=== PATIENT | male | born 1945 | race Caucasian/White ===

== ENCOUNTER 2020-04-18 12:19 | Outpatient (REF) | payer MEDICARE, SELFPAY ==
--- NOTE | 2020-04-18 12:24 | XR_ITS ---
EXAMINATION: XR ANKLE, RIGHT CLINICAL INFORMATION: Pain COMPARISON: None TECHNIQUE: AP, lateral, and mortise views of the right ankle. FINDINGS: Bone alignment is normal. No fracture or dislocation is seen. There are small ossifications adjacent to the medial and lateral malleolar likely related to old trauma. There is a small osteophyte seen at the anterior tibiotalar joint. The ankle mortise is otherwise normal. There are calcaneal spurs. Soft tissues are otherwise normal. XR/XR ankle RT min 3V IMPRESSION: No acute fracture or dislocation. Small osteophyte at the anterior tibiotalar joint. Calcaneal spurs.
== END 2020-04-18 12:20 | disposition home or self-care (01) ==
LOC: HO.XRAY 12:19
PROVIDERS: Visit Provider Internal Medicine
DX: M25.579 Pain in unspecified ankle and joints of unspecified foot (principal)
CPT/HCPCS: 73610

== ENCOUNTER 2023-01-24 10:35 | Day surgery (SDC) | payer OTHER, SELFPAY ==
--- NOTE | 2023-01-22 14:15 | HO.ANESPROP2 ---
Documented by User: Teri Seymour NP 01/22/23 14:38 HPI - Anesthesia Eval Consult details Narrative: 77yo M for Colonoscopy Follows cardiology Dr Kwan at [place] - record request sent 01/22/[address] Rico at [facility] - called for records 01/22/23 [facility] Active Problems Active Problems: All Active Problems (Updated 09/03/21 @ 09:30 by Zacarias Reyes MD) Physical exam (Acute) Hyperlipidemia (Acute) Obesity (Acute) Osteoarthritis (Acute) Hypertension (Acute) Ankle pain (Acute) Past Medical History Medical History (Updated 01/22/23 @ 14:17 by Teri Seymour NP) AAA (abdominal aortic aneurysm) COPD (chronic obstructive pulmonary disease) Hyperlipidemia Hypertension Obesity PATRICIA (obstructive sleep apnea) Osteoarthritis Family History Family History Father Liver problem Mother Brain tumor Brother No problems noted. Brother No problems noted. Family/Other Prostate cancer Brain cancer Surgical History Surgical History (Updated 01/22/23 @ 14:17 by Teri Seymour NP) History of coronary artery stent placement History of inguinal hernia repair Status post left hip replacement Social History Social History Housing: House Alcohol intake: never Patient Tobacco Use Status: Former Tobacco user Tobacco use type: Cigarette e-Cigarette/Vaping Use: Never Used Second Hand Smoke Exposure: No Use of substances other than those prescribed or required for medical reasons: No Advance Directives: No Advance Directives Information Provided: Yes service: Yes Current occupational status: retired Cognitive needs: No Hearing needs: Yes Vision needs: Yes Meds Allergies Allergy/AdvReac Type Severity Reaction Status Date / Time amlodipine AdvReac Intermediate Swelling Verified 01/24/23 11:11 triamterene-hctz Allergy Intermediate Swelling Uncoded 01/24/23 11:14 Home Medications Medication Instructions Recorded Confirmed Last Taken Type aspirin 81 mg tablet,delayed 81 mg PO DAILY 04/18/20 01/24/23 Unknown History release lisinopril 20 mg tablet 20 mg PO DAILY 04/18/20 01/24/23 01/24/23 History metoprolol tartrate 50 mg tablet 50 mg PO DAILY 04/18/20 01/24/23 01/24/23 History pravastatin 40 mg tablet 40 mg PO DAILY 04/18/20 01/24/23 Unknown History Benadryl 01/23/23 Unknown History Exam Exam Date and Time: January 22, 2023 141 Assessment and Plan Assessment Anesthesia Assessment: Chart Reviewed Documented by User: Jon Oleary MD 01/24/23 12:06 [facility] Past Medical History Medical History (Updated 01/22/23 @ 14:17 by Teri Seymour NP) AAA (abdominal aortic aneurysm) COPD (chronic obstructive pulmonary disease) Hyperlipidemia Hypertension Obesity PATRICIA (obstructive sleep apnea) Osteoarthritis Family History Family History Father Liver problem Mother Brain tumor Brother No problems noted. Brother No problems noted. Family/Other Prostate cancer Brain cancer Family history of problems with anesthesia: No Surgical History Surgical History (Updated 01/22/23 @ 14:17 by Teri Seymour NP) History of coronary artery stent placement History of inguinal hernia repair Status post left hip replacement History of Problems with Anesthesia: No Social History Social History Housing: House Alcohol intake: never Patient Tobacco Use Status: Former Tobacco user Tobacco use type: Cigarette e-Cigarette/Vaping Use: Never Used Second Hand Smoke Exposure: No Use of substances other than those prescribed or required for medical reasons: No Advance Directives: No Advance Directives Information Provided: Yes service: Yes Current occupational status: retired Cognitive needs: No Hearing needs: Yes Vision needs: Yes Meds Allergies Allergy/AdvReac Type Severity Reaction Status Date / Time amlodipine AdvReac Intermediate Swelling Verified 01/24/23 11:11 triamterene-hctz Allergy Intermediate Swelling Uncoded 01/24/23 11:14 Home Medications Medication Instructions Recorded Confirmed Last Taken Type aspirin 81 mg tablet,delayed 81 mg PO DAILY 04/18/20 01/24/23 Unknown History release lisinopril 20 mg tablet 20 mg PO DAILY 04/18/20 01/24/23 01/24/23 History metoprolol tartrate 50 mg tablet 50 mg PO DAILY 04/18/20 01/24/23 01/24/23 History pravastatin 40 mg tablet 40 mg PO DAILY 04/18/20 01/24/23 Unknown History Benadryl 01/23/23 Unknown History Exam Airway Mallampati Class: III TM Dist: >3cm Heart: rrr Lungs: cta Assessment and Plan Assessment Anesthesia Assessment: Anesthesia Plan Discussed Final Anesthetic Review Family History of Problems with Anesthesia: No History of Problems with Anesthesia: No NPO: Yes ASA Class: III Final Preanesthetic Review: No Changes in Pt Med Stat, Meds/Allgs Chart Reviewed, Consent Obtained/Reviewed and Anes Risks/Benef Reviewed Patient Risk: Intermediate Procedure Risk: Low Anesthetic Plan Anesthetic Plan: MAC: and Agree w/ Assess. and Plan Disposition: Standard PACU
[2023-01-24 11:16] VITALS: BMI 31.0
[2023-01-24 11:25] VITALS: BP 164/80; PULSE 63; RESP 16; TEMP 36.4; O2SAT 95
--- NOTE | 2023-01-24 11:42 | ECG_ITS ---
Test Reason : hx of stents Blood Pressure : / mmHG Vent. Rate : 054 BPM Atrial Rate : 054 BPM P-R Int : 172 ms QRS Dur : 148 ms QT Int : 494 ms P-R-T Axes : 027 -68 170 degrees QTc Int : 468 ms Sinus bradycardia with Premature atrial complexes Left axis deviation Right bundle branch block Minimal voltage criteria for LVH, may be normal variant ( R in aVL ) T wave abnormality, consider lateral ischemia Abnormal ECG No previous ECGs available Referred By: Janine Ricks Electronically Signed By:CHRISTIANO LIMA
--- NOTE | 2023-01-24 12:49 | PC.NURSE ---
Dr. Oleary reviewed preop EKG that was completed. Dr. Oleary stated okay to proceed.
--- NOTE | 2023-01-24 12:51 | MHC.SHP ---
Pre-Procedural Eval Section A Date of Service: 01/24/23 Section B Chief Complaint: screening Details of Present Illness: see H&P no changes Relevant Family History (Specify if Yes): No Relevant Social History: None Present Medications: see Short Stay Collaborative assessment Medical History: No relevant PMH History of Previous Operations: No relevant previous surgery Allergies: Allergies Allergy/AdvReac Type Severity Reaction Status Date / Time amlodipine AdvReac Intermediate Swelling Verified 01/24/23 11:11 triamterene-hctz Allergy Intermediate Swelling Uncoded 01/24/23 11:14 Review of Systems Sugical H&P ROS: Negative: Constitution, Cardiovascular, Respiratory, Neurological, Psychiatric, Hem-Onc, Allergic/Immunologic, Gastrointestinal, Genitourinary, Musculoskeletal, Integumentary, Endocrine and Eyes/Ears/Nose/Throat Exam Surgical H&P Exam: Normal: HEENT, Normal: Heart, Normal: Lungs, Normal: Extremities, Normal: Abdomen, Normal: Skin and Normal: Neurological Plan Diagnosis/Plan: Unchanged I have reviewed the history and physical and performed a pertinent physical examination on my patient. No changes have occurred unless specified. Time Spent With Patient Time: Total time managing care of this patient today ____ minutes.
[2023-01-24 13:30] VITALS: BP 135/70; PULSE 58; RESP 16; TEMP 36.3; O2SAT 97
--- NOTE | 2023-01-24 13:44 | PM.OP ---
Brief Operative Note Date of Service: 01/24/23 Pre-op diagnosis: screening Post-op diagnosis: same Surgeon: Ziyad Miguel Anesthesia: MAC Was an Labor Relations Officer used for this Procedure?: No Estimated blood loss (mL): 2 Pathology: other Condition: stable Disposition: PACU
--- NOTE | 2023-01-24 22:45 | OP_ITS ---
DATE OF SERVICE: 01/24/2023 SURGEON: Ziyad Miguel MD INDICATIONS: Colon cancer screening and prior history of adenomatous colon polyps. PREOPERATIVE DIAGNOSIS: POSTOPERATIVE DIAGNOSIS: PROCEDURE PERFORMED: Colonoscopy to the terminal ileum with snare polypectomy. ESTIMATED BLOOD LOSS: COMPLICATIONS: ANESTHESIA: Monitored anesthesia care. ASSISTANTS: SPECIMENS: DESCRIPTION OF PROCEDURE: A history and physical was performed. The risks and benefits of the procedure were explained to the patient. Informed consent was obtained. The patient was placed in the left lateral decubitus position. A digital rectal exam was performed and was found to be normal. The Olympus pediatric video colonoscope was introduced into the rectum and advanced to the cecum. The cecum was identified by transillumination, palpation, and identification of the ileocecal valve. Examination was performed. The scope was removed. He tolerated the procedure well and was returned to the recovery area in stable condition. FINDINGS: The terminal ileum was examined and appeared normal. The visualized colonic mucosa was normal. 80 cm from the anal verge was a 6 mm polyp, which was removed with a cold snare and recovered via suction. No other polyps were identified. There was some liquid stool pooling in parts of the colon including the sigmoid, splenic flexure, and cecum. This was washed and suctioned as best possible. Extensive diverticulosis of the sigmoid was noted. Retroflexed examination showed moderate-sized internal hemorrhoids. IMPRESSION: Colon polyp. RECOMMENDATION: Follow up the biopsy results. MD EZRA Krishna/BRYANL / [id number]
== END 2023-01-24 14:08 | disposition home or self-care (01) ==
PROVIDERS: PCP Internal Medicine; Visit Provider Internal Medicine Gastroenterology
PROC: 0DJD8ZZ Inspection of Lower Intestinal Tract, Via Natural or Artificial Opening Endoscopic (ICD-10-PCS; CPT 45378; principal; 2023-01-24 11:50)
DX: Z12.11 Encounter for screening for malignant neoplasm of colon (principal); D12.4 Benign neoplasm of descending colon; K57.30 Diverticulosis of large intestine without perforation or abscess without bleeding; Z86.010 Personal history of colon polyps; I10 Essential (primary) hypertension; E78.5 Hyperlipidemia, unspecified; G47.33 Obstructive sleep apnea (adult) (pediatric); I71.40 Abdominal aortic aneurysm, without rupture, unspecified; J44.9 Chronic obstructive pulmonary disease, unspecified; Z79.82 Long term (current) use of aspirin; Z79.899 Other long term (current) drug therapy
CPT/HCPCS: 45385; 88305; 93005

== ENCOUNTER 2023-02-24 12:44 | Outpatient (AMB) | payer MEDICARE, SELFPAY ==
--- NOTE | 2023-02-24 12:45 | A.OFFPC_ITS ---
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: Not Required per policy Accompanied by: Self / Same As Patient Allergies amlodipine Adverse Reaction (Intermediate, Verified 02/24/23 12:47) Swelling triamterene-hctz Allergy (Intermediate, Uncoded 02/24/23 12:47) Swelling Medication List - Last Reconciled 02/24/23 by Zacarias Reyes MD aspirin 81 mg PO DAILY [Benadryl ] hydrochlorothiazide 25 mg PO DAILY lisinopril 20 mg PO DAILY metoprolol tartrate 50 mg PO DAILY pravastatin 40 mg PO DAILY Tobacco use date assessed: 02/24/23 Fall risk assessment: No Falls in past year Last assessed Fall Risk: 02/24/23 Dental Screening Dental Screen Date: 02/24/23 Did you have a dental visit in the last 12 months?: Yes Did you have a dental problem in the last 6 months where you did not have access to dental care?: No Was dental information given to patient?: Patient has dentist HPI Physical Exam HPI Details HTN and hyperlipidemia; stable on rx PFSH Medical History COPD (chronic obstructive pulmonary disease) AAA (abdominal aortic aneurysm) PATRICIA (obstructive sleep apnea) Hyperlipidemia Obesity Osteoarthritis Hypertension Surgical History Status post left hip replacement History of coronary artery stent placement History of inguinal hernia repair Family History Father Liver problem Mother Brain tumor Brother No problems noted. Brother No problems noted. Family/Other Prostate cancer Brain cancer Social History Housing: House Alcohol intake: never Patient Tobacco Use Status: Former Tobacco user Tobacco use type: Cigarette e-Cigarette/Vaping Use: Never Used Second Hand Smoke Exposure: No service: Yes Current occupational status: retired Cognitive needs: No Hearing needs: Yes Vision needs: Yes Questionnaire PHQ-9 Over the last 2 weeks, how often have you been bothered by any of the following problems? 1. Little interest or pleasure in doing things: not at all 2. Feeling down, depressed, or hopeless: not at all 3. Trouble falling or staying asleep, or sleeping too much: not at all 4. Feeling tired or having little energy: not at all 5. Poor appetite or overeating: not at all 6. Feeling bad about yourself - or that you are a failure or have let yourself or your family down: not at all 7. Trouble concentrating on things, such as reading the newspaper or watching television: not at all 8. Moving or speaking so slowly that other people could have noticed. Or the opposite - being so fidgety or restless that you have been moving around a lot more than usual: not at all 9. Thoughts that you would be better off or of hurting yourself in some way: not at all Total score: 0 Depression Screening Interpretation: Negative 45458 - PHQ-9 Billing: Yes Source: Developed by Drs. Hemant Brown, Haley Salmeron, Kenan Arshad and colleagues, with an educational eliot from [employer]. Thrive Questionnaire Date Thrive assessed: 02/24/23 I am a: Patient What is your living situation today?: I have a steady place to live Within the past 12 months, did the food you bought not last and you didn't have the money to get more?: Never true Within the past 12 months, did you worry whether your food would run out before you got money to buy more?: Never true Do you have trouble paying for medicines?: No Do you have trouble getting transportation to medical appointments?: No Do you have trouble paying your heating and electricity bill?: No Do you have trouble taking care of your child, family member or friend?: No Do you have trouble with day-to-day activities such as bathing, preparing meals, shopping, managing finances, etc.?: No Are you currently unemployed and looking for a job?: No Are you interested in more education?: No Please select the resources that you would like help with: None AUDIT C Alcohol Use Questionnaire (AUDIT-C) Score Reviewed/Action Taken: Yes PANKAJ-7 AMB Questionnaire PANKAJ-7 Date PANKAJ - 7 assessed: 02/24/23 Feeling nervous, anxious, or on edge: 0 = Not at all Not being able to stop or control worryin = Not at all Worrying too much about different things: 0 = Not at all Trouble relaxin = Not at all Being so restless that it is hard to sit still: 0 = Not at all Becoming easily annoyed or irritable: 0 = Not at all Feeling afraid as if something awful might happen: 0 = Not at all Total PANKAJ-7 score (0-4 normal; 5-9 mild; 10-14 moderate; 15-21 severe): 0 Source: Developed by Drs. Hemant Brown, Haley Salmeron, Kenan Arshad and colleagues, with an educational eliot from [employer]. PANKAJ-7 Assessment Billing PANKAJ-7 Assessment Tool: PANKAJ-7 Assessment 95013 Review of Systems Const Denies chills, Denies fatigue, Denies headache(s) and Denies weight loss Eyes Denies change in vision, Denies diplopia and Denies eye pain ENT Denies vertigo, Denies dizziness, Denies headache(s) and Denies nasal discharge Card Denies chest pain, Denies rapid heart rate and Denies dyspnea on exertion Resp Denies chest congestion, Denies cough, Denies pain with cough and Denies dyspnea on exertion GI Denies abdominal pain, Denies hematochezia and Denies change in bowel habits Musc Denies myalgias, Denies arthralgias and Denies joint swelling Skin/Breast Denies lesions and Denies unusual bruising Neuro Denies vertigo, Denies dizziness, Denies headache(s) and Denies focal weakness Endo Denies fatigue Physical exam (Primary Care) Vital Signs: Last Vital Signs Pulse 60 02/24/23 12:46 BP 132/58 L 02/24/23 12:46 Pulse Ox 94 02/24/23 12:46 Oxygen Delivery Method Room Air 02/24/23 12:46 BMI result Body Mass Index 31.7 Tobacco/Smoking Status: Tobacco use Status Tobacco use date assessed 02/24/23 02/24/23 12:52 Patient Tobacco Use Status Former Tobacco user 02/24/23 12:52 Tobacco use type Cigarette 02/24/23 12:52 e-Cigarette/Vaping Use Never Used 02/24/23 12:52 PHQ-9: PHQ-9 Score PHQ-9: Total score 0 02/24/23 12:58 Depression Screening Interpretation: Negative Thrive Assessment: Date of Thrive Assessment Date Thrive assessed 02/24/23 02/24/23 12:52 Advance Care Planning discussion: On file, no changes Forms completed: Health Care Proxy Const General: cooperative, healthy appearing and no acute distress Orientation/consciousness: oriented to person, oriented to place and oriented to time HENNH Head: Yes normal to inspection, Yes normocephalic and Yes atraumatic Mouth: Normal oral and palatal mucosa present and tongue normal Throat: Yes posterior oropharynx normal and Yes uvula midline Eyes General: appearance normal, both eyes and all related structures Neck Neck: Yes normal visual inspection, Yes full ROM and Yes no lymphadenopathy Thyroid: Thyroid normal Carotids: normal carotid upstroke Chest Chest palpation & inspection: normal inspection of the chest Resp Effort & Inspection: normal respiratory effort and able to speak in complete sentences Auscultation: clear to auscultation bilaterally Cardio Jugular venous distension: no JVD Palpation: normal PMI Rate: regular rate Rhythm: regular rhythm Heart sounds: S1 normal heart sound present and S2 normal heart sound present GI Inspection: Yes normal to inspection Palpation (GI): Soft to palpation and No hepatosplenomegaly present Auscultation: normal bowel sounds General: Yes no CVA tenderness Back/Spine/Pelvis Back: no CVA tenderness Skin General skin exam: no rashes or lesions noted Neuro General: oriented to person, oriented to place and oriented to time Extrem General: Yes normal to inspection and Yes full ROM Office Procedures Flu Questionnaire Does the patient have a severe egg allergy?: No Does the patient have severe life threatening allergies?: No Does the patient have a fever or illness today?: No Has the patient ever had Guillain-[place] Syndrome?: No Has the patient ever had any past reaction to a flu shot?: No Immunizations flu vacc [id number] 6mos up(PF) 60 mcg(15 mcgx4)/0.5 mL IM syringe Performing Provider: Zacarias Reyes MD Performing Location: [facility] Administered by: MIKE Bonner on 02/24/23 12:57 Dose Route Admin Location Dispensed Lot Number Expiration Date NDC Wrapper Hands Sprayer 0.5 mL IM Left Deltoid 0.5 mL [id number] 11/23/23 98914-669-12 [employer] VIS Given Date VIS Provided VIS Publication Date 02/24/23 Single Vaccine 20 Eligibility Eligibility Date Funding Source Not [facility] Eligible 02/24/23 Private Assessment and Plan Assessment & Plan (1) Physical exam: Code(s): Z00.00 - Encounter for general adult medical examination without abnormal findi ngs Plan: stable; do labs (2) Hyperlipidemia: Code(s): E78.5 - Hyperlipidemia, unspecified Plan: stable; same rx (3) Hypertension: Code(s): I10 - Essential (primary) hypertension Plan: stable; same rx Orders: Orders Influenza [id number] Immunization Today Z23 - Encounter for immunization Complete Blood Count Auto Diff Today D64.9 - Anemia, unspecified Lipid Panel Today E78.5 - Hyperlipidemia, unspecified Comprehensive [place]. Panel Fast Today N28.9 - Disorder of kidney and ureter, unspecified Medications: Refilled hydrochlorothiazide 25 mg PO DAILY 30 tabs 11RF Coding Level of Care Code Est Pt Prev Care >65y(69808) Diagnoses Physical exam Z00.00 Hyperlipidemia E78.5 Hypertension I10 Additional Codes PANKAJ-7 Assessment Billing - PANKAJ-7 Assessment Tool: PANKAJ-7 Assessment 80634 ([id number]) Vital Signs *Quality* - Advance Care Planning discussion: On file, no changes ([id number])
[2023-02-24 12:46] VITALS: BP 132/58; PULSE 60; O2SAT 94; BMI 31.7
== END 2023-02-24 13:09 | disposition home or self-care (01) ==
PROVIDERS: PCP Internal Medicine; Visit Provider Internal Medicine
DX: Z00.00 Encounter for general adult medical examination without abnormal findings (principal); E78.5 Hyperlipidemia, unspecified; I10 Essential (primary) hypertension; Z23 Encounter for immunization
CPT/HCPCS: 1123F; 90471; 90686; 99397

== ENCOUNTER 2023-02-25 08:10 | Outpatient (REF) | payer MEDICARE, SELFPAY ==
[2023-02-25 08:38] LABS: MANUAL DIFF FLAG NO
[2023-02-25 09:25] LABS: Basophils Absolute Auto 0.1 X10*3/uL (0.0-0.2); Basophils Percent Auto 1.4 % (0-2); Eosinophils Absolute Auto 0.2 X10*3/uL (0.0-0.4); Eosinophils Percent Auto 3.2 % (0-4); Hematocrit 43.9 % (42.0-52.0); Hemoglobin 14.4 g/dl (14.0-18.0); Imm Gran Abs Auto 0.02 X10*3/uL (0.00-0.03); Imm Gran Pct Auto 0.3 % (0.0-0.4); Lymphocytes Absolute Auto 1.3 X10*3/uL (1.2-4.9); Lymphocytes Percent Auto 19.1 % (20-40); Mean Corpuscular HGB Conc 32.8 g/dl (31.0-36.0); Mean Corpuscular Hemoglobin 30.6 pg (27.0-33.0); Mean Corpuscular Volume 93.2 fL (80.0-98.0); Monocytes Absolute Auto 0.6 X10*3/uL (0.1-1.2); Monocytes Percent Auto 8.6 % (2-11); Neutrophils Absolute Auto 4.4 x10*3/uL (2.0-8.3); Neutrophils Percent Auto 67.4 % (45-73); Platelet Count 176 X10*3/uL (160-400); Red Blood Count 4.71 X10*6/uL (4.60-5.80); Red Cell Distribution Width 14.3 % (11.0-16.0); White Blood Count 6.5 X10*3/uL (4.8-10.8)
[2023-02-25 09:46] LABS: Alanine Aminotransferase 13 U/L (0-40); Albumin Level 4.2 g/dL (3.5-5.0); Alkaline Phosphatase 45 U/L (39-117); Anion Gap 10 (12-20); Aspartate Amino Transferase 21 U/L (5-37); Bilirubin Total 0.7 mg/dL (0.0-1.0); Blood Urea Nitrogen 18 mg/dL (9-16); Calcium 9.1 mg/dL (8.4-10.2); Carbon Dioxide 24 mmol/L (22-29); Chloride 109 mmol/L (96-108); Cholesterol 153 mg/dL (<200); Estimated Glomerular Filt Rate > 60; Glucose Fasting 91 mg/dL (60-99); HDL Cholesterol 38 mg/dL (>40); LDL Cholesterol Calculated 99 mg/dL (<100); Sodium 139 mmol/L (135-145); Total Protein 7.1 g/dL (6.5-8.0); Triglycerides 83 mg/dL (<150)
== END 2023-02-25 08:11 | disposition home or self-care (01) ==
LOC: HO.LAB 08:10
PROVIDERS: PCP Internal Medicine; Visit Provider Internal Medicine
DX: D64.9 Anemia, unspecified (principal); N28.9 Disorder of kidney and ureter, unspecified; E78.5 Hyperlipidemia, unspecified
CPT/HCPCS: 36415; 80053; 80061; 85025

== ENCOUNTER 2023-06-27 08:13 | Outpatient (AMB) | payer MEDICARE, SELFPAY ==
[2023-06-27 08:35] VITALS: BP 138/70; PULSE 51; O2SAT 97; BMI 32.1
--- NOTE | 2023-06-27 08:35 | MHC.PC.OV ---
Vital Signs 06/27/23 08:35 Height 6 ft 1 in Weight 243 lb BMI 32.1 BP 138/70 Blood Pressure Location Lt brachial Position Sitting Pulse 51 Pulse Source Pulse Oximeter Pulse Oximetry (%) 97 Oxygen Delivery Method Room Air Intake Visit Reasons: 3M. F/U-BP Intake Note: Patient is here to follow up on 3months-BP Allergies amlodipine Adverse Reaction (Intermediate, Verified 06/27/23 08:36) Swelling triamterene-hctz Allergy (Intermediate, Uncoded 06/27/23 08:36) Swelling Medication List - Last Reconciled 06/27/23 by Zacarias Reyes MD aspirin 81 mg PO DAILY [Benadryl ] hydrochlorothiazide 25 mg PO DAILY lisinopril 20 mg PO DAILY metoprolol tartrate 50 mg PO DAILY pravastatin 40 mg PO DAILY Tobacco use date assessed: 06/27/23 Fall risk assessment: No Falls in past year Last assessed Fall Risk: 06/27/23 Dental Screening Dental Screen Date: 06/27/23 HPI 3M. F/U-BP HPI Details HTN on Rx; doing well and compliant [facility] Medical History COPD (chronic obstructive pulmonary disease) AAA (abdominal aortic aneurysm) PATRICIA (obstructive sleep apnea) Hyperlipidemia Obesity Osteoarthritis Hypertension Surgical History Status post left hip replacement History of coronary artery stent placement History of inguinal hernia repair Family History Father Liver problem Mother Brain tumor Brother No problems noted. Brother No problems noted. Family/Other Prostate cancer Brain cancer Social History Housing: House Alcohol intake: never Patient Tobacco Use Status: Former Tobacco user Tobacco use type: Cigarette e-Cigarette/Vaping Use: Never Used Second Hand Smoke Exposure: No service: Yes Current occupational status: retired Cognitive needs: No Hearing needs: Yes Vision needs: Yes Questionnaire Thrive Questionnaire Date Thrive assessed: 06/27/23 AUDIT C Alcohol Use Questionnaire (AUDIT-C) Score Reviewed/Action Taken: Yes PANKAJ-7 AMB Questionnaire PANKAJ-7 Date PANKAJ - 7 assessed: 06/27/23 Source: Developed by Drs. Hemant Brown, Haley Salmeron, Kenan Arshad and colleagues, with an educational eliot from [employer] (formerly [employer]). Review of Systems Const Denies chills, Denies headache(s) and Denies weight loss ENT Denies headache(s) Card Denies chest pain, Denies syncope, Denies irregular heart rhythm and Denies dyspnea Resp Denies chest congestion, Denies cough and Denies dyspnea GI Denies abdominal pain, Denies change in stool character, Denies nausea and Denies vomiting Musc Denies deformity and Denies joint swelling Neuro Denies syncope and Denies headache(s) Physical exam (Primary Care) Vital Signs: Last Vital Signs Pulse 51 06/27/23 08:35 BP 138/70 06/27/23 08:35 Pulse Ox 97 06/27/23 08:35 Oxygen Delivery Method Room Air 06/27/23 08:35 BMI result Body Mass Index 32.1 Tobacco/Smoking Status: Tobacco use Status Tobacco use date assessed 06/27/23 06/27/23 08:40 Patient Tobacco Use Status Former Tobacco user 06/27/23 08:40 Tobacco use type Cigarette 06/27/23 08:40 e-Cigarette/Vaping Use Never Used 06/27/23 08:40 Thrive Assessment: Date of Thrive Assessment Date Thrive assessed 06/27/23 06/27/23 08:40 Const General: cooperative, comfortable, no acute distress and alert Neck Neck: Yes no lymphadenopathy Thyroid: Thyroid normal Resp Effort & Inspection: normal respiratory effort Auscultation: clear to auscultation bilaterally Percussion: percussion normal Cardio Jugular venous distension: no JVD Palpation: normal PMI Rate: regular rate Rhythm: regular rhythm Heart sounds: S1 normal heart sound present and S2 normal heart sound present GI Inspection: Yes normal to inspection Palpation (GI): No hepatosplenomegaly present Skin General skin exam: no rashes or lesions noted Extrem General: Yes no clubbing, cyanosis or edema Assessment and Plan Assessment & Plan (1) Hypertension: Code(s): I10 - Essential (primary) hypertension Plan: stable; same rx; do labs Orders: Orders Lipid Panel Today E78.5 - Hyperlipidemia, unspecified Complete Blood Count Auto Diff Today D64.9 - Anemia, unspecified Comprehensive [place]. Panel Fast Today N28.9 - Disorder of kidney and ureter, unspecified Coding Level of Care Code Est Pt Level 3 (14377) Diagnoses Hypertension I10
== END 2023-06-27 08:52 | disposition home or self-care (01) ==
PROVIDERS: PCP Internal Medicine; Visit Provider Internal Medicine
DX: I10 Essential (primary) hypertension (principal)
CPT/HCPCS: 99213

== ENCOUNTER 2023-09-23 07:21 | Outpatient (REF) | payer MEDICARE, SELFPAY ==
[2023-09-23 10:24] LABS: MANUAL DIFF FLAG NO
[2023-09-23 10:37] LABS: Basophils Absolute Auto 0.1 X10*3/uL (0.0-0.2); Basophils Percent Auto 0.8 % (0-2); Eosinophils Absolute Auto 0.2 X10*3/uL (0.0-0.4); Eosinophils Percent Auto 3.2 % (0-4); Hematocrit 45.8 % (42.0-52.0); Imm Gran Abs Auto 0.02 X10*3/uL (0.00-0.03); Imm Gran Pct Auto 0.3 % (0.0-0.4); Lymphocytes Absolute Auto 1.9 X10*3/uL (1.2-4.9); Lymphocytes Percent Auto 29.2 % (20-40); Mean Corpuscular HGB Conc 32.8 g/dl (31.0-36.0); Mean Corpuscular Hemoglobin 31.1 pg (27.0-33.0); Mean Platelet Volume 10.9 fL (9.4-12.4); Monocytes Absolute Auto 0.6 X10*3/uL (0.1-1.2); Monocytes Percent Auto 9.4 % (2-11); Neutrophils Absolute Auto 3.7 x10*3/uL (2.0-8.3); Neutrophils Percent Auto 57.1 % (45-73); Platelet Count 180 X10*3/uL (160-400); Red Blood Count 4.82 X10*6/uL (4.60-5.80); Red Cell Distribution Width 14.1 % (11.0-16.0); White Blood Count 6.5 X10*3/uL (4.8-10.8)
[2023-09-23 10:51] LABS: Alanine Aminotransferase 28 U/L (0-40); Albumin Level 4.3 g/dL (3.5-5.0); Alkaline Phosphatase 46 U/L (39-117); Anion Gap 14 (12-20); Aspartate Amino Transferase 32 U/L (5-37); Bilirubin Total 0.5 mg/dL (0.0-1.0); Blood Urea Nitrogen 20 mg/dL (9-16); Calcium 9.7 mg/dL (8.4-10.2); Carbon Dioxide 24 mmol/L (22-29); Chloride 105 mmol/L (96-108); Cholesterol 145 mg/dL (<200); Estimated Glomerular Filt Rate > 60; Glucose Fasting 101 mg/dL (60-99); HDL Cholesterol 39 mg/dL (>40); LDL Cholesterol Calculated 85 mg/dL (<100); Potassium 4.3 mmol/L (3.3-5.1); Sodium 139 mmol/L (135-145); Total Protein 7.3 g/dL (6.5-8.0); Triglycerides 107 mg/dL (<150)
== END 2023-09-23 07:22 | disposition home or self-care (01) ==
LOC: HO.HMGCLDS 07:21
PROVIDERS: PCP Internal Medicine; Visit Provider Internal Medicine
DX: N28.9 Disorder of kidney and ureter, unspecified (principal); E78.5 Hyperlipidemia, unspecified; D64.9 Anemia, unspecified
CPT/HCPCS: 36415; 80053; 80061; 85025

== ENCOUNTER 2023-09-26 09:36 | Outpatient (AMB) | payer MEDICARE, SELFPAY ==
[2023-09-26 09:37] VITALS: BP 136/82; PULSE 56; O2SAT 93; BMI 32.3
--- NOTE | 2023-09-26 09:37 | MHC.PC.OV ---
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 Required: No Allergies amlodipine Adverse Reaction (Intermediate, Verified 09/26/23 09:38) Swelling triamterene-hctz Allergy (Intermediate, Uncoded 09/26/23 09:38) Swelling Medication List - Last Reconciled 09/26/23 by Zacarias Reyes MD aspirin 81 mg PO DAILY [Benadryl ] hydrochlorothiazide 25 mg PO DAILY lisinopril 20 mg PO DAILY metoprolol tartrate 50 mg PO DAILY pravastatin 40 mg PO DAILY Tobacco use date assessed: 09/26/23 Dental Screening Dental Screen Date: 06/27/23 HPI 3mth f/u HPI Details HTN on Rx; doing well and compliant [facility] Medical History COPD (chronic obstructive pulmonary disease) AAA (abdominal aortic aneurysm) PATRICIA (obstructive sleep apnea) Hyperlipidemia Obesity Osteoarthritis Hypertension Surgical History Status post left hip replacement History of coronary artery stent placement History of inguinal hernia repair Family History Father Liver problem Mother Brain tumor Brother No problems noted. Brother No problems noted. Family/Other Prostate cancer Brain cancer Social History Housing: House Alcohol intake: never Patient Tobacco Use Status: Former Tobacco user Tobacco use type: Cigarette e-Cigarette/Vaping Use: Never Used Second Hand Smoke Exposure: No service: Yes Current occupational status: retired Cognitive needs: No Hearing needs: Yes Vision needs: Yes Questionnaire Thrive Questionnaire Date Thrive assessed: 06/27/23 AUDIT C Alcohol Use Questionnaire (AUDIT-C) 1. How often do you have a drink containing alcohol?: Never 3. How often do you have six or more drinks on one occasion?: Never Total Score: 0 Score Reviewed/Action Taken: Yes PANKAJ-7 AMB Questionnaire PANKAJ-7 Date PANKAJ - 7 assessed: 06/27/23 Source: Developed by Drs. Hemant Brown, Haley Salmeron, Kenan Arshad and colleagues, with an educational eliot from [employer]. Review of Systems Const Denies chills, Denies headache(s) and Denies weight loss ENT Denies headache(s) Card Denies chest pain, Denies syncope, Denies irregular heart rhythm and Denies dyspnea Resp Denies chest congestion, Denies cough and Denies dyspnea GI Denies abdominal pain, Denies change in stool character, Denies nausea and Denies vomiting Musc Denies deformity and Denies joint swelling Neuro Denies syncope and Denies headache(s) Physical exam (Primary Care) Vital Signs: Last Vital Signs Pulse 56 09/26/23 09:37 BP 136/82 09/26/23 09:37 Pulse Ox 93 09/26/23 09:37 Oxygen Delivery Method Room Air 09/26/23 09:37 BMI result Body Mass Index 32.3 Tobacco/Smoking Status: Tobacco use Status Tobacco use date assessed 09/26/23 09/26/23 09:42 Patient Tobacco Use Status Former Tobacco user 09/26/23 09:37 Tobacco use type Cigarette 09/26/23 09:37 e-Cigarette/Vaping Use Never Used 09/26/23 09:37 Thrive Assessment: Date of Thrive Assessment Date Thrive assessed 06/27/23 09/26/23 09:37 Const General: cooperative, comfortable, no acute distress and alert Neck Neck: Yes no lymphadenopathy Thyroid: Thyroid normal Resp Effort & Inspection: normal respiratory effort Auscultation: clear to auscultation bilaterally Percussion: percussion normal Cardio Jugular venous distension: no JVD Palpation: normal PMI Rate: regular rate Rhythm: regular rhythm Heart sounds: S1 normal heart sound present and S2 normal heart sound present GI Inspection: Yes normal to inspection Palpation (GI): No hepatosplenomegaly present Skin General skin exam: no rashes or lesions noted Extrem General: Yes no clubbing, cyanosis or edema Assessment and Plan Assessment & Plan (1) Hypertension: Code(s): I10 - Essential (primary) hypertension Plan: stable; same rx Coding Level of Care Code Est Pt Level 3 (94427) Diagnoses Hypertension I10
== END 2023-09-26 09:52 | disposition home or self-care (01) ==
PROVIDERS: PCP Internal Medicine; Visit Provider Internal Medicine
DX: I10 Essential (primary) hypertension (principal)
CPT/HCPCS: 99213

== ENCOUNTER 2024-01-05 08:22 | Outpatient (AMB) | payer MEDICARE, SELFPAY ==
[2024-01-05 08:25] VITALS: BP 144/78; PULSE 75; O2SAT 97; BMI 31.7
--- NOTE | 2024-01-05 08:25 | A.OFFPC_ITS ---
Vital Signs 01/05/24 08:25 Height 6 ft 1 in Weight 240 lb BMI 31.7 BP 144/78 H Blood Pressure Location Lt brachial Position Sitting Pulse 75 Pulse Source Pulse Oximeter Pulse Oximetry (%) 97 Oxygen Delivery Method Room Air Intake Visit Reasons: 3 Month F/U Allergies amlodipine Adverse Reaction (Intermediate, Verified 01/05/24 08:26) Swelling triamterene-hctz Allergy (Intermediate, Uncoded 01/05/24 08:26) Swelling Medication List - Last Reconciled 01/05/24 by Zacarias Reyes MD aspirin 81 mg PO DAILY [Benadryl ] hydrochlorothiazide 25 mg PO DAILY lisinopril 20 mg PO DAILY metoprolol tartrate 50 mg PO DAILY pravastatin 40 mg PO DAILY Tobacco use date assessed: 09/26/23 Fall risk assessment: No Falls in past year Last assessed Fall Risk: 01/05/24 Dental Screening Dental Screen Date: 06/27/23 HPI 3 Month F/U HPI Details HTN on Rx; doing well; compliant [facility] Medical History COPD (chronic obstructive pulmonary disease) AAA (abdominal aortic aneurysm) PATRICIA (obstructive sleep apnea) Hyperlipidemia Obesity Osteoarthritis Hypertension Surgical History Status post left hip replacement History of coronary artery stent placement History of inguinal hernia repair Family History Father Liver problem Mother Brain tumor Brother No problems noted. Brother No problems noted. Family/Other Prostate cancer Brain cancer Social History Housing: House Alcohol intake: never Patient Tobacco Use Status: Former Tobacco user Tobacco use type: Cigarette e-Cigarette/Vaping Use: Never Used Second Hand Smoke Exposure: No service: Yes Current occupational status: retired Cognitive needs: No Hearing needs: Yes Vision needs: Yes Questionnaire PHQ-9 Over the last 2 weeks, how often have you been bothered by any of the following problems? 1. Little interest or pleasure in doing things: not at all 2. Feeling down, depressed, or hopeless: not at all 3. Trouble falling or staying asleep, or sleeping too much: not at all 4. Feeling tired or having little energy: not at all 5. Poor appetite or overeating: not at all 6. Feeling bad about yourself - or that you are a failure or have let yourself or your family down: not at all 7. Trouble concentrating on things, such as reading the newspaper or watching television: not at all 8. Moving or speaking so slowly that other people could have noticed. Or the opposite - being so fidgety or restless that you have been moving around a lot more than usual: not at all 9. Thoughts that you would be better off or of hurting yourself in some way: not at all Total score: 0 Depression Screening Interpretation: Negative Depression Screening Done: Yes 06814 - PHQ-9 Billing: Yes Source: Developed by Drs. Hemant Brown, Haley Salmeron, Kenan Arshad and colleagues, with an educational eliot from [employer]. Thrive Questionnaire Date Thrive assessed: 06/27/23 AUDIT C Alcohol Use Questionnaire (AUDIT-C) 1. How often do you have a drink containing alcohol?: Never 3. How often do you have six or more drinks on one occasion?: Never Total Score: 0 Score Reviewed/Action Taken: Yes PANKAJ-7 AMB Questionnaire PANKAJ-7 Date PANKAJ - 7 assessed: 06/27/23 Source: Developed by Drs. Hemant Brown, Haley Salmeron, Kenan Arshad and colleagues, with an educational eliot from [employer]. Review of Systems Const Denies chills, Denies headache(s) and Denies weight loss ENT Denies headache(s) Card Denies chest pain, Denies syncope, Denies irregular heart rhythm and Denies dyspnea Resp Denies chest congestion, Denies cough and Denies dyspnea GI Denies abdominal pain, Denies change in stool character, Denies nausea and Denies vomiting Musc Denies deformity and Denies joint swelling Neuro Denies syncope and Denies headache(s) Physical exam (Primary Care) Vital Signs: Last Vital Signs Pulse 75 01/05/24 08:25 BP 144/78 H 01/05/24 08:25 Pulse Ox 97 01/05/24 08:25 Oxygen Delivery Method Room Air 01/05/24 08:25 BMI result Body Mass Index 31.7 Tobacco/Smoking Status: Tobacco use Status Tobacco use date assessed 09/26/23 01/05/24 08:37 Patient Tobacco Use Status Former Tobacco user 01/05/24 08:37 Tobacco use type Cigarette 01/05/24 08:37 e-Cigarette/Vaping Use Never Used 01/05/24 08:37 PHQ-9: PHQ-9 Score PHQ-9: Total score 0 01/05/24 08:37 Depression Screening Interpretation: Negative Thrive Assessment: Date of Thrive Assessment Date Thrive assessed 06/27/23 01/05/24 08:37 Const General: cooperative, comfortable, no acute distress and alert Neck Neck: Yes no lymphadenopathy Thyroid: Thyroid normal Resp Effort & Inspection: normal respiratory effort Auscultation: clear to auscultation bilaterally Percussion: percussion normal Cardio Jugular venous distension: no JVD Palpation: normal PMI Rate: regular rate Rhythm: regular rhythm Heart sounds: S1 normal heart sound present and S2 normal heart sound present GI Inspection: Yes normal to inspection Palpation (GI): No hepatosplenomegaly present Skin General skin exam: no rashes or lesions noted Extrem General: Yes no clubbing, cyanosis or edema Assessment and Plan Assessment & Plan (1) Hypertension: Code(s): I10 - Essential (primary) hypertension Plan: stable; same rx Coding Level of Care Code Est Pt Level 3 (75216) Diagnoses Hypertension I10
== END 2024-01-05 08:55 | disposition home or self-care (01) ==
PROVIDERS: PCP Internal Medicine; Visit Provider Internal Medicine
DX: I10 Essential (primary) hypertension (principal)
CPT/HCPCS: 99213

== ENCOUNTER 2024-04-07 08:32 | Outpatient (AMB) | payer MEDICARE, SELFPAY ==
--- NOTE | 2024-04-07 08:40 | A.OFFPC_ITS ---
Vital Signs 04/07/24 08:41 Height 6 ft 1 in Weight 242 lb BMI 31.9 BP 146/78 H Blood Pressure Location Lt brachial Position Sitting Pulse 53 Pulse Source Pulse Oximeter Pulse Oximetry (%) 91 L Oxygen Delivery Method Room Air Intake Visit Reasons: 3mth f/u Seasoning Mixer Required: No Accompanied by: Self / Same As Patient Allergies amlodipine Adverse Reaction (Intermediate, Verified 04/07/24 08:42) Swelling triamterene-hctz Allergy (Intermediate, Uncoded 04/07/24 08:42) Swelling Medication List - Last Reconciled 04/07/24 by Zacarias Reyes MD aspirin 81 mg PO DAILY [Benadryl ] hydrochlorothiazide 25 mg PO DAILY lisinopril 20 mg PO DAILY metoprolol tartrate 50 mg PO DAILY pravastatin 40 mg PO DAILY Tobacco use date assessed: 09/26/23 Fall risk assessment: No Falls in past year Last assessed Fall Risk: 04/07/24 Dental Screening Dental Screen Date: 06/27/23 HPI 3mth f/u HPI Details HTN on Rx; doing well; compliant [facility] Medical History COPD (chronic obstructive pulmonary disease) AAA (abdominal aortic aneurysm) PATRICIA (obstructive sleep apnea) Hyperlipidemia Obesity Osteoarthritis Hypertension Surgical History Status post left hip replacement History of coronary artery stent placement History of inguinal hernia repair Family History Father Liver problem Mother Brain tumor Brother No problems noted. Brother No problems noted. Family/Other Prostate cancer Brain cancer Social History Housing: House Alcohol intake: never Patient Tobacco Use Status: Former Tobacco user Tobacco use type: Cigarette e-Cigarette/Vaping Use: Never Used Second Hand Smoke Exposure: No service: Yes Current occupational status: retired Cognitive needs: No Hearing needs: Yes Vision needs: Yes Questionnaire Thrive Questionnaire Date Thrive assessed: 06/27/23 AUDIT C Alcohol Use Questionnaire (AUDIT-C) 2. How many drinks containing alcohol do you have on a typical day when you are drinking?: 1 or 2 3. How often do you have six or more drinks on one occasion?: Never Total Score: 0 PANKAJ-7 AMB Questionnaire PANKAJ-7 Date PANKAJ - 7 assessed: 06/27/23 Source: Developed by Drs. Hemant Brown, Haley Salmeron, Kenan Arshad and colleagues, with an educational eliot from [employer]. Review of Systems Const Denies chills, Denies headache(s) and Denies weight loss ENT Denies headache(s) Card Denies chest pain, Denies syncope, Denies irregular heart rhythm and Denies dyspnea Resp Denies chest congestion, Denies cough and Denies dyspnea GI Denies abdominal pain, Denies change in stool character, Denies nausea and Denies vomiting Musc Denies deformity and Denies joint swelling Neuro Denies syncope and Denies headache(s) Physical exam (Primary Care) Vital Signs: Last Vital Signs Pulse 53 04/07/24 08:41 BP 146/78 H 04/07/24 08:41 Pulse Ox 91 L 04/07/24 08:41 Oxygen Delivery Method Room Air 04/07/24 08:41 BMI result Body Mass Index 31.9 Tobacco/Smoking Status: Tobacco use Status Tobacco use date assessed 09/26/23 04/07/24 08:45 Patient Tobacco Use Status Former Tobacco user 04/07/24 08:45 Tobacco use type Cigarette 04/07/24 08:45 e-Cigarette/Vaping Use Never Used 04/07/24 08:45 Thrive Assessment: Date of Thrive Assessment Date Thrive assessed 06/27/23 04/07/24 08:45 Const General: cooperative, comfortable, no acute distress and alert Neck Neck: Yes no lymphadenopathy Thyroid: Thyroid normal Resp Effort & Inspection: normal respiratory effort Auscultation: clear to auscultation bilaterally Percussion: percussion normal Cardio Jugular venous distension: no JVD Palpation: normal PMI Rate: regular rate Rhythm: regular rhythm Heart sounds: S1 normal heart sound present and S2 normal heart sound present GI Inspection: Yes normal to inspection Palpation (GI): No hepatosplenomegaly present Skin General skin exam: no rashes or lesions noted Extrem General: Yes no clubbing, cyanosis or edema Coding Level of Care Code Est Pt Level 3 (52941) Diagnoses Hypertension I10 Assessment & Plan Assessment & Plan (1) Hypertension: Code(s): I10 - Essential (primary) hypertension Category: Medical Plan: stable; same rx Orders: Orders Comprehensive [place]. Panel Fast Today Z13.9 - Encounter for screening, unspecified Complete Blood Count Auto Diff Today Z13.0 - Encounter for screening for diseases of the blood and blood-forming organs and certain disorders involving the immune mechanism Lipid Panel Today Z13.220 - Encounter for screening for lipoid disorders Referrals Dermatology Referral R22.9 - Localized swelling, mass and lump, unspecified
[2024-04-07 08:41] VITALS: BP 146/78; PULSE 53; O2SAT 91; BMI 31.9
== END 2024-04-07 08:56 | disposition home or self-care (01) ==
PROVIDERS: PCP Internal Medicine; Visit Provider Internal Medicine
DX: Z23 Encounter for immunization (principal); I10 Essential (primary) hypertension

== ENCOUNTER → 2024-04-07 08:32 | Outpatient (BNVA) | payer MEDICARE, SELFPAY | PROVIDERS: PCP Internal Medicine; Visit Provider Internal Medicine | DX: Z23 Encounter for immunization (principal); I10 Essential (primary) hypertension | CPT/HCPCS: 90471; 90656; 99212 ==

== ENCOUNTER 2024-07-05 11:02 | Outpatient (REF) | payer MEDICARE, SELFPAY ==
--- OUTSIDE RECORDS SUMMARY | 2024-07-05 12:10 | XMS_ITS ---
Author Organization [facility] Address [address] [place] [address] Care Team Providers Care Mud Analysis Well Logging Captain Name Role Phone Ibrahima Colon MD Primary Care Provider Unavailab Ziyad Villegas Jr Unavailable [phone] Ziyad Miguel Unavailable Unavailable REASON FOR VISIT colon report Encounters Encounter Location Date Provider Diagnosis [facility] [address] [place] [address] 01/29/2023 Ziyad Miguel Jr PLAN OF TREATMENT No Information
--- OUTSIDE RECORDS SUMMARY | 2024-07-05 12:10 | XMS_ITS | Clinical Summary ---
Author Organization [facility] Address [address] [place] [id number] Care Team Providers Care Store Planner Name Role Phone Ibrahima Colon MD Primary Care Provider [phone] Addi Rico MD Unavailable [phone] Allergies Active Allergy Reactions Criticality Noted Date Comments Amlodipine Swelling Medium 05/07/2018 Hydrochlorothiazide W-Triamterene Swelling Medium Medications Medication Sig Dispensed Refills Start Date End Date Status pravastatin (PRAVACHOL) 40 MG tablet Take 40 mg by mouth daily. Active lisinopril (PRINIVIL,ZeSTRIL) 10 MG tablet Take 20 mg by mouth daily. Active metoPROLOL TARTRATE (LOPRESSOR) 50 MG tablet Take 50 mg by mouth 2 (two) times a day. Active hydrochlorothiazide (HYDRODIURIL) 25 MG tablet Take 25 mg by mouth daily. Active naproxen sodium (ALEVE) 220 mg tablet Take 220 mg by mouth daily. Take with meals or food to reduce stomach upset. Active diphenhydrAMINE (BENADRYL) 25 mg capsule Take 25 mg by mouth daily. Active aspirin 81 MG chewable tabletIndications:Abd ominal aortic aneurysm (AAA) without rupture Chew 1 tablet (81 mg total) daily. 30 tablet 11 06/14/2019 Active clopidogrel (PLAVIX) 75 MG tabletIndications:Abd ominal aortic aneurysm (AAA) without rupture Take 1 tablet (75 mg total) by mouth daily. 90 tablet 3 06/14/2019 Active Active Problems Problem Noted Date Diagnosed Date Abdominal aortic aneurysm (A AA) greater than 5.5 cm in diameter in male 06/11/2019 Pulmonary Emphysema 05/06/2019 Para-renal abdominal aortic aneurysm 05/14/2018 Social History Tobacco Use Types Packs/Day Years Used Date Smoking Tobacco: Former Cigarettes Smokeless Tobacco: Never Comments:50 pack year histor y. Quit in 2012. Alcohol Use Standard Drinks/Week Comments No 0 (1 standard drink = 0.6 oz pur e alcohol) Quit 25 yrs ago AUDIT-C Answer Date Recorded Frequency of Alcohol Consumption Never 05/14/2018 Average Number of Drinks Not on file 018 Frequency of Binge Drinking Not on file 04/26 Sex and Gender Information Value Date Recorded Sex Assigned at Male 11/06/2022 3:25 PM EDT Gender Identity Male 11/06/2022 3:25 PM EDT Sexual Orientation Not on file Last Filed Vital Signs Vital Sign Reading Time Taken Comments Blood Pressure 140/80 02/09/2020 11:44 AM EDT Pulse 57 02/09/2020 11:44 AM EDT Temperature 37 ??C (98.6 ??F) 06/14/2019 7:00 AM EST Respiratory Rate 18 06/14/2019 7:00 AM EST Oxygen Saturation 96% 02/09/2020 11:44 AM EDT Inhaled Oxygen Concentration - - Weight 109 kg (240 lb) 12/17/2022 2:45 PM EDT Height 185.4 cm (6' 1 ) 12/17/2022 2:45 PM EDT Body Mass Index 31.66 12/17/2022 2:45 PM EDT Plan of Treatment Health Maintenance Due Date Last Done Comments Hepatitis C Virus Screening 1945 DTaP/Tdap/Td Vaccines (1 - Tdap) 1964 Pneumococcal Vaccines 50+ (1 of 2 - PCV) 1964 Zoster (Shingles) Vaccine (1 of 2) 10/29/1995 RSV Vaccine 60 years and older and Patients (1 - 1-dose 75+ series) 2020 Influenza Vaccine 12/25/2023 04/16/2022 COVID-19 Vaccine ( - 2023- season) 2024 Abdominal Aortic Aneurysm (AAA) Screening Discontinued 03/30/2024, 01/01/2023, 12/17/2022, Additional history exists Hepatitis B Vaccines Aged Out No long er eligible based on patient's age to complete this topic Medical Devices Implanted Type Area Payroll Human Resources Assistant Device Identifier Shelf Expiration Date Model / Serial / Lot [id number] Graft Endovascular 56mm 20mm 6mm 16fr Znth Sprlz 2 Brch Ntnl - [id number] Implanted:Qty: 1 on 06/11/2019 by Addi Rico MD at [facility] Graft N/A: Aorta [employer] [id number] 08/26/2021 [id number] / / [id number] Graft Endovascular 124mm 30mm H&L-B One-Shot Znth Poly Wvn 2 - [id number] Implanted:Qty: 1 on 06/11/2019 by Addi Rico MD at [facility] Stent N/A: Aorta [employer] 05/12/2022 [id number] / / [id number] Stent Vascular 7mm 26mm 80cm Balloon Expandable Lopro Cover - [id number] Implanted:Qty: 1 on 06/11/2019 by Addi Rico MD at [facility] Stent N/A: Aorta [employer] - [id number] 11/22/2021 [id number] / / [id number] Description:SMA Stent [id number] Stent Tracheobronchial 6mm 6fr 22mm 120cm Cover Catheter - [id number] Implanted:Qty: 1 on 06/11/2019 by Addi Rico MD at [facility] Stent N/A: Aorta [employer] [id number] 12/02/2021 [id number] / [id number] Description:Right Renal Sandra ry [id number] Stent Vascular 7mm 26mm 80cm Balloon Expandable Lopro Cover - [id number] Implanted:Qty: 1 on 06/11/2019 by Addi Rcio MD at [facility] Stent N/A: Aorta [employer] - [id number] 04/24/2021 [id number] / / [id number] Description:Left Renal Arter y [id number] Graft Endovascular 106mm 12mm H&L-B One-Shot Znth 2 Brch - [id number] Implanted:Qty: 1 on 06/11/2019 by Addi Rico MD at [facility] Stent N/A: Aorta [employer] [id number] 05/12/2022 [id number] / / [id number] Graft Endovascular 56mm 16mm 5.4mm 14fr Znth Sprlz 2 Brch - [id number] Implanted:Qty: 1 on 06/11/2019 by Addi Rico MD at [facility] Stent N/A: Aorta [employer] [id number] 02/09/2022 [id number] / / [id number] Stent Vascular 7mm 16mm 80cm Balloon Expandable Lopro Cover - [id number] Implanted:Qty: 1 on 06/13/2019 by Addi Rico MD at [facility] Stent Left: Arterial [employer] - [id number] 02/23/2020 [id number] / / [id number] Stent Tracheobronchial 7mm 7fr 22mm 120cm Cover Catheter - [id number] Implanted:Qty: 1 on 06/13/2019 by Addi Rico MD at [facility] Stent [employer] [id number] / [id number] / Description:no sticker provi ded. [id number] Gold Markers 24k - [id number] Implanted:Qty: 8 on 06/11/2019 by Addi Rico MD at [facility] Tissue N/A: Aorta [facility] [id number] / / Description:On Aortic Stent Graft Procedures Procedure Name Priority Date/Time Associated Diagnosis Comments CTA ABDOMEN+PELVIS W W/O CONTRAST Routine 06/12/2019 12:32 PM EST from Last 3 Months or Most Recently Relevant to Health Maintenance Results * CTA Abdomen+pelvis w w/o contrast (06/12/2019 12:32 PM EST) Anatomical Region Laterality Modality CTA Body Computed Tomogra phy 06/12/2019 12:3 3 PM EST Impressions 06/12/2019 4:40 PM EST There are procedural changes from endograft of 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 Stable diameter of the excluded lumen of the aortic aneurysm. There is a proximal type I endoleak originating from the posterior aspect of the overlap of the 2 main endovascular stent grafts. Distal type I versus type II endoleak either originating from the one of the iliac components, favor the proximal portion of the left, type II via a right lumbar artery. Incidental findings include severe emphysema of the lungs, colonic diverticulosis without inflammation to suggest diverticulitis, periumbilical and right inguinal hernias Findings were discussed with Dina Lemus APRN approximately 1315hs by telephone. Narrative 06/12/2019 4:40 PM EST EXAMINATION: CTA CHEST FOR AORTA, CTA ABDOMEN+PELVIS W W/O CONTRAST CLINICAL INFORMATION: [facility] Order Diagnosis: pt POD#1 from PMEG with four fenestrations (celiac, SMA, b/l renals), 3 stents (SMA, b/l renals), concern for endoleak, need CTA stent graft protocol DESCRIPTION: Initial noncontrast localizing driver lifter of sanitation truck images were obtained. Multidetector volumetric imaging was performed through the abdomen and pelvis prior to the use of intravenous contrast. Timing boluses at the level of the aortic arch and iliac arteries were calculated. ??Subsequently, arterial phase multidetector volumetric imaging was performed through the chest, abdomen, and pelvis following the administration of 80 mL Visipaque 320 intravenous contrast. Subsequently a 4 minute delayed series was obtained through the abdomen and pelvis No contrast reaction reported Sagittal and coronal reformatted images were obtained on the technologist workstation. After extensive post-processing on a dedicated 3-D workstation, 3-D reformatted images were uploaded to PACS and reviewed as well. Total exam dose-length product 2641.32 mGy-cm COMPARISON: CT 05/05/2019. FINDINGS: VASCULAR: 1. ??Ascending thoracic aorta: Ascending thoracic aorta is normal in caliber. No aneurysm, dissection or other acute aortic syndrome. 2. ??Thoracic aortic arch: There is a common origin of the brachiocephalic and left common carotid arteries, a so-called bovine arch. There is minimal narrowing secondary to noncalcified atheroma at the origin of the left subclavian artery, otherwise the origins of the arch vessels are well opacified.. 3. ??Descending thoracic aorta: Normal in caliber. No dissection or other acute aortic syndrome. The superior aspect of the endovascular repair originates several centimeters above the level of the aortic hiatus at approximately the level of the T11-T12 interspace and continues inferiorly. 4. ??Mesenteric arteries: Endograft at the level of the celiac artery which is widely patent. The celiac and its branch vessels are well-opacified. There is a stent extending into the origin of the superior mesenteric artery which is well opacified. The superior mesenteric artery and its branches are well-opacified. There origin of the inferior mesenteric artery is not opacified, though it is opacified approximately 1.7 cm distally via a patent marginal artery. 5. ??Renal arteries: There are bilateral fenestrations and stents into single bilateral renal arteries which are well opacified. 6. ??Abdominal aorta: Changes from endovascular repair of juxtarenal abdominal aortic aneurysm. 2 main stent graft components overlap 1 to 2 mm beyond the level of the renal artery stents. On contrast enhanced phase there is enhancement of the lumen posterior to the overlap of the graft compatible with an endoleak. There is washout on delayed phase. Distally, there is amorphous contrast enhancement of the excluded sac surrounding the iliac stent grafts compatible with an endoleak. The exact origin of the endoleak is uncertain, though the contrast does contact the distal anterior surface of the right iliac stent as well as the anterior aspects of the left iliac component (image 740, series 301) as well. Given the proximity to the inferior mesenteric artery, this could represent possible outflow, though the contrast does not progress to the origin of the inferior mesenteric artery. Additionally there is subtle enhancement of a right lumbar artery (image 755, series 301) which could represent origin of the endoleak as well. 7. ??Iliac arteries: Iliac stent graft components are well opacified. The bilateral iliac and proximal femoral vessels are patent. NONVASCULAR: CHEST: LUNG: There are diffuse paraseptal and centrilobular emphysematous changes of the lungs. There is no consolidative opacity, discrete suspicious nodule or groundglass attenuation. PLEURA: No pleural effusion or pneumothorax. MEDIASTINUM: Normal heart size. ??No pericardial effusion. There are atherosclerotic calcifications of the coronary arteries. No hilar or mediastinal lymphadenopathy. CHEST WALL/AXILLA: No axillary or internal mammary lymphadenopathy. ABDOMEN/PELVIS: LIVER, GALLBLADDER, AND BILIARY TREE: The liver is normal in size, shape, and attenuation. There is a coarse calcification in the posterolateral aspect of the right hepatic lobe (image 575, series 301). No other focal hepatic lesion or biliary ductal dilatation is present. The gallbladder is unremarkable with no evidence of radiopaque gallstones, gallbladder wall thickening, or obvious pericholecystic inflammatory changes. ?? PANCREAS: Normal; no mass or surrounding fluid. ?? SPLEEN: Normal size. ??No focal lesion. ?? ADRENAL GLANDS: Normal; no mass. ?? KIDNEYS AND URETERS: The kidneys are normal in size and shape. At the lower pole of the right kidney there is a wedge-shaped approximately 1 cm region of hypoenhancement compared with the rest the kidney. This could represent a focal infarct. Enhancement is otherwise unremarkable. No calculi are identified. No hydroureteronephrosis. ?? GASTROINTESTINAL TRACT: Stomach and small bowel non-dilated. ??No colonic wall thickening or pericolonic inflammatory changes. ??There is colonic diverticulosis without inflammation suggest diverticulitis. ABDOMINAL WALL: Fat-containing periumbilical hernia measures 3 cm transverse. There is a right inguinal hernia which contains a tiny portion of the anterior right margin of the bladder. Increased attenuation of the soft tissues in the bilateral groins from recent procedure. LYMPHOVASCULAR STRUCTURES: No lymphadenopathy. ?? BLADDER: Decompressed with a Travis catheter. A minimal portion of the anterior right margin is contained within a right inguinal ?? PELVIC VISCERA: Unremarkable. OSSEOUS STRUCTURES: No acute or suspicious osseous abnormality. ?? Procedure Note Clemente Stern MD - 06/12/2019 EXAMINATION: CTA CHEST FOR AORTA, CTA ABDOMEN+PELVIS W W/O CONTRAST CLINICAL INFORMATION: [facility] Order Diagnosis: pt POD#1 from PMEG with fourfenestrations (celiac, SMA, b/l renals), 3 stents (SMA, b/l renals), concern forendoleak, need CTA stent graft protocol DESCRIPTION: Initial noncontrast localizing driver lifter of sanitation truck images were obtained. Multidetector volumetric imaging was performed through the abdomen and pelvis prior tothe use of intravenous contrast. Timing boluses at the level of the aorticarch and iliac arteries were calculated. Subsequently, arterial phase multidetector volumetric imaging was performed through the chest, abdomen,and pelvis following the administration of 80 mL Visipaque 320 intravenous contrast. Subsequently a 4 minute delayed series was obtained throughthe abdomen and pelvis No contrast reaction reported Sagittal and coronal reformatted images were obtained on thetechnologist workstation. After extensive post-processing on a dedicated 3-D workstation, 3-D reformatted images were uploaded to PACS and reviewed as well. Total exam dose-length product 2641.32 mGy-cm COMPARISON: CT 05/05/2019. FINDINGS: VASCULAR: 1. Ascending thoracic aorta: Ascending thoracic aorta is normal incaliber. No aneurysm, dissection or other acute aortic syndrome. 2. Thoracic aortic arch: There is a common origin of the brachiocephalicand left common carotid arteries, a so-called bovine arch. There is minimal narrowing secondary to noncalcified atheroma at the origin of the left subclavian artery, otherwise the origins of the arch vessels are well opacified.. 3. Descending thoracic aorta: Normal in caliber. No dissection or otheracute aortic syndrome. The superior aspect of the endovascular repairoriginates several centimeters above the level of the aortic hiatus at approximatelythe level of the T11-T12 interspace and continues inferiorly. 4. Mesenteric arteries: Endograft at the level of the celiac artery whichis widely patent. The celiac and its branch vessels are well-opacified. Thereis a stent extending into the origin of the superior mesenteric artery whichis well opacified. The superior mesenteric artery and its branches are well-opacified. There origin of the inferior mesenteric artery is not opacified, though it is opacified approximately 1.7 cm distally via apatent marginal artery. 5. Renal arteries: There are bilateral fenestrations and stents intosingle bilateral renal arteries which are well opacified. 6. Abdominal aorta: Changes from endovascular repair of juxtarenalabdominal aortic aneurysm. 2 main stent graft components overlap 1 to 2 mm beyondthe level of the renal artery stents. On contrast enhanced phase there is enhancement of the lumen posterior to the overlap of the graft compatiblewith an endoleak. There is washout on delayed phase. Distally, there isamorphous contrast enhancement of the excluded sac surrounding the iliac stentgrafts compatible with an endoleak. The exact origin of the endoleak isuncertain, though the contrast does contact the distal anterior surface of theright iliac stent as well as the anterior aspects of the left iliac component(image 740, series 301) as well. Given the proximity to the inferior mesenteric artery, this could represent possible outflow, though the contrast doesnot progress to the origin of the inferior mesenteric artery. Additionallythere is subtle enhancement of a right lumbar artery (image 755, series 301)which could represent origin of the endoleak as well. 7. Iliac arteries: Iliac stent graft components are well opacified. The bilateral iliac and proximal femoral vessels are patent. NONVASCULAR: CHEST: LUNG: There are diffuse paraseptal and centrilobular emphysematous changesof the lungs. There is no consolidative opacity, discrete suspicious noduleor groundglass attenuation. PLEURA: No pleural effusion or pneumothorax. MEDIASTINUM: Normal heart size. No pericardial effusion. There are atherosclerotic calcifications of the coronary arteries. No hilar or mediastinal lymphadenopathy. CHEST WALL/AXILLA: No axillary or internal mammary lymphadenopathy. ABDOMEN/PELVIS: LIVER, GALLBLADDER, AND BILIARY TREE: The liver is normal in size, shape,and attenuation. There is a coarse calcification in the posterolateral aspectof the right hepatic lobe (image 575, series 301). No other focal hepaticlesion or biliary ductal dilatation is present. The gallbladder is unremarkablewith no evidence of radiopaque gallstones, gallbladder wall thickening, orobvious pericholecystic inflammatory changes. PANCREAS: Normal; no mass or surrounding fluid. SPLEEN: Normal size. No focal lesion. ADRENAL GLANDS: Normal; no mass. KIDNEYS AND URETERS: The kidneys are normal in size and shape. At thelower pole of the right kidney there is a wedge-shaped approximately 1 cm regionof hypoenhancement compared with the rest the kidney. This could representa focal infarct. Enhancement is otherwise unremarkable. No calculi are identified. No hydroureteronephrosis. GASTROINTESTINAL TRACT: Stomach and small bowel non-dilated. No colonicwall thickening or pericolonic inflammatory changes. There is colonic diverticulosis without inflammation suggest diverticulitis. ABDOMINAL WALL: Fat-containing periumbilical hernia measures 3 cmtransverse. There is a right inguinal hernia which contains a tiny portion of theanterior right margin of the bladder. Increased attenuation of the soft tissues in the bilateral groins fromrecent procedure. LYMPHOVASCULAR STRUCTURES: No lymphadenopathy. BLADDER: Decompressed with a Travis catheter. A minimal portion of theanterior right margin is contained within a right inguinal PELVIC VISCERA: Unremarkable. OSSEOUS STRUCTURES: No acute or suspicious osseous abnormality. IMPRESSION: There are procedural changes from endograft of juxtarenal abdominalaortic aneurysm with celiac fenestration, superior mesenteric artery stent and bilateral renal artery stents. Stable diameter of the excluded lumen ofthe aortic aneurysm. There is a proximal type I endoleak originating from the posterior aspectof the overlap of the 2 main endovascular stent grafts. Distal type I versus type II endoleak either originating from the one ofthe iliac components, favor the proximal portion of the left, type II via aright lumbar artery. Incidental findings include severe emphysema of the lungs, colonic diverticulosis without inflammation to suggest diverticulitis,periumbilical and right inguinal hernias Findings were discussed with Dina Lemus APRN approximately 1315hsby telephone. Dina Lemus APRN IMG CT ORDERABLE S from Last 3 Months or Most Recently Relevant to Health Maintenance Advance Directives * Full Code (Latest Code Status on File) Date Activated Date Inactivated Comments 06/11/2019 1:29 PM Care Teams Store Planner Relationship Specialty Start Date End Date Ibrahima Colon MD [address] [place] [address] PCP - General 03/13/18 Addi Rico MD [address] [place] [id number] Surgeon Surgery, Vascular 05/14/18
--- OUTSIDE RECORDS SUMMARY | 2024-07-05 12:10 | XMS_ITS | Patient Health Record ---
Author Organization [facility] Address [address] [place] [address] Care Team Providers Care Tree Driller Name Role Phone Ibrahima Colon MD Primary Care Provider Unavailab Ziyad Villegas Jr Unavailable Ziyad Miguel Unavailable Unavailable ALLERGIES Allergen (clinical drug ingredient) Drug/Non Drug Allergy documented on EMR Reaction Allergy Type Onset Date Status amlodipine Amlodipine Unknown Drug Allergy Activ e hydrochlorothiazide / triamterene Triamterene-HCTZ Unknown Drug Allergy Active REASON FOR REFERRAL No Information MEDICATIONS Medication SIG (Take, Route, Frequency, Duration) Notes Start Date End Date Status Metoprolol Succinate ER 50 MG 1 tablet Orally Once a day for 30 day(s) Active Lisinopril 20 MG 1 tablet Orally Once a day for 30 day(s) Active Salmeterol Xinafoate 50 MCG/DOSE 1 puff Inhalation Twice a day Active Aspirin 81 81 MG 1 tablet Orally Once a day for 30 day(s) Active Pravastatin Sodium 40 MG 1 tablet Orally Once a day for 30 day(s) Active Albuterol Sulfate 108 (90 Base) MCG/ACT 1 puff as needed Inhalation every 4 hrs Active MiraLax (colon prep) 17 GM/SCOOP mixed with Gatorade or Crystal Light Orally begin at 5:00 p.m. the day before the procedure for 1 day 12/13/2022 Active IMMUNIZATIONS Vaccine Route Administration Date Status Comme nts Influenza Unknown 04/16/2022 Administered SOCIAL HISTORY Tobacco Use: Social History Observation Description Date Details (start date - stop date) Never Smoker NA - NA Sex Assigned At : Social History Observation Description Sex Assigned At Unknown Tobacco Use/Smoking Question Answer Notes Patient is a nonsmoker Alcohol Screen Question Answer Notes Did you have a drink containing alcohol in the p ast year? No Points 0 Interpretation Negative PROBLEMS Problem Type ICD Code Onset Dates Problem Status W/U Status Risk SNOMED Code Notes Problem Colon cancer screening (Z12.11) Active confirmed 887106491 Problem Encounter for other preprocedural examination (Z01.818) Active confirmed 421955767 Problem Long-term use of aspirin therapy (Z79.82) Active confirmed 815917831 PLAN OF TREATMENT Future Test Test Name Order Date COLONOSCOPY 12/13/2022 Insurance Providers Payer Name Payer Address Payer Phone Subscriber Number Group Number Insured Name Patient Relationship to Insured Coverage Start Date Coverage End Date [facility] [employer] [address] [place] [address] [id number] PRAKASH DRUMMOND Self - patient is the insured MEDICAL (GENERAL) HISTORY Medical History History ICD Code Hypertension Hyperlipidemia Obstructive sleep apnea Osteoarthritis Umbilical hernia Abdominal aortic aneurysm COPD Surgical History Surgery Date(Month/Year) Endovascular aortic aneurysm repair Left hip replacement
--- OUTSIDE RECORDS SUMMARY | 2024-07-05 12:10 | XMS_ITS ---
Author Organization [facility] Address [address] [place] [address] Care Team Providers Care Can Repairer Name Role Phone Ibrahima Colon MD Primary Care Provider Unavailab Ziyad Villegas Jr Unavailable [phone] Ziyad Miguel Unavailable Unavailable REASON FOR VISIT pathology Encounters Encounter Location Date Provider Diagnosis [facility] [address] [place] [address] 02/04/2023 Ziyad Miguel Jr PLAN OF TREATMENT No Information
--- OUTSIDE RECORDS SUMMARY | 2024-07-05 12:10 | XMS_ITS ---
Author Organization [facility] Address [address] [place] [address] Care Team Providers Care Promotional Advertising Assistant Name Role Phone Ibrahima Colon MD Primary Care Provider Unavailab Ziyad Villegas Jr Unavailable Ziyad Miguel Unavailable Unavailable REASON FOR VISIT screening Encounters Encounter Location Date Provider Diagnosis [facility] [place] Outpatient [address] [place] [address] [id number] 01/24/2023 Ziyad Miguel Jr Colon cancer screening Z12.11 and Colon polyp K63.5 ASSESSMENTS Encounter Date Diagnosis Assessment Notes Treatment Notes Treatment Clinical Notes 01/24/2023 Colon cancer screening (ICD-10 - Z12.11) 01/24/2023 Colon polyp (ICD-10 - K63.5) PLAN OF TREATMENT No Information
--- OUTSIDE RECORDS SUMMARY | 2024-07-05 12:10 | XMS_ITS ---
Author Name [facility] Organization Unknown History of Medication Use Medication Directions Dispensed Refills Start Date End Date Stat clopidogrel (PLAVIX) 75 MG tablet Take 1 tablet (75 mg total) by mouth daily. 06/14/2019 active Problems Problem Status Onset Date Problem Type Date of Resoluti on Source Other emphysema active 2019-05-06 ProblemAct [facility] Abdominal aortic aneurysm (AAA) greater than 5.5 cm in diameter in male active 2019-06-11 ProblemAct [facility]
[2024-07-07 15:18] LABS: IgA 194 mg/dL (70-320); IgG 1289 mg/dL (600-1540); IgM 32 mg/dL (50-300)
[2024-07-11 17:43] LABS: Free Kappa Lt Chains,Ur 28.68 mg/L (<=32.90); Free Lambda Lt Chains,Ur 9.22 mg/L (<=3.79); Kappa/Lambda Ratio,U 3.11 (<=8.69)
[2024-07-12 16:23] LABS: Kappa, Serum 284 mg/dL (176-443); Lambda, Serum 158 mg/dL (91-240)
== END 2024-07-05 11:03 | disposition home or self-care (01) ==
LOC: HO.HMGCLDS 11:02
PROVIDERS: PCP Internal Medicine; Visit Provider Nurse Practitioner
DX: R06.09 Other forms of dyspnea (principal)
CPT/HCPCS: 82784; 83521; 83883; 86334; 86335

== ENCOUNTER 2024-09-23 10:19 | Outpatient (AMB) | payer MEDICARE, SELFPAY ==
[2024-09-23 10:21] VITALS: BP 128/64; PULSE 50; RESP 16; TEMP 36.3; O2SAT 95; BMI 31.7
--- NOTE | 2024-09-23 10:21 | A.OFFPC_ITS ---
Vital Signs 09/23/24 10:21 Height 6 ft 1 in Weight 240 lb 3.2 oz BMI 31.7 BP 128/64 Blood Pressure Location Lt brachial Position Sitting Respiration 16 Pulse 50 Pulse Source Pulse Oximeter Temp 97.4 F Temp Source Oral Pulse Oximetry (%) 95 Oxygen Delivery Method Room Air Intake Visit Reasons: GAVIN Dr Reyes [employer] Resource Specialist Required: No Accompanied by: Self / Same As Patient Allergies amlodipine Adverse Reaction (Intermediate, Verified 09/23/24 10:42) Swelling triamterene-hctz Allergy (Intermediate, Uncoded 09/23/24 10:42) Swelling Medication List - Last Reconciled 09/23/24 by JOHNY Staton acetaminophen 1,000 mg PO Q6H PRN aspirin 81 mg PO DAILY hydrochlorothiazide 25 mg PO DAILY lisinopril 20 mg PO DAILY metoprolol tartrate 50 mg PO BID pravastatin 40 mg PO DAILY Tobacco use date assessed: 09/23/24 Fall risk assessment: No Falls in past year Last assessed Fall Risk: 09/23/24 Dental Screening Dental Screen Date: 09/23/24 Did you have a dental visit in the last 12 months?: Yes Did you have a dental problem in the last 6 months where you did not have access to dental care?: No Was dental information given to patient?: Patient has dentist HPI GAVIN Dr Reyes HPI Details The patient is a 78-year-old male presenting to transition care form Dr. Reyes and have routine follow-up to address multiple chronic conditions. He has a documented history of essential hypertension, managed consistently for several years, osteoarthritis contributing to chronic joint pain (he is using a cane to ambulate), and hyperlipidemia. The patient underwent aortic stent placement in 2018 and hip replacement surgery on the left side in July 2021. Notably, his history of long-term smoking, which ceased 14 years ago, is clinically relevant. Recently, the patient encountered significant shortness of breath following an influenza infection, but this symptom has since diminished. Additionally, there is a reported concern regarding potential hematuria noted under specific circumstances; however, visible evidence was not corroborated upon investigation. The challenges in continuity of cardiology care were due to provider relocations, although the patient continues to follow care recommendations independently for chronic conditions. The patient reports that when he was in the hospital with flu, he was told that he had blood in the urine Reports that the his umbilicus hernia has been there for a while; he was told that if it does bothers him, leave it alone Report that this area hurts intermittently [facility] Medical History COPD (chronic obstructive pulmonary disease) AAA (abdominal aortic aneurysm) PATRICIA (obstructive sleep apnea) Hyperlipidemia Obesity Osteoarthritis Hypertension Surgical History Status post left hip replacement History of coronary artery stent placement History of inguinal hernia repair Family History Father Liver problem Mother Brain tumor Brother No problems noted. Brother No problems noted. Family/Other Prostate cancer Brain cancer Social History Housing: House Alcohol intake: never Patient Tobacco Use Status: Former Tobacco user Tobacco use type: Cigarette e-Cigarette/Vaping Use: Never Used Second Hand Smoke Exposure: No service: Yes Current occupational status: retired Cognitive needs: No Hearing needs: Yes Vision needs: Yes (Reading glasses) Questionnaire PHQ-9 Over the last 2 weeks, how often have you been bothered by any of the following problems? 1. Little interest or pleasure in doing things: not at all 2. Feeling down, depressed, or hopeless: not at all 3. Trouble falling or staying asleep, or sleeping too much: not at all 4. Feeling tired or having little energy: not at all 5. Poor appetite or overeating: not at all 6. Feeling bad about yourself - or that you are a failure or have let yourself o r your family down: not at all 7. Trouble concentrating on things, such as reading the newspaper or watching television: not at all 8. Moving or speaking so slowly that other people could have noticed. Or the opposite - being so fidgety or restless that you have been moving around a lot more than usual: not at all 9. Thoughts that you would be better off or of hurting yourself in some way: not at all Total score: 0 Depression Screening Interpretation: Negative Depression Screening Done: Yes 29414 - PHQ-9 Billing: Yes Source: Developed by Drs. Hemant Brown, Haley Salmeron, Kenan hampton nd colleagues, with an educational eliot from [employer]. Thrive Questionnaire Date Thrive assessed: 09/23/24 I am a: Patient What is your living situation today?: I have a steady place to live Within the past 12 months, did the food you bought not last and you didn't have the money to get more?: Never true Within the past 12 months, did you worry whether your food would run out before you got money to buy more?: Never true Do you have trouble paying for medicines?: No Do you have trouble getting transportation to medical appointments?: No Do you have trouble paying your heating and electricity bill?: No Do you have trouble taking care of your child, family member or friend?: No Do you have trouble with day-to-day activities such as bathing, preparing meals, shopping, managing finances, etc.?: No Are you currently unemployed and looking for a job?: No Are you interested in more education?: No Please select the resources that you would like help with: None Currently or been in a relationship where the following occur: No concerns reported THRIVE Score: 0 AUDIT C Alcohol Use Questionnaire (AUDIT-C) 1. How often do you have a drink containing alcohol?: Never Total Score: 0 Score Reviewed/Action Taken: No PANKAJ-7 AMB Questionnaire PANKAJ-7 Date PANKAJ - 7 assessed: 09/23/24 Feeling nervous, anxious, or on edge: 0 = Not at all Not being able to stop or control worryin = Not at all Worrying too much about different things: 0 = Not at all Trouble relaxin = Not at all Being so restless that it is hard to sit still: 0 = Not at all Becoming easily annoyed or irritable: 0 = Not at all Feeling afraid as if something awful might happen: 0 = Not at all Total PANKAJ-7 score (0-4 normal; 5-9 mild; 10-14 moderate; 15-21 severe): 0 Source: Developed by Drs. Hemant Brown, Haley Salmeron, Kenan Arshad and colleagues, with an educational eliot from [employer]. PANKAJ-7 Assessment Billing PANKAJ-7 Assessment Tool: PANKAJ-7 Assessment 36495 Review of Systems Const Denies headache(s) Eyes Denies loss of vision ENT Denies vertigo, Denies dizziness, Denies headache(s) and Denies sore throat Card Denies chest pain, Denies leg edema, Denies lightheadedness and Reports dyspnea on exertion (improved after having flu virus) Resp Denies cough, Denies hemoptysis, Reports dyspnea on exertion (improved after having flu virus) and Denies wheezing GI Denies abdominal pain, Denies melena, Reports constipation (occasional), Denies diarrhea and Denies vomiting Denies dysuria, Denies urinary frequency and Denies urinary urgency Musc Reports arthralgias (both wrist-chronic), Denies joint swelling, Denies numbness and Denies tingling Neuro Denies Abnormal speech present, Denies behavioral changes, Denies vertigo, Denies dizziness, Denies headache(s), Denies loss of vision, Denies memory loss, Denies numbness and Denies tingling Psych Denies anxiety, Denies behavioral changes, Denies depression, Denies memory loss and Denies panic attacks Gerson/Lymph Denies easy bleeding and Denies easy bruising Aller/Immun Denies wheezing Physical exam (Primary Care) Vital Signs: Last Vital Signs Temp 97.4 F 09/23/24 10:21 Pulse 50 09/23/24 10:21 Resp 16 09/23/24 10:21 BP 128/64 09/23/24 10:21 Pulse Ox 95 09/23/24 10:21 Oxygen Delivery Method Room Air 09/23/24 10:21 BMI result Body Mass Index 31.7 Tobacco/Smoking Status: Tobacco use Status Tobacco use date assessed 09/23/24 09/23/24 10:24 Patient Tobacco Use Status Former Tobacco user 09/23/24 10:24 Tobacco use type Cigarette 09/23/24 10:24 e-Cigarette/Vaping Use Never Used 09/23/24 10:24 PHQ-9: PHQ-9 Score PHQ-9: Total score 0 09/23/24 10:24 Depression Screening Interpretation: Negative Thrive Assessment: Date of Thrive Assessment Date Thrive assessed 09/23/24 09/23/24 10:24 Currently or been in a relationship where the following occur: No concerns reported Const General: healthy appearing, no acute distress, alert and awake Nutritional Appearance: well nourished Orientation/consciousness: oriented to person, oriented to place and oriented to time HENMT Ears: Abnormal EAC present excessive cerumen on the left General nose exam: Normal nasal mucous membranes and turbinates present Eyes Conjunctivae: conjunctivae normal Sclerae: sclerae normal Pupils: Equal, round and reactive pupils present Neck Neck: Yes no lymphadenopathy Thyroid: Thyroid normal Carotids: no bruits Resp Effort & Inspection: normal respiratory effort and not tachypneic Auscultation: no crackles, no rales, no rhonchi and no wheezes Cardio Rate: regular rate Rhythm: regular rhythm Heart sounds: no murmurs and normal S1 and S2 GI Inspection: Yes obesity Palpation (GI): Soft to palpation, Tenderness to palpation present (GI) and Hernia present umbilical Auscultation: normal bowel sounds Skin General skin exam: no rashes or lesions noted and dry skin Neuro General: oriented to person, oriented to place and oriented to time Cranial nerves: Yes Equal, round and reactive pupils present Speech: No Abnormal speech present Gait exam (Neuro): Normal gait present Motor exam (neuro): no tremor noted Extrem Right upper extremity: full ROM Left upper extremity: full ROM Right lower extremity: full ROM; no edema Left lower extremity: full ROM; no edema Psych Mental Status: mental status grossly normal Speech and movement: Normal speech and movement present Affect: normal affect Attitude: cooperative Thought process: Normal thought process present Coding Level of Care Code Est Pt Level 4 (33521) Diagnoses Hypertension, unspecified type I10 Hypertension type: unspecified Osteoarthritis of both knees, unspecified osteoarthritis type M17.0 Osteoarthritis location: knee Osteoarthritis type: unspecified Laterality: bilateral Class 1 obesity without serious comorbidity with body mass index (BMI) of 31.0 to 31.9 in adult, unspecified obesity type E66.811; Z68.31 Obesity type: unspecified obesity type Obesity classification: adult class 1 (BMI 30 - 34.9) Serious obesity comorbidity presence: without serious comorbidity Body mass index: BMI 31.0-31.9 Pure hypercholesterolemia E78.00 Hyperlipidemia type: pure hypercholesterolemia Intermittent abdominal pain R10.9 Umbilical hernia without obstruction and without gangrene K42.9 Obstruction and gangrene presence: without obstruction or gangrene Hematuria, unspecified type R31.9 Hematuria type: unspecified type Additional Codes PANKAJ-7 Assessment Billing - PANKAJ-7 Assessment Tool: PANKAJ-7 Assessment 48454 ([id number]) PHQ-9 - 19126 - PHQ-9 Billing: Yes ([id number]) Time Spent (min) 39 Assessment & Plan Assessment & Plan (1) Hypertension: Code(s): I10 - Essential (primary) hypertension Category: Medical Qualifiers: Hypertension type: unspecified Qualified Code(s): I10 - Essential (primary) hypertension (2) Osteoarthritis: Comment: 20 min reviewing chart evluating cjart and documenting Code(s): M19.90 - Unspecified osteoarthritis, unspecified site Category: Medical Qualifiers: Osteoarthritis location: knee Osteoarthritis type: unspecified Laterality: bilateral Qualified Code(s): M17.0 - Bilateral primary osteoarthritis of knee (3) Obesity: Code(s): E66.9 - Obesity, unspecified Category: Medical Qualifiers: Obesity type: unspecified obesity type Obesity classification: adult class 1 (BMI 30 - 34.9) Serious obesity comorbidity presence: without serious comorbidity Body mass index: BMI 31.0-31.9 Qualified Code(s): E66.811 - Obesity, class 1; Z68.31 - Body mass index [BMI] 31.0-31.9, adult (4) Hyperlipidemia: Code(s): E78.5 - Hyperlipidemia, unspecified Category: Medical Qualifiers: Hyperlipidemia type: pure hypercholesterolemia Qualified Code(s): E78.00 - Pure hypercholesterolemia, unspecified (5) Intermittent abdominal pain: Code(s): R10.9 - Unspecified abdominal pain Category: Medical (6) Umbilical hernia: Code(s): K42.9 - Umbilical hernia without obstruction or gangrene Category: Medical Qualifiers: Obstruction and gangrene presence: without obstruction or gangrene Qualified Code(s): K42.9 - Umbilical hernia without obstruction or gangrene (7) Hematuria: Code(s): R31.9 - Hematuria, unspecified Category: Medical Qualifiers: Hematuria type: unspecified type Qualified Code(s): R31.9 - Hematuria, unspecified Plan In this visit, we covered essential aspects of managing the patient's chronic conditions and addressed recent health concerns. We confirmed the need for upcoming blood work and urine analysis for monitoring purposes. I scheduled an ultrasound to look into the umbilical abnormality observed during the physical exam, as per patient's inquiry about its possible significance. For shortness of breath, attributed partly to his past lifestyle and smoking history, I suggested lifestyle modification strategies despite the improvement noted post- influenza recovery. From an administrative perspective, I ensured continuity of his prescribed therapy, noting the reissue of his hydrochlorothiazide prescription to avoid interruption. I instructed the patient to ensure cardiology follow-up, and I will anticipate receiving those reports. The patient's recent lifestyle changes, including residence relocation, were recognized, and he was reassured about his health maintenance plan for holistic management. Patient was informed and verbally consented to the use of an ambient scribe for clinic note documentation during this visit. Orders: Orders Complete Blood Count Auto Diff Today E66.9 - Obesity, unspecified, E78.5 - Hyperlipidemia, unspecified, I10 - Essential (primary) hypertension, Z00.00 - Encounter for general adult medical examination without abnormal findings Comprehensive Schuyler. Panel Fast Today E66.9 - Obesity, unspecified, E78.5 - Hyperlipidemia, unspecified, I10 - Essential (primary) hypertension, Z00.00 - Encounter for general adult medical examination without abnormal findings TSH reflex Free T4 Today E66.9 - Obesity, unspecified, E78.5 - Hyperlipidemia, unspecified, I10 - Essential (primary) hypertension, Z00.00 - Encounter for general adult medical examination without abnormal findings Vitamin D 25-OH Total Today E66.9 - Obesity, unspecified, E78.5 - Hyperlipidemia, unspecified, I10 - Essential (primary) hypertension, Z00.00 - Encounter for general adult medical examination without abnormal findings Lipid Panel Today E66.9 - Obesity, unspecified, E78.5 - Hyperlipidemia, unspecified, I10 - Essential (primary) hypertension, Z00.00 - Encounter for general adult medical examination without abnormal findings UA CC w/rflx Micro + Cult Today E66.9 - Obesity, unspecified, E78.5 - Hyperlipidemia, unspecified, I10 - Essential (primary) hypertension, Z00.00 - Encounter for general adult medical examination without abnormal findings Glucose Fasting Today E66.9 - Obesity, unspecified, E78.5 - Hyperlipidemia, unspecified, I10 - Essential (primary) hypertension, Z00.00 - Encounter for general adult medical examination without abnormal findings PSA,Total (Free>4and<10) Today E66.9 - Obesity, unspecified, E78.5 - Hyperlipidemia, unspecified, I10 - Essential (primary) hypertension, Z00.00 - Encounter for general adult medical examination without abnormal findings US abdomen complete Today K42.9 - Umbilical hernia without obstruction or gangrene, R10.9 - Unspecified abdominal pain Medications: Refilled hydrochlorothiazide 25 mg PO DAILY 30 tabs 3RF I10 - Essential (primary) hypertension
--- OUTSIDE RECORDS SUMMARY | 2024-09-23 11:47 | XMS_ITS | Encounter Summary ---
Author Name [facility] [place] [facility] [place] [facility] [place] Address [address] [place] [address] Care Team Providers Care Donor Services Coordinator Name Role Phone JORDYN KATZ Primary Care Provider Unavailabl e Insurance Providers: All historical and current Section Date Range: From patient's date of to the date document was created. This section includes the names of all active insurance providers for the patient. Insurance Provider Type of Coverage Plan Name Start of Policy Coverage End of Policy Coverage Group Number Member ID Insurance Provider's Telephone Number Policy Batista's Name Patient's Relationship to Policy Batista [facility] [place] (WNR) MEDICARE ADVANTAGE MCR ([facility]) Nov 23, 2010 [id number] [phone] HODA,LOULOU VID PATIENT [facility] [place] M[facility] (WNR) MEDICARE ADVANTAGE MCR ([facility]) Nov 23, 2010 [id number] HARROP,DA VID PATIENT Selected Encounter This section includes the information on record at [place] for the Encounter. Date/Time Encounter Type Encounter Description Reason Provider Source Mar 23, 2024 10:30 AM COMPRE OPH EXAM EST PT 1/> OPTOMETRY ICD-10-CM Z96.1 Presence of intraocular lens MERRICO JASSO B IHE Encounter Template Text not used by VA Assessments - Encounter Diagnoses This section includes the primary and secondary diagnoses documented for the Encounter. Date/Time Primary/Secondary Diagnosis Diagnosis Name Provider Source Mar 24, 2024 03:23 PM PRIMARY Presence of intraocular lens RICO CHOU B [place] [facility] [place] [facility] Mar 24, 2024 03:23 PM SECONDARY Hypermetropia, bilateral RICO CHOU B [place] [facility] [place] [facility] Mar 24, 2024 03:23 PM SECONDARY Other disorders of optic disc, bilateral MERROMERO,[facility]ICO [facility] Plan of Treatment: Future Appointments (+ 6 months) and Future Tests (+/- 45 days) The Plan of Treatment section includes future care activities for the patient from all [place] [facility]. This section includes future appointments and future orders which are active, pending or scheduled. Future Appointments This section includes appointments that were scheduled to occur 6 months from the date of the Encounter, up to a maximum of 20 appointments. The data comes from all [facility]. Appointment Date/Time Appointment Type Appointme nt Facility Name Mar 29, 2024 10:00 AM AMBULATORY - [facility] Mar 29, 2024 12:30 PM AMBULATORY - MEDICINE [facility] Apr 19, 2024 08:30 AM AMBULATORY - MEDICINE [facility] [facility] May 07, 2024 08:45 AM AMBULATORY - MEDICINE [facility] [facility] May 11, 2024 09:15 [facility] [place] [facility] May 11, 2024 10:00 AM AMBULATORY - MEDICINE [facility] Active, Pending, and Scheduled Orders This section includes a listing of several types of active, pending, and scheduled orders, including clinic medications orders, diagnostic test orders, procedure orders and consult orders; where the start date of the order is 45 days before the date of the Encounter or 45 days after the date of theEncounter. The data comes from all [facility]. Test Date/Time Test Type Test Details Facility Name May 02, 2024 12:00 AM Laboratory - Chemistry Order BASIC METABOLIC PANEL (fasting) BLOOD (SST-SERUM) [facility] May 02, 2024 12:00 AM Laboratory - Chemistry Order CBC AND DIFF (AUTO) BLOOD (LAV-BLOOD) [facility] [place] [facility] May 02, 2024 12:00 AM Laboratory - Chemistry Order LIPID PANEL FASTING BLOOD (SST-SERUM) [facility] [facility] May 02, 2024 12:00 AM Laboratory - Chemistry Order TSH BLOOD (SST-SERUM) [facility] [facility] May 02, 2024 12:00 AM Laboratory - Chemistry Order LIVER FUNCTION BLOOD (SST-SERUM) [facility] [facility] May 02, 2024 12:00 AM Laboratory - Chemistry Order URINALYSIS CLEAN CATCH URINE [facility] [place] [facility] Social History: Smoking Status (Most current) and Tobacco Use (All prior to encounter date) This section includes the most current, and the historical, smoking and tobacco- related health factors from the [place] facility where the Encounter took place. Current Smoking Status This section includes the most current smoking, or tobacco-related health factor, from the [place] facility where the Encounter took place. Date/Time Current Smoking Status Comment [facility] Jun 10, 2023 08:00 AM VA-TOBACCO FORMER USER [place] [facility] Tobacco Use History This section includes a history of the smoking, or tobacco-related health factors, that were collected on or before the date of the Encounter. The data comes from the [place] facility where the Encounter took place. Date/Time Smoking Status/Tobac co Use Comment Facility Jun 10, 2023 08:00 AM VA-TOBACCO QUIT 5 TO < 15 YRS [facility] [place] [facility] May 06, 2022 10:30 AM VA-TOBACCO FORMER USER [facility] [place] [facility] May 06, 2022 10:30 AM VA-TOBACCO QUIT 5 TO < 15 YRS [facility] [place] [facility] May 08, 2021 11:00 AM VA-TOBACCO FORMER USER [facility] [place] [facility] May 08, 2021 11:00 AM VA-TOBACCO QUIT 5 TO < 15 YRS [facility] [place] [facility] Dec 10, 2019 12:53 PM VA-TOBACCO FORMER USER [facility] [place] [facility] Dec 10, 2019 12:53 PM VA-TOBACCO QUIT 5 TO < 15 YRS [facility] [place] [facility] Mar 17, 2018 08:37 AM VA-TOBACCO NEVER USED [facility] Sep 15, 2017 08:18 AM QUIT TOBACCO USE 1-7 YEARS AGO PT STATES HE QUIT 4 YRS AGO [facility] Jan 31, 2017 12:42 PM QUIT TOBACCO USE 1-7 YEARS AGO pt state stop 3 yrs ago. [facility] Jan 12, 2016 02:07 PM QUIT TOBACCO USE 1-7 YEARS AGO [facility] Jan 26, 2015 01:22 PM QUIT TOBACCO USE 1-7 YEARS AGO PT STATES THAT HE QUIT 13 MONTHS AGO. [facility] [place] Jan 28, 2014 01:47 PM QUIT TOBACCO USE IN PAST YEAR [facility] Nov 06, 2012 08:51 AM CURRENT SMOKER 1 pack per day. [facility] Nov 06, 2012 08:51 AM V1-PT THINKING ABOUT QUIT TOBACCO USE [facility] [place] [facility] October 04, 2011 08:29 AM CURRENT SMOKER 1 ppd [facility] October 04, 2011 08:29 AM V1-PT DECLINES TOBACCO CESSATION MEDS [facility] October 04, 2011 08:29 AM V1-PT THINKING ABOUT QUIT TOBACCO USE [facility] [place] September 28, 2010 09:21 AM CURRENT SMOKER 1 ppd [facility] September 28, 2010 09:21 AM V1-PT THINKING ABOUT QUIT TOBACCO USE [facility] Sep 21, 2009 02:57 PM V1-PT DECLINES TOBACCO CESSATION MEDS [facility] Sep 21, 2009 02:57 PM V1-PT THINKING ABOUT QUIT TOBACCO USE [facility] Encounter Notes: All associated encounter notes This section contains the clinical notes associated to the Encounter. Date/Time Encounter Note(s) Provider Source Mar 23, 2024 10:50 AM OPTOMETRY NOTE: LOCAL TITLE: OPTOMETRY NOTE STANDARD TITLE: OPTOMETRY NOTE DATE OF NOTE: MAR 23, 2024@10:50 ENTRY DATE: MAR 23, 2024@10:50:09 AUTHOR: RICO CHOU EXP COSIGNER: URGENCY: STATUS: COMPLETED 78 WHITE MALE NOT OR Last eye exam: 07/17/23 Reason for Visit/CC: patient here for a follow up visit. S/p CE OU. Since then only wearing glasses for reading. OHx: 1. malinserted discs OU 2. cataracts OU now s/p CE OU 3. refractive error (-) Pain: (-) ESCOBEDO: (-) Diplopia: (-) Flashes: (-) Floaters: (-) Amaurosis Fugax/Tia's: (-) Eye Injury: (+) Eye Surgery: CE OU 11/2023 (-) TBI (-) FOHx: maternal grandmother was legally blind, but unsure why MHx: Code Description H26.9 Cataract ([facility] [id number]) U07.1 COVID-19 ([facility] [id number]) J44.9 COPD - Chronic Obstructive Pulmonary Disease ([facility] [id number]) K63.5 Polyp colon ([facility] [id number]) J98.4 Multiple nodules of lung ([facility] [id number]) M16.9 OA - Osteoarthritis of Hip ([facility] [id number]) E78.00 Hypercholesterolemia ([facility] [id number]) G47.33 Obstructive sleep apnea ([facility] [id number]) N64.4 Gynecomastia ([facility] [id number]) I71.4 Abdominal aortic aneurysm ([facility] [id number]) N52.9 History of male erectile disorder ([facility] [id number]) 550.90 Inguinal hernia ([facility] [id number]) 441.4 Aneurysm, Aorta, Abdominal (ICD-9-CM 441.4) I10. Hypertension ([facility] [id number]) 305.1 Tobacco Use Disorder (ICD-9-CM 305.1) Other: SYSTEMIC MEDICATIONS/OCULAR MEDICATIONS: Active and Recently Outpatient Medications (excluding Supplies): Active Outpatient Medications Status 1) ALBUTEROL 100/IPRATRO 20MCG 120D PO INHL INHALE 1 ACTIVE PUFF BY MOUTH FOUR TIMES DAILY NEEDED FOR TROUBLE BREATHING 2) BROMFENAC 0.07% OPH SOLN INSTILL 1 DROP INTO THE LEFT HOLD EYE ONCE DAILY FOR 6 WEEKS 3) FLUTICAS 250/SALMETEROL 50 INHL DISK 60 INHALE 1 PUFF ACTIVE BY MOUTH TWICE DAILY - RINSE MOUTH AFTER USE 4) KETOROLAC TROMETHAMINE 0.5% OPH SOLN INSTILL 1 DROP ACTIVE INTO THE LEFT EYE DIRECTED BY PROVIDER FOR 6 WEEKS 5) LISINOPRIL 20MG TAB TAKE ONE TABLET BY MOUTH ONCE ACTIVE DAILY TO CONTROL BLOOD PRESSURE - NOTE TABLET STRENGTH AND INSTRUCTIONS 6) METOPROLOL TARTRATE 50MG TAB TAKE ONE TABLET BY MOUTH ACTIVE TWICE DAILY FOR BLOOD PRESSURE/HEART 7) PRAVASTATIN NA 40MG TAB TAKE ONE TABLET BY MOUTH AT ACTIVE BEDTIME FOR CHOLESTEROL 8) TERBINAFINE HCL 1% CREAM APPLY A MODERATE AMOUNT ACTIVE TOPICALLY ONCE DAILY TO GROIN Active Non-VA Medications Status 1) Non-VA ASPIRIN 81MG CHEW TAB 81MG BY MOUTH ONCE DAILY ACTIVE 9 Total Medications ALLERGIES: HCTZ 25MG/TRIAMTERENE 37.5MG TABLET, AMLODIPINE LAST BP: 134/74 (11/18/2023 14:17) PERTINENT LABS: HEMOGLOBIN A1C; BLOOD Shakira. Date: 06/10/23 11:31 Test Name Result Units Range HEMOGLOBIN A1C 5.9 H % 4.0 - 5.6 +++++++++++++++++++++++++++++ +++++++++++++++++++++++++++++ +++++++++++++++++++++ Patient history, visual acuity, entrance testing, refraction and tonometry all performed now by domestic technician and reviewed by attending provider. Dilation drops instilled by domestic technician after angle assessment and dilation warning given with verbal consent obtained. +++++++++++++++++++++++++++++ +++++++++++++++++++++++++++++ +++++++++++++++++++++ Final Rx: OD +0.25 -0.50 x 170 OS +0.25 sph Add: +2.50 SLE: Lids/Lashes: clear OU Conjunctiva: white and quiet OU Corneas: clear OU Iris: flat and clear OU Anterior Chamber: deep and quiet OU Angles: open OU Lens: PCIOL OU, tr PCO OU DFE: Vitreous: Syneresis OU, PVD OU C/D (Size and Rim Description) OD severely malinserted with PPA OS severely malinserted with PPA Macula OD flat and clear OS flat and clear A/V: normal caliber OU Posterior Pole: clear OU Periphery: Flat and intact (-)holes, tears, detachments 360 OU Assessment/Plan: 1. Pseudophakia OU- excellent surgical results, monitor 2. other disorders of optic disc OU - malinserted discs OU - stable to prior photos. Monitor 3. hyperopia OU - order new bifocals with transitions RTC 1 year or earlier PRN patient offered and declined printed medication list Medication Reconciliation: Outpatient: Has the patient been taking medications as documented in the EMLR? YES: The patient has been taking medications as documented in the EMLR. Essential Medication List for Review used to complete this medication reconciliation. INCLUDED IN THIS LIST: Alphabetical list of active outpatient prescriptions dispensed from this VA (local) and dispensed from another VA or DoD facility (remote) as well as inpatient orders (local, pending and active), local clinic medications, locally documented non-VA medications, and local prescriptions that have or been discontinued in the past 90 days. - All changes in medications, including all non-VA/Herbal/OTC medications were entered into CPRS. - If there were any medications the patient should no longer take, they were discontinued. - The patient/caregiver was instructed to update this list, discard old lists, and take this list to the next appointment, whether with a VA or non-VA provider. JLV Link Data on this list may not be complete. Please check JLV. Allergies/ADRs (Tool #5) FACILITY ALLERGY/ADR -------- No Remote Allergy/ADR Data available for this patient [facility] [place] [facility] AMLODIPINE [facility] [place] [facility] HCTZ 25MG/TRIAMTERENE 37.5MG TABLET Med Recon NoGloary (Tool #1) INCLUDED IN THIS LIST: Alphabetical list of active outpatient prescriptions dispensed from this PA (local) and dispensed from another PA or [facility] facility (remote) as well as inpatient orders (local pending and active), local clinic medications, locally documented non-VA medications, and local prescriptions that have or been discontinued in the past 90 days. Non-VA Meds Last Documented On: May 05, 2020 NOTE The display of VA prescriptions dispensed from another PA or [facility] facility (remote) is limited to active outpatient prescription entries matched to National Drug File at the originating site and may not include some items such as investigational drugs, compounds, etc. NOT INCLUDED IN THIS LIST: Medications self-entered by the patient into personal health records (i.e. [employer]) are NOT included in this list. Non-VA medications documented outside this [place], remote inpatient orders (regardless of status) and remote clinic medications are NOT included in this list. The patient and provider must always discuss medications the patient is taking, regardless of where the medication was dispensed or obtained. OUTPT ALBUTEROL 100/IPRATRO 20MCG 120D PO INHL (Status = Active) INHALE 1 PUFF BY MOUTH FOUR TIMES DAILY NEEDED FOR TROUBLE BREATHING Rx# [id number] Last Released: 12/26/23 Qty/Days Supply: Rx Expiration Date: 06/10/24 Refills Remainin Indication: FOR BRONCHOSPASM Non-VA ASPIRIN 81MG CHEW TAB CHEW ONE TABLET BY MOUTH ONCE DAILY Patient wants to buy from Non-VA pharmacy. OUTPT BROMFENAC 0.07% OPH SOLN (Status = On Hold) INSTILL 1 DROP INTO THE LEFT EYE ONCE DAILY FOR 6 WEEKS Rx# [id number] Last Released: Qty/Days Supply: Rx Expiration Date: 11/06/24 Refills Remainin OUTPT FLUTICAS 250/SALMETEROL 50 INHL DISK 60 (Status = Active) INHALE 1 PUFF BY MOUTH TWICE DAILY - RINSE MOUTH AFTER USE Rx# [id number] Last Released: 12/26/23 Qty/Days Supply: Rx Expiration Date: 06/10/24 Refills Remainin Indication: FOR BRONCHOSPASM PREVENTION WITH COPD OUTPT KETOROLAC TROMETHAMINE 0.5% OPH SOLN (Status = Active) INSTILL 1 DROP INTO THE LEFT EYE DIRECTED BY PROVIDER FOR 6 WEEKS Rx# [id number] Last Released: 01/17/24 Qty/Days Supply: Rx Expiration Date: 11/07/24 Refills Remainin OUTPT LISINOPRIL 20MG TAB (Status = Active) TAKE ONE TABLET BY MOUTH ONCE DAILY TO CONTROL BLOOD PRESSURE - NOTE TABLET STRENGTH AND INSTRUCTIONS Rx# [id number] Last Released: 02/28/24 Qty/Days Supply: Rx Expiration Date: 06/10/24 Refills Remainin Indication: FOR HIGH BLOOD PRESSURE OUTPT METOPROLOL TARTRATE 50MG TAB (Status = Active) TAKE ONE TABLET BY MOUTH TWICE DAILY FOR BLOOD PRESSURE/HEART Rx# [id number] Last Released: 02/28/24 Qty/Days Supply: Rx Expiration Date: 06/10/24 Refills Remainin Indication: FOR HIGH BLOOD PRESSURE OUTPT PRAVASTATIN NA 40MG TAB (Status = Active) TAKE ONE TABLET BY MOUTH AT BEDTIME FOR CHOLESTEROL Rx# [id number] Last Released: 02/28/24 Qty/Days Supply: Rx Expiration Date: 06/10/24 Refills Remainin Indication: FOR HIGH CHOLESTEROL OUTPT TERBINAFINE HCL 1% CREAM (Status = Active) APPLY A MODERATE AMOUNT TOPICALLY ONCE DAILY TO GROIN Rx# [id number] Last Released: 06/10/23 Qty/Days Supply: 60/7 Rx Expiration Date: 06/10/24 Refills Remainin Indication: FOR ATHLETE'S FOOT SUPPLIES /walter/ RICO CHOU OD Loft Patternmaker Signed: 03/24/2024 15:23 RICO CHOU [place] [facility] [place] [facility] Mar 23, 2024 09:10 AM OPTOMETRY IMPORTER OR EXPORTER NOTE: LOCAL TITLE: OPTOMETRY IMPORTER OR EXPORTER NOTE STANDARD TITLE: OPTOMETRY IMPORTER OR EXPORTER NOTE DATE OF NOTE: MAR 23, 2024@09:10 ENTRY DATE: MAR 23, 2024@09:10:24 AUTHOR: SONALI FERNANDES COSIGNER: URGENCY: STATUS: COMPLETED Active problems - Computerized Problem List is the source for the followin. Cataract 2. COVID-19 3. COPD - Chronic Obstructive Pulmonary Disease ([facility] [id number]) 4. Polyp colon 5. Multiple nodules of lung 6. OA - Osteoarthritis of Hip ([facility] [id number]) 7. Hypercholesterolemia ([facility] [id number]) 8. Obstructive sleep apnea 9. Gynecomastia 10. Abdominal aortic aneurysm 11. History of male erectile disorder 12. Inguinal hernia 13. Aneurysm, Aorta, Abdominal 14. Hypertension ([facility] CT [id number]) 15. Tobacco Use Disorder Active Outpatient Medications (including Supplies): Active Outpatient Medications Status 1) ALBUTEROL 100/IPRATRO 20MCG 120D PO INHL INHALE 1 ACTIVE PUFF BY MOUTH FOUR TIMES DAILY NEEDED FOR TROUBLE BREATHING 2) BROMFENAC 0.07% OPH SOLN INSTILL 1 DROP INTO THE LEFT HOLD EYE ONCE DAILY FOR 6 WEEKS 3) FLUTICAS 250/SALMETEROL 50 INHL DISK 60 INHALE 1 PUFF ACTIVE BY MOUTH TWICE DAILY - RINSE MOUTH AFTER USE 4) KETOROLAC TROMETHAMINE 0.5% OPH SOLN INSTILL 1 DROP ACTIVE INTO THE LEFT EYE DIRECTED BY PROVIDER FOR 6 WEEKS 5) LISINOPRIL 20MG TAB TAKE ONE TABLET BY MOUTH ONCE ACTIVE DAILY TO CONTROL BLOOD PRESSURE - NOTE TABLET STRENGTH AND INSTRUCTIONS 6) METOPROLOL TARTRATE 50MG TAB TAKE ONE TABLET BY MOUTH ACTIVE TWICE DAILY FOR BLOOD PRESSURE/HEART 7) PRAVASTATIN NA 40MG TAB TAKE ONE TABLET BY MOUTH AT ACTIVE BEDTIME FOR CHOLESTEROL 8) TERBINAFINE HCL 1% CREAM APPLY A MODERATE AMOUNT ACTIVE TOPICALLY ONCE DAILY TO GROIN Active Non-VA Medications Status 1) Non-VA ASPIRIN 81MG CHEW TAB 81MG BY MOUTH ONCE DAILY ACTIVE 9 Total Medications Allergies: HCTZ 25MG/TRIAMTERENE 37.5MG TABLET, AMLODIPINE All medications including those prescribed by outside VA's, community providers, and all OTC meds were reviewed and reconciled with patient to the best of their abilities. This 78 year old MALE is seen today for Follow up on cataract surgery OU AR/refract, DFE. Medical, eye, personal, and social history are all reviewed and is contributory or is not contributory to today's visit. Date of last eye exam:Jul 17 2023 Location: [facility] Chief Complaint:Patient here today for F/U cataract surgery OU A/R-refract, DFE. Patient had OD:December 02 2023 OS 2 weeks later, Dr Faust stated that he did not need glasses just reading, patient states at the moment he is using OTC +3.50. no vision complaints.NO dryness, no tearing. No changes in medications or allergies. HISTORY AND REVIEW OF SYSTEMS: OHx: 1. Nuclear sclerotic and cortical cataracts left greater than right eye 2. 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 3. Small corneal foreign body scar right eye not visually significant at present 4. Heavy dermatochalasis with ptosis each eye (-) Pain: (-) ESCOBEDO: (-) Diplopia: (-) Flashes: (+) Floaters: occasional,longstanding (-) Amaurosis Fugax/Tia's: (-) Eye Injury: (+) Eye Surgery: blood clot removed from one eye 20 years ago unsure which eye (-) TBI Family Ocular History: (-) Glaucoma/ARMD (+) Blindness: patient reports maternal grandmother was legally blind, but unsure why Social History: (-) Smoker/Length of Time/PPD: former smoker, quit 11 years ago DIABETIC:NO Last A1C: HEMOGLOBIN A1C PANEL BLOOD (LAV-BLOOD) SP LB #[id number] Collection time: Jun 10, 2023@11:31 HEMOGLOBIN A1C 5.9 H % 4.0 - 5.6 EYE MEDICATION(S): None VISION AND REFRACTION: Current Rx with last BCVA: Cataract Surgery OU 2023 DVA (XX )sc ( )cc OD:20/20-- OS:20/25 NV OU:20/70 Auto Refraction: OD:+0.00 -0.50 170 OS:+0.00 -0.25 81 Manifest Refraction (MRx): OD:+0.50 -0.50 170 20/15-- OS:+0.50 -0.25 81 20/20 ADD:+2.50 OU 20/20 Intraocular Pressure (IOP) Method: Icare Time:10:33am OD:12 OS:13 Pupils: PERRL (-)APD EOMs: SAFE OU,(-)Pain/Diplopia CVF(facial, peripheral): FTFC OU ANTERIOR CHAMBER (AC) Penlight or slit lamp (if available) exam appears unremarkable. Pupils are dilated. Dilation and driving precautions reviewed with patient and patient expresses understanding. Medication: 1% Tropicamide, Time:10:34am Visual Imaging Performed Today:NONE Additional Comments:Bifocal clear and sun and like the frames he has. /walter/ SONALI GARCIA [facility] Signed: 03/23/2024 10:35 SONALI FERNANDES [facility] [place] [facility]
--- OUTSIDE RECORDS SUMMARY | 2024-09-23 11:48 | XMS_ITS | Encounter Summary ---
Author Name [facility] [place] [facility] [facility] [place] Address [address] [place] [address] Care Team Providers [employer] Publisher Name Role Phone JORDYN KATZ Primary Care [...] Batista's Name Patient's Relationship to Policy Batista [facility]) MEDICARE ADVANTAGE MCR ([facility]) Nov 23, 2010 [id number] HARROP,DA VID PATIENT [facility] [place] MCR (WNR) MEDICARE ADVANTAGE MCR ([facility]) Nov 23, 2010 [id number] [phone] HARROP,DA VID PATIENT Selected Encounter This section includes the information on record at [place] for the Encounter. Date/Time Encounter Type Encounter Description Reason Provider Source May 14, 2024 09:43 AM QNHP OL DIG ASSMT&MGMT 11-20 PULMONARY/CHEST ICD-10-CM R91.8 Other nonspecific abnormal finding of lung field GEORGE MATA Encounter Template Text not used by [facility] Assessments - Encounter Diagnoses This section includes the primary and secondary diagnoses documented for the Encounter. Date/Time Primary/Secondary Diagnosis Diagnosis Name Provider Source May 14, 2024 10:12 AM PRIMARY Other nonspecific abnormal finding of lung field GEORGE MATA [facility] Plan of Treatment: Future Appointments (+ 6 months) and Future Tests (+/- 45 days) The Plan of Treatment section includes future care activities for the patient [facility] [place] [facility] This section includes future appointments and future orders which are active, pending or scheduled. Future Appointments This section includes appointments that were scheduled to occur 6 months from the date of the Encounter, up to a maximum of 20 appointments. The data comes from all [facility]. Appointment Date/Time Appointment Type Appointme nt Facility Name Nov 09, 2024 09:00 AM AMBULATORY - MEDICINE [facility] Nov 09, 2024 09:45 AM AMBULATORY - NONE [facility] Active, Pending, and Scheduled Orders This section includes a listing of several types of active, pending, and scheduled orders, including clinic medications orders, diagnostic test orders, procedure orders and consult orders; where the start date of the order is 45 days before the date of the Encounter or 45 days after the date of theEncounter. The data comes from all [facility]. Test Date/Time Test Type Test Details Facility Name May 02, 2024 12:00 AM Laboratory - Chemistry Order BASIC METABOLIC PANEL (fasting) BLOOD (SST-SERUM) [facility] May 02, 2024 12:00 AM Laboratory - Chemistry Order CBC AND DIFF (AUTO) BLOOD (LAV-BLOOD) [facility] May 02, 2024 12:00 AM Laboratory - Chemistry Order LIPID PANEL FASTING BLOOD (SST-SERUM) [facility] May 02, 2024 12:00 AM Laboratory - Chemistry Order TSH BLOOD (SST-SERUM) [facility] May 02, 2024 12:00 AM Laboratory - Chemistry Order LIVER FUNCTION BLOOD (SST-SERUM) [facility] May 02, 2024 12:00 AM Laboratory - Chemistry Order URINALYSIS CLEAN CATCH URINE [facility] Lab Results: +/- 30 days of the encounter This section includes the Chemistry and Hematology Lab Results on record with [facility] for the patient. Radiology Reports and Pathology Reports are provided separately, in subsequent sections. Lab Results This section contains the Chemistry/Hematology Results that were resulted 30 days before or 30 daysafter the date of the Encounter. Date/Time Source Result Type Result - Unit Interpretation Reference Range Specimen Type Comment Apr 28, 2024 08:46 AM [facility] BASIC METABOLIC PANEL (non-fasting) SERUM Spe cimen Type: SERUM No comment entered. Ordering Provider: JORDYN KATZ Report Released Date/Time: Apr 11, 2024 06:40 PM Reporting Lab: [address] [id number] Performing Lab: [address] [id number] UREA NITROGEN 18 mg/dL 7-25 GLUCOSE 97 mg/dL 65-100 SODIUM 141 mmol/L 135-145 POTASSIUM 4.2 mmol/L 3.5-5.0 CHLORIDE 109 mmol/L 100-110 CO2 21 meq/L 20-30 CREATININE, Serum 0.96 mg/dL 0.50-1.40 eGFR(CKD-EPI 2020) 81 mL/min >60 Radiology Reports: +/- 30 days of the encounter Radiology Reports For cases when an order for radiology services may have been completed prior to the date of the Encounter, the report list includes the Radiology Reports that were completed up to 30 days before dateof the Encounter. For cases when an order for radiology services may have been completed after the date of the Encounter, the report list also includes the Radiology Reports that were completed up to30 days after date of the Encounter. The data comes from all [place] treatment facilities. Date/Time Radiology Report Provider Source May 11, 2024 08:[address] ANGIOGRAPHY, ABDOMEN: PRAKASH DRUMMOND [id number] -1945 M Exm Date: MAY 11, 2024@08:54 Req Phys: JORDYN KATZ Pat Loc: CWM/NO/PACT 2 (Req'g Loc) Img Loc: [place]/CT Service: [place] [address] (Case 48 COMPLETE) CT ANGIOGRAPHY, ABDOMEN (CT Detailed) CPT:20582 Contrast Media : Non-ionic Iodinated Reason for Study: evaluate AAA Clinical History: pararenal AAA s/p enovascular repair using physician modified fenestrated stent graft . request CTA abdomen and pelvis with and without contrast. Report Status: Verified Date Reported: MAY 11, 2024 Date Verified: MAY 11, 2024 [employer] E-Sig:/ES/CORRIE HARTMANN JR Report: Study: CT angiography of the abdominal aorta. Comparison:\H\ CT angiography of the abdominal aorta from September 19, 2022 and November 07, 2017. \N\Technique: After the uneventful administration of 100 cc of Omnipaque 350 nonionic intravenous contrast media, CT angiogram of the abdomen and pelvis, with multiplanar reformats including 3-dimensional reconstructions, was performed. A single contrast-enhanced series was obtained in the arterial phase. Findings: Moderate dependent changes and bullous emphysematous changes present at the visualized lung bases. VESSELS: Abdominal Aorta: Again status post endovascular repair of infrarenal abdominal aortic aneurysm using an associated aorto biiliac stent. The abdominal aortic stent is grossly patent. There is no evidence of contrast extravasation or leak into the aneurysmal sac. The aneurysmal sac stably measures 3.4 cm in maximum diameter proximal to the aortic bifurcation (3-73).. The branch are vessels are grossly patent. Celiac, superior mesenteric artery, right renal artery, left renal artery: All patent status post ostial stent placements at each origin from the abdominal aorta with no new abnormality identified. Inferior Mesenteric Artery: Patent. Right Common Iliac Artery: Patent. Right External Iliac Artery: Patent along visualized portion. Right Internal Iliac Artery: Patent along visualized portion. Left Common Iliac Artery: Patent. Left External Iliac Artery: Patent along visualized portion. Left Internal Iliac Artery: Patent along visualized portion. Veins: Not evaluated due to the phase of contrast. ABDOMEN: Evaluation of solid organs is limited by early arterial contrast timing. Liver: Unchanged hyperdensity in the right hepatic lobe which may represent calcification versus embolization material. Gallbladder/Biliary Tract: Normal. Distal Esophagus, Stomach and Duodenum: Normal CT appearance. Spleen: Normal. Pancreas: Diffusely atrophic. Adrenal Glands: Normal. Kidneys and Ureters: Normal. No hydronephrosis or obstructing calculi. Bowel: No evidence of bowel obstruction or inflammation. Appendix not identified, but no secondary signs of appendicitis. Mild colonic diverticulosis without evidence of acute diverticulitis. Peritoneum/Retroperitoneum: No ascites, fluid collection or pneumoperitoneum. Lymph Nodes: Abdominal Wall: Stable fat only containing umbilical hernia with the hernia neck measuring 3.2 cm transversely and the hernia sac measuring 5.9 cm transversely by 2.8 cm AP, 3-87, not significantly changed. Bones: Multilevel degenerative changes of the spine. Impression: Patent aortobiiliac and mesenteric vasculature stenting with no new abnormality or evidence of endoleak, as described above. Primary Diagnostic Code: No immediate attention required Primary Interpreting Staff: CORRIE HARTMANN JR, Radiologist ([employer]) /EAD CORRIE HARTMANN JR [facility] May 11, 2024 08:53 AM LDCT LCS 1, 3 OR 6 MONTH FOLLOW UP: PRAKASH DRUMMOND [id number] -1945 M Ex Date: MAY 11, 2024@08:53 Req Phys: JORDYN KATZ Loc: CWM/NO/LCS CHART CONSULT (Req' Img Loc: NHM/CT Service: [place] [address] (Case 47 COMPLETE) LDCT LCS 1, 3 OR 6 MONTH FOLLOW U(CT Detailed) CPT:53397 Reason for Study: 3 MONTH LCS LDCT Clinical History: 50 TPY-Quit 2014 PATRICIA, COPD, AAA Prior imaging: PET scan ([facility]) 01/29/2024 CT scan of the chest from December 31, 2022, December 31, 2021, April 26, 2021, and August 11, 2019. EVERETTE 14.4mm nodule not visible or avid on PET, right hilar lymph node PET avid and measuring up to 1cm. Reviewed in multi-d with [facility] and recs for repeat imaging in 3 months. Report Status: Verified Date Reported: MAY 11, 2024 Date Verified: MAY 11, 2024 [employer] E-Sig:/ES/CORRIE HARTMANN JR Report: Study: LDCT LCS 1, 3 OR 6 MONTH FOLLOW UP. Provided History: Lung cancer screening. Comparison: CT scan of the chest from January 02, 2024 and December 31, 2022, December 31, 2021, April 26, 2021 and August 11, 2019 with PET/CT from January 29, 2024 without report. Technique: 1 mm lung algorithm and 3 mm soft tissue algorithm axial reconstructions from the lung apices through the lung bases without the administration of intravenous contrast as per standard department protocol for lung cancer screening. Subsequently, sagittal and coronal reformats were generated. MIP images also provided and reviewed. Secondary computer-aided detection with post-processing from [employer] is used. The lack of intravenous contrast inherently limits the evaluation of hilar structures, vascular structures, and abnormal enhancement patterns. Lower than standard dose was utilized limiting sensitivity for fine parenchymal detail. Dose Parameters: CTDI(vol): 3.0 mGy. DLP: 113.9 mGy*cm. Findings: Lungs: Emphysema: Mild to moderate centrilobular and paraseptal emphysematous changes with associated scattered parenchymal scarring is unchanged. Index Nodule: At the site of the previously new large spiculated 14.4 mm nodule that was reportedly not avid on PET CT, there is only a residual 4.1 mm in greatest dimension solid, rounded, slightly irregular pulmonary nodule, 8-97 likely represent representing residual sequelae of infectious/inflammatory process. Other Nodules: None. Lungs/airway findings: Mild stable elevation of the right hemidiaphragm. No acute pulmonary process or pleural effusion is identified. There are mild dependent changes present at the lung bases. 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 Otherwise, the tracheobronchial tree is patent and normal. Heart, mediastinum and lymph nodes: The heart size is normal with prominent left atrial appendage again identified. No pericardial effusion identified. Normal caliber thoracic aorta. No mediastinal or hilar lymphadenopathy by size criteria. No axillary lymphadenopathy by size criteria. Normal caliber pulmonary arteries. Visualized coronary artery and aortic calcifications: Atherosclerotic changes of the aorta and coronary arteries. Upper abdomen: Abdominal aortic endovascular stent graft partially visualized with stenting of the celiac axis, SMA and right renal artery. Punctate calcified granuloma in the liver. Bones and soft tissues: Normal age-related degenerative changes present. No acute bony abnormality identified. Other findings: None. Impression: Near complete interval resolution of the left upper lobe spiculated mass likely representing resolving infectious or inflammatory process, as described above. Lung-RADS Assessment: Category 3, probably benign. Recommendation: Lung cancer screening CT in 6 months. Other Significant Findings and Recommendations: None. Primary Diagnostic Code: No immediate attention required Secondary Diagnostic Codes: LUNGRADS 3: PROBABLY BENIGN Primary Interpreting Staff: CORRIE HARTMANN JR, Radiologist ([employer]) /CORRIE SMITH JR [place] [facility] Encounter Notes: All associated encounter notes This section contains the clinical notes associated to the Encounter. Date/Time Encounter Note(s) Provider Source May 14, 2024 09:43 AM TUMOR BOARD NOTE: LOCAL TITLE: LUNG NODULE-MULTIDISCIPLINARY TUMOR BOARD NOTE STANDARD TITLE: TUMOR BOARD NOTE DATE OF NOTE: MAY 14, 2024@09:43 ENTRY DATE: MAY 14, 2024@09:43:55 AUTHOR: GEORGE MATA EXP COSIGNER: URGENCY: STATUS: COMPLETED National Comprehensive Cancer Network Guidelines will be used in discussion and treatment decisions unless otherwise specified pt is followed in the [facility] program. Pt's imgaing and case reviewed with Dr. Jacques (Radiology)We re-reviewed the prior nodule board consults. On the 04/2024 scan the spiculated opacity that ws on the left has essentially resolved with a residual 4mm nodule Re: the avid hilar node that had been seen on the pet scan this too has gotten smaller now measuring 6mm therefore it was likely reactive. We agree with a f/u scan in 6months to continue to monitor the EVERETTE nodule. Recommendations to be completed by the [facility] LCS team CT Scan 6 Months /walter/ GEORGE MATA APRN, [facility] REGISTERED NURSE Signed: 05/14/2024 10:12 Receipt Acknowledged By: 05/20/2024 09:32 /walter/ EFE JACQUES MD Staff Radiologist GEORGE MATA [facility]
--- OUTSIDE RECORDS SUMMARY | 2024-09-23 11:48 | XMS_ITS ---
Author Name [facility] [place] [facility] [place] [facility] [place] Address [address] [place] [address] Care Team Providers Care Candy Cooker Helper Name Role Phone IBRAHIMA COLON Primary Care Provider Unavailabl e Insurance Providers: [...] Batista's Name Patient's Relationship to Policy Batista [facility]) MEDICARE ADVANTAGE MCR ([facility]) Nov 23, 2010 [id number] [phone] HODA,LOULOU VID PATIENT [facility] [place] MCR (WNR) MEDICARE ADVANTAGE MCR ([facility]) Nov 23, 2010 [id number] [phone] HARRCAREY,DA VID PATIENT Selected Encounter This section includes the information on record at [place] for the Encounter. Date/Time Encounter Type Encounter Description Reason Provider Source Feb 06, 2024 02:40 PM Outpatient Encounter PULMONARY/CHEST MAYA VALADEZ Encounter Template Text not used by [place] Plan of Treatment: Future Appointments (+ 6 months) and Future Tests (+/- 45 days) The Plan of Treatment section includes future care activities for the patient from all VA treatmentfacilities. This section includes future appointments and future orders which are active, pending or scheduled. Future Appointments This section includes appointments that were scheduled to occur 6 months from the date of the Encounter, up to a maximum of 20 appointments. The data comes from all [place] treatment facilities. Appointment Date/Time Appointment Type Appointme nt Facility Name Mar 23, 2024 10:30 AM AMBULATORY - MEDICINE [place] [facility] [place] [facility] Mar 29, 2024 10:00 AM AMBULATORY - MEDICINE [place] [facility] [place] [facility] Mar 29, 2024 12:30 PM AMBULATORY - MEDICINE [facility] Apr 19, 2024 08:30 AM AMBULATORY - MEDICINE [place] [facility] [place] [facility] May 07, 2024 08:45 AM AMBULATORY - MEDICINE [place] [facility] [place] [facility] May 11, 2024 09:15 AM AMBULATORY - NONE [facility] [place] [facility] May 11, 2024 10:00 AM AMBULATORY - MEDICINE [facility] [place] [facility] Social History: Smoking Status (Most current) and Tobacco Use (All prior to encounter date) This section includes the most current, and the historical, smoking and tobacco- related health factors from the [place] facility where the Encounter took place. Current Smoking Status This section includes the most current smoking, or tobacco-related health factor, from the [place] facility where the Encounter took place. Date/Time Current Smoking Status Comment [facility] Jun 10, 2023 08:00 AM VA-TOBACCO FORMER USER [place] [facility] [place] [facility] Tobacco Use History This section includes a history of the smoking, or tobacco-related health factors, that were collected on or before the date of the Encounter. The data comes from the [place] facility where the Encounter took place. Date/Time Smoking Status/Tobac co Use Comment Facility Jun 10, 2023 08:00 AM VA-TOBACCO QUIT 5 TO < 15 YRS [facility] [place] [facility] May 06, 2022 10:30 AM VA-TOBACCO FORMER USER [facility] [place] [facility] May 06, 2022 10:30 AM VA-TOBACCO QUIT 5 TO < 15 YRS [facility] [place] [facility] May 08, 2021 11:00 AM VA-TOBACCO FORMER USER [facility] [place] [facility] May 08, 2021 11:00 AM VA-TOBACCO QUIT 5 TO < 15 YRS [place] [facility] [place] [facility] Dec 10, 2019 12:53 PM VA-TOBACCO FORMER USER [place] [facility] [place] [facility] Dec 10, 2019 12:53 PM VA-TOBACCO QUIT 5 TO < 15 YRS [facility] [place] [facility] Mar 17, 2018 08:37 AM VA-TOBACCO NEVER USED [place] [facility] [place] [facility] Sep 15, 2017 08:18 AM QUIT TOBACCO USE 1-7 YEARS AGO PT STATES HE QUIT 4 YRS AGO [facility] [place] [facility] Jan 31, 2017 12:42 PM QUIT TOBACCO USE 1-7 YEARS AGO pt state stop 3 yrs ago. [facility] [place] [facility] Jan 12, 2016 02:07 PM QUIT TOBACCO USE 1-7 YEARS AGO [facility] [place] [facility] Jan 26, 2015 01:22 PM QUIT TOBACCO USE 1-7 YEARS AGO PT STATES THAT HE QUIT 13 MONTHS AGO. [facility] [place] [facility] Jan 28, 2014 01:47 PM QUIT TOBACCO USE IN PAST YEAR [facility] [place] [facility] Nov 06, 2012 08:51 AM CURRENT SMOKER 1 pack per day. [facility] [place] [facility] Nov 06, 2012 08:51 AM V1-PT THINKING ABOUT QUIT TOBACCO USE [facility] [place] [facility] October 04, 2011 08:29 AM CURRENT SMOKER 1 ppd [facility] [place] [facility] October 04, 2011 08:29 AM V1-PT DECLINES TOBACCO CESSATION MEDS [facility] [place] [facility] October 04, 2011 08:29 AM V1-PT THINKING ABOUT QUIT TOBACCO USE [facility] [place] [facility] September 28, 2010 09:21 AM CURRENT SMOKER 1 ppd [facility] [place] [facility] September 28, 2010 09:21 AM V1-PT THINKING ABOUT QUIT TOBACCO USE [facility] [place] [facility] Sep 21, 2009 02:57 PM V1-PT DECLINES TOBACCO CESSATION MEDS [facility] [place] [facility] Sep 21, 2009 02:57 PM V1-PT THINKING ABOUT QUIT TOBACCO USE [facility] Radiology Reports: +/- 30 days of the [...] the Encounter. The data comes from all [place] treatment facilities. Date/Time Radiology Report Provider Source Jan 29, 2024 08:00 AM OUTSIDE PET, WHOLE BODY: PRKAASH DRUMMOND [id number] -[id number] M Exm Date: JAN 29, 2024@08:00 Req Phys: IBRAHIMA COLON Loc: [facility]/OUTSIDE IMAGING NON-CNT (R Img Loc: OUTSIDE GENERAL RADIOLOGY Service: Unknown (Case 1 COMPLETE) OUTSIDE PET, WHOLE BODY (RAD Detailed) CPT:82946 Reason for Study: outside images downloaded for continuity of care Clinical History: outside images downloaded for continuity of care Report Status: Electronically Filed Date Reported: JAN 29, 2024 Report: THIS EXAM WAS PERFORMED AND INTERPRETED AT AN OUTSIDE HOSPITAL Impression: THIS EXAM WAS PERFORMED AND INTERPRETED AT AN OUTSIDE HOSPITAL Primary Diagnostic Code: VERIFIED BY: / *ELECTRONICALLY FILED* [facility] Encounter Notes: All associated encounter notes This section contains the clinical notes associated to the Encounter. Date/Time Encounter Note(s) Provider Source Feb 06, 2024 02:40 PM PREVENTIVE MEDICINE RISK ASSESSMENT SCREENING NOTE: LOCAL TITLE: LUNG CANCER SCREENING DOCUMENTATION STANDARD TITLE: PREVENTIVE MEDICINE RISK ASSESSMENT SCREENING NO DATE OF NOTE: FEB 06, 2024@14:40 ENTRY DATE: FEB 06, 2024@14:40:25 AUTHOR: CHRISTI VALADEZ COSIGNER: URGENCY: STATUS: COMPLETED This documentation is to update national platform. Please see 01/30/2024 documentation for detail on PET scan and incidental findings. Date of most recent follow-up image: Date: January 29, 2024 The diagnostic evaluation determined: EVERETTE 14.4mm spiculated nodule resolved on PET per Pulmonary nodule review, hilar lymph node that is avid is concerning for infectious inflammatory etiology. Plan for repeat imaging in 3 months [place] reviewed and discussed at multi-disciplinary PNB with JILL today 02/06/2024. The following recommendations were made: [facility] Associated on: Feb 06, 2024@12:45:40 LOCAL TITLE: LUNG NODULE-MULTIDISCIPLINARY TUMOR BOARD NOTE STANDARD TITLE: TUMOR BOARD NOTE DATE OF NOTE: FEB 06, 2024@12:35 ENTRY DATE: FEB 06, 2024@12:35:56 AUTHOR: KIERRA MOORE COSIGNER: URGENCY: STATUS: COMPLETED National Comprehensive Cancer Network Guidelines will be used in discussion and treatment decisions unless otherwise specified Pt enrolled in [facility] LCS program Case and imaging reviewed with Dr. Tsai (pulmonary) and Dr. Jacques (radiology) Reviewed Ct scan from 12/2023 and PET scan from 01/2024. The EVERETTE nodule of concern on 12/2023 ct scan previously measuring 14.4mm appears to have resolved on PET scan with PET avid hilar lymph node likely representing an infectious/inflammatory process. Recommendation for repeat LCS LDCT in 3 months to evaluate hilar lymph node and ensure resolution of EVERETTE nodule. Recommendations to be completed by the [facility] team: 1.)Repeat LDCT 3 months /walter/ KIERRA MOORE APRN HOG GRADER Signed: 02/06/2024 12:45 Procedures completed during evaluation: Pulmonary Function Testing (02/12/2024)-scheduled Multidisciplinary Conference PET CT (S 01/29/2024) Plan: Next LDCT in 3 months Comment: Per PNB review 3 month LCS LDCT to evaluate hilar node and confirm resolution of EVERETTE 14.4mm spiculated nodule Patient Notification of results: Patient contacted by telephone. Comment: Call placed to the . Results of PET scan re-reviewed briefly, recommendations and rationales discussed. [place] aware that recommendations were for short interval (3 month) LCS LDCT to evaluate the hilar Lymph node and ensure resolution of 14.4mm LULL nodule. Education provided. verbalized good understanding and agreement with this plan. [place] reports that nuclear cardiac stress test was cxl'd and PYP nuclear med test was scheduled for March. unaware of details for this test or rationale for this test. 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 is scheduled for baseline PFTs on 02/12/2024. /es/ CHRISTI GOODRICH,RN,OCN LUNG CANCER SCREENING NURSE NAVIGATOR Signed: 02/06/2024 14:56 Receipt Acknowledged By: 02/06/2024 15:20 /es/ Katie Stokes RN, BSN Primary Care 02/06/2024 17:26 /es/ Ibrahima Colon MD Staff Physician CHRISTI VALADEZ [facility]
--- OUTSIDE RECORDS SUMMARY | 2024-09-23 11:48 | XMS_ITS | Encounter Summary ---
Author Name [facility] [place] [facility] [place] [facility] [place] Address [address] [place] [address] Care Team Providers Care Petroleum Transport Driver Name Role Phone JORDYN KATZ Primary Care [...] Batista's Name Patient's Relationship to Policy Batista FORMERLY NAMED [facility]) MEDICARE ADVANTAGE MCR ([facility]) Nov 23, 2010 [id number] [phone] HODA,DA VID PATIENT FORMERLY NAMED [facility]) MEDICARE ADVANTAGE MCR ([facility]) Nov 23, 2010 [id number] HARROP,DA VID PATIENT Selected Encounter This section includes the information on record at [place] for the Encounter. Date/Time Encounter Type Encounter Description Reason Pro vider Source Mar 29, 2024 10:00 AM Outpatient Encounter PULMONARY FUNCTION IHE Encounter Template Text not used by VA Plan of Treatment: Future Appointments (+ 6 [...] 20 appointments. The data comes from all [facility]. Appointment Date/Time Appointment Type Appointme nt Facility Name Apr 19, 2024 08:30 AM AMBULATORY - MEDICINE [facility] May 07, 2024 08:45 AM [facility] May 11, 2024 09:15 AM AMBULATORY - NONE [facility] May 11, 2024 10:00 AM AMBULATORY - MEDICINE [facility] Active, Pending, and Scheduled Orders This section includes a listing of several types of active, pending, and scheduled orders, including clinic medications orders, diagnostic test orders, procedure orders and consult orders; where the start date of the order is 45 days before the date of the Encounter or 45 days after the date of theEncounter. The data comes from all [facility]. Test Date/Time Test Type Test Details Facility Name May 02, 2024 12:00 AM Laboratory - Chemistry Order BASIC METABOLIC PANEL (fasting) BLOOD (SST-SERUM) [facility] May 02, 2024 12:00 AM Laboratory - Chemistry Order CBC AND DIFF (AUTO) BLOOD (LAV-BLOOD) [facility] May 02, 2024 12:00 AM Laboratory - Chemistry Order LIPID PANEL FASTING BLOOD (SST-SERUM) [facility] May 02, 2024 12:00 AM Laboratory - Chemistry Order TSH BLOOD (SST-SERUM) [facility] May 02, 2024 12:00 AM Laboratory - Chemistry Order LIVER FUNCTION BLOOD (SST-SERUM) [facility] May 02, 2024 12:00 AM Laboratory - Chemistry Order URINALYSIS CLEAN CATCH URINE [facility] Lab Results: +/- 30 days of the encounter This section includes the Chemistry and Hematology Lab Results on record with [place] for the patient. Radiology Reports and Pathology Reports are provided separately, in subsequent sections. Lab Results This section contains the Chemistry/Hematology Results that were resulted 30 days before or 30 daysafter the date of the Encounter. Date/Time Source Result Type Result - Unit Interpretation Reference Range Specimen Type Comment Apr 28, 2024 08:46 AM [facility] BASIC METABOLIC PANEL (non-fasting) SERUM Spe cimen Type: SERUM No comment entered. Ordering Provider: JORDYN KATZ Report Released Date/Time: Apr 11, 2024 06:40 PM Reporting Lab: [facility] [address] [facility] [id number] Performing Lab: [facility] [address] [facility] [id number] UREA NITROGEN 18 mg/dL 7-25 GLUCOSE 97 mg/dL 65-100 SODIUM 141 mmol/L 135-145 POTASSIUM 4.2 mmol/L 3.5-5.0 CHLORIDE 109 mmol/L 100-110 CO2 21 meq/L 20-30 CREATININE, Serum 0.96 mg/dL 0.50-1.40 eGFR(CKD-EPI 2020) 81 mL/min >60 Social History: Smoking Status (Most current) and Tobacco Use (All prior to encounter date) This section includes the most current, and the historical, smoking and tobacco- related health factors from the [place] facility where the Encounter took place. Current Smoking Status This section includes the most current smoking, or tobacco-related health factor, from the [place] facility where the Encounter took place. Date/Time Current Smoking Status Comment Lauren raymundo Jun 10, 2023 08:00 AM VA-TOBACCO FORMER USER [facility] Tobacco Use History This section includes a history of the smoking, or tobacco-related health factors, that were collected on or before the date of the Encounter. The data comes from the [place] facility where the Encounter took place. Date/Time Smoking Status/Tobac co Use Comment Facility Jun 10, 2023 08:00 AM VA-TOBACCO QUIT 5 TO < [facility] May 06, 2022 10:30 AM VA-TOBACCO [facility] May 06, 2022 10:30 AM VA-TOBACCO QUIT 5 TO < 15 YRS [facility] May 08, 2021 11:00 AM [facility]BACCO [facility] [place] [facility] May 08, 2021 11:00 AM VA-TOBACCO QUIT 5 TO < 15 YRS [facility] [place] [facility] Dec 10, 2019 12:53 PM VA-TOBACCO [facility] Dec 10, 2019 12:53 PM VA-TOBACCO QUIT 5 TO < 15 YRS [facility] [place] [facility] Mar 17, 2018 08:37 AM VA-TOBACCO NEVER USED [facility] [place] [place] [facility] Sep 15, 2017 08:18 AM QUIT TOBACCO USE 1-7 YEARS AGO PT STATES HE QUIT 4 YRS AGO [place] [facility] [place] [facility] Jan 31, 2017 12:42 PM QUIT TOBACCO USE 1-7 YEARS AGO pt state stop 3 yrs ago. [facility] [place] [facility] Jan 12, 2016 02:07 PM QUIT TOBACCO USE 1-7 YEARS AGO [place] [facility] [place] [place] [facility] Jan 26, 2015 01:22 PM QUIT TOBACCO USE 1-7 YEARS AGO PT STATES THAT HE QUIT 13 MONTHS AGO. [facility] [place] [facility] Jan 28, 2014 01:47 PM QUIT TOBACCO USE IN PAST YEAR [facility] [place] [facility] Nov 06, 2012 08:51 AM CURRENT SMOKER 1 pack per day. [facility] [place] [facility] Nov 06, 2012 08:51 AM V1-PT THINKING ABOUT QUIT TOBACCO USE [facility] [place] [facility] October 04, 2011 08:29 AM CURRENT SMOKER 1 ppd [place] [facility] [place] [place] [facility] October 04, 2011 08:29 AM V1-PT DECLINES TOBACCO CESSATION MEDS [facility] [place] [facility] October 04, 2011 08:29 AM V1-PT THINKING ABOUT QUIT TOBACCO USE [facility] [place] [facility] September 28, 2010 09:21 AM CURRENT SMOKER 1 ppd [place] [facility] [place] [facility] September 28, 2010 09:21 AM V1-PT THINKING ABOUT QUIT TOBACCO USE [place] [facility] [place] [facility] Sep 21, 2009 02:57 PM V1-PT DECLINES TOBACCO CESSATION MEDS [facility] [place] [facility] Sep 21, 2009 02:57 PM V1-PT THINKING ABOUT QUIT TOBACCO USE [facility] Encounter Notes: All associated encounter notes This section contains the clinical notes associated to the Encounter. Date/Time Encounter Note(s) Provider Source Mar 29, 2024 11:30 AM PULMONARY DIAGNOSTIC STUDY CONSULT: LOCAL TITLE: CP PULMONARY FUNCTION TEST STANDARD TITLE: PULMONARY DIAGNOSTIC STUDY CONSULT DATE OF NOTE: MAR 29, 2024@11:30 ENTRY DATE: MAR 29, 2024@11:30:05 AUTHOR: NOELLE OVALLE MD EXP COSIGNER: URGENCY: STATUS: COMPLETED PROCEDURE SUMMARY CODE: Abnormal DATE/TIME PERFORMED: MAR 29, 2024@11:29 For complete results please go to [facility]. SPIROMETRY: Normal FVC 4.27 L (102%) Mildly reduced FEV1 1.87 L (61%) Reduced FEV1/FVC After bronchodilator there is no significant change in FVC and FEV1 LUNG VOLUMES: Normal TLC Normal FRC Normal RV DIFFUSION: Severely reduced diffusion 9.29 ml/min/mmHg (35%) INTERPRETATION: Mild obstructive ventilatory defect Reduced diffusion There is no significant response to bronchodilator. /walter/ Noelle Ovalle MD Director, [facility] Pulmonary Lab Signed: 03/30/2024 20:23 NOELLE OVALLE MD [facility]
--- OUTSIDE RECORDS SUMMARY | 2024-09-23 11:48 | XMS_ITS | Clinical Summary ---
Author Organization [facility] Address [address] [place] [address] Care Team Providers Care Electric Drill Operator Name Role Phone Ibrahima Colon MD Primary Care Provider [phone] Addi Rico MD Unavailable [phone] Allergies Active Allergy Reactions Criticality Noted Date Comments Amlodipine Swelling Medium 05/07/2018 Hydrochlorothiazide-Triamterene Swelling Medium 04/25 Medications pravastatin (PRAVACHOL) 40 MG tablet Take 40 mg by mouth daily. Active lisinopril (PRINIVIL,ZeSTR IL) 10 MG tablet Take 20 mg by mouth daily. Active metoPROLOL TARTRATE (LOPRESSOR) 50 MG tablet Take 50 mg by mouth 2 (two) times a day. Active hydrochlorothia zide (HYDRODIURIL) 25 MG tablet Take 25 mg by mouth daily. Active naproxen sodium (ALEVE) 220 mg tablet Take 220 mg by mouth daily. Take with meals or food to reduce stomach upset. Active diphenhydrAMINE (BENADRYL) 25 mg capsule Take 25 mg by mouth daily. Active aspirin 81 MG chewable tabletIndicatio ns:Abdominal aortic aneurysm (AAA) without rupture Chew 1 tablet (81 mg total) daily. 30 tablet 11 06/14/2019 Active clopidogrel (PLAVIX) 75 MG tabletIndicatio ns:Abdominal aortic aneurysm (AAA) without rupture Take 1 tablet (75 mg total) by mouth daily. 90 tablet 3 06/14/2019 Active Active Problems Problem Noted Date Diagnosed Date Abdominal aortic aneurysm (A AA) greater than 5.5 cm in diameter in male 06/11/2019 Pulmonary Emphysema 05/06/2019 Para-renal abdominal aortic aneurysm 05/14/2018 Encounters Date Type Department Care Team Description 09/06/2024 Documentation [facility] End[facility] Surgery [address] [place] [address] Shelly Atkins MA from Last 3 Months Social History Tobacco Use Types Packs/Day Years [...] Assigned at Male 11/06/2022 3:25 PM EDT Legal Sex Male 11:01 AM EDT Gender Identity Male 11/06/2022 3:25 PM [...] 2020 Influenza Vaccine 12/25/2023 04/16/2022 COVID-19 Vaccine (1 - 2023- season) 2024 Abdominal Aortic Aneurysm (AAA) Screening Discontinued 03/30/2024, 01/01/2023, 12/17/2022, Additional history exists Hepatitis B Vaccines Aged Out No long er eligible based on patient's age to complete this topic Medical Devices Implanted Type Area Take Out Waiter/Waitress Device Identifier Shelf Expiration Date Model / Serial / Lot [id number] Graft Endovascular 56mm 20mm 6mm 16fr Znth Sprlz 2 Brch Ntnl - [id number] Implanted:Qty: 1 on 06/11/2019 by Addi Rico MD at [facility] Graft N/A: Aorta [employer] [id number] 08/26/2021 [id number] / / [id number] Graft Endovascular 124mm 30mm H&L-B One-Shot Znth Poly Wvn 2 - [id number] Implanted:Qty: 1 on 06/11/2019 by Addi Rico MD at [facility] Stent N/A: Aorta [employer] 05/12/2022 [id number] / / [id number] Stent Vascular 7mm 26mm 80cm Balloon Expandable Lopro Cover - [id number] Implanted:Qty: 1 on 06/11/2019 by Addi Rico MD at [facility] Stent N/A: Aorta [employer] - [id number] 11/22/2021 [id number] / / [id number] Description:SMA Stent [id number] Stent Tracheobronchial 6mm 6fr 22mm 120cm Cover Catheter - [id number] Implanted:Qty: 1 on 06/11/2019 by Addi Rico MD at [facility] Stent N/A: Aorta [employer] [id number] 12/02/2021 [id number] / [id number] Description:Right Renal Sandra ry [id number] Stent Vascular 7mm 26mm 80cm Balloon Expandable Lopro Cover - [id number] Implanted:Qty: 1 on 06/11/2019 by Addi Rico MD at [facility] Stent N/A: Aorta [employer] - [id number] 04/24/2021 [id number] / / [id number] Description:Left Renal Arter y [id number] Graft Endovascular 106mm 12mm H&L-B One-Shot Znth 2 Brch - [id number] Implanted:Qty: 1 on 06/11/2019 by Addi Rico MD at [facility] Stent N/A: Aorta [employer] [id number] 05/12/2022 [id number] / / [id number] Graft Endovascular 56mm 16mm 5.4mm 14fr Znth Sprlz 2 Brch - [id number] Implanted:Qty: 1 on 06/11/2019 by Addi Rico MD at [facility] Stent N/A: Aorta [employer] [id number] 02/09/2022 [id number] / / [id number] Stent Vascular 7mm 16mm 80cm Balloon Expandable Lopro Cover - [id number] Implanted:Qty: 1 on 06/13/2019 by Addi Rico MD at [facility] Stent Left: Arterial [employer] - [id number] 02/23/2020 [id number] / / [id number] Stent Tracheobronchial 7mm 7fr 22mm 120cm Cover Catheter - [id number] Implanted:Qty: 1 on 06/13/2019 by Addi Rico MD at [facility] Stent [employer] [id number] / [id number] / Description:no sticker provi ded. [id number] Gold Markers 24k - [id number] Implanted:Qty: 8 on 06/11/2019 by Addi Rico MD at [facility] Tissue N/A: Aorta [facility] [id number] / / Description:On Aortic Stent Graft Procedures [...] CTA ABDOMEN+PELVIS W W/O CONTRAST CLINICAL INFORMATION: [facility] Order Diagnosis: pt POD#1 from [facility] with four fenestrations (celiac, SMA, b/l renals), 3 stents (SMA, b/l renals), concern for endoleak, need CTA stent graft protocol DESCRIPTION: Initial noncontrast localizing foot press operator images were obtained. Multidetector volumetric imaging was [...] CTA ABDOMEN+PELVIS W W/O CONTRAST CLINICAL INFORMATION: [facility] Order Diagnosis: pt POD#1 from [facility] with fourfenestrations (celiac, SMA, b/l renals), 3 stents (SMA, b/l renals), concern forendoleak, need CTA stent graft protocol DESCRIPTION: Initial noncontrast localizing foot press operator images were obtained. Multidetector volumetric imaging was [...] 1315hsby telephone. Dina Lemus APRN IMG CT ORDERABLES Final Result from Last 3 Months or Most Recently Relevant to Health Maintenance Insurance [facility] FEE BASIS 16 F,ATTN:PENG BRANDON [phone] [employer] [place] MGD MEDICARE [facility] ACTIVE DUTY Advance Directives * Full Code (Latest Code Status on File) Date Activated Date Inactivated Comments 06/11/2019 1:29 PM Care Teams Electric Drill Operator Relationship Specialty Start Date End Date Ibrahima Colon MD [address] [place] [address] PCP - General 03/13/18 Addi iRco MD [address] [place] [id number] Surgeon Surgery, Vascular 05/14/18
--- OUTSIDE RECORDS SUMMARY | 2024-09-23 11:48 | XMS_ITS | Encounter Summary ---
Author Name [facility] Address [address] [place] [address] Care Team Providers Care Business Objects Report Developer Name Role Phone JORDYN KATZ Primary Care [...] Batista's Name Patient's Relationship to Policy Batista [facility]) MEDICARE ADVANTAGE MCR ([facility]) Nov 23, 2010 [id number] HARROP,DA VID PATIENT [facility]) MEDICARE ADVANTAGE MCR ([facility]) Nov 23, 2010 [id number] HARROP,DA VID PATIENT Selected Encounter This section includes the information on record at [place] for the Encounter. Date/Time Encounter Type Encounter Description Reason Provider Source Jan 02, 2024 02:24 PM Outpatient Encounter PULMONARY/CHEST ICD-10-CM R91.8 Other nonspecific abnormal finding of lung field DIONE MOORE E Encounter Template Text not used by [facility] Assessments - Encounter Diagnoses This section includes the primary and secondary diagnoses documented for the Encounter. Date/Time Primary/Secondary Diagnosis Diagnosis Name Provider Source Jan 02, 2024 02:49 PM PRIMARY Other nonspecific abnormal finding of lung field LYUBOV MOORE Seun [facility] Plan of Treatment: Future Appointments (+ 6 months) and Future Tests (+/- 45 days) The Plan of Treatment section includes future care activities for the patient from all [place] [facility]. This section includes future appointments and future orders which are active, pending or scheduled. Future Appointments This section includes appointments that were scheduled to occur 6 months from the date of the Encounter, up to a maximum of 20 appointments. The data comes from all [facility]. Appointment Date/Time Appointment Type Appointme nt Facility Name Jan 26, 2024 04:50 PM [place] [facility] [place] [facility] Mar 23, 2024 10:30 AM [place] [facility] [place] [facility] Mar 29, 2024 10:00 AM [place] [facility] [place] [facility] Mar 29, 2024 12:30 PM AMBULATORY - MEDICINE [facility] Apr 19, 2024 08:30 AM [place] [facility] [place] [facility] May 07, 2024 08:45 AM [place] [facility] [place] [facility] May 11, 2024 09:15 AM [place] - NONE [place] [facility] [place] [facility] May 11, 2024 10:00 AM [place] [facility] [place] [facility] Radiology Reports: +/- 30 days of the [...] the Encounter. The data comes from all [facility]. Date/Time Radiology Report Provider Source Jan 29, 2024 08:00 AM OUTSIDE PET, WHOLE BODY: PRAKASH DRUMMOND [id number] -[id number] M Exm Date: JAN 29, 2024@08:00 Req Phys: JORDYN KATZ Loc: [facility]/OUTSIDE IMAGING NON-CNT (R Img Loc: OUTSIDE GENERAL RADIOLOGY Service: Unknown (Case 1 COMPLETE) OUTSIDE PET, WHOLE BODY (RAD Detailed) CPT:86561 Reason for Study: outside images downloaded for continuity of care Clinical History: outside images downloaded for continuity of care Report Status: Electronically Filed Date Reported: JAN 29, 2024 Report: THIS EXAM WAS PERFORMED AND INTERPRETED AT AN OUTSIDE HOSPITAL Impression: THIS EXAM WAS PERFORMED AND INTERPRETED AT AN OUTSIDE HOSPITAL Primary Diagnostic Code: VERIFIED BY: / *ELECTRONICALLY FILED* [facility] Moser Baer [facility] [facility] Jan 02, 2024 09:07 AM LDCT LUNG CANCER SCREENING: PRAKASH DRUMMOND [id number] -[id number] M Exm Date: JAN 02, 2024@09:07 Req Phys: JORDYN KATZ Loc: [facility]/NO/PACT 2 (Req'g Loc) Img Loc: [place] Service: Unknown [facility] Moser Baer [employer] [facility] , (Case [id number] COMPLETE) LDCT LUNG CANCER SCREENING (CT Detailed) CPT:33261 Reason for Study: look for cancer Clinical History: Report Status: Verified Date Reported: JAN 02, 2024 Date Verified: JAN 02, 2024 Visitor Information Assistant E-Sig:/ES/CORRIE HARTMANN JR Report: Study: Lung cancer screening CT of the chest. Provided History: Lung cancer screening. Comparison: CT scan of the chest from December 31, 2022, December 31, 2021, April 26, 2021, and August 11, 2019. Technique: 1 mm lung algorithm and 3 mm soft tissue algorithm axial reconstructions from the lung apices through the lung bases without the administration of intravenous contrast as per standard department protocol for lung cancer screening. Subsequently, sagittal and coronal reformats were generated. MIP images also provided and reviewed. Secondary computer-aided detection with post-processing from [employer] is used. The lack of intravenous contrast inherently limits the evaluation of hilar structures, vascular structures, and abnormal enhancement patterns. Lower than standard dose was utilized limiting sensitivity for fine parenchymal detail. Dose Parameters: CTDI(vol): 3.1 mGy. DLP: 116.1 mGy*cm. Findings: Lungs: Emphysema: Mild to moderate centrilobular and paraseptal emphysematous changes with associated scattered parenchymal scarring is unchanged. Index Nodule: New concerning solid, spiculated, poorly circumscribed mass with stellate peripheral projections is present within the left upper lobe measuring at least 14.4 mm in dimension, 8-101. No prior abnormality in this area. Other Nodules: None. Lungs/airway findings: Mild stable [...] bony abnormality identified. Other findings: None. Impression: New concerning solid spiculated left upper lobe lobe poorly circumscribed mass, as described above. Lung-RADS Assessment: Category 4B, suspicious. Recommendation: Chest CT with or without contrast, PET/CT or tissue sampling depending on the probability of malignancy and comorbidities. PET/CT may be considered when the solid component of the nodule is = or > 8 mm. Other Significant Findings and Recommendations: None. Primary Diagnostic Code: Significant Abnormality Attention Needed Secondary Diagnostic Codes: LUNGRADS 4B: SUSPICIOUS Primary Interpreting Staff: CORRIE HARTMANN JR, Radiologist (Visitor Information Assistant) /CORRIE SMITH JR [facility] [place] [facility] Encounter Notes: All associated encounter notes This section contains the clinical notes associated to the Encounter. Date/Time Encounter Note(s) Provider Source Jan 02, 2024 02:24 PM TUMOR BOARD NOTE: LOCAL TITLE: LUNG NODULE-MULTIDISCIPLINARY TUMOR BOARD NOTE STANDARD TITLE: TUMOR BOARD NOTE DATE OF NOTE: JAN 02, 2024@14:24 ENTRY DATE: JAN 02, 2024@14:30:01 AUTHOR: TERESA,KIERRA S EXP COSIGNER: URGENCY: STATUS: COMPLETED National Comprehensive Cancer Network Guidelines will be used in discussion and treatment decisions unless otherwise specified Pt is enrolled in [facility] program Case and imaging reviewed with Dr. Engle (pulmonary) and Dr. Jacques (radiology) We reviewed LDCT of chest. There is a new, spiculated 14.4 mm nodule in [place]. There is also lymphadenopathy. Saber sheath appearance of trachea noted. Recommendations to be completed by [facility] team: --Pet Scan/CT Oncology --PFT's /walter/ KIERRA MOORE APRN ROCKET ENGINE TESTER Signed: 01/02/2024 14:49 Receipt Acknowledged By: 01/07/2024 09:55 /walter/ CORRIE ENGLE MD-PHD ATTENDING KIERRA MOORE [facility]
--- OUTSIDE RECORDS SUMMARY | 2024-09-23 11:48 | XMS_ITS | Encounter Summary ---
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 Date/Time Encounter Type Encounter Description Reason Provider Source Nov 18, 2023 02:00 PM OFFICE O/P EST LOW 20 MIN PRIMARY CARE/MEDICINE ICD-10-CM H26.9 Unspecified cataract IBRAHIMA COLON IHRodolfo Encounter Template Text not used by [facility] Assessments - Encounter Diagnoses This section includes the primary and secondary diagnoses documented for the Encounter. Date/Time Primary/Secondary Diagnosis Diagnosis Name Provider Source Nov 18, 2023 02:27 PM PRIMARY Unspecified cataract IBRAHIMA COLON [place] [facility] [place] [facility] Nov 18, 2023 02:27 PM SECONDARY Encounter for immunization FERNANDA SCHWAB [place] [facility] [place] [facility] Plan of Treatment: Future Appointments (+ 6 months) and Future Tests (+/- 45 days) The Plan of Treatment section includes future care activities for the patient from all [place] treatmentfacilities. This section includes future appointments and future orders which are active, pending or scheduled. Future Appointments This section includes appointments that were scheduled to occur 6 months from the date of the Encounter, up to a maximum of 20 appointments. The data comes from all [place] treatment facilities. Appointment Date/Time Appointment Type Appointme nt Facility Name Jan 02, 2024 09:30 AM AMBULATORY - NONE [place] [facility] [place] [facility] Jan 26, 2024 04:50 PM AM[place]ULATORY [place]IC[place] [facility] [place] [facility] Mar 23, 2024 10:30 AM AM[place]ULATORY [place]IC[place] [facility] [place] [facility] Mar 29, 2024 10:00 AM AM[place]ULATORY [place] [facility] [place] [facility] Mar 29, 2024 12:30 PM AMBULATORY - MEDICINE [facility] Apr 19, 2024 08:30 AM AM[place]UL[place]ORY [place] [facility] [place] [facility] May 07, 2024 08:45 AM AM[place]ULATORY [place] [facility] [place] [facility] May 11, 2024 09:15 AM AMBULATORY - NONE [place] [facility] [place] [facility] May 11, 2024 10:00 AM AM[place]ULATORY [place] [facility] [place] [facility] Lab Results: +/- 30 days of the encounter This section includes the Chemistry and Hematology Lab Results on record with [place] for the patient. Radiology Reports and Pathology Reports are provided separately, in subsequent sections. Lab Results This section contains the Chemistry/Hematology Results that were resulted 30 days before or 30 daysafter the date of the Encounter. Date/Time Source Result Type Result - Unit Interpretation Reference Range Specimen Type Comment Nov 04, 2023 08:20 AM [place] [facility] [place] [facility] TSH SERUM Specimen Type: SERUM No comment entered. Ordering Provider: IBRAHIMA COLON Report Released Date/Time: Nov 04, 2023 08:19 AM Reporting Lab[facility] [address] [address] Performing Lab: [facility] [address] [address] TSH 2.28 u[IU]/mL 0.35-5.00 Nov 04, 2023 08:20 AM [facility] LIPID PANEL FASTING SERUM Specimen Type: SERU M No comment entered. Ordering Provider: IBRAHIMA COLON Report Released Date/Time: Nov 04, 2023 08:19 AM Reporting Lab[facility] [address] [address] Performing Lab: [facility] [address] [address] CHOLESTEROL 148 mg/dL TRIGLYCERIDE 97 mg/dL 0-150 LDL calculated 91 mg/dL 0-129 CHOL/HDL 3.9 HDL CHOLESTEROL 38 mg/dL L 40-60 Nov 04, 2023 08:20 AM [facility] LIVER FUNCTION SERUM Specimen Type: SERUM No comment entered. Ordering Provider: IBRAHIMA COLON Report Released Date/Time: Nov 04, 2023 08:19 AM Reporting Lab: [facility] [address] [address] Performing Lab: [facility] [address] [address] PROTEIN,TOTAL 7.2 g/dL 6.0-8.3 ALBUMIN 4.2 g/dL 3.5-5.0 ALKALINE PHOSPHATASE 45 U/L 40-150 AST 28 U/L 5-34 ALT 26 U/L BILIRUBIN, TOTAL 0.5 mg/dL 0.2-1.2 Nov 04, 2023 08:20 AM [facility] BASIC METABOLIC PANEL (fasting) SERUM Specime n Type: SERUM No comment entered. Ordering Provider: IBRAHIMA COLON Report Released Date/Time: Nov 04, 2023 08:19 AM Reporting Lab: [facility] [address] [address] Performing Lab: [facility] [address] [address] UREA NITROGEN 28 mg/dL H 7-25 GLUCOSE 100 mg/dL 65-100 SODIUM 139 mmol/L 135-145 POTASSIUM 4.2 mmol/L 3.5-5.0 CHLORIDE 105 mmol/L 100-110 CO2 24 meq/L 20-30 CREATININE, Serum 1.08 mg/dL 0.50-1.40 eGFR(CKD-EPI 2020) 70 mL/min >60 Nov 04, 2023 08:20 AM [facility] CBC AND DIFF (AUTO) BLOOD Specimen Type: JEFF Bauer No comment entered. Ordering Provider: IBRAHIMA COLON Report Released Date/Time: Nov 04, 2023 08:19 AM Reporting Lab: [facility] [address] [address] Performing Lab: [facility] [address] [address] WBC 7.00 10*3/uL 4.50-11.00 RBC 4.88 10*6/uL 4.23-5.66 HGB 15.1 g/dL 12.8-17 HCT 45.2 39.2-50.4 MCV 92.6 fL 82-99 MCHC 33.4 g/dL 30.8-35.1 PLT 185 10*3/uL 140-360 RDW-CV 13.7 12.0-16.0 [place], Abs 0.56 10*3/uL 0.30-1.10 MCH 30.9 pg 26.2-32.6 Neut % 67.3 43.7-75.8 Lymph % 21.1 14.0-42.3 [place] % 8.0 5.1-13.7 Eos % 2.3 0.4-6.8 Baso % 0.9 0.1-2.0 Neut, Abs 4.71 10*3/uL 2.20-7.60 Lymph, Abs 1.48 10*3/uL 1.00-3.20 Eos, Abs 0.16 10*3/uL 0.03-0.44 Baso, Abs 0.06 10*3/uL 0.01-0.13 Immature Gran % 0.4 0.0-0.7 Immature Gran, Abs 0.03 10*3/uL 0.00-0.0 6 Nov 04, 2023 08:20 AM [facility] URINALYSIS CLEAN CATCH URINE Specimen Type: U RINE Comment: If Glucose = >500 and Ketones are positive, please alert the Physician. Ordering Provider: IBRAHIMA COLON Report Released Date/Time: Nov 04, 2023 08:19 AM Reporting Lab: [facility] [address] [address] Performing Lab: [facility] [address] [address] UA COLOR Yellow Yellow UA APPEARANCE Clear Clear UA GLUCOSE NEGATIVE mg/dL Negative UA KETONES NEGATIVE mg/dL Negative UA BLOOD NEGATIVE mg/dL Negative UA PROTEIN 30 mg/dL Negative UA NITRITE NEGATIVE mg/dL Negative UA BILIRUBIN NEGATIVE mg/dL Negative UA SPECIFIC GRAVITY 1.029 H 1.016-1.022 UA pH 6.0 5.0-9.0 UA UROBILINOGEN <2.0 mg/dL <2.0 UA LEUKOCYTE NEGATIVE Negative Vital Signs: All taken on the encounter date This section contains inpatient and outpatient Vital Signs collected on the date of the Encounter. Date/Time Temperature Pulse Blood Pressure Respiratory Rate SP02 Pain Height Weight Body Mass Index Source Nov 18, 2023 02:17 PM 134/74 [facility] Nov 18, 2023 01:38 PM 98.1 67 144/82 16 92 4 74 238.6 31 [facility] Immunizations: All administered on the encounter date This section contains immunizations associated to the Encounter. Immunization Series Date Issued Administered By Site Reaction Lot Number CVX Code Drug Flow Trader Comment(s) Source RSV, BIVALENT, PROTEIN SUBUNIT RSVPREF, DILUENT RECONSTITUTED , 0.5 ML, PF Nov 18, 2023 FERNANDA SCHWAB LEFT DELTO ID [id number] [employer] Completed Series, ADMINISTERE D AT [place], sterile water diluent component [id number] [facility] Social History: Smoking Status (Most current) and Tobacco Use (All prior to encounter date) This section includes the most current, and the historical, smoking and tobacco- related health factors from the [place] facility where the Encounter took place. Current Smoking Status This section includes the most current smoking, or tobacco-related health factor, from the [place] facility where the Encounter took place. Date/Time Current Smoking Status Comment [facility] Jun 10, 2023 08:00 AM VA-TOBACCO QUIT 5 TO < 15 YRS [place] [facility] [place] [facility] Tobacco Use History This section includes a history of the smoking, or tobacco-related health factors, that were collected on or before the date of the Encounter. The data comes from the [place] facility where the Encounter took place. Date/Time Smoking Status/Tobac co Use Comment Facility Jun 10, 2023 08:00 AM VA-TOBACCO QUIT 5 TO < 15 YRS [place] [facility] [place] [facility] May 06, 2022 10:30 AM VA-TOBACCO FORMER USER [place] [facility] [place] [facility] May 06, 2022 10:30 AM VA-TOBACCO QUIT 5 TO < 15 YRS [place] [facility] [place] [facility] May 08, 2021 11:00 AM VA-TOBACCO FORMER USER [place] [facility] [place] [facility] May 08, 2021 11:00 AM VA-TOBACCO QUIT 5 TO < 15 YRS [place] [facility] [place] [facility] Dec 10, 2019 12:53 PM VA-TOBACCO FORMER USER [place] [facility] [place] [facility] Dec 10, 2019 12:53 PM VA-TOBACCO QUIT 5 TO < 15 YRS [place] [facility] [place] [facility] Mar 17, 2018 08:37 AM VA-TOBACCO NEVER USED [place] [facility] [place] [facility] Sep 15, 2017 08:18 AM QUIT TOBACCO USE 1-7 YEARS AGO PT STATES HE QUIT 4 YRS AGO [facility] [place] [facility] Jan 31, 2017 12:42 PM QUIT TOBACCO USE 1-7 YEARS AGO pt state stop 3 yrs ago. [facility] [place] [facility] Jan 12, 2016 02:07 PM QUIT TOBACCO USE 1-7 YEARS AGO [facility] [place] [facility] Jan 26, 2015 01:22 PM QUIT TOBACCO USE 1-7 YEARS AGO PT STATES THAT HE QUIT 13 MONTHS AGO. [place] [facility] [place] [facility] Jan 28, 2014 01:47 PM QUIT TOBACCO USE IN PAST YEAR [facility] [place] [facility] Nov 06, 2012 08:51 AM CURRENT SMOKER 1 pack per day. [facility] Nov 06, 2012 08:51 AM V1-PT THINKING ABOUT QUIT TOBACCO USE [place] [facility] [place] [facility] October 04, 2011 08:29 AM CURRENT SMOKER 1 ppd [facility] October 04, 2011 08:29 AM V1-PT DECLINES TOBACCO CESSATION MEDS [place] [facility] October 04, 2011 08:29 AM V1-PT THINKING ABOUT QUIT TOBACCO USE [place] [facility] September 28, 2010 09:21 AM CURRENT SMOKER 1 ppd [facility] September 28, 2010 09:21 AM V1-PT THINKING ABOUT QUIT TOBACCO USE [place] [facility] Sep 21, 2009 02:57 PM V1-PT DECLINES TOBACCO CESSATION MEDS [facility] Sep 21, 2009 02:57 PM V1-PT THINKING ABOUT QUIT TOBACCO USE [facility] Encounter Notes: All associated encounter notes This section contains the clinical notes associated to the Encounter. Date/Time Encounter Note(s) Provider Source Nov 18, 2023 02:43 PM CARDIOLOGY DIAGNOS TIC STUDY CONSULT: LOCAL TITLE: CONSULT REPORT/EKG STANDARD TITLE: CARDIOLOGY DIAGNOSTIC STUDY CONSULT DATE OF NOTE: NOV 18, 2023@14:43 ENTRY DATE: NOV 18, 2023@14:43:33 AUTHOR: HENNY SCHWAB EXP COSIGNER: URGENCY: STATUS: COMPLETED EKG tracing was performed for diagnosis of CATARACT ordered by IBRAHIMA COLON /walter/ HENNY SCHWAB LPN LPN Signed: 11/18/2023 14:43 H[facility] SCHWAB [facility] Nov 18, 2023 02:17 PM PHYSICIAN NOTE: LOCAL TITLE: MD NOTE STANDARD TITLE: PHYSICIAN NOTE DATE OF NOTE: NOV 18, 2023@14:17 ENTRY DATE: NOV 18, 2023@14:17:46 AUTHOR: IBRAHIMA COLON EXP COSIGNER: URGENCY: STATUS: COMPLETED Patient Name: PRAKASH DRUMMOND VITALS: Patient temperature: 98.1 F [36.7 C] (11/18/2023 13:38) Blood pressure: 134/74 (11/18/2023 14:17) Patient height: 74 in [188.0 cm] (11/18/2023 13:38) Patient weight: 238.6 lb [108.23 kg] (11/18/2023 13:38) Patient BMI: BMI: 30.7 Patient pulse: 67 (11/18/2023 13:38) Patient respiration: 16 (11/18/2023 13:38) Patient Pulse Oximetry: 92% (11/18/2023 13:38) Pain Ratin (11/18/2023 13:38) Active [facility] Medications: Active Outpatient Medications (including Supplies): Active Outpatient [...] MOUTH ONCE DAILY ACTIVE 9 Total Medications Remote Medications: No Active 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 Lemon November 2023. Patient feels well today with no complaints. He wishes to proceed with surgery. 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 Obstructive sleep apnea Hypertension Hypercholesterolemia Review of systems No chest pain or dyspnea No abdominal pain No trouble urinating No fever or chills No cough Physical examination Well-developed well-nourished male no acute distress Coronary no murmur Lungs clear No edema Mucous membranes moist Color, Urine (AX 4280): Yellow Appearance, Urine (AX 4280): Clear Glucose, Urine (AX 4280): NEGATIVE Ketones, Urine (AX 4280): NEGATIVE Blood, Urine (AX 4280): NEGATIVE Protein, Urine (AX 4280): 30 Nitrite, Urine (AX 4280): NEGATIVE Bilirubin, Urine (AX 4280): NEGATIVE Specific [place], (AX 4280): 1.029 H pH, Urine (WR1474): 6.0 Urobilinogen, Urine (AX 4280): <2.0 Leukocyte Esterase, (AX 4280): NEGATIVE GLUCOSE: 100 UREA NITROGEN: 28 H SODIUM: 139 POTASSIUM: 4.2 CHLORIDE: 105 CO2: 24 CHOLESTEROL: 148 PROTEIN,TOTAL: 7.2 ALBUMIN: 4.2 ALKALINE PHOSPHATASE: 45 SGOT: 28 SGPT: 26 TRIGLYCERIDE: 97 LDL CHOL: 91 CHOL/HDL RATIO: 3.9 HDL: 38 L BILIRUBIN,TOT.: 0.5 TSH (Access): 2.28 CREATININE-EGFR: 1.08 eGFR CKD-EPI 2020: 70 WBC: 7.00 RBC: 4.88 HGB: 15.1 HCT: 45.2 MCV: 92.6 MCHC: 33.4 RDW: 13.7 PLT: 185 MCH: 30.9 Neut %: 67.3 Lymph %: 21.1 [place] %: 8.0 Eos %: 2.3 Baso %: 0.9 Neut, Abs: 4.71 Lymph, Abs: 1.48 [place], Abs: 0.56 Eos, Abs: 0.16 Baso, Abs: 0.06 Immature Granulocytes %: 0.4 Immature Granulocytes, Abs: 0.03 I discussed above test results with patient ECG: Sinus bradycardia at 58 Right bundle branch block Assessment and plan: 1. Cataract: Patient wishes to proceed with surgery. He is medically cleared for surgery. Plan: Proceed with surgery Follow-up 6 months clinic visit and lab Medication Reconciliation: Outpatient: Has the patient been taking medications as documented in the EMLR? YES: The patient has been taking medications as documented in the EMLR. Essential Medication List for Review used to complete this medication reconciliation. INCLUDED IN THIS LIST: Alphabetical list of active outpatient prescriptions dispensed from this [place] (local) and dispensed from another [place] or [facility] facility (remote) as well as inpatient orders [...] whether with a VA or non-VA provider. /walter/ Ibrahima Colon MD Staff Physician Signed: 11/18/2023 14:27 IBRAHIMA COLON [place] [facility] [place] [facility] Nov 18, 2023 01:48 PM PREVENTIVE MEDICIN E NURSING NOTE: LOCAL TITLE: CLINICAL REMINDERS/NURSING STANDARD TITLE: PREVENTIVE MEDICINE NURSING NOTE DATE OF NOTE: NOV 18, 2023@13:48 ENTRY DATE: NOV 18, 2023@13:48:13 AUTHOR: HENNY SCHWAB EXP COSIGNER: URGENCY: STATUS: COMPLETED CLINICAL REMINDERS/NURSING Has ADDENDA Sexual Orientation: The patient thinks of their sexual orientation as: Straight or Heterosexual Alcohol Use Screen (AUDIT-C): Alcohol Screen: SCREEN FOR ALCOHOL (AUDIT-C) An alcohol screening test (AUDIT-C) was negative (score=0). 1. How often did you have a drink containing alcohol in the past year? Consider a drink to be a 12 ounce can or bottle of regular beer, 8 ounces of malt liquor, a 5 ounce glass of table wine, or a 1.5 ounce shot of liquor (like scotch, gin, or vodka). Never 2. How many drinks containing alcohol did you have on a typical day when you were drinking in the past year? Response not required due to responses to other questions. 3. How often did you have six or more drinks on one occasion in the past year? Response not required due to responses to other questions. Depression Screening: Perform PHQ-2 A PHQ-2 screen was performed. The score was 2 which is a negative screen for depression. Over the past two weeks, how often have you been bothered by the following problems? 1. Little interest or pleasure in doing things Several days 2. Feeling down, depressed, or hopeless Several days Homelessness/Food Insecurity Screen: In the past 2 months, have you been living in stable housing that you own, rent, or stay in as part of a household? Yes - Living in stable housing. Are you worried or concerned that in the next 2 months you may NOT have stable housing that you own, rent, or stay in as part of a household? No - Not worried about housing near future The [place] reports the following: Within the past 12 months, you worried whether your food would run out before you got money to buy more. Never true Within the past 12 months, the food you bought just didn't last and you didn't have money to get more. Never true Suicide Screen: C-SSRS Screening [place] Suicide Severity Rating Scale (C-SSRS) screener 1. Over the past month, have you wished you were or wished you could go to sleep and not wake up? No 2. Over the past month, have you had any actual thoughts of killing yourself? No 3. Over the past month, have you been thinking about how you might do this? Response not required due to responses to other questions. 4. Over the past month, have you had these thoughts and had some intention of acting on them? Response not required due to responses to other questions. 5. Over the past month, have you started to work out or worked out the details of how to kill yourself? Response not required due to responses to other questions. 6. If yes, at any time in the past month did you intend to carry out this plan? Response not required due to responses to other questions. 7. In your lifetime, have you ever done anything, started to do anything, or prepared to do anything to end your life (for example, collected pills, obtained a gun, gave away valuables, went to the roof but didn't jump)? No 8. If YES, was this within the past 3 months? Response not required due to responses to other questions. Advance Directive Screen AD: Patient has an up-to-date Advance Directive at an outside, non-va facility and was asked to forward a copy to his/her clinician. Comment: paperwork given to this to return upon completion /walter/ HENNY SCHWAB LPN LPN Signed: 11/18/2023 13:50 11/18/2023 ADDENDUM STATUS: COMPLETED Respiratory Syncytial Virus (RSV) Vaccine: RSV vaccine administered today. Administered: RSV, BIVALENT, PROTEIN SUBUNIT RSVPREF, DILUENT RECONSTITUTED, 0.5 ML, PF Date Administered: Nov 18, 2023 14:00 Series: Complete Flow Trader: [employer] Lot: [id number] Exp Date: Aug 23, 2024 ND: [id number] Admin Route/Site: INTRAMUSCULAR/LEFT DELTOID Dosage: 0.5mL Vaccine Information Statement(s): RSV (RESPIRATORY SYNCYTIAL VIRUS) VACCINE VIS Mar 13, 2023 ([place]) Order By: Policy Administered By: Henny Schwab Comment: sterile water diluent component [id number] Vaccine Information Sheet (VIS) was given to the patient/caregiver, education regarding adverse reactions was discussed, as well as barriers to learning, if any, were acknowledged. /walter/ HENNY SCHWAB LPN LPN Signed: 11/18/2023 14:43 HENNY SCHWAB [facility]
--- OUTSIDE RECORDS SUMMARY | 2024-09-23 11:48 | XMS_ITS | Continuity of Care Document ---
Author Name [facility] Organization [facility] Care Team Providers Care Germination Testing Manager Name Role Phone [facility] Unavailable Unavailable Problems Combined list of problems from Department of Defense and Veterans Affairs facilities. It does not include entries that were removed or entered in error. Problem Status Onset Date Problem Type Date of Resolution Comments Source Cataract Active 024 Condition Nov 18, 2023 Entered By: JORDYN KATZ Comment: referred to surgery [facility] COPD - Chronic Obstructive Pulmonary Disease ([facility] [id number]) Active 022 Condition Nov 09, 2021 Entered By: JORDNY KATZ Comment: Treated with inhalers [facility] COVID-19 Active 022 Condition Nov 30, 2021 Entered By: JORDYN KATZ Comment: treated at home [facility] OA - Osteoarthritis of Hip ([facility] [id number]) Active 021 Condition Sep 21, 2020 Entered By: JORDYN KATZ Comment: left hip [facility] Hypercholesterolemia ([facility] [id number]) Active 020 Condition Jun 25, 2019 Entered By: JORDYN KATZ Comment: treated with statin [facility] Multiple nodules of lung Active 019 Condition May 08, 2021 Entered By: JORDYN KATZ [facility] Entered By: JORDYN KATZ Comment: seen by pulmonary [facility] Obstructive sleep apnea Active 018 Condition [facility] Gynecomastia Active 017 Condition [facility] Polyp colon Active 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 Condition Nov 09, 2021 Entered By: JORDYN KATZ Comment: Ordered repeat colonoscopy [facility] Abdominal aortic aneurysm Active 016 Condition [facility] History of male erectile disorder Active 015 Condition [facility] Inguinal hernia Active 014 Condition [facility] Aneurysm, Aorta, Abdominal Active 013 Condition [facility] Hypertension (SNOMED CT [id number]) Active 011 Condition [facility] Tobacco Use Disorder Active 010 Condition [facility] Diagnosis: ICD-10-CM R91.8 Other nonspecific abnormal finding of lung field Active Diagnosis [facility] Diagnosis: ICD-10-CM Z12.2 Encntr screen for malignant neoplasm of respiratory organs Active Diagnosis [facility] Diagnosis: ICD-10-CM I10 Essential (primary) hypertension Active Diagnosis [facility] Diagnosis: ICD-10-CM R91.1 Solitary pulmonary nodule Active Diagnosis [facility] Diagnosis: ICD-10-CM J98.4 Other disorders of lung Active Diagnosis [facility] Diagnosis: ICD-10-CM Z46.0 Encounter for fit/adjst of spectacles and contact lenses Active Diagnosis [facility] Diagnosis: ICD-10-CM Z96.1 Presence of intraocular lens Active Diagnosis [facility] Diagnosis: ICD-10-CM Z13.6 Encounter for screening for cardiovascular disorders Active Diagnosis [facility] Diagnosis: ICD-10-CM H26.9 Unspecified cataract Active Diagnosis [facility] Diagnosis: ICD-10-CM 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, NEC, bilateral Active Diagnosis [facility] Diagnosis: ICD-10-CM Z46.1 Encounter for fitting and adjustment of hearing aid Active Diagnosis [facility] Diagnosis: ICD-10-CM H90.3 Sensorineural hearing loss, bilateral Active Diagnosis [facility] Diagnosis: ICD-10-CM Z02.89 Encounter for other administrative examinations Active Diagnosis [facility] Medications Combined list of outpatient medications from Department of Defense and Veterans Affairs facilities.Medications provided include 1) outpatient medications from the last 15 months, and 2) patient-reported medications. Medication Details Route Status Patient Instructions Prescription Expires Prescription Number Last Dispense Date Ordering Provider Order Date Order Qty Source ALBUTEROL 100MCG/IPRA TROPIUM BR 20MCG/SPRAY INHALER,ORA L,4GM INHALE 1 PUFF BY MOUTH FOUR TIMES DAILY NEEDED FOR TROUBLE BREATHIN G RESPIR ATORY (INHAL ATION) ACTIVE 06/26/2025 [id number] VIDYA KATZ D 2024 3 [facility] ALBUTEROL 100MCG/IPRA TROPIUM BR 20MCG/SPRAY INHALER,ORA L,4GM INHALE 1 PUFF BY MOUTH FOUR TIMES DAILY NEEDED FOR TROUBLE BREATHIN G RESPIR ATORY (INHAL ATION) DISCONT INUED 06/10/2024 [id number] VIDYA KATZ D 2023 3 [facility] ASPIRIN 81MG TAB,CHEWABL E CHEW ONE TABLET BY MOUTH ONCE DAILY ORAL ACTIVE [place] 2019 [facility] BROMFENAC 0.07% SOLN,OPH INSTILL 1 DROP INTO THE LEFT EYE ONCE DAILY FOR 6 WEEKS OPHTHA LMIC HOLD 11/06/2024 [id number] [place] 2023 1.6 [facility] FLUTICASONE 250MCG/SALM ETEROL 50MCG INHL,ORAL,D ISKUS,60 INHALE 1 PUFF BY MOUTH TWICE DAILY - RINSE MOUTH AFTER USE RESPIR ATORY (INHAL ATION) ACTIVE 06/26/2025 [id number] 5 VIDYA KATZ D 2024 3 [facility] FLUTICASONE 250MCG/SALM ETEROL 50MCG INHL,ORAL,D ISKUS,60 INHALE 1 PUFF BY MOUTH TWICE DAILY - RINSE MOUTH AFTER USE RESPIR ATORY (INHAL ATION) DISCONT INUED 06/10/2024 [id number] VIDYA KATZ D 2023 3 [facility] KETOROLAC TROMETHAMIN E 0.5% SOLN,OPH INSTILL 1 DROP INTO THE LEFT EYE DIRECTED BY PROVIDER FOR 6 WEEKS OPHTHA LMIC ACTIVE 11/07/2024 [id number] [place] 2023 10 [facility] LISINOPRIL 20MG TAB TAKE ONE TABLET BY MOUTH ONCE DAILY TO CONTROL BLOOD PRESSURE - NOTE TABLET STRENGTH AND INSTRUCT IONS ORAL ACTIVE 05/23/2025 [id number] VIDYA KATZD D 2023 90 [facility] LISINOPRIL 20MG TAB TAKE ONE TABLET BY MOUTH ONCE DAILY TO CONTROL BLOOD PRESSURE - NOTE TABLET STRENGTH AND INSTRUCT IONS ORAL DISCONT INUED 06/10/2024 [id number] VIDYA KATZ D 2023 90 [facility] METOPROLOL TARTRATE 50MG TAB TAKE ONE TABLET BY MOUTH TWICE DAILY FOR BLOOD PRESSURE /HEART ORAL ACTIVE 05/23/2025 [id number] 5 VIDYA KATZ D 2023 180 [facility] METOPROLOL TARTRATE 50MG TAB TAKE ONE TABLET BY MOUTH TWICE DAILY FOR BLOOD PRESSURE /HEART ORAL DISCONT INUED 06/10/2024 [id number] VIDYA KATZ D 2023 180 [facility] PRAVASTATIN NA 40MG TAB TAKE ONE TABLET BY MOUTH AT BEDTIME FOR CHOLESTE ROL ORAL ACTIVE 05/23/2025 [id number] VIDYA KATZ D 2023 90 [facility] PRAVASTATIN NA 40MG TAB TAKE ONE TABLET BY MOUTH AT BEDTIME FOR CHOLESTE ROL ORAL DISCONT INUED 06/10/2024 [id number] VIDYA KATZ 2023 90 [facility] Allergies, Adverse Reactions, Alerts Combined list of allergies from Department of Defense and Veterans Affairs facilities. It does not include entries that were removed or entered in error. Substance Category Reaction Severity Reaction type Status Date Reported Comments Source AMLODIPINE Propensity to adverse reactions to drug (finding) Edema active 6 [facility] HCTZ 25MG/TRIAMT ERENE 37.5MG TABLET Propensity to adverse reactions to drug (finding) Syncope active 1 [facility] Immunizations Combined list of available immunizations from the Department of Defense and Veterans Affairs facilities. Immunization Series Date Given Administered By Site Reaction Lot Number CVX Code Drug Surgical Corsetier Status Comments Source INFLUENZA, UNSPECIFIED FORMULATION 2023 88 complet ed Completed Series, HISTORICA L INFORMATI ON - FROM OTHER REGISTRY, outside PCP [facility] RSV, BIVALENT, PROTEIN SUBUNIT RSVPREF, DILUENT RECONSTITUTED , 0.5 ML, PF 2023 FERNANDA SCHWAB LEFT DELTO ID [id number] 305 complet ed Completed Series, [place]MINISTE [place] AT [place], sterile water diluent component [id number] [facility] INFLUENZA, UNSPECIFIED FORMULATION 2022 88 complet ed Completed Series, HISTORICA L INFORMATI ON - FROM PATIENT'S RECALL, [facility] TD (ADULT), 2 LF TETANUS TOXOID, PRESERVATIVE FREE, ADSORBED 2022 LAURA QUESADA LEFT DELTO ID [id number] 09 complet ed Completed Series, ADMINISTE RED AT [facility] INFLUENZA VACCINE, QUADRIVALENT, ADJUVANTED 2021 DIANNE FARR I LEFT DELTO ID [id number] 205 complet ed ADMINISTE RED AT [facility] COVID-19 (MODERNA), MRNA, LNP-S, PF, 100 MCG/0.5ML DOSE OR 50 MCG/0.25ML DOSE 3 2021 207 complet ed MOD; [id number] ; 2 [facility] COVID-19 (MODERNA), MRNA, LNP-S, PF, 100 MCG OR 50 MCG DOSE 3 2020 207 complet ed MOD; [id number]; 2 [facility] INFLUENZA VACCINE, QUADRIVALENT, ADJUVANTED 2020 205 complet ed [facility] COVID-19 (MODERNA), MRNA, LNP-S, PF, 100 MCG/0.5 ML DOSE 2 2020 207 complet ed MOD; [id number]; 1 [facility] COVID-19 (MODERNA), MRNA, LNP-S, PF, 100 MCG/0.5 ML DOSE 1 2020 207 complet ed MOD; [id number]; 1 [facility] INFLUENZA, UNSPECIFIED FORMULATION 2019 88 complet ed [facility] INFLUENZA, INJECTABLE, MDCK, PRESERVATIVE FREE, QUADRIVALENT 2018 171 complet ed 02, Partner: [facility]. Administe red by: [facility] Clinician (NPI=Not Provided) . Partner 0 Lot#: [id number] Mfr: SEQIRUS [facility] ZOSTER RECOMBINANT 2 2017 187 complet ed [facility] INFLUENZA, INJECTABLE, QUADRIVALENT, PRESERVATIVE FREE 2017 150 complet ed 02, Partner: [facility]. Administe red by: [facility] Clinician (NPI=Not Provided) . Partner 1 Lot#: [id number] Mfr: GlaxoSmit hKline [facility] ZOSTER RECOMBINANT 1 2017 187 complet ed [facility] INFLUENZA, SEASONAL, INJECTABLE 2016 141 complet ed Site: Left Deltoid [facility] FLU,3 YRS (HISTORICAL) 2015 88 complet ed Site: Right Deltoid [facility] PNEUMOCOCCAL POLYSACCHARID E [id number] 2015 33 complet ed [facility] FLU,3 YRS (HISTORICAL) 2014 88 complet ed Site: Right Deltoid [facility] PNEUMOCOCCAL CONJUGATE PCV 13 2014 133 complet ed [facility] FLU,3 YRS (HISTORICAL) 2013 88 complet ed Site: Left Deltoid [facility] ZOSTER LIVE 2012 121 complet ed [facility] DTAP, UNSPECIFIED FORMULATION 2012 107 complet ed [facility] FLU,3 YRS (HISTORICAL) 2011 88 complet ed [facility] PNEUMOCOCCAL, UNSPECIFIED FORMULATION 2010 109 complet ed Site: Left Deltoid [facility] FLU,3 YRS (HISTORICAL) 2010 88 complet ed [facility] FLU,3 YRS (HISTORICAL) 2009 88 complet ed [facility] NOVEL INFLUENZA-H1N 1-09, ALL FORMULATIONS 2009 128 complet ed [facility] TD(ADULT) UNSPECIFIED FORMULATION 2004 139 complet ed [facility] Results Combined list of recent chemistry, hematology and other laboratory results from Department of Defense and Veterans Affairs, ranging from 15 months to all on record, depending upon the facility. Order Name Results Value Reference Range Date Interpretation Specimen Comments Source BASIC METABOLI C PANEL (non-fas ting) UREA NITROGEN [MASS/VOLU ME] IN SERUM OR PLASMA 18 mg/dL 7 - 25 04/28 Specimen Type: SERUM No comment entered. Ordering Provider: NATE KATZ Report Released Date/Time: Apr 11, 2024 06:40 PM Reporting Lab: [facility] [address] [address] Performing Lab: [facility] [address] [address] [facility] BASIC METABOLI C PANEL (non-fas ting) GLUCOSE [MASS/VOLU ME] IN SERUM OR PLASMA 97 mg/dL 65 - 100 04/28 Specimen Type: SERUM No comment entered. Ordering Provider: NATE KATZ Report Released Date/Time: Apr 11, 2024 06:40 PM Reporting Lab: [facility] [address] [address] Performing [facility]: [facility] [address] [address] [facility] BASIC METABOLI C PANEL (non-fas ting) SODIUM [MOLES/VOL UME] IN SERUM OR PLASMA 141 mmol/L 135 - 145 04/28 Specimen Type: SERUM No comment entered. Ordering Provider: NATE KATZ Report Released Date/Time: Apr 11, 2024 06:40 PM Reporting Lab: [facility] [address] [address] Performing Lab: [facility] [address] [address] [facility] BASIC METABOLI C PANEL (non-fas ting) POTASSIUM [MOLES/VOL UME] IN SERUM OR PLASMA 4.2 mmol/L 3.5 - 5.0 04/28 Specimen Type: SERUM No comment entered. Ordering Provider: NATE KATZ Report Released Date/Time: Apr 11, 2024 06:40 PM Reporting Lab: [facility] [address] Performing Lab: [facility] [address] [facility] BASIC METABOLI C PANEL (non-fas ting) CHLORIDE [MOLES/VOL UME] IN SERUM OR PLASMA 109 mmol/L 100 - 110 04/28 Specimen Type: SERUM No comment entered. Ordering Provider: NATE KATZ Report Released Date/Time: Apr 11, 2024 06:40 PM Reporting Lab: [facility] [address] Performing Lab: [facility] [address] [facility] BASIC METABOLI C PANEL (non-fas ting) CARBON DIOXIDE, TOTAL [MOLES/VOL UME] IN SERUM OR PLASMA 21 meq/L 20 - 30 04/28 Specimen Type: SERUM No comment entered. Ordering Provider: NATE KATZ Report Released Date/Time: Apr 11, 2024 06:40 PM Reporting Lab: [facility] [address] [address] Performing Lab: [facility] [address] [address] [facility] BASIC METABOLI C PANEL (non-fas ting) CREATININE [MASS/VOLU ME] IN SERUM OR PLASMA 0.96 mg/dL 0.50 - 1.40 04/28 Specimen Type: SERUM No comment entered. Ordering Provider: NATE KATZ Report Released Date/Time: Apr 11, 2024 06:40 PM Reporting Lab: [facility] [address] [address] Performing Lab: [facility] [address] [facility] BASIC METABOLI C PANEL (non-fas ting) GLOMERULAR FILTRATION RATE/1.73 SQ M.PREDICTE D [VOLUME RATE/AREA] IN SERUM, PLASMA OR BLOOD BY CREATININE -BASED FORMULA (CKD-EPI 2020) 81 mL/min 60 04/28 Specimen Type: SERUM No comment entered. Ordering Provider: NATE KATZ Report Released Date/Time: Apr 11, 2024 06:40 PM Reporting Lab: [facility] [address] [address] Performing Lab: [facility] [address] [address] [facility] TSH THYROTROPI N [UNITS/VOL UME] IN SERUM OR PLASMA 2.28 u[IU]/mL 0.35 - 5.00 11/03 Specimen Type: SERUM No comment entered. Ordering Provider: NATE KATZ Report Released Date/Time: Nov 04, 2023 08:19 AM Reporting Lab: [facility] [address] [facility] [address] Performing Lab: [facility] [address] [address] [facility] LIVER FUNCTION PROTEIN [MASS/VOLU ME] IN SERUM OR PLASMA 7.2 g/dL 6.0 - 8.3 11/03 Specimen Type: SERUM No comment entered. Ordering Provider: NATE KATZ Report Released Date/Time: Nov 04, 2023 08:19 AM Reporting Lab: [facility] [address] [facility] [address] Performing Lab: [facility] [place] [address] [address] [facility] LIVER FUNCTION ALBUMIN [MASS/VOLU ME] IN SERUM OR PLASMA 4.2 g/dL 3.5 - 5.0 11/03 Specimen Type: SERUM No comment entered. Ordering Provider: NATE KATZ Report Released Date/Time: Nov 04, 2023 08:19 AM Reporting Lab: [facility] [address] [facility] [address] Performing Lab: [facility] [place] [facility] [address] [address] [facility] LIVER FUNCTION ALKALINE PHOSPHATAS E [ENZYMATIC ACTIVITY/V OLUME] IN SERUM OR PLASMA 45 U/L 40 - 150 11/03 Specimen Type: SERUM No comment entered. Ordering Provider: NATE KATZ Report Released Date/Time: Nov 04, 2023 08:19 AM Reporting Lab: [facility] [address] [address] Performing Lab: [facility] [address] [address] [facility] LIVER FUNCTION ASPARTATE AMINOTRANS FERASE [ENZYMATIC ACTIVITY/V OLUME] IN SERUM OR PLASMA 28 U/L 5 - 34 11/03 Specimen Type: SERUM No comment entered. Ordering Provider: NATE KATZ Report Released Date/Time: Nov 04, 2023 08:19 AM Reporting Lab: [facility] [address] [address] Performing Lab: [facility] [place] [facility] [address] [address] [facility] LIVER FUNCTION ALANINE AMINOTRANS FERASE [ENZYMATIC ACTIVITY/V OLUME] IN SERUM OR PLASMA 26 U/L 11/03 Specimen Type: SERUM No comment entered. Ordering Provider: NATE KATZ Report Released Date/Time: Nov 04, 2023 08:19 AM Reporting Lab: [facility] [place] [facility] [address] [address] Performing Lab: [facility] [place] [facility] [address] [address] [facility] LIVER FUNCTION BILIRUBIN. TOTAL [MASS/VOLU ME] IN SERUM OR PLASMA 0.5 mg/dL 0.2 - 1.2 11/03 Specimen Type: SERUM No comment entered. Ordering Provider: NATE KATZ Report Released Date/Time: Nov 04, 2023 08:19 AM Reporting Lab: [facility] [place] [address] [facility] [address] Performing Lab: [facility] [place] [facility] [address] [address] [facility] LIPID PANEL FASTING CHOLESTERO L [MASS/VOLU ME] IN SERUM OR PLASMA 148 mg/dL 11/03 Specimen Type: SERUM No comment entered. Ordering Provider: NATE KATZ Report Released Date/Time: Nov 04, 2023 08:19 AM Reporting Lab: [facility] [address] [facility] [address] Performing Lab: [facility] [address] [address] [facility] LIPID PANEL FASTING TRIGLYCERI DE [MASS/VOLU ME] IN SERUM OR PLASMA 97 mg/dL 0 - 150 11/03 Specimen Type: SERUM No comment entered. Ordering Provider: NATE KATZ Report Released Date/Time: Nov 04, 2023 08:19 AM Reporting Lab: [facility] [place] [facility] [address] [facility] [address] Performing Lab: [facility] [place] [facility] [address] [address] [facility] LIPID PANEL FASTING CHOLESTERO L IN LDL [MASS/VOLU ME] IN SERUM OR PLASMA BY CALCULATIO N 91 mg/dL 0 - 129 11/03 Specimen Type: SERUM No comment entered. Ordering Provider: NATE KATZ Report Released Date/Time: Nov 04, 2023 08:19 AM Reporting Lab: [facility] [place] [facility] [address] [facility] [address] Performing Lab: [facility] [place] [facility] [address] [facility] [address] [facility] LIPID PANEL FASTING CHOLESTERO L.TOTAL/CH OLESTEROL IN HDL [MASS RATIO] IN SERUM OR PLASMA 3.9 11/03 Specimen Type: SERUM No comment entered. Ordering Provider: NATE KATZ Report Released Date/Time: Nov 04, 2023 08:19 AM Reporting Lab: [facility] [address] [facility] [address] Performing Lab: [facility] [address] [address] [facility] LIPID PANEL FASTING CHOLESTERO L IN HDL [MASS/VOLU ME] IN SERUM OR PLASMA 38 mg/dL 40 - 60 11/03 L Specimen Type: SERUM No comment entered. Ordering Provider: NATE KATZ Report Released Date/Time: Nov 04, 2023 08:19 AM Reporting Lab: [facility] [place] [address] [facility] [address] Performing Lab: [facility] [address] [facility] [address] [facility] BASIC METABOLI C PANEL (fasting ) UREA NITROGEN [MASS/VOLU ME] IN SERUM OR PLASMA 28 mg/dL 7 - 25 11/03 H Specimen Type: SERUM No comment entered. Ordering Provider: NATE KATZ Report Released Date/Time: Nov 04, 2023 08:19 AM Reporting Lab: [facility] [address] [facility] [address] Performing Lab: [facility] [place] [address] [address] [facility] [facility] BASIC METABOLI C PANEL (fasting ) GLUCOSE [MASS/VOLU ME] IN SERUM OR PLASMA 100 mg/dL 65 - 100 11/03 Specimen Type: SERUM No comment entered. Ordering Provider: NATE KATZ Report Released Date/Time: Nov 04, 2023 08:19 AM Reporting Lab: [facility] [place] [address] [facility] [address] Performing Lab: [facility] [place] [facility] [address] [facility] [address] [facility] BASIC METABOLI C PANEL (fasting ) SODIUM [MOLES/VOL UME] IN SERUM OR PLASMA 139 mmol/L 135 - 145 11/03 Specimen Type: SERUM No comment entered. Ordering Provider: NATE KATZ Report Released Date/Time: Nov 04, 2023 08:19 AM Reporting Lab: [facility] [place] [facility] [address] [facility] [address] Performing Lab: [facility] [place] [facility] [address] [facility] [address] [facility] [place] [facility] BASIC METABOLI C PANEL (fasting ) POTASSIUM [MOLES/VOL UME] IN SERUM OR PLASMA 4.2 mmol/L 3.5 - 5.0 11/03 Specimen Type: SERUM No comment entered. Ordering Provider: NATE KATZ Report Released Date/Time: Nov 04, 2023 08:19 AM Reporting [facility]: [facility] [address] [address] Performing [facility] [address] [address] [facility] BASIC METABOLI C PANEL (fasting ) CHLORIDE [MOLES/VOL UME] IN SERUM OR PLASMA 105 mmol/L 100 - 110 11/03 Specimen Type: SERUM No comment entered. Ordering Provider: NATE KATZ Report Released Date/Time: Nov 04, 2023 08:19 AM Reporting [facility]: [facility] [address] [address] Performing Lab: [facility] [address] [address] [facility] BASIC METABOLI C PANEL (fasting ) CARBON DIOXIDE, TOTAL [MOLES/VOL UME] IN SERUM OR PLASMA 24 meq/L 20 - 30 11/03 Specimen Type: SERUM No comment entered. Ordering Provider: NATE KATZ Report Released Date/Time: Nov 04, 2023 08:19 AM Reporting Lab: [facility] [address] [address] Performing Lab: [facility] [address] [facility] BASIC METABOLI C PANEL (fasting ) CREATININE [MASS/VOLU ME] IN SERUM OR PLASMA 1.08 mg/dL 0.50 - 1.40 11/03 Specimen Type: SERUM No comment entered. Ordering Provider: NATE KATZ Report Released Date/Time: Nov 04, 2023 08:19 AM Reporting Lab: [facility] [address] [address] Performing Lab: [facility] [address] [facility] [address] [facility] BASIC METABOLI C PANEL (fasting ) GLOMERULAR FILTRATION RATE/1.73 SQ M.PREDICTE D [VOLUME RATE/AREA] IN SERUM, PLASMA OR BLOOD BY CREATININE -BASED FORMULA (CKD-EPI 2020) 70 mL/min 60 11/03 Specimen Type: SERUM No comment entered. Ordering Provider: NATE KATZ Report Released Date/Time: Nov 04, 2023 08:19 AM Reporting Lab: [facility] [facility] [address] [facility] [address] Performing Lab: [facility] [facility] [address] [facility] [address] [facility] CBC AND DIFF (AUTO) LEUKOCYTES [#/VOLUME] IN BLOOD BY AUTOMATED COUNT 7.00 10*3/uL 4.50 - 11.00 11/03 Specimen Type: BLOOD No comment entered. Ordering Provider: NATE KATZ Report Released Date/Time: Nov 04, 2023 08:19 AM Reporting Lab: [facility] [facility] [address] [facility] [address] Performing Lab: [facility] [address] [facility] [address] [facility] CBC AND DIFF (AUTO) ERYTHROCYT ES [#/VOLUME] IN BLOOD BY AUTOMATED COUNT 4.88 10*6/uL 4.23 - 5.66 11/03 Specimen Type: BLOOD No comment entered. Ordering Provider: NATE KATZ Report Released Date/Time: Nov 04, 2023 08:19 AM Reporting Lab: [facility] [address] [facility] [address] Performing Lab: [facility] [address] [facility] [address] [facility] CBC AND DIFF (AUTO) HEMOGLOBIN [MASS/VOLU ME] IN BLOOD 15.1 g/dL 12.8 - 17 11/03 Specimen Type: BLOOD No comment entered. Ordering Provider: NATE KATZ Report Released Date/Time: Nov 04, 2023 08:19 AM Reporting Lab: [facility] [address] [facility] [address] Performing Lab: [facility] [address] [facility] [address] [facility] CBC AND DIFF (AUTO) HEMATOCRIT [VOLUME FRACTION] OF BLOOD BY AUTOMATED COUNT 45.2 39.2 - 50.4 11/03 Specimen Type: BLOOD No comment entered. Ordering Provider: NATE KATZ Report Released Date/Time: Nov 04, 2023 08:19 AM Reporting Lab: [facility] [address] [facility] [address] Performing Lab: [facility] [address] [facility] [address] [facility] CBC AND DIFF (AUTO) MCV [ENTITIC VOLUME] BY AUTOMATED COUNT 92.6 fL 82 - 99 11/03 Specimen Type: BLOOD No comment entered. Ordering Provider: NATE KATZ Report Released Date/Time: Nov 04, 2023 08:19 AM Reporting Lab: [facility] [address] [facility] [address] Performing Lab: [facility] [address] [facility] [address] [facility] CBC AND DIFF (AUTO) MCHC [MASS/VOLU ME] BY AUTOMATED COUNT 33.4 g/dL 30.8 - 35.1 11/03 Specimen Type: BLOOD No comment entered. Ordering Provider: NATE KATZ Report Released Date/Time: Nov 04, 2023 08:19 AM Reporting Lab: [facility] [address] [facility] [address] Performing Lab: [facility] [address] [facility] [address] [facility] CBC AND DIFF (AUTO) PLATELETS [#/VOLUME] IN BLOOD BY AUTOMATED COUNT 185 10*3/uL 140 - 360 11/03 Specimen Type: BLOOD No comment entered. Ordering Provider: NATE KATZ Report Released Date/Time: Nov 04, 2023 08:19 AM Reporting Lab: [facility] [facility] [address] [facility] [address] Performing Lab: [facility] [address] [address] [facility] CBC AND DIFF (AUTO) ERYTHROCYT E DISTRIBUTI ON WIDTH [RATIO] BY AUTOMATED COUNT 13.7 12.0 - 16.0 11/03 Specimen Type: BLOOD No comment entered. Ordering Provider: NATE KATZ Report Released Date/Time: Nov 04, 2023 08:19 AM Reporting Lab: [facility] [address] [address] Performing Lab: [facility] [address] [address] [facility] CBC AND DIFF (AUTO) MONOCYTES [#/VOLUME] IN BLOOD BY AUTOMATED COUNT 0.56 10*3/uL 0.30 - 1.10 11/03 Specimen Type: BLOOD No comment entered. Ordering Provider: NATE KTAZ Report Released Date/Time: Nov 04, 2023 08:19 AM Reporting Lab: [facility] [address] [address] Performing Lab: [facility] [address] [address] [facility] CBC AND DIFF (AUTO) MCH [ENTITIC MASS] BY AUTOMATED COUNT 30.9 pg 26.2 - 32.6 11/03 Specimen Type: BLOOD No comment entered. Ordering Provider: NATE KATZ Report Released Date/Time: Nov 04, 2023 08:19 AM Reporting Lab: [facility] [address] [address] Performing Lab: [facility] [address] [place] [address] [facility] CBC AND DIFF (AUTO) NEUTROPHIL S/100 LEUKOCYTES IN BLOOD BY AUTOMATED COUNT 67.3 43.7 - 75.8 11/03 Specimen Type: BLOOD No comment entered. Ordering Provider: NATE KATZ Report Released Date/Time: Nov 04, 2023 08:19 AM Reporting Lab: [facility] [address] [facility] [address] Performing Lab: [facility] [address] [facility] [address] [facility] CBC AND DIFF (AUTO) LYMPHOCYTE S/100 LEUKOCYTES IN BLOOD BY AUTOMATED COUNT 21.1 14.0 - 42.3 11/03 Specimen Type: BLOOD No comment entered. Ordering Provider: NATE KATZ Report Released Date/Time: Nov 04, 2023 08:19 AM Reporting Lab: [facility] [address] [facility] [address] Performing Lab: [facility] [address] [facility] [address] [facility] CBC AND DIFF (AUTO) MONOCYTES/ 100 LEUKOCYTES IN BLOOD BY AUTOMATED COUNT 8.0 5.1 - 13.7 11/03 Specimen Type: BLOOD No comment entered. Ordering Provider: NATE KATZ Report Released Date/Time: Nov 04, 2023 08:19 AM Reporting Lab: [facility] [address] [facility] [address] Performing Lab: [facility] [address] [facility] [address] [facility] CBC AND DIFF (AUTO) EOSINOPHIL S/100 LEUKOCYTES IN BLOOD BY AUTOMATED COUNT 2.3 0.4 - 6.8 11/03 Specimen Type: BLOOD No comment entered. Ordering Provider: NATE KATZ Report Released Date/Time: Nov 04, 2023 08:19 AM Reporting Lab: [facility] [address] [facility] [address] Performing Lab: [facility] [address] [facility] [address] [facility] CBC AND DIFF (AUTO) BASOPHILS/ 100 LEUKOCYTES IN BLOOD BY AUTOMATED COUNT 0.9 0.1 - 2.0 11/03 Specimen Type: BLOOD No comment entered. Ordering Provider: NATE KATZ Report Released Date/Time: Nov 04, 2023 08:19 AM Reporting Lab: [facility] [address] [facility] [address] Performing Lab: [facility] [facility] [address] [facility] [address] [facility] CBC AND DIFF (AUTO) NEUTROPHIL S [#/VOLUME] IN BLOOD BY AUTOMATED COUNT 4.71 10*3/uL 2.20 - 7.60 11/03 Specimen Type: BLOOD No comment entered. Ordering Provider: NATE KATZ Report Released Date/Time: Nov 04, 2023 08:19 AM Reporting Lab: [facility] [address] [address] Performing Lab: [facility] [address] [facility] [address] [facility] CBC AND DIFF (AUTO) LYMPHOCYTE S [#/VOLUME] IN BLOOD BY AUTOMATED COUNT 1.48 10*3/uL 1.00 - 3.20 11/03 Specimen Type: BLOOD No comment entered. Ordering Provider: NATE KATZ Report Released Date/Time: Nov 04, 2023 08:19 AM Reporting Lab: [facility] [address] [address] Performing Lab: [facility] [address] [address] [facility] CBC AND DIFF (AUTO) EOSINOPHIL S [#/VOLUME] IN BLOOD BY AUTOMATED COUNT 0.16 10*3/uL 0.03 - 0.44 11/03 Specimen Type: BLOOD No comment entered. Ordering Provider: NATE KATZ Report Released Date/Time: Nov 04, 2023 08:19 AM Reporting Lab: [facility] [address] [facility] [address] Performing Lab: [facility] [address] [facility] [address] [facility] CBC AND DIFF (AUTO) BASOPHILS [#/VOLUME] IN BLOOD BY AUTOMATED COUNT 0.06 10*3/uL 0.01 - 0.13 11/03 Specimen Type: BLOOD No comment entered. Ordering Provider: NATE KATZ Report Released Date/Time: Nov 04, 2023 08:19 AM Reporting Lab: [facility] [address] [facility] [address] Performing Lab: [facility] [address] [facility] [address] [facility] CBC AND DIFF (AUTO) IMMATURE GRANULOCYT ES/100 LEUKOCYTES IN BLOOD BY AUTOMATED COUNT 0.4 0.0 - 0.7 11/03 Specimen Type: BLOOD No comment entered. Ordering Provider: NATE KATZ Report Released Date/Time: Nov 04, 2023 08:19 AM Reporting Lab: [facility] [address] [facility] [address] Performing Lab: [facility] [address] [facility] [address] [facility] CBC AND DIFF (AUTO) IMMATURE GRANULOCYT ES [#/VOLUME] IN BLOOD 0.03 10*3/uL 0.00 - 0.06 11/03 Specimen Type: BLOOD No comment entered. Ordering Provider: NATE KATZ Report Released Date/Time: Nov 04, 2023 08:19 AM Reporting Lab: [facility] [address] [facility] [address] Performing Lab: [facility] [address] [place] [address] [facility] URINALYS IS CLEAN CATCH COLOR OF URINE Yellow 11/03 Specimen Type: URINE Comment: If Glucose = >500 and Ketones are positive, please alert the Physician. Ordering Provider: NATE KATZ Report Released Date/Time: Nov 04, 2023 08:19 AM Reporting Lab: [facility] [address] [facility] [address] Performing Lab: [facility] [facility] [address] [facility] [address] [facility] URINALYS IS CLEAN CATCH APPEARANCE OF URINE Clear 11/03 Specimen Type: URINE Comment: If Glucose = >500 and Ketones are positive, please alert the Physician. Ordering Provider: NATE KATZ Report Released Date/Time: Nov 04, 2023 08:19 AM Reporting Lab: [facility] [facility] [address] [facility] [address] Performing Lab: [facility] [place] [facility] [address] [facility] [address] [facility] URINALYS IS CLEAN CATCH GLUCOSE [MASS/VOLU ME] IN URINE NEGATIVE mg/dL 11/03 Specimen Type: URINE Comment: If Glucose = >500 and Ketones are positive, please alert the Physician. Ordering Provider: NATE AKTZ Report Released Date/Time: Nov 04, 2023 08:19 AM Reporting Lab: [facility] [place] [facility] [address] [facility] [address] Performing Lab: [facility] [facility] [address] [facility] [address] [facility] URINALYS IS CLEAN CATCH KETONES [MASS/VOLU ME] IN URINE BY TEST STRIP NEGATIVE mg/dL 11/03 Specimen Type: URINE Comment: If Glucose = >500 and Ketones are positive, please alert the Physician. Ordering Provider: NATE KATZ Report Released Date/Time: Nov 04, 2023 08:19 AM Reporting Lab: [facility] [place] [facility] [address] [facility] [address] Performing Lab: [facility] [facility] [address] [facility] [address] [facility] URINALYS IS CLEAN CATCH ERYTHROCYT ES [PRESENCE] IN URINE SEDIMENT BY LIGHT MICROSCOPY NEGATIVE mg/dL 11/03 Specimen Type: URINE Comment: If Glucose = >500 and Ketones are positive, please alert the Physician. Ordering Provider: NATE KATZ Report Released Date/Time: Nov 04, 2023 08:19 AM Reporting Lab: [facility] [place] [facility] [address] [facility] [address] Performing Lab: [facility] [place] [facility] [address] [facility] [address] [facility] URINALYS IS CLEAN CATCH PROTEIN [MASS/VOLU ME] IN URINE BY TEST STRIP 30 mg/dL 11/03 Specimen Type: URINE Comment: If Glucose = >500 and Ketones are positive, please alert the Physician. Ordering Provider: NATE KATZ Report Released Date/Time: Nov 04, 2023 08:19 AM Reporting Lab: [facility] [place] [facility] [address] [facility] [address] Performing Lab: [facility] [place] [facility] [address] [facility] [address] [facility] URINALYS IS CLEAN CATCH NITRITE [PRESENCE] IN URINE NEGATIVE mg/dL 11/03 Specimen Type: URINE Comment: If Glucose = >500 and Ketones are positive, please alert the Physician. Ordering Provider: NATE KATZ Report Released Date/Time: Nov 04, 2023 08:19 AM Reporting Lab: [facility] [place] [address] [address] Performing Lab: [facility] [place] [address] [address] [facility] [place] URINALYS IS CLEAN CATCH BILIRUBIN. TOTAL [PRESENCE] IN URINE NEGATIVE mg/dL 11/03 Specimen Type: URINE Comment: If Glucose = >500 and Ketones are positive, please alert the Physician. Ordering Provider: NATE KATZ Report Released Date/Time: Nov 04, 2023 08:19 AM Reporting Lab: [facility] [place] [facility] [address] [facility] [address] Performing Lab: [facility] [facility] [address] [facility] [address] [facility] URINALYS IS CLEAN CATCH SPECIFIC GRAVITY OF URINE BY REFRACTOME TRY 1.029 1.016 - 1.022 11/03 H Specimen Type: URINE Comment: If Glucose = >500 and Ketones are positive, please alert the Physician. Ordering Provider: NATE KATZ Report Released Date/Time: Nov 04, 2023 08:19 AM Reporting Lab: [facility] [place] [facility] [address] [facility] [address] Performing Lab: [facility] [place] [facility] [address] [facility] [address] [facility] URINALYS IS CLEAN CATCH PH OF URINE BY TEST STRIP 6.0 5.0 - 9.0 11/03 Specimen Type: URINE Comment: If Glucose = >500 and Ketones are positive, please alert the Physician. Ordering Provider: NATE KATZ Report Released Date/Time: Nov 04, 2023 08:19 AM Reporting Lab: [facility] [facility] [address] [facility] [address] Performing Lab: [facility] [place] [facility] [address] [facility] [address] [facility] URINALYS IS CLEAN CATCH UROBILINOG EN [MASS/VOLU ME] IN URINE BY TEST STRIP <2.0mg/d L <2.0 - 2.0 11/03 Specimen Type: URINE Comment: If Glucose = >500 and Ketones are positive, please alert the Physician. Ordering Provider: NATE KATZ Report Released Date/Time: Nov 04, 2023 08:19 AM Reporting Lab: [facility] [place] [facility] [address] [facility] [address] Performing Lab: [facility] [place] [facility] [address] [facility] [address] [facility] URINALYS IS CLEAN CATCH LEUKOCYTE ESTERASE [PRESENCE] IN URINE BY TEST STRIP NEGATIVE 11/03 Specimen Type: URINE Comment: If Glucose = >500 and Ketones are positive, please alert the Physician. Ordering Provider: NATE KATZ Report Released Date/Time: Nov 04, 2023 08:19 AM Reporting Lab: [address] [address] Performing Lab: [address] [address] [facility] VITAMIN B-1 (THIAMIN E)-(QU) THIAMINE [MOLES/VOL UME] IN SERUM OR PLASMA 25 nmol/L 8 - 30 06/10 Specimen Type: PLASMA Comment: Vitamin supplementa tion within 24 hours prior to blood draw may affect the accuracy of the results. This test was developed and its analytical performance characteris tics have been determined by [facility] [place], [place]. It has not been cleared or approved by the U.S. Food and Drug Administrat ion. This assay has been validated pursuant to the CLIA regulations and is used for clinical purposes. Test Performed by [facility], [facility], [address] [place] [address] Darin Foley M.D., Ph.D., Director of Laboratorie s , CLIA [id number] TEST PERFORMED AT: , Ordering Provider: NATE KATZ Report Released Date/Time: Jun 10, 2023 08:26 AM Reporting Lab: [address] [address] Performing Lab: [facility] [id number] [place] [address] VITAMIN B-6 (QU) PYRIDOXINE [MASS/VOLU ME] IN SERUM OR PLASMA 41.1 ng/mL 2.1 - 21.7 06/10 H Specimen Type: PLASMA Comment: Vitamin supplementa tion within 24 hours prior to blood draw may affect the accuracy of the results. This test was developed and its analytical performance characteris tics have been determined by [facility] [place], [place]. It has not been cleared or approved by the U.S. Food and Drug Administrat ion. This assay has been validated pursuant to the CLIA regulations and is used for clinical purposes. Test Performed by [facility], [facility], [address] [place], [place] Darin Foley M.D., Ph.D., Director of Laboratorie s , CLIA [id number] TEST PERFORMED AT: , Ordering Provider: NATE KATZ Report Released Date/Time: Jun 10, 2023 08:26 AM Reporting Lab: [address] [address] Performing Lab: [place] [id number] [facility] VITAMIN B12 COBALAMIN (VITAMIN B12) [MASS/VOLU ME] IN SERUM OR PLASMA 756 pg/mL 200 - 900 06/10 Specimen Type: SERUM No comment entered. Ordering Provider: NATE KATZ Report Released Date/Time: Jun 10, 2023 08:26 AM Reporting Lab: [address] [address] Performing Lab: [address] [address] [facility] Vital Signs Combined list of inpatient and outpatient Vital Signs from Department of Defense and Veterans Affairs, ranging from 12 months to all on record, depending upon the facility. Vital Sign Value Date Comments Source SYSTOLIC BLOOD PRESSURE 138 05/11/20 [facility] DIASTOLIC BLOOD PRESSURE 84 024 09:56[facility]45 [facility] PULSE OXIMETRY 91 05/11/2024 09[facility]56:[facility] WEIGHT 253 05/11/2024 09:56:45 [facility] BMI 33 kg/m2 05/11/2024 09:56:45 [facility] PAIN 7 05/11/2024 09:56:45 [facility] HEIGHT 74 05/11/2024 09:56:45 [facility] TEMPERATURE 98.2 05/11/2024 09:56:45 [facility] PULSE 55 05/11/2024 09:56:45 [facility] RESPIRATION 20 05/11/2024 09:56:45 [facility] SYSTOLIC BLOOD PRESSURE 144 11/18/19 13:38:41 [facility] DIASTOLIC BLOOD PRESSURE 82 024 13:38:41 [facility] PULSE OXIMETRY 92 11/18/2023 13:38:41 [facility] WEIGHT 238.6 11/18/2023 13:38:41 [facility] BMI 31 kg/m2 11/18/2023 13:38:41 [facility] PAIN 4 11/18/2023 13:38:41 [facility] HEIGHT 74 11/18/2023 13:38:41 [facility] TEMPERATURE 98.1 11/18/2023 13:38:41 [facility] PULSE 67 11/18/2023 13:38:41 [facility] RESPIRATION 16 11/18/2023 13:38:41 [facility] Encounters Combined list of: 1) Encounters from Department of Veterans Affairs facilities going backup to the last 18 months, not all VA inpatient encounters are included; 2) Encounters from the Department of Defense facilities going backup to 280 months. Location Location Details Encounter Type Encounter Number Reason For Visit Attending Provider ADM Date DC Date Status Disposition Source [facility] Encounter [id number] 05/01 [facility] [id number] 05/08 [facility]counter [id number] 05/16 [facility] Out[facility] Encounter [id number] Diagnos is: ICD-10- CM Z02.89 Encount er for other adminis trative examina tiBOONE Art 05/22 [facility] En[facility] [id number] 05/30 [facility] Encounter [id number] 06/02 [facility] OFFICE O/P EST SF 10 MIN [id number] Diagnos is: ICD-10- CM I10 Essenti al (primar y) hyperte OMAR Corona RD 06/10 [facility] Out[facility] Encounter [id number] Diagnos is: ICD-10- CM Z02.89 Encount er for other adminis trative examina tiMACARIO Sharma 06/10 [facility] HEARING AID EXAM BOTH EARS [id number] Diagnos is: ICD-10- CM H90.3 Sensori neural hearing loss, bilater al KALPESHMACARIO UGALDE L 06/10 [facility] En[facility] [id number] 06/19 [facility] En[facility] [id number] 06/26 [facility] HEARING SERVICE [id number] Diagnos is: ICD-10- CM Z46.1 Encount er for fitting and adjustm ent of hearing aid DANIELLE RICHTER 07/01 [facility] HEARING AID REPAIR/MOD IFYING [id number] Diagnos is: ICD-10- CM Z46.1 Encount er for fitting and adjustm ent of hearing aid CHEPE YIN I 07/07 [facility] INTRM OPH EXAM EST PATIENT [id number] Diagnos is: ICD-10- CM 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, NEC, bilater al ALFREDO POWERS 07/17 [facility] Out[facility] Encounter [id number] 07/29 [facility] En[facility] [id number] 08/10 [facility] [facility] En[facility] [id number] 09/17 [facility] Encounter [id number] 10/06 [facility] Encounter [id number] 10/12 [facility] Encounter [id number] 10/30 [facility] Encounter [id number] 11/05 [facility] Encounter [id number] 11/06 [facility] Encounter [id number] 11/06 [facility] OFFICE O/P EST LOW 20 MIN [id number] Diagnos is: ICD-10- CM H26.[address] D 11/17 [facility] ELECTROCAR DIOGRAM REPORT [id number] Diagnos is: ICD-10- CM Z13.6 Encount er for screeni ng for cardiov ascular disorde rs CHRISTIAN,PAR UL U 11/17 [place] [facility] Out[facility] Encounter [id number] 11/17 [facility] Encounter [id number] 11/19 [facility] Encounter [id number] 11/23 [facility] Encounter [id number] 11/24 [facility] Encounter [id number] 11/24 [facility] Encounter [id number] 11/26 [facility] Encounter [id number] 11/28 [facility] Encounter [id number] 12/01 [facility] Encounter [id number] 12/09 [facility] Encounter [id number] 12/15 [facility] Encounter [id number] 12/17 [facility] Encounter [id number] 12/28 [facility] Encounter [id number] 01/01 [facility] QNHP OL DIG ASSMT&MGMT 21+ [id number] Diagnos is: ICD-10- CM R91.1 Solitar y pulmona ry nodule CHRISTI VALADEZ 01/01 [facility] Outpatient Encounter [id number] Diagnos is: ICD-10- CM R91.8 Other nonspec ific abnorma l finding of lung field TERESA KIERRA S 01/01 [facility] Out[facility]counter [id number] 1.01/14 [facility] Encounter [id number] 1.01/14 [facility] Out[facility]counter [id number] [facility] Out[facility] Encounter [id number] 01/28 [facility] Out[facility] Encounter [id number] 01/29 [facility] Outpatient Encounter [id number] Diagnos is: ICD-10- CM R91.8 Other nonspec ific abnorma l finding of lung field TERESA KIERRA S 02/05 [facility] Out[facility] Encounter [id number] 1. CHRISTI VALADEZ 02/05 [facility] Out[facility] Encounter [id number] 02/05 [facility] Out[facility] Encounter [id number] 03/07 [facility] COMPRE OPH EXAM EST PT 1/ [id number] Diagnos is: ICD-10- CM Z96.1 Presenc e of intraoc ular lens MERHAR,MIKEY H B 03/23 [facility] FIT SPECTACLES BIFOCAL [id number] Diagnos is: ICD-10- CM Z46.0 Encount er for fit/adj st of spectac les and contact lenses MERHAR,MIKEY H B 03/24 [facility] EVALUATION OF WHEEZING [id number] Diagnos is: ICD-10- CM J98.4 Other disorde rs of lung JARMOLOWIC Z,TODD 03/29 [facility] Out[facility] Encounter [id number] 1.03/29 [facility]/[place] DIFFUSE CAPACITY [id number] Diagnos is: ICD-10- CM R91.1 Solitar y pulmona ry nodule Rodolfo ZARATE MD 03/29 [facility] Out[facility] Encounter [id number] 04/01 [facility] Out[facility] Encounter [id number] 04/11 [facility] Out[facility] Encounter [id number] 04/18 [facility] Out[facility] Encounter [id number] [facility] Out[facility] Encounter [id number] 04/25 [facility] Out[facility] Encounter [id number] 04/29 [facility] Out[facility] Encounter [id number] 05/05 [facility] Out[facility] Encounter [id number] 05/05 [facility] Out[facility] Encounter [id number] [facility] Out[facility] Encounter [id number] 05/11 [facility] OFFICE O/P EST LOW 20 MIN [id number] 1. Diagnos is: ICD-10- CM I10 Essenti al (primar y) hyperte nsion OMAR KATZ RD D 05/11 [facility] QNHP OL DIG ASSMT&MGMT 21+ [id number] 1. Diagnos is: ICD-10- CM Z12.2 Encntr screen for maligna nt neoplas m of respira tory organs MISHA GASPAR D 05/11 [facility] QNHP OL DIG ASSMT&MGMT 04-14 [id number] Diagnos is: ICD-10- CM R91.8 Other nonspec ific abnorma l finding of lung field HEAVENLY MATA YN 05/14 [facility] Outpatient Encounter [id number] 05/14 [facility] Out[facility] Encounter [id number]/14 [facility] Outpatient Encounter [id number] 05/14 [facility] Outpatient Encounter [id number] 05/22 [facility] Out[facility] Encounter [id number] 06/25 [facility] Out[facility] Encounter [id number] 07/24 [facility] Out[facility] Encounter [id number] 07/26 [facility] Outpatient Encounter [id number] 07/30 [facility] Out[facility] Encounter [id number] 09/06 [facility] Social History Combined list of available smoking, tobacco, and other social history from Department of Defense and Veterans Affairs facilities. Social History Type Response Date Comment Source Tobacco smoking status [facility]-TOBACCO USE FORMER CIGARETTES 05/11/2024 [facility] [place] [facility] 05[facility]11/2024 [facility] [place] [facility] History of tobacco use MI-TOBACCO FORMER USER 06/10/2023 [facility] [place] [facility] < 15 YRS 05/06/2022 [facility] [place] [facility] History of tobacco use MI-TOBACCO FORMER USER [facility]08[facility] History [facility] tobacco use MI-TOBACCO FORMER USER [facility] History of tobacco use QUIT TOBACCO USE 1-7 YEARS AGO 09/15/2017 PT STATES HE QUIT 4 YRS AGO [facility] History of tobacco use QUIT TOBACCO USE 1-7 YEARS AGO 01/31/2017 pt state stop 3 yrs ago. [facility] History [facility] tobacco use QUIT TOBACCO USE 1-7 YEARS AGO 01/12/2016 [facility] History of tobacco use QUIT TOBACCO USE 1-7 YEARS AGO 01/26/2015 PT STATES THAT HE QUIT 13 MONTHS AGO. [facility] [place] History of tobacco use QUIT TOBACCO USE IN PAST YEAR 01/28/2014 [facility] History of tobacco use CURRENT SMOKER 11/06/2012 1 pack per day. [facility] [place] [facility] History of tobacco use CURRENT SMOKER 10/04/2011 1 ppd [facility] [place] [facility] History of tobacco use CURRENT SMOKER 09/28/2010 1 ppd [facility] History of tobacco use V1-PT DECLINES TOBACCO CESSATION MEDS 09/21/2009 [facility] Plan of Care List of future care activities from Department of Veterans Affairs facilities. Additional future care activities may be listed in the Assessment and Plan section. Date/Time Care Activity Care Activity Detail Facili ty 11/09/2024 AMBULATORY - MEDICINE [place] [facility] [place] [facility]
--- OUTSIDE RECORDS SUMMARY | 2024-09-23 11:48 | XMS_ITS | Encounter Summary ---
Author Name [facility] [facility] [place] Address [address] [place] [address] Care Team Providers Care Infection Control Manager Name Role Phone JORDYN KATZ Primary Care [...] Name Patient's Relationship to Policy Batista [facility] MEDICARE ADVANTAGE MCR ([facility]) Nov 23, 2010 [id number] HARROP,DA VID PATIENT [facility]) MEDICARE ADVANTAGE MCR ([facility]) Nov 23, 2010 [id number] HARROP,DA VID PATIENT Selected Encounter This section includes the information on record at [place] for the Encounter. Date/Time Encounter Type Encounter Description Reason Provider Source Feb 06, 2024 12:35 PM Outpatient Encounter PULMONARY/CHEST ICD-10-CM R91.8 Other nonspecific abnormal finding of lung field DIONE MOORE E Encounter Template Text not used by [facility] Ass[facility] - Encounter Diagnoses This section includes the primary and secondary diagnoses documented for the Encounter. Date/Time Primary/Secondary Diagnosis Diagnosis Name Provider Source Feb 06, 2024 12:45 PM PRIMARY Other nonspecific abnormal finding of lung field LYUBOV MOORE [facility] Plan of Treatment: Future Appointments (+ 6 months) and Future Tests (+/- 45 days) The Plan of Treatment section includes future care activities for the patient from [facility] [place] [facility] This section includes future appointments and future orders which are active, pending or scheduled. Future Appointments This section includes appointments that were scheduled to occur 6 months from the date of the Encounter, up to a maximum of 20 appointments. The data comes from all [facility]. Appointment Date/Time Appointment Type Appointme nt Facility Name Mar 23, 2024 10:30 AM [place] [facility] [place] [place] [facility] Mar 29, 2024 10:00 AM AM[facility]UL[facility]ORY [facility] [place] [facility] Mar 29, 2024 12:30 PM AMBULATORY - MEDICINE [facility] Apr 19, 2024 08:30 AM [place] [facility] [facility] May 07, 2024 08:45 AM [place] [facility] [place] [facility] May 11, 2024 09:15 AM AMBULATORY - [facility] [place] [facility] May 11, 2024 10:00 AM AMBULATORY MEDICINE [facility] [place] [place] [facility] Radiology Reports: +/- 30 days of the [...] the Encounter. The data comes from all [facility]. Date/Time Radiology Report Provider Source Jan 29, 2024 08:00 AM OUTSIDE PET, WHOLE BODY: PRAKASH DRUMMOND [id number] -[id number] M Exm Date: JAN 29, 2024@08:00 Req Phys: JORDYN KATZ Loc: [facility]/OUTSIDE IMAGING NON-CNT (R Img Loc: OUTSIDE GENERAL RADIOLOGY Service: Unknown (Case 1 COMPLETE) OUTSIDE PET, WHOLE BODY (RAD Detailed) CPT:78092 Reason for Study: outside images downloaded for continuity of care Clinical History: outside images downloaded for continuity of care Report Status: Electronically Filed Date Reported: JAN 29, 2024 Report: THIS EXAM WAS PERFORMED AND INTERPRETED AT AN OUTSIDE HOSPITAL Impression: THIS EXAM WAS PERFORMED AND INTERPRETED AT AN OUTSIDE HOSPITAL Primary Diagnostic Code: VERIFIED BY: / *ELECTRONICALLY FILED* [place] [facility] [place] [facility] Encounter Notes: All associated encounter notes This section contains the clinical notes associated to the Encounter. Date/Time Encounter Note(s) Provider Source Feb 06, 2024 12:35 PM TUMOR BOARD NOTE: LOCAL TITLE: LUNG NODULE-MULTIDISCIPLINARY TUMOR BOARD NOTE STANDARD TITLE: TUMOR BOARD NOTE DATE OF NOTE: FEB 06, 2024@12:35 ENTRY DATE: FEB 06, 2024@12:35:56 AUTHOR: KIERRA MOORE EXP COSIGNER: URGENCY: STATUS: COMPLETED National Comprehensive Cancer Network Guidelines will be used in discussion and treatment decisions unless otherwise specified Pt enrolled in [facility] program Case and imaging reviewed with Dr. Bender (pulmonary) and Dr. Jacques (radiology) Reviewed Ct [...] nodule. Recommendations to be completed by the [facility] team: 1.)Repeat LDCT 3 months /walter/ KIERRA MOORE APRN APRN Signed: 02/06/2024 12:45 Receipt Acknowledged By: 02/06/2024 21:09 /walter/ DEYSI BENDER MD Attending, Pulmonary & Critical Care KIERRA MOORE [facility]
--- OUTSIDE RECORDS SUMMARY | 2024-09-23 11:48 | XMS_ITS | Encounter Summary ---
Author Name [facility] [place] [facility] [place] [facility] [place] Address [address] [place] [address] Care Team Providers Care Head Sawyer Automatic Name Role Phone IBRAHIMA COLON Primary Care [...] [place] M[place] (WNR) MEDICARE ADVANTAGE MCR ([facility]) Nov 23, 2010 [id number] HODA,LOULOU VID PATIENT HEALTH [place] M[place] (WNR) MEDICARE ADVANTAGE MCR ([facility]) Nov 23, 2010 [id number] [phone] HARROP,DA VID PATIENT Selected Encounter This section includes the information on record at [place] for the Encounter. Date/Time Encounter Type Encounter Description Reason Provider Source Jan 02, 2024 11:54 AM QNHP OL DIG ASSMT&MGMT 21+ PULMONARY/CHEST ICD-10-CM R91.1 Solitary pulmonary nodule KELLE VALADEZ CCA L I[facility] Encounter Template Text not used by [facility] Assessments - Encounter Diagnoses This section includes the primary and secondary diagnoses documented for the Encounter. Date/Time Primary/Secondary Diagnosis Diagnosis Name Provider Source Jan 02, 2024 12:17 PM PRIMARY Solitary pulmonary nodule [facility]EL[facility] VALADEZ [facility] Plan of Treatment: Future Appointments (+ 6 months) and Future Tests (+/- 45 days) The Plan of Treatment section includes future care activities for the [facility] [place] [facility] This section includes future appointments and future orders which are active, pending or scheduled. Future Appointments This section includes appointments that were scheduled to occur 6 months from the date of the Encounter, up to a maximum of 20 appointments. The data comes from all [place] treatment facilities. Appointment Date/Time Appointment Type Appointme nt Facility Name Jan 26, 2024 04:50 PM AMBULATORY - MEDICINE [place] [facility] [place] [facility] Mar 23, 2024 10:30 AM AMBULATORY - MEDICINE [place] [facility] [place] [facility] Mar 29, 2024 10:00 AM AMBULATORY - MEDICINE [place] [facility] [place] [facility] Mar 29, 2024 12:30 PM AMBULATORY - MEDICINE [facility] Apr 19, 2024 08:30 AM AMBULATORY - MEDICINE [place] [facility] [place] [facility] May 07, 2024 08:45 AM AMBULATORY - MEDICINE [facility] [place] [facility] May 11, 2024 09:15 AM AMBULATORY - NONE [place] [facility] [place] [facility] May 11, 2024 10:00 AM AMBULATORY - MEDICINE [facility] [place] [facility] Social History: Smoking Status (Most current) and Tobacco Use (All prior to encounter date) This section includes the most current, and the historical, smoking and tobacco- related health factors from the [place] facility where the Encounter took place. Current Smoking Status This section includes the most current smoking, or tobacco-related health factor, from the [place] facility where the Encounter took place. Date/Time Current Smoking Status Comment Lauren raymundo Jun 10, 2023 08:00 AM VA-TOBACCO [facility] [place] [facility] Tobacco Use History This section includes a history of the smoking, or tobacco-related health factors, that were collected on or before the date of the Encounter. The data comes from the [place] facility where the Encounter took place. Date/Time Smoking Status/Tobac co Use Comment Facility Jun 10, 2023 08:00 AM VA-TOBACCO QUIT 5 TO < 15 YRS [place] [facility] [place] [facility] May 06, 2022 10:30 AM VA-TOBACCO FORMER USER [place] [facility] [place] [facility] May 06, 2022 10:30 AM VA-TOBACCO QUIT 5 TO < 15 YRS [place] [facility] [place] [facility] May 08, 2021 11:00 AM VA-TOBACCO FORMER USER [place] [facility] [place] [facility] May 08, 2021 11:00 AM VA-TOBACCO QUIT 5 TO < 15 YRS [place] [facility] [place] [facility] Dec 10, 2019 12:53 PM VA-TOBACCO FORMER USER [place] [facility] [place] [facility] Dec 10, 2019 12:53 PM VA-TOBACCO QUIT 5 TO < 15 YRS [place] [facility] [place] [facility] Mar 17, 2018 08:37 AM VA-TOBACCO NEVER USED [place] [facility] [place] [facility] Sep 15, 2017 08:18 AM QUIT TOBACCO USE 1-7 YEARS AGO PT STATES HE QUIT 4 YRS AGO [place] [facility] [place] [facility] Jan 31, 2017 12:42 PM QUIT TOBACCO USE 1-7 YEARS AGO pt state stop 3 yrs ago. [place] [facility] [place] [facility] Jan 12, 2016 02:07 PM QUIT TOBACCO USE 1-7 YEARS AGO [place] [facility] [place] [facility] Jan 26, 2015 01:22 PM QUIT TOBACCO USE 1-7 YEARS AGO PT STATES THAT HE QUIT 13 MONTHS AGO. [place] [facility] [place] [facility] Jan 28, 2014 01:47 PM QUIT TOBACCO USE IN PAST YEAR [place] [facility] [place] [facility] Nov 06, 2012 08:51 AM CURRENT SMOKER 1 pack per day. [place] [facility] [place] [facility] Nov 06, 2012 08:51 AM V1-PT THINKING ABOUT QUIT TOBACCO USE [place] [facility] [place] [facility] October 04, 2011 08:29 AM CURRENT SMOKER 1 ppd [place] [facility] [place] [facility] October 04, 2011 08:29 AM V1-PT DECLINES TOBACCO CESSATION MEDS [place] [facility] [place] [facility] October 04, 2011 08:29 AM V1-PT THINKING ABOUT QUIT TOBACCO USE [facility] September 28, 2010 09:21 AM CURRENT SMOKER 1 ppd [facility] September 28, 2010 09:21 AM V1-PT THINKING ABOUT QUIT TOBACCO USE [facility] Sep 21, 2009 02:57 PM V1-PT DECLINES TOBACCO CESSATION MEDS [facility] Sep 21, 2009 02:57 PM V1-PT THINKING ABOUT QUIT TOBACCO USE [facility] Radiology Reports: +/- 30 days [...] the Encounter. The data comes from all [facility] facilities. Date/Time Radiology Report Provider Source Jan 29, 2024 08:00 AM OUTSIDE PET, WHOLE BODY: PRAKASH DRUMMOND [id number] -1945 M Exm Date: JAN 29, 2024@08:00 Req Phys: IBRAHIMA COLON Loc: [facility]/OUTSIDE IMAGING NON-CNT (R Img Loc: OUTSIDE GENERAL RADIOLOGY Service: Unknown (Case 1 COMPLETE) OUTSIDE PET, WHOLE BODY (RAD Detailed) CPT:13443 Reason for Study: outside images downloaded for continuity of care Clinical History: outside images downloaded for continuity of care Report Status: Electronically Filed Date Reported: JAN 29, 2024 Report: THIS EXAM WAS PERFORMED AND INTERPRETED AT AN OUTSIDE HOSPITAL Impression: THIS EXAM WAS PERFORMED AND INTERPRETED AT AN OUTSIDE HOSPITAL Primary Diagnostic Code: VERIFIED BY: / *ELECTRONICALLY FILED* [facility] Jan 02, 2024 09:07 AM LDCT LUNG CANCER SCREENING: PRAKASH DRUMMOND [id number] -1945 M Exm Date: JAN 02, 2024@09:07 Req Phys: IBRAHIMA COLON Loc: CWM/NO/PACT 2 (Req'g Loc) Img Loc: [facility]/CT Service: Unknown [place] [facility] [place] [facility] , (Case [id number] COMPLETE) LDCT LUNG CANCER SCREENING (CT Detailed) CPT:19570 Reason for Study: look for cancer Clinical History: Report Status: Verified Date Reported: JAN 02, 2024 Date Verified: JAN 02, 2024 [employer]ute [employer] E-Sig:/ES/CORRIE HARTMANN JR Report: Study: Lung cancer [...] reviewed. Secondary computer-aided detection with post-processing from [employer] is used. The lack of intravenous contrast [...] Primary Interpreting Staff: CORRIE HARTMANN JR, Radiologist (Minute Clerk For [employer]) /CORRIE SMITH JR [place] [facility] [place] [facility] Encounter Notes: All associated encounter notes This section contains the clinical notes associated to the Encounter. Date/Time Encounter Note(s) Provider Source Jan 02, 2024 11:54 AM PREVENTIVE MEDICINE RISK ASSESSMENT SCREENING NOTE: LOCAL TITLE: LUNG CANCER SCREENING DOCUMENTATION STANDARD TITLE: PREVENTIVE MEDICINE RISK ASSESSMENT SCREENING NO DATE OF NOTE: JAN 02, 2024@11:54 ENTRY DATE: JAN 02, 2024@11:54:55 AUTHOR: CHRISTI VALADEZ COSIGNER: URGENCY: STATUS: COMPLETED LUNG CANCER SCREENING DOCUMENTATION Has ADDENDA DIAGNOSTIC EVALUATION needed for suspicious or large lung nodule. Date of image: Date: January 02, 2024 Lung Rads 4B Highest risk nodule description: Index Nodule: New concerning solid, spiculated, poorly circumscribed mass with stellate peripheral projections is present within the left upper lobe measuring at least 14.4 mm in dimension, 8-101. No prior abnormality in this area. Other Nodules: None. INCIDENTAL FINDINGS WILL BE MANAGED DEEMED CLINICALLY APPROPRIATE BY PCP The following incidental findings were noted: 1.) Emphysema: Mild to moderate centrilobular and paraseptal emphysematous changes with associated scattered parenchymal scarring is unchanged. 2.) Lungs/airway findings: Mild stable elevation of the right hemidiaphragm. 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 3.) Heart, mediastinum and lymph nodes: The heart size is normal with prominent left atrial appendage again identified. 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 Punctate calcified granuloma in the liver. I am notifying the Primary Care Provider for information, and for follow-up of incidental findings, if indicated. Comment: Dr. Colon and PACT team via TEAMS message and second signer in CPRS Plan: Evaluation for possible cancer needed or in progress. Patient Notification of results: Patient contacted by telephone. Comment: Call placed to the . Results of [facility]CS LDCT reviewed, specifically new, spiculated 14.4mm pulmonary nodule in the EVERETTE on image 8-101. aware that this nodule was not present on prior scans. denies any recent URI or change in respiratory sx. Discussed multi-disciplinary review, the process for this and the rationale. Discussed the role for PFTs, PET, possible EBUS/Bronch for tissue. [place] states that he would like for his care to coordinated through [facility] or the [facility]. PFTs to be scheduled in [place], process for PFTs and rationale discussed. PET scan to be completed at [facility], PET scan reviewed in great detail. EBUS/RAB discussed to assess tissue of the lymph nodes in the chest/lungs as well as possible biopsy of the lesion in the EVERETTE. Discussed the presence of saber sheath appearance of the trachea and evaluation for tracheobronchial malasia by means of bronchoscopy. Discussed the potential for referral to pulmonary medicine for COPD as well as trachea per recommendation of multidisciplinary review team. agreeable to move forward with all recommendations. [place] provided with direct call back number for LCS coordinator should any question or concerns arise. awaiting official documentation from multi-disciplinary discussion today 01/02/2024 through hub site [facility]. Will attach to this note when available /es/ CHRISTI BUCHANANN,RN,OCN LUNG CANCER SCREENING NURSE NAVIGATOR Signed: 01/02/2024 12:17 Receipt Acknowledged By: 01/02/2024 13:39 /es/ Katie Stokes RN, BSN Primary Care 01/14/2024 10:59 /es/ Ibrahiam Colon MD Staff Physician 01/02/2024 ADDENDUM STATUS: COMPLETED [place] images reviewed and discussed at multi-disciplinary pulmonary nodule board with [facility] on 01/02/2024. The following recommendations were made: DIXIE Document from: [facility] Associated on: Jan 02, 2024@14:49:52 LOCAL TITLE: LUNG NODULE-MULTIDISCIPLINARY TUMOR BOARD NOTE STANDARD TITLE: TUMOR BOARD NOTE DATE OF NOTE: JAN 02, 2024@14:24 ENTRY DATE: JAN 02, 2024@14:30:01 AUTHOR: KIERRA MOORE COSIGNER: URGENCY: STATUS: COMPLETED National Comprehensive Cancer Network Guidelines will be used in discussion and treatment decisions unless otherwise specified Pt is enrolled in [facility] LCS program Case and imaging reviewed with Dr. Hayden (pulmonary) and Dr. Jacques (radiology) We reviewed LDCT of chest. There is a new, spiculated 14.4 mm nodule in EVERETTE. There is also lymphadenopathy. Saber sheath appearance of trachea noted. Recommendations to be completed by [facility] LCS team: --Pet Scan/CT Oncology --PFT's /es/ KIERRA MOORE, MOLD STAMPER MOLD STAMPER Signed: 01/02/2024 14:49 /walter/ CHRISTI BUCHANANN,RN,OCN LUNG CANCER SCREENING NURSE NAVIGATOR Signed: 01/02/2024 16:00 CHRISTI VALADEZ [place] [facility]
--- OUTSIDE RECORDS SUMMARY | 2024-09-23 11:48 | XMS_ITS | Encounter Summary ---
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 Date/Time Encounter Type Encounter Description Reason Provider Source May 11, 2024 10:00 AM OFFICE O/P EST LOW 20 MIN PRIMARY CARE/MEDICINE ICD-10-CM I10 Essential (primary) hypertension IBRAHIMA COLON IHRodolfo Encounter Template Text not used by [facility] Assessments - Encounter Diagnoses This section includes the primary and secondary diagnoses documented for the Encounter. Date/Time Primary/Secondary Diagnosis Diagnosis Name Provider Source May 11, 2024 10:29 AM PRIMARY Essential (primary) hypertension IBRAHIMA COLON [facility] Plan of Treatment: Future Appointments (+ 6 months) and Future Tests (+/- 45 days) The Plan of Treatment section includes future care activities for the patient [facility] [place] [facility] This section includes future appointments and future orders which are active, pending or scheduled. Future Appointments This section includes appointments that were scheduled to occur 6 months from the date of the Encounter, up to a maximum of 20 appointments. The data comes from all [facility] facilities. Appointment Date/Time Appointment Type Appointme nt Facility Name Nov 09, 2024 09:00 AM AMBULATORY - MEDICINE [facility] Nov 09, 2024 09:45 AM AMBULATORY - NONE [facility] Active, Pending, and Scheduled Orders This section includes a listing of several types of active, pending, and scheduled orders, including clinic medications orders, diagnostic test orders, procedure orders and consult orders; where the start date of the order is 45 days before the date of the Encounter or 45 days after the date of theEncounter. The data comes from all [facility]. Test Date/Time Test Type Test Details Facility Name May 02, 2024 12:00 AM Laboratory - Chemistry Order BASIC METABOLIC PANEL (fasting) BLOOD (SST-SERUM) [facility] May 02, 2024 12:00 AM Laboratory - Chemistry Order LIVER FUNCTION BLOOD (SST-SERUM) [facility] May 02, 2024 12:00 AM Laboratory - Chemistry Order CBC AND DIFF (AUTO) BLOOD (LAV-BLOOD) [facility] May 02, 2024 12:00 AM Laboratory - Chemistry Order TSH BLOOD (SST-SERUM) [facility] May 02, 2024 12:00 AM Laboratory - Chemistry Order URINALYSIS CLEAN CATCH URINE [facility] May 02, 2024 12:00 AM Laboratory - Chemistry Order LIPID PANEL FASTING BLOOD (SST-SERUM) [facility] Lab Results: +/- 30 days of the encounter This section includes the Chemistry and Hematology Lab Results on record with [place] for the patient. Radiology Reports and Pathology Reports are provided separately, in subsequent sections. Lab Results This section contains the Chemistry/Hematology Results that were resulted 30 days before or 30 daysafter the date of the Encounter. Date/Time Source Result Type Result - Unit Interpretation Reference Range Specimen Type Comment Apr 28, 2024 08:46 AM [facility] BASIC METABOLIC PANEL (non-fasting) SERUM Spe cimen Type: SERUM No comment entered. Ordering Provider: IBRAHIMA COLON Report Released Date/Time: Apr 11, 2024 06:40 PM Reporting Lab: [address] [id number] Performing Lab: [address] [id number] UREA NITROGEN 18 mg/dL 7-25 GLUCOSE 97 mg/dL 65-100 SODIUM 141 mmol/L 135-145 POTASSIUM 4.2 mmol/L 3.5-5.0 CHLORIDE 109 mmol/L 100-110 CO2 21 meq/L 20-30 CREATININE, Serum 0.96 mg/dL 0.50-1.40 eGFR(CKD-EPI 2020) 81 mL/min >60 Vital Signs: All taken on the encounter date This section contains inpatient and outpatient Vital Signs collected on the date of the Encounter. Date/Time Temperature Pulse Blood Pressure Respiratory Rate SP02 Pain Height Weight Body Mass Index Source May 11, 2024 09:56 AM 98.2 55 138/84 20 91 7 74 253 33 [facility] Social History: Smoking Status (Most current) and Tobacco Use (All prior to encounter date) This section includes the most current, and the historical, smoking and tobacco- related health factors from the [place] facility where the Encounter took place. Current Smoking Status This section includes the most current smoking, or tobacco-related health factor, from the [place] facility where the Encounter took place. Date/Time Current Smoking Status Comment Lauren hernandez May 11, 2024 10:00 AM VA-TOBACCO USE FOR IRINEO CIGARETTES [facility] Tobacco Use History This section includes a history of the smoking, or tobacco-related health factors, that were collected on or before the date of the Encounter. The data comes from the [place] facility where the Encounter took place. Date/Time Smoking Status/Tobac co Use Comment Facility May 11, 2024 10:00 AM VA-TOBACCO USE FORMER CIGARETTES [place] [facility] [place] [facility] Jun 10, 2023 08:00 AM VA-TOBACCO FORMER USER [place] [facility] [place] [facility] Jun 10, 2023 08:00 AM VA-TOBACCO QUIT 5 TO < 15 YRS [facility] [place] [facility] May 06, 2022 10:30 AM VA-TOBACCO FORMER USER [place] [facility] [place] [facility] May 06, 2022 10:30 AM VA-TOBACCO QUIT 5 TO < 15 YRS [place] [facility] [place] [facility] May 08, 2021 11:00 AM VA-TOBACCO FORMER USER [place] [facility] [place] [facility] May 08, 2021 11:00 AM VA-TOBACCO QUIT 5 TO < 15 YRS [place] [facility] [place] [facility] Dec 10, 2019 12:53 PM VA-TOBACCO FORMER USER [place] [facility] [place] [facility] Dec 10, 2019 12:53 PM VA-TOBACCO QUIT 5 TO < 15 YRS [place] [facility] [place] [facility] Mar 17, 2018 08:37 AM VA-TOBACCO NEVER USED [place] [facility] [place] [facility] Sep 15, 2017 08:18 AM QUIT TOBACCO USE 1-7 YEARS AGO PT STATES HE QUIT 4 YRS AGO [place] [facility] [place] [facility] Jan 31, 2017 12:42 PM QUIT TOBACCO USE 1-7 YEARS AGO pt state stop 3 yrs ago. [place] [facility] [place] [facility] Jan 12, 2016 02:07 PM QUIT TOBACCO USE 1-7 YEARS AGO [place] [facility] [place] [facility] Jan 26, 2015 01:22 PM QUIT TOBACCO USE 1-7 YEARS AGO PT STATES THAT HE QUIT 13 MONTHS AGO. [place] [facility] [place] [facility] Jan 28, 2014 01:47 PM QUIT TOBACCO USE IN PAST YEAR [place] [facility] [place] [facility] Nov 06, 2012 08:51 AM CURRENT SMOKER 1 pack per day. [place] [facility] [place] [facility] Nov 06, 2012 08:51 AM V1-PT THINKING ABOUT QUIT TOBACCO USE [place] [facility] [place] [facility] October 04, 2011 08:29 AM CURRENT SMOKER 1 ppd [facility] October 04, 2011 08:29 AM V1-PT DECLINES TOBACCO CESSATION MEDS [facility] October 04, 2011 08:29 AM V1-PT THINKING ABOUT QUIT TOBACCO USE [facility] September 28, 2010 09:21 AM CURRENT SMOKER 1 ppd [facility] September 28, 2010 09:21 AM V1-PT THINKING ABOUT QUIT TOBACCO USE [facility] Sep 21, 2009 02:57 PM V1-PT DECLINES TOBACCO CESSATION MEDS [facility] Sep 21, 2009 02:57 PM V1-PT THINKING ABOUT QUIT TOBACCO USE [facility] Radiology Reports: +/- 30 days [...] the Encounter. The data comes from all [facility] facilities. Date/Time Radiology Report Provider Source May 11, 2024 08:[address] ANGIOGRAPHY, ABDOMEN: PRAKASH DRUMMOND [id number] -[id number] M Exm Date: MAY 11, 2024@08:54 Req Phys: IBRAHIMA COLON Loc: CWM/NO/PACT 2 (Req'g Loc) Img Loc: [facility]/CT Service: Unknown [facility] [place] [address] (Case 48 COMPLETE) CT ANGIOGRAPHY, ABDOMEN (CT Detailed) CPT:19258 Contrast Media : Non-ionic Iodinated Reason for Study: evaluate AAA Clinical History: pararenal AAA s/p enovascular repair using physician modified fenestrated stent graft . request CTA abdomen and pelvis with and without contrast. Report Status: Verified Date Reported: MAY 11, 2024 Date Verified: MAY 11, 2024 [facility] E-Sig:/ES/CORRIE HARTMANN JR Report: Study: CT angiography [...] Primary Interpreting Staff: CORRIE HARTMANN JR, Radiologist ([facility]) /CORRIE SMITH JR [facility] May 11, 2024 08:53 AM LDCT LCS 1, 3 OR 6 MONTH FOLLOW UP: PRAKASH DRUMMOND [id number] -[id number] M Exm Date: MAY 11, 2024@08:53 Req Phys: IBRAHIMA COLON Loc: CWM/NO/LCS CHART CONSULT (Req' Img Loc: [facility]/CT Service: [place] [address] (Case 47 COMPLETE) LDCT LCS 1, 3 OR 6 MONTH FOLLOW U(CT Detailed) CPT:87645 Reason for Study: 3 MONTH LCS LDCT Clinical History: 50 TPY-Quit 2013 PATR[place], COPD, AAA Prior imaging: PET scan ([facility]) 01/29/2024 CT scan of the chest [...] 11, 2024 Date Verified: MAY 11, 2024 [facility] E-Sig:/ES/CORRIE HARTMANN JR Report: Study: LDCT LCS [...] reviewed. Secondary computer-aided detection with post-processing from [employer] is used. The lack of intravenous contrast [...] Primary Interpreting Staff: CORRIE HARTMANN JR, Radiologist ([facility]) /[facility] SMITH JR [facility] Encounter Notes: All associated encounter notes This section contains the clinical notes associated to the Encounter. Date/Time Encounter Note(s) Provider Source May 11, 2024 10:27 AM PHYSICIAN NOTE: LOCAL TITLE: MD NOTE STANDARD TITLE: PHYSICIAN NOTE DATE OF NOTE: MAY 11, 2024@10:27 ENTRY DATE: MAY 11, 2024@10:27:11 AUTHOR: IBRAHIMA COLON EXP COSIGNER: URGENCY: STATUS: COMPLETED Patient Name: PRAKASH DRUMMOND VITALS: Patient temperature: 98.2 F [36.8 C] (05/11/2024 09:56) Blood pressure: 138/84 (05/11/2024 09:56) Patient height: 74 in [188.0 cm] (05/11/2024 09:56) Patient weight: 253 lb [114.76 kg] (05/11/2024 09:56) Patient BMI: BMI: 32.6 Patient pulse: 55 (05/11/2024 09:56) Patient respiration: 20 (05/11/2024 09:56) Patient Pulse Oximetry: 91% (05/11/2024 09:56) Pain Ratin (05/11/2024 09:56) Active VA Medications: Active Outpatient Medications (including Supplies): Active Outpatient Medications Status === 1) ALBUTEROL 100/IPRATRO 20MCG 120D PO INHL INHALE 1 PUFF BY ACTIVE MOUTH FOUR TIMES DAILY NEEDED FOR TROUBLE BREATHING Indication: FOR BRONCHOSPASM 2) BROMFENAC 0.07% OPH SOLN INSTILL 1 DROP INTO THE LEFT EYE HOLD ONCE DAILY FOR 6 WEEKS 3) FLUTICAS 250/SALMETEROL 50 INHL DISK 60 INHALE 1 PUFF BY ACTIVE MOUTH TWICE DAILY - RINSE MOUTH AFTER USE Indication: FOR BRONCHOSPASM PREVENTION WITH COPD 4) KETOROLAC TROMETHAMINE 0.5% OPH SOLN INSTILL 1 DROP INTO THE ACTIVE LEFT EYE DIRECTED BY PROVIDER FOR 6 WEEKS 5) LISINOPRIL 20MG TAB TAKE ONE TABLET BY MOUTH ONCE DAILY TO ACTIVE CONTROL BLOOD PRESSURE - NOTE TABLET STRENGTH AND INSTRUCTIONS Indication: FOR HIGH BLOOD PRESSURE 6) METOPROLOL TARTRATE 50MG TAB TAKE ONE TABLET BY MOUTH TWICE ACTIVE DAILY FOR BLOOD PRESSURE/HEART Indication: FOR HIGH BLOOD PRESSURE 7) PRAVASTATIN NA 40MG TAB TAKE ONE TABLET BY MOUTH AT BEDTIME ACTIVE FOR CHOLESTEROL Indication: FOR HIGH CHOLESTEROL 8) TERBINAFINE HCL 1% CREAM APPLY A MODERATE AMOUNT TOPICALLY ACTIVE ONCE DAILY TO GROIN Indication: FOR ATHLETE'S FOOT Active Non-VA Medications Status === 1) Non-VA ASPIRIN 81MG CHEW TAB 81MG BY MOUTH ONCE DAILY ACTIVE 9 Total Medications Remote Medications: No Active 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 He feels well today with no complaints. He continues to be overweight. He continues to make inappropriate food choices Review of systems No chest pain or dyspnea No abdominal pain No trouble urinating No fever or chills No cough Physical examinations Well-developed well-nourished male no acute distress coronary no murmur Lungs clear Carotid no bruit No peripheral edema 05-02-2024 no-show labs Medication Reconciliation: Outpatient: Has the patient been taking medications as documented in the EMLR? YES: The patient has been taking medications as documented in the EMLR. Essential Medication List for Review used to complete this medication reconciliation. INCLUDED IN THIS LIST: Alphabetical list of active outpatient prescriptions dispensed from this [place] (local) and dispensed from another [place] or DoD facility (remote) as well as [...] /walter/ Ibrahima Colon MD Staff Physician Signed: 05/11/2024 10:29 IBRAHIMA COLON [facility] May 11, 2024 10:01 AM PREVENTIVE MEDICIN E NURSING NOTE: LOCAL TITLE: CLINICAL REMINDERS/NURSING STANDARD TITLE: PREVENTIVE MEDICINE NURSING NOTE DATE OF NOTE: MAY 11, 2024@10:01 ENTRY DATE: MAY 11, 2024@10:01:36 AUTHOR: JENNIE SCHWAB EXP COSIGNER: URGENCY: STATUS: COMPLETED Tobacco Use Screening: The patient is a former cigarette smoker. The patient has never used other types of tobacco. Falls & Incontinence Screen: Falls Screen: 4. No falls within the past year. Incontinence Screen No incontinence. Advance Directive Screen MH AD: Patient has an up-to-date Advance Directive at an outside, non-va facility and was asked to forward a copy to his/her clinician. Comment: will get a copy to this [place] Influenza Immunization: The patient has received the seasonal influenza vaccine for the current season at another location. Documented: INFLUENZA, UNSPECIFIED FORMULATION Historical Date Administered: Apr 18, 2024 Series: Complete Outside Location: Outside Healthcare Provider Information Source: FROM OTHER REGISTRY Comment: outside PCP COVID-19 Immunization: Refused Moderna Monovalent COVID-19 vaccine Immunization: COVID-19 (MODERNA), MRNA, LNP-S, PF, 50 MCG/0.5 ML (AGES 12+ YEARS) Refusal Reason: PATIENT DECISION Patient refuses all immunization(s) in the COVID-19 group Date Documented: 05/11/24 10:04 (Optional) Whole Health Documentation: What matters the most to you? What motivates you to be healthy? (MAP) Response: just not being unhealthy /walter/ JENNIE SCHWAB LPN LPN Signed: 05/11/2024 10:05 JENNIE SCHWAB [facility]
--- OUTSIDE RECORDS SUMMARY | 2024-09-23 11:48 | XMS_ITS | Encounter Summary ---
Author Name Department [place] Organization [place] Address [address] [place] [address] Care Team Providers Care A R Collections Rep Name Role Phone IBRAHIMA COLON Primary Care [...] [place] M[place] ([place]) MEDICARE ADVANTAGE MCR ([facility]) Nov 23, 2010 [id number] [phone] HODA,LOULOU VID PATIENT HEALTH [place] M[place] (WNR[place] MEDICARE ADVANTAGE MCR ([facility]) Nov 23, 2010 [id number] [phone] HARROP,DA VID PATIENT Selected Encounter This section includes the information on record at [place] for the Encounter. Date/Time Encounter Type Encounter Description Reason Pro vider Source Jun 25, 2024 10:01 AM Outpatient Encounter ADMIN PAT ACTIVTIES (MASNONCT) IHE Encounter Template Text not used by [place] Plan of Treatment: Future Appointments (+ 6 [...] 20 appointments. The data comes from all [place] treatment facilities. Appointment Date/Time Appointment Type Appointme nt Facility Name Nov 09, 2024 09:00 AM AMBULATORY - MEDICINE [place] [facility] [place] [place] [facility] Nov 09, 2024 09:45 AM AMBULATORY - NONE [place] [facility] [place] [facility] Social History: Smoking Status (Most current) and Tobacco Use (All prior to encounter date) This section includes the most current, and the historical, smoking and tobacco- related health factors from the [place] facility where the Encounter took place. Current Smoking Status This section includes the most current smoking, or tobacco-related health factor, from the [place] facility where the Encounter took place. Date/Time Current Smoking Status Comment [facility] May 11, 2024 10:00 AM VA-TOBACCO USE FOR IRINEO CIGARETTES [place] [facility] Tobacco Use History This section includes a history of the smoking, or tobacco-related health factors, that were collected on or before the date of the Encounter. The data comes from the [place] facility where the Encounter took place. Date/Time Smoking Status/Tobac co Use Comment Facility May 11, 2024 10:00 AM VA-TOBACCO USE FORMER CIGARETTES [place] [facility] [place] [facility] Jun 10, 2023 08:00 AM VA-TOBACCO FORMER USER [facility] [place] [facility] Jun 10, 2023 08:00 AM VA-TOBACCO QUIT 5 TO < 15 YRS [facility] [place] [facility] May 06, 2022 10:30 AM VA-TOBACCO FORMER USER [place] [facility] [place] [facility] May 06, 2022 10:30 AM VA-TOBACCO QUIT 5 TO < 15 YRS [place] [facility] [place] [facility] May 08, 2021 11:00 AM VA-TOBACCO FORMER USER [place] [facility] [place] [facility] May 08, 2021 11:00 AM VA-TOBACCO QUIT 5 TO < 15 YRS [place] [facility] [place] [facility] Dec 10, 2019 12:53 PM VA-TOBACCO FORMER USER [place] [facility] [place] [facility] Dec 10, 2019 12:53 PM VA-TOBACCO QUIT 5 TO < 15 YRS [facility] [place] Mar 17, 2018 08:37 AM VA-TOBACCO NEVER USED [facility] [place] Sep 15, 2017 08:18 AM QUIT TOBACCO USE 1-7 YEARS AGO PT STATES HE QUIT 4 YRS AGO [facility] [place] Jan 31, 2017 12:42 PM QUIT TOBACCO USE 1-7 YEARS AGO pt state stop 3 yrs ago. [facility] [place] Jan 12, 2016 02:07 PM QUIT TOBACCO USE 1-7 YEARS AGO [facility] [place] Jan 26, 2015 01:22 PM QUIT TOBACCO USE 1-7 YEARS AGO PT STATES THAT HE QUIT 13 MONTHS AGO. [facility] Jan 28, 2014 01:47 PM QUIT TOBACCO USE IN PAST YEAR [facility] Nov 06, 2012 08:51 AM CURRENT SMOKER 1 pack per day. [facility] [place] Nov 06, 2012 08:51 AM V1-PT THINKING ABOUT QUIT TOBACCO USE [facility] [place] October 04, 2011 08:29 AM CURRENT SMOKER 1 ppd [facility] [place] October 04, 2011 08:29 AM V1-PT DECLINES TOBACCO CESSATION MEDS [facility] [place] October 04, 2011 08:29 AM V1-PT THINKING ABOUT QUIT TOBACCO USE [facility] [place] September 28, 2010 09:21 AM CURRENT SMOKER 1 ppd [facility] [place] September 28, 2010 09:21 AM V1-PT THINKING ABOUT QUIT TOBACCO USE [facility] [place] Sep 21, 2009 02:57 PM V1-PT DECLINES TOBACCO CESSATION MEDS [facility] [place] Sep 21, 2009 02:57 PM V1-PT THINKING ABOUT QUIT TOBACCO USE [facility] [place] Encounter Notes: All associated encounter notes This section contains the clinical notes associated to the Encounter. Date/Time Encounter Note(s) Provider Source Jun 25, 2024 10:01 AM PHARMACY NOTE: LOCAL TITLE: V1 PHARMACY CUSTOMER CARE MEDICATION RENEWAL STANDARD TITLE: PHARMACY NOTE DATE OF NOTE: JUN 25, 2024@10:01 ENTRY DATE: JUN 25, 2024@10:01:47 AUTHOR: ELSIE ENGLE EXP COSIGNER: URGENCY: STATUS: COMPLETED V1 PHARMACY CUSTOMER CARE MEDICATION RENEWAL Has ADDENDA Date: May Division: [facility] referred by Pharmacy Call Center for medication renewal: Non-controlled/maintenan ce medication Medications requested: [id number]$ ALBUTEROL 100/IPRATRO 20MCG 120D PO INHL [id number]$ FLUTICAS 250/SALMETEROL 50 INHL DISK 60 Defer to primary care provider To be mailed. Please review and renew if appropriate. *This note was generated by [facility]/[place] Pharm[facility] Customer Care. If you have any questions or need assistance, do not contact this author. Please refer all questions to your local, on-site pharmacy departments. /walter/ Elsie Engle CPhT [employer], [place]/Pharmacy Customer Care Signed: 06/25/2024 10:02 Receipt Acknowledged By: 06/25/2024 10:31 /walter/ MARY ZAIDI, JULIO CESAR REGISTERED NURSE for LAURA QUESADA 06/25/2024 10:08 /walter/ Ibrahima Colon MD Staff Physician 06/25/2024 ADDENDUM STATUS: COMPLETED Done. /walter/ Ibrahima Colon MD Staff Physician Signed: 06/25/2024 10:07 ELISE ENGLE [place] [facility]
== END 2024-09-23 11:02 | disposition home or self-care (01) ==
LOC: HO.HMCH 10:20
DX: I10 Essential (primary) hypertension (principal); M17.0 Bilateral primary osteoarthritis of knee; E66.811 Obesity, class 1; Z68.31 Body mass index [BMI] 31.0-31.9, adult; E78.00 Pure hypercholesterolemia, unspecified; R10.9 Unspecified abdominal pain; K42.9 Umbilical hernia without obstruction or gangrene; R31.9 Hematuria, unspecified

== ENCOUNTER → 2024-09-23 10:19 | Outpatient (BNVA) | payer MEDICARE, SELFPAY | PROVIDERS: PCP Internal Medicine | DX: I10 Essential (primary) hypertension (principal); M17.0 Bilateral primary osteoarthritis of knee; E66.811 Obesity, class 1; E78.00 Pure hypercholesterolemia, unspecified; R10.9 Unspecified abdominal pain; E70.0 Classical phenylketonuria; K42.9 Umbilical hernia without obstruction or gangrene; R31.9 Hematuria, unspecified; Z68.31 Body mass index [BMI] 31.0-31.9, adult | CPT/HCPCS: 96127; 99212 ==

== ENCOUNTER 2024-09-24 07:39 | Outpatient (REF) | payer MEDICARE, SELFPAY ==
--- OUTSIDE RECORDS SUMMARY | 2024-09-24 07:43 | XMS_ITS | Clinical Summary ---
Author Organization [facility] Address [address] [place] [id number] Care Team Providers Care Work Study Student Name Role Phone Ibrahima Colon MD Primary Care Provider Addi Rico MD Unavailable [phone] Allergies Active Allergy Reactions Criticality Noted [...] Type Department Care Team Description 09/06/2024 Documentation [facility] Vascular [facility] Endovascular Surgery [address] [place] [address] Shelly Atkins MA from Last [...] this topic Medical Devices Implanted Type Area Ergonomics Consultant Device Identifier Shelf Expiration Date Model / Serial / Lot [id number] Graft Endovascular 56mm 20mm 6mm 16fr Znth Sprlz 2 Brch Ntnl - [id number] Implanted:Qty: 1 on 06/11/2019 by Addi Rico MD at [facility] Graft N/A: Aorta [employer] [id number] 08/26/2021 [id number] / / [id number] Graft Endovascular 124mm 30mm H&L-B One-Shot Znth Poly Wvn 2 - [id number] Implanted:Qty: 1 on 06/11/2019 by Addi Rico MD at [facility] Stent N/A: Aorta [employer] 05/12/2022 [id number] / / [id number] Stent Vascular 7mm 26mm 80cm Balloon Expandable Lopro Cover - [id number] Implanted:Qty: 1 on 06/11/2019 by Addi Rico MD at [facility] Stent N/A: Aorta [employer] - [id number] 11/22/2021 [id number] / / [id number] Description:SMA Stent [id number] Stent Tracheobronchial 6mm 6fr 22mm 120cm Cover Catheter - [id number] Implanted:Qty: 1 on 06/11/2019 by Addi Rico MD at [facility] Stent N/A: Aorta [employer] [id number] 12/02/2021 [id number] / [id number] Description:Right Renal Sandra ry [id number] Stent Vascular 7mm 26mm 80cm Balloon Expandable Lopro Cover - [id number] Implanted:Qty: 1 on 06/11/2019 by Addi Rico MD at [facility] Stent N/A: Aorta [employer] - [id number] 04/24/2021 [id number] 726 / / [id number] Description:Left Renal Arter y [id number] Graft Endovascular 106mm 12mm [employer] One-Shot Znth 2 Brch - [id number] Implanted:Qty: 1 on 06/11/2019 by Addi Rico MD at [facility] Stent N/A: Aorta [employer] [id number] 05/12/2022 [id number] / / [id number] Graft Endovascular 56mm 16mm 5.4mm 14fr Znth Sprlz 2 Brch - [id number] Implanted:Qty: 1 on 06/11/2019 by Addi Rico MD at [facility] Stent N/A: Aorta [employer] [id number] 02/09/2022 [id number] / / [id number] Stent Vascular 7mm 16mm 80cm Balloon Expandable Lopro Cover - [id number] Implanted:Qty: 1 on 06/13/2019 by Addi Rico MD at [facility] Stent Left: Arterial [employer] - [id number] 02/23/2020 [id number] 716 / / [id number] Stent Tracheobronchial 7mm 7fr 22mm 120cm Cover Catheter - [id number] Implanted:Qty: 1 on 06/13/2019 by Addi Rico MD at [facility] Stent [employer] [id number] / [id number] / Description:no sticker provi ded. [id number] Gold Markers 24k - [id number] Implanted:Qty: 8 on 06/11/2019 by Addi Rico MD at [facility] Tissue N/A: Aorta [id number] [id number] / / Description:On Aortic Stent Graft Procedures [...] CTA ABDOMEN+PELVIS W W/O CONTRAST CLINICAL INFORMATION: [facility] Order Diagnosis: pt POD#1 from PMEG with four fenestrations (celiac, SMA, b/l renals), 3 stents (SMA, b/l renals), concern for endoleak, need CTA stent graft protocol DESCRIPTION: Initial noncontrast localizing publications distribution clerk images were obtained. Multidetector volumetric imaging was [...] CTA ABDOMEN+PELVIS W W/O CONTRAST CLINICAL INFORMATION: [facility] Order Diagnosis: pt POD#1 from PMEG with fourfenestrations (celiac, SMA, b/l renals), 3 stents (SMA, b/l renals), concern forendoleak, need CTA stent graft protocol DESCRIPTION: Initial noncontrast localizing publications distribution clerk images were obtained. Multidetector volumetric imaging was [...] Most Recently Relevant to Health Maintenance Insurance [facility] FEE BASIS 16 F,ATTN:PENG BRANDON [id number] [employer] [place] MGD MEDICARE [facility] ACTIVE DUTY Advance Directives * Full Code (Latest Code Status on File) Date Activated Date Inactivated Comments 06/11/2019 1:29 PM Care Teams Work Study Student Relationship Specialty Start Date End Date Ibrahima Colon MD [address] [place] [address] PCP - General 03/13/18 Addi Rico MD [address] [place] [id number] Surgeon Surgery, Vascular 05/14/18
--- OUTSIDE RECORDS SUMMARY | 2024-09-24 07:43 | XMS_ITS | Continuity of Care Document ---
Author Name [facility] Organization [facility] Care Team Providers Care Pricer Name Role Phone [facility] Unavailable Unavailable Problems Combined list of problems [...] Pulmonary Disease ([facility] [id number]) Active 022 Condition Nov 09, 2021 Entered By: JORDYN KATZ Comment: Treated with inhalers [facility] COVID-19 Active 022 Condition Nov 30, 2021 Entered By: JORDYN KATZ Comment: treated at home [facility] OA - Osteoarthritis of Hip ([facility] [id number]) Active 021 Condition Sep 21, 2020 Entered By: JORDYN KATZ Comment: left hip [facility] Hypercholesterolemia ([facility] [id number]) Active 020 Condition Jun 25, 2019 Entered By: JORDYN KATZ Comment: treated with statin [facility] Multiple nodules of lung Active 019 Condition May 08, 2021 Entered By: JORDYN KATZ [facility] Entered By: JORDYN KATZ Comment: [...] [facility] Hypertension (SNOMED CT [id number]) Active 011 Condition [facility] [...] Solitary pulmonary nodule Active Diagnosis [facility] Diagnosis: ICD-10-CM J98.4 Other disorders of lung [...] Encounter for other administrative examinations Active Diagnosis [facility] Medications Combined list of outpatient medications from [...] G RESPIR ATORY (INHAL ATION) ACTIVE 06/26/2025 [id number] VIDYA KATZ D 2024 3 [facility] ALBUTEROL 100MCG/IPRA TROPIUM BR 20MCG/SPRAY INHALER,ORA L,4GM INHALE 1 PUFF BY MOUTH FOUR TIMES DAILY NEEDED FOR TROUBLE BREATHIN G RESPIR ATORY (INHAL ATION) DISCONT INUED 06/10/2024 [id number] VIDYA KATZ D 2023 3 [facility] ASPIRIN 81MG TAB,CHEWABL E CHEW ONE TABLET BY MOUTH ONCE DAILY ORAL ACTIVE [place] 2019 [facility] BROMFENAC 0.07% SOLN,OPH INSTILL 1 DROP INTO THE LEFT EYE ONCE DAILY FOR 6 WEEKS OPHTHA LMIC HOLD 11/06/2024 [id number] 4 [place] 2023 1.6 [facility] FLUTICASONE 250MCG/SALM ETEROL 50MCG INHL,ORAL,D ISKUS,60 INHALE 1 PUFF BY MOUTH TWICE DAILY - RINSE MOUTH AFTER USE RESPIR ATORY (INHAL ATION) ACTIVE 06/26/2025 [id number] 5 VIDYA KATZ D 2024 3 [facility] FLUTICASONE 250MCG/SALM ETEROL 50MCG INHL,ORAL,D ISKUS,60 INHALE 1 PUFF BY MOUTH TWICE DAILY - RINSE MOUTH AFTER USE RESPIR ATORY (INHAL ATION) DISCONT INUED 06/10/2024 [id number] 4 VIDYA KATZ D 2023 3 [facility] KETOROLAC TROMETHAMIN E 0.5% SOLN,OPH INSTILL 1 DROP INTO THE LEFT EYE DIRECTED BY PROVIDER FOR 6 WEEKS OPHTHA LMIC ACTIVE 11/07/2024 [id number] [place] 2023 10 [facility] LISINOPRIL 20MG TAB TAKE ONE TABLET BY MOUTH ONCE DAILY TO CONTROL BLOOD PRESSURE - NOTE TABLET STRENGTH AND INSTRUCT IONS ORAL ACTIVE 05/23/2025 [id number] 5 VIDYA KATZD D 2023 90 [facility] LISINOPRIL 20MG TAB TAKE ONE TABLET BY MOUTH ONCE DAILY TO CONTROL BLOOD PRESSURE - NOTE TABLET STRENGTH AND INSTRUCT IONS ORAL DISCONT INUED 06/10/2024 [id number] VIDYA KATZ D 2023 90 [facility] METOPROLOL TARTRATE 50MG TAB TAKE ONE TABLET BY MOUTH TWICE DAILY FOR BLOOD PRESSURE /HEART ORAL ACTIVE 05/23/2025 [id number] 5 VIDYA KATZ D 2023 180 [facility] METOPROLOL TARTRATE 50MG TAB TAKE ONE TABLET BY MOUTH TWICE DAILY FOR BLOOD PRESSURE /HEART ORAL DISCONT INUED 06/10/2024 [id number] VIDYA KATZ D 2023 180 [facility] PRAVASTATIN NA 40MG TAB TAKE ONE TABLET BY MOUTH AT BEDTIME FOR CHOLESTE ROL ORAL ACTIVE 05/23/2025 [id number] 5 VIDYA KATZ D 2023 90 [facility] PRAVASTATIN NA 40MG TAB TAKE ONE TABLET BY MOUTH AT BEDTIME FOR CHOLESTE ROL ORAL DISCONT INUED 06/10/2024 [id number] 4 VIDYA KATZ 2023 90 [facility] Allergies, Adverse Reactions, Alerts Combined list of allergies from Department of Defense and Veterans Affairs facilities. It does not include entries that were removed or entered in error. Substance Category Reaction Severity Reaction type Status Date Reported Comments Source AMLODIPINE Propensity to adverse reactions to drug (finding) Edema active 6 [facility] HCTZ 25MG/TRIAMT ERENE 37.5MG TABLET Propensity to adverse reactions to drug (finding) Syncope active 1 [facility] Immunizations Combined list of available immunizations from the Department of Defense and Veterans Affairs facilities. Immunization Series Date Given Administered By Site Reaction Lot Number CVX Code Drug Spectacle Truer Status Comments Source INFLUENZA, UNSPECIFIED FORMULATION 2023 88 complet ed Completed Series, HISTORICA L INFORMATI ON - FROM OTHER REGISTRY, outside PCP [facility] RSV, BIVALENT, PROTEIN SUBUNIT RSVPREF, DILUENT RECONSTITUTED , 0.5 ML, PF 2023 FERNANDA SCHWAB LEFT DELTO ID [id number] 305 complet ed Completed Series, ADMINISTE [place] AT [place], sterile water diluent component [id number] [facility] INFLUENZA, UNSPECIFIED FORMULATION 2022 88 complet ed Completed Series, HISTORICA L INFORMATI ON - FROM PATIENT'S RECALL, [facility] TD (ADULT), 2 LF TETANUS TOXOID, PRESERVATIVE FREE, ADSORBED 2022 LAURA QUESADA LEFT DELTO ID [id number] 09 complet ed Completed Series, ADMINISTE RED AT [facility] INFLUENZA VACCINE, QUADRIVALENT, ADJUVANTED 2021 DIANNE FARR I LEFT DELTO ID [id number] 205 complet ed ADMINISTE RED AT [facility] COVID-19 (MODERNA), MRNA, LNP-S, PF, 100 MCG/0.5ML DOSE OR 50 MCG/0.25ML DOSE 3 2021 207 complet ed MOD; [id number] ; 2 [facility] COVID-19 (MODERNA), MRNA, LNP-S, PF, 100 MCG OR 50 MCG DOSE 3 2020 207 complet ed MOD; [id number]; 2 [facility] INFLUENZA VACCINE, QUADRIVALENT, ADJUVANTED 2020 205 complet ed [facility] COVID-19 (MODERNA), MRNA, LNP-S, PF, 100 MCG/0.5 ML DOSE 2 2020 207 complet ed MOD; [id number]; 1 [facility] COVID-19 (MODERNA), MRNA, LNP-S, PF, 100 MCG/0.5 ML DOSE 1 2020 207 complet ed MOD; [id number]; 1 [facility] INFLUENZA, UNSPECIFIED FORMULATION 2019 88 complet ed [facility] INFLUENZA, INJECTABLE, MDCK, PRESERVATIVE FREE, QUADRIVALENT 2018 171 complet ed 02, Partner: [facility]. Administe red by: [facility] Clinician (NPI=Not Provided) . Partner 0 Lot#: [id number] Mfr: SEQIRUS [facility] ZOSTER RECOMBINANT 2 2017 187 complet ed [facility] INFLUENZA, INJECTABLE, QUADRIVALENT, PRESERVATIVE FREE 2017 150 complet ed 02, Partner: [facility]. Administe red by: [facility] Clinician (NPI=Not Provided) . Partner 1 [...] PM Reporting Lab: [facility] [place] [facility] [address] [facility] [address] Performing Lab: [facility]TRN [facility] [address] [facility] [address] [facility] BASIC METABOLI C PANEL (non-fas ting) GLUCOSE [MASS/VOLU ME] IN SERUM OR PLASMA 97 mg/dL 65 - 100 04/28 Specimen Type: SERUM No comment entered. Ordering Provider: NATE KATZ Report Released Date/Time: Apr 11, 2024 06:40 PM Reporting Lab: [facility]TRN [facility] [address] [facility] [address] Performing Lab: [facility] [address] [address] [facility] BASIC METABOLI C PANEL (non-fas ting) SODIUM [MOLES/VOL UME] IN SERUM OR PLASMA 141 mmol/L 135 - 145 04/28 Specimen Type: SERUM No comment entered. Ordering Provider: NATE KATZ Report Released Date/Time: Apr 11, 2024 06:40 PM Reporting Lab: [facility] [address] [address] Performing Lab: [facility] [address] [address] [facility] BASIC METABOLI C PANEL (non-fas ting) POTASSIUM [MOLES/VOL UME] IN SERUM OR PLASMA 4.2 mmol/L 3.5 - 5.0 04/28 Specimen Type: SERUM No comment entered. Ordering Provider: NATE KATZ Report Released Date/Time: Apr 11, 2024 06:40 PM Reporting Lab: [facility]TRN [facility] [address] Performing Lab: [facility]TR[facility] [address] [facility] BASIC METABOLI C PANEL (non-fas ting) CHLORIDE [MOLES/VOL UME] IN SERUM OR PLASMA 109 mmol/L 100 - 110 04/28 Specimen Type: SERUM No comment entered. Ordering Provider: NATE KATZ Report Released Date/Time: Apr 11, 2024 06:40 PM Reporting Lab: [facility] [address] Performing Lab: [facility] W[facility]N [facility] [address] [facility]TRN [facility] BASIC METABOLI C PANEL (non-fas ting) CARBON DIOXIDE, TOTAL [MOLES/VOL UME] IN SERUM OR PLASMA 21 meq/L 20 - 30 04/28 Specimen Type: SERUM No comment entered. Ordering Provider: NATE KATZ Report Released Date/Time: Apr 11, 2024 06:40 PM Reporting Lab: [facility]N [address] [address] Performing Lab: [facility]ENTERTRN [address] [address] [facility]ITALRMARY [facility]ERN [facility] BASIC METABOLI C PANEL (non-fas ting) CREATININE [MASS/VOLU ME] IN SERUM OR PLASMA 0.96 mg/dL 0.50 - 1.40 04/28 Specimen Type: SERUM No comment entered. Ordering Provider: NATE KATZ Report Released Date/Time: Apr 11, 2024 06:40 PM Reporting Lab: [facility]N [address] [address] Performing Lab: [place] [facility] TRN [facility]ARE[facility] [address] [facility]N [facility] BASIC METABOLI C PANEL (non-fas ting) GLOMERULAR FILTRATION RATE/1.73 SQ M.PREDICTE D [VOLUME RATE/AREA] IN SERUM, PLASMA OR BLOOD BY CREATININE -BASED FORMULA (CKD-EPI 2020) 81 mL/min 60 04/28 Specimen Type: SERUM No comment entered. Ordering Provider: NATE KATZ Report Released Date/Time: Apr 11, 2024 06:40 PM Reporting Lab: [facility] [address] [address] Performing Lab: [place] [facility] [place] [facility] [address] [facility] [address] [facility] W[facility]N [facility]USE [facility] BASIC METABOLI C PANEL (fasting ) UREA NITROGEN [MASS/VOLU ME] IN SERUM OR PLASMA 28 mg/dL 7 - 25 11/03 H Specimen Type: SERUM No comment entered. Ordering Provider: NATE KATZ Report Released Date/Time: Nov 04, 2023 08:19 AM Reporting Lab: [facility] [place] [facility] [address] [facility] [address] Performing Lab: [facility] WSTRN [facility] [address] [facility] [address] [facility] MASSUSE [facility] BASIC METABOLI C PANEL (fasting ) GLUCOSE [MASS/VOLU ME] IN SERUM OR PLASMA 100 mg/dL 65 - 100 11/03 Specimen Type: SERUM No comment entered. Ordering Provider: NATE KATZ Report Released Date/Time: Nov 04, 2023 08:19 AM Reporting Lab: [facility] [place] [facility] [address] [facility] [address] Performing Lab: [place] [facility] [address] [address] [facility]ITAL[facility] TRN [place] [facility] BASIC METABOLI C PANEL (fasting ) SODIUM [MOLES/VOL UME] IN SERUM OR PLASMA 139 mmol/L 135 - 145 11/03 Specimen Type: SERUM No comment entered. Ordering Provider: NATE KATZ Report Released Date/Time: Nov 04, 2023 08:19 AM Reporting Lab: [facility] [place] [facility] [address] [facility] [address] Performing Lab: [place] [facility] [place] [address] [address] [facility]RE[facility]ENTERTRN MASSUSE [facility] BASIC METABOLI C PANEL (fasting ) POTASSIUM [MOLES/VOL UME] IN SERUM OR PLASMA 4.2 mmol/L 3.5 - 5.0 11/03 Specimen Type: SERUM No comment entered. Ordering Provider: NATE KATZ Report Released Date/Time: Nov 04, 2023 08:19 AM Reporting Lab: [facility] [place] [facility] [address] [facility] [address] Performing Lab: [place] [facility] [place] [facility] [address] [facility] [address] [facility] [facility] BASIC METABOLI C PANEL (fasting ) CHLORIDE [MOLES/VOL UME] IN SERUM OR PLASMA 105 mmol/L 100 - 110 11/03 Specimen Type: SERUM No comment entered. Ordering Provider: NATE KATZ Report Released Date/Time: Nov 04, 2023 08:19 AM Reporting Lab: [place] [facility] [place] [facility] [address] [facility] [address] Performing Lab: [place] [facility] [facility] [address] [facility] [address] [facility] [place] [facility] BASIC METABOLI C PANEL (fasting ) CARBON DIOXIDE, TOTAL [MOLES/VOL UME] IN SERUM OR PLASMA 24 meq/L 20 - 30 11/03 Specimen Type: SERUM No comment entered. Ordering Provider: NATE KATZ Report Released Date/Time: Nov 04, 2023 08:19 AM Reporting Lab: [place] [facility] [place] [facility] [address] [facility] [address] Performing Lab: [facility] [place] [facility] [address] [facility] [address] [facility] WSTRN [facility]CHUSE [facility] BASIC METABOLI C PANEL (fasting ) CREATININE [MASS/VOLU ME] IN SERUM OR PLASMA 1.08 mg/dL 0.50 - 1.40 11/03 Specimen Type: SERUM No comment entered. Ordering Provider: NATE KATZ Report Released Date/Time: Nov 04, 2023 08:19 AM Reporting Lab: [facility] [place] [facility] [address] [facility] [address] Performing Lab: [facility] [place] [facility] [address] [facility] [address] [place] [facility] [place] [facility] BASIC METABOLI C PANEL (fasting ) GLOMERULAR FILTRATION RATE/1.73 SQ M.PREDICTE D [VOLUME RATE/AREA] IN SERUM, PLASMA OR BLOOD BY CREATININE -BASED FORMULA (CKD-EPI 2020) 70 mL/min 60 11/03 Specimen Type: SERUM No comment entered. Ordering Provider: NATE KATZ Report Released Date/Time: Nov 04, 2023 08:19 AM Reporting Lab: [facility] [place] [address] [address] Performing Lab: [facility] [place] [address] [address] [place] [facility] [place] [facility] CBC AND DIFF (AUTO) LEUKOCYTES [#/VOLUME] IN BLOOD BY AUTOMATED COUNT 7.00 10*3/uL 4.50 - 11.00 11/03 Specimen Type: BLOOD No comment entered. Ordering Provider: NTAE KATZ Report Released Date/Time: Nov 04, 2023 08:19 AM Reporting Lab: [facility] [place] [address] [address] Performing Lab: [place] [facility] [place] [address] [address] [facility] [place] [facility] CBC AND DIFF (AUTO) ERYTHROCYT ES [#/VOLUME] IN BLOOD BY AUTOMATED COUNT 4.88 10*6/uL 4.23 - 5.66 11/03 Specimen Type: BLOOD No comment entered. Ordering Provider: NATE KATZ Report Released Date/Time: Nov 04, 2023 08:19 AM Reporting Lab: [facility] [place] [address] [address] Performing Lab: [facility] [place] [address] [address] [place] [facility] [place] [facility] CBC AND DIFF (AUTO) HEMOGLOBIN [MASS/VOLU ME] IN BLOOD 15.1 g/dL 12.8 - 17 11/03 Specimen Type: BLOOD No comment entered. Ordering Provider: NATE KATZ Report Released Date/Time: Nov 04, 2023 08:19 AM Reporting Lab: [facility] [place] [address] [address] Performing Lab: [facility] [address] [facility] [address] [place] [facility] [place] [facility] CBC AND DIFF (AUTO) HEMATOCRIT [VOLUME FRACTION] OF BLOOD BY AUTOMATED COUNT 45.2 39.2 - 50.4 11/03 Specimen Type: BLOOD No comment entered. Ordering Provider: NATE KATZ Report Released Date/Time: Nov 04, 2023 08:19 AM Reporting Lab: [facility] [address] [facility] [address] Performing Lab: [facility] [address] [facility] [address] [place] [facility] [place] [facility] CBC AND DIFF (AUTO) MCV [ENTITIC VOLUME] BY AUTOMATED COUNT 92.6 fL 82 - 99 11/03 Specimen Type: BLOOD No comment entered. Ordering Provider: NATE KATZ Report Released Date/Time: Nov 04, 2023 08:19 AM Reporting Lab: [facility] [place] [facility] [address] [facility] [address] Performing Lab: [place] [facility] [facility] [address] [facility] [address] [place] [facility] [place] [facility] CBC AND DIFF (AUTO) MCHC [MASS/VOLU ME] BY AUTOMATED COUNT 33.4 g/dL 30.8 - 35.1 11/03 Specimen Type: BLOOD No comment entered. Ordering Provider: NATE KATZ Report Released Date/Time: Nov 04, 2023 08:19 AM Reporting Lab: [facility] [place] [facility] [address] [facility] [address] Performing Lab: [place] [facility] [facility] [address] [facility] [address] [facility] [place] [facility] CBC AND DIFF (AUTO) PLATELETS [#/VOLUME] IN BLOOD BY AUTOMATED COUNT 185 10*3/uL 140 - 360 11/03 Specimen Type: BLOOD No comment entered. Ordering Provider: NATE KATZ Report Released Date/Time: Nov 04, 2023 08:19 AM Reporting Lab: [facility] [place] [facility] [address] [facility] [address] Performing Lab: [facility] [place] [facility] [address] [facility] [address] [facility] CBC AND DIFF (AUTO) ERYTHROCYT E DISTRIBUTI ON WIDTH [RATIO] BY AUTOMATED COUNT 13.7 12.0 - 16.0 11/03 Specimen Type: BLOOD No comment entered. Ordering Provider: NATE KATZ Report Released Date/Time: Nov 04, 2023 08:19 AM Reporting Lab: [facility] [place] [facility] [address] [facility] [address] Performing Lab: [facility] [place] [facility] [address] [facility] [address] [place] [facility] [facility] CBC AND DIFF (AUTO) MONOCYTES [#/VOLUME] IN BLOOD BY AUTOMATED COUNT 0.56 10*3/uL 0.30 - 1.10 11/03 Specimen Type: BLOOD No comment entered. Ordering Provider: NATE KATZ Report Released Date/Time: Nov 04, 2023 08:19 AM Reporting Lab: [place] [facility] [facility] [address] [facility] [address] Performing Lab: [facility] [place] [facility] [address] [facility] [address] [place] [facility] [place] [facility] CBC AND DIFF (AUTO) MCH [ENTITIC MASS] BY AUTOMATED COUNT 30.9 pg 26.2 - 32.6 11/03 Specimen Type: BLOOD No comment entered. Ordering Provider: NATE KATZ Report Released Date/Time: Nov 04, 2023 08:19 AM Reporting Lab: [facility] [place] [facility] [address] [facility] [address] Performing Lab: [facility] [place] [facility] [address] [facility] [address] [facility] [place] [facility] CBC AND DIFF (AUTO) NEUTROPHIL S/100 LEUKOCYTES IN BLOOD BY AUTOMATED COUNT 67.3 43.7 - 75.8 11/03 Specimen Type: BLOOD No comment entered. Ordering Provider: NATE KATZ Report Released Date/Time: Nov 04, 2023 08:19 AM Reporting Lab: [facility] [address] [facility] [address] Performing Lab: [facility] [address] [facility] [address] [facility] CBC AND DIFF (AUTO) LYMPHOCYTE S/100 LEUKOCYTES IN BLOOD BY AUTOMATED COUNT 21.1 14.0 - 42.3 11/03 Specimen Type: BLOOD No comment entered. Ordering Provider: NATE KATZ Report Released Date/Time: Nov 04, 2023 08:19 AM Reporting Lab: [facility] [address] [facility] [address] Performing Lab: [facility] [address] [facility] [address] [facility] CBC AND DIFF (AUTO) MONOCYTES/ 100 LEUKOCYTES IN BLOOD BY AUTOMATED COUNT 8.0 5.1 - 13.7 11/03 Specimen Type: BLOOD No comment entered. Ordering Provider: NATE KATZ Report Released Date/Time: Nov 04, 2023 08:19 AM Reporting Lab: [facility] [address] [facility] [address] Performing Lab: [facility] [address] [facility] [address] [facility] CBC AND DIFF (AUTO) EOSINOPHIL S/100 LEUKOCYTES IN BLOOD BY AUTOMATED COUNT 2.3 0.4 - 6.8 11/03 Specimen Type: BLOOD No comment entered. Ordering Provider: NATE KATZ Report Released Date/Time: Nov 04, 2023 08:19 AM Reporting Lab: [facility] [address] [facility] [address] Performing Lab: [facility] [address] [facility] [address] [facility] CBC AND DIFF (AUTO) BASOPHILS/ 100 LEUKOCYTES IN BLOOD BY AUTOMATED COUNT 0.9 0.1 - 2.0 11/03 Specimen Type: BLOOD No comment entered. Ordering Provider: NATE KATZ Report Released Date/Time: Nov 04, 2023 08:19 AM Reporting Lab: [facility] [address] [facility] [address] Performing Lab: [facility] [place] [facility] [address] [facility] [address] [facility] CBC AND DIFF (AUTO) NEUTROPHIL S [#/VOLUME] IN BLOOD BY AUTOMATED COUNT 4.71 10*3/uL 2.20 - 7.60 11/03 Specimen Type: BLOOD No comment entered. Ordering Provider: NATE KATZ Report Released Date/Time: Nov 04, 2023 08:19 AM Reporting Lab: [facility] [place] [facility] [address] [facility] [address] Performing Lab: [facility] [place] [facility] [address] [facility] [address] [facility] [place] CBC AND DIFF (AUTO) LYMPHOCYTE S [#/VOLUME] IN BLOOD BY AUTOMATED COUNT 1.48 10*3/uL 1.00 - 3.20 11/03 Specimen Type: BLOOD No comment entered. Ordering Provider: NATE KATZ Report Released Date/Time: Nov 04, 2023 08:19 AM Reporting Lab: [facility] [place] [facility] [address] [facility] [address] Performing Lab: [facility] [place] [facility] [address] [facility] [address] [facility] [place] CBC AND DIFF (AUTO) EOSINOPHIL S [#/VOLUME] IN BLOOD BY AUTOMATED COUNT 0.16 10*3/uL 0.03 - 0.44 11/03 Specimen Type: BLOOD No comment entered. Ordering Provider: NATE KATZ Report Released Date/Time: Nov 04, 2023 08:19 AM Reporting Lab: [facility] [place] [address] [address] Performing Lab: [facility] [place] [address] [address] [facility] [place] [facility] CBC AND DIFF (AUTO) BASOPHILS [#/VOLUME] IN BLOOD BY AUTOMATED COUNT 0.06 10*3/uL 0.01 - 0.13 11/03 Specimen Type: BLOOD No comment entered. Ordering Provider: NATE KATZ Report Released Date/Time: Nov 04, 2023 08:19 AM Reporting Lab: [facility] [address] [facility] [address] Performing Lab[facility] [place] [facility] [address] [facility] [address] [place] [facility] [place] [facility] CBC AND DIFF (AUTO) IMMATURE GRANULOCYT ES/100 LEUKOCYTES IN BLOOD BY AUTOMATED COUNT 0.4 0.0 - 0.7 11/03 Specimen Type: BLOOD No comment entered. Ordering Provider: ANTE KATZ Report Released Date/Time: Nov 04, 2023 08:19 AM Reporting Lab: [facility] [place] [address] [address] Performing Lab: [facility] [place] [address] [address] [facility] [place] [facility] CBC AND DIFF (AUTO) IMMATURE GRANULOCYT ES [#/VOLUME] IN BLOOD 0.03 10*3/uL 0.00 - 0.06 11/03 Specimen Type: BLOOD No comment entered. Ordering Provider: NATE KATZ Report Released Date/Time: Nov 04, 2023 08:19 AM Reporting Lab: [facility] [place] [address] [address] Performing Lab: [facility] [place] [address] [address] [facility] [place] [facility] LIPID PANEL FASTING CHOLESTERO L [MASS/VOLU ME] IN SERUM OR PLASMA 148 mg/dL 11/03 Specimen Type: SERUM No comment entered. Ordering Provider: NATE KATZ Report Released Date/Time: Nov 04, 2023 08:19 AM Reporting Lab: [facility] [place] [address] [address] Performing Lab: [facility] [place] [facility] [address] [facility] [address] [facility] [facility] LIPID PANEL FASTING TRIGLYCERI DE [MASS/VOLU ME] IN SERUM OR PLASMA 97 mg/dL 0 - 150 11/03 Specimen Type: SERUM No comment entered. Ordering Provider: NATE KATZ Report Released Date/Time: Nov 04, 2023 08:19 AM Reporting Lab: [facility] [place] [facility] [address] [facility] [address] Performing Lab: [facility] [place] [facility] [address] [facility] [address] [facility] LIPID PANEL FASTING CHOLESTERO L IN LDL [MASS/VOLU ME] IN SERUM OR PLASMA BY CALCULATIO N 91 mg/dL 0 - 129 11/03 Specimen Type: SERUM No comment entered. Ordering Provider: NATE KATZ Report Released Date/Time: Nov 04, 2023 08:19 AM Reporting Lab: [facility] [place] [facility] [address] [facility] [address] Performing Lab: [facility] [place] [facility] [address] [facility] [address] [facility] LIPID PANEL FASTING CHOLESTERO L.TOTAL/CH OLESTEROL IN HDL [MASS RATIO] IN SERUM OR PLASMA 3.9 11/03 Specimen Type: SERUM No comment entered. Ordering Provider: NATE KATZ Report Released Date/Time: Nov 04, 2023 08:19 AM Reporting Lab: [facility] [place] [facility] [address] [facility] [address] Performing Lab: [facility] [place] [facility] [address] [facility] [address] [facility] [facility] LIPID PANEL FASTING CHOLESTERO L IN HDL [MASS/VOLU ME] IN SERUM OR PLASMA 38 mg/dL 40 - 60 11/03 L Specimen Type: SERUM No comment entered. Ordering Provider: NATE KATZ Report Released Date/Time: Nov 04, 2023 08:19 AM Reporting Lab: [facility] [place] [facility] [address] [facility] [address] Performing Lab: [facility] [place] [facility] [address] [facility] [address] [facility] [place] [facility] LIVER FUNCTION PROTEIN [MASS/VOLU ME] IN SERUM OR PLASMA 7.2 g/dL 6.0 - 8.3 11/03 Specimen Type: SERUM No comment entered. Ordering Provider: NATE KATZ Report Released Date/Time: Nov 04, 2023 08:19 AM Reporting Lab: [facility] [place] [facility] [address] [facility] [address] Performing Lab: [facility] [place] [facility] [address] [facility] [address] [facility] [place] [facility] LIVER FUNCTION ALBUMIN [MASS/VOLU ME] IN SERUM OR PLASMA 4.2 g/dL 3.5 - 5.0 11/03 Specimen Type: SERUM No comment entered. Ordering Provider: NATE KATZ Report Released Date/Time: Nov 04, 2023 08:19 AM Reporting Lab: [facility] [place] [facility] [address] [facility] [address] Performing Lab: [facility] [place] [facility] [address] [facility] [address] [facility] [place] [facility] LIVER FUNCTION ALKALINE PHOSPHATAS E [ENZYMATIC ACTIVITY/V OLUME] IN SERUM OR PLASMA 45 U/L 40 - 150 11/03 Specimen Type: SERUM No comment entered. Ordering Provider: NATE KATZ Report Released Date/Time: Nov 04, 2023 08:19 AM Reporting Lab: [facility] [place] [facility] [address] [facility] [address] Performing Lab: [facility] [place] [facility] [address] [facility] [address] [facility] [place] [facility] LIVER FUNCTION ASPARTATE AMINOTRANS FERASE [ENZYMATIC ACTIVITY/V OLUME] IN SERUM OR PLASMA 28 U/L 5 - 34 11/03 Specimen Type: SERUM No comment entered. Ordering Provider: NATE KATZ Report Released Date/Time: Nov 04, 2023 08:19 AM Reporting Lab: [facility] [place] [facility] [address] [facility] [address] Performing Lab: [facility] [place] [facility] [address] [facility] [address] [facility] [place] [facility] LIVER FUNCTION ALANINE AMINOTRANS FERASE [ENZYMATIC ACTIVITY/V OLUME] IN SERUM OR PLASMA 26 U/L 11/03 Specimen Type: SERUM No comment entered. Ordering Provider: NATE KATZ Report Released Date/Time: Nov 04, 2023 08:19 AM Reporting Lab: [facility] [place] [facility] [address] [facility] [address] Performing Lab: [facility] [place] [facility] [address] [facility] [address] [facility] [place] [facility] LIVER FUNCTION BILIRUBIN. TOTAL [MASS/VOLU ME] IN SERUM OR PLASMA 0.5 mg/dL 0.2 - 1.2 11/03 Specimen Type: SERUM No comment entered. Ordering Provider: NATE KATZ Report Released Date/Time: Nov 04, 2023 08:19 AM Reporting Lab: [facility] [place] [facility] [address] [facility] [address] Performing Lab: [facility] [place] [facility] [address] [facility] [address] [facility] [place] [facility] TSH THYROTROPI N [UNITS/VOL UME] IN SERUM OR PLASMA 2.28 u[IU]/mL 0.35 - 5.00 11/03 Specimen Type: SERUM No comment entered. Ordering Provider: NATE KATZ Report Released Date/Time: Nov 04, 2023 08:19 AM Reporting Lab: [facility] [place] [facility] [address] [facility] [address] Performing Lab: [facility] [place] [address] [address] [facility] [place] [facility] URINALYS IS CLEAN CATCH COLOR OF URINE Yellow 11/03 Specimen Type: URINE Comment: If Glucose = >500 and Ketones are positive, please alert the Physician. Ordering Provider: NATE KATZ Report Released Date/Time: Nov 04, 2023 08:19 AM Reporting Lab: [facility] [place] [facility] [address] [facility] [address] Performing Lab: [facility] [place] [facility] [address] [facility] [address] [facility] URINALYS IS CLEAN CATCH APPEARANCE OF URINE Clear 11/03 Specimen Type: URINE Comment: If Glucose = >500 and Ketones are positive, please alert the Physician. Ordering Provider: NATE KATZ Report Released Date/Time: Nov 04, 2023 08:19 AM Reporting Lab: [facility] [place] [facility] [address] [facility] [address] Performing Lab: [facility] [place] [facility] [address] [facility] [address] [facility] [place] [facility] URINALYS IS CLEAN CATCH GLUCOSE [MASS/VOLU ME] IN URINE NEGATIVE mg/dL 11/03 Specimen Type: URINE Comment: If Glucose = >500 and Ketones are positive, please alert the Physician. Ordering Provider: NATE KATZ Report Released Date/Time: Nov 04, 2023 08:19 AM Reporting Lab: [facility] [place] [facility] [address] [facility] [address] Performing Lab: [facility] [place] [facility] [address] [facility] [address] [facility] [place] URINALYS IS CLEAN CATCH KETONES [MASS/VOLU ME] IN URINE BY TEST STRIP NEGATIVE mg/dL 11/03 Specimen Type: URINE Comment: If Glucose = >500 and Ketones are positive, please alert the Physician. Ordering Provider: NATE KATZ Report Released Date/Time: Nov 04, 2023 08:19 AM Reporting Lab: [facility] [place] [facility] [address] [facility] [address] Performing Lab: [facility] [place] [facility] [address] [facility] [address] [facility] [place] [facility] URINALYS IS CLEAN CATCH ERYTHROCYT ES [PRESENCE] IN URINE SEDIMENT BY LIGHT MICROSCOPY NEGATIVE mg/dL 11/03 Specimen Type: URINE Comment: If Glucose = >500 and Ketones are positive, please alert the Physician. Ordering Provider: NATE KATZ Report Released Date/Time: Nov 04, 2023 08:19 AM Reporting Lab: [facility] [place] [facility] [address] [facility] [address] Performing Lab: [facility] [place] [facility] [address] [facility] [address] [facility] [place] [facility] URINALYS IS CLEAN CATCH PROTEIN [MASS/VOLU ME] IN URINE BY TEST STRIP 30 mg/dL 11/03 Specimen Type: URINE Comment: If Glucose = >500 and Ketones are positive, please alert the Physician. Ordering Provider: NATE KATZ Report Released Date/Time: Nov 04, 2023 08:19 AM Reporting Lab: [facility] [place] [facility] [address] [facility] [address] Performing Lab: [facility] [place] [facility] [address] [facility] [address] [facility] [place] [facility] URINALYS IS CLEAN CATCH NITRITE [PRESENCE] IN URINE NEGATIVE mg/dL 11/03 Specimen Type: URINE Comment: If Glucose = >500 and Ketones are positive, please alert the Physician. Ordering Provider: NATE KATZ Report Released Date/Time: Nov 04, 2023 08:19 AM Reporting Lab: [facility] [place] [address] [address] Performing Lab: [facility] [place] [address] [address] [facility] [place] [facility] URINALYS IS CLEAN CATCH BILIRUBIN. TOTAL [PRESENCE] IN URINE NEGATIVE mg/dL 11/03 Specimen Type: URINE Comment: If Glucose = >500 and Ketones are positive, please alert the Physician. Ordering Provider: NATE KATZ Report Released Date/Time: Nov 04, 2023 08:19 AM Reporting Lab: [facility] [place] [facility] [address] [facility] [address] Performing Lab: [facility] [place] [facility] [address] [facility] [address] [facility] [place] [facility] URINALYS IS CLEAN CATCH SPECIFIC GRAVITY OF URINE BY REFRACTOME TRY 1.029 1.016 - 1.022 11/03 H Specimen Type: URINE Comment: If Glucose = >500 and Ketones are positive, please alert the Physician. Ordering Provider: NATE KATZ Report Released Date/Time: Nov 04, 2023 08:19 AM Reporting Lab: [facility] [place] [facility] [address] [facility] [address] Performing Lab: [facility] [facility] [address] [facility] [address] [facility] [place] [facility] URINALYS IS CLEAN CATCH PH OF URINE BY TEST STRIP 6.0 5.0 - 9.0 11/03 Specimen Type: URINE Comment: If Glucose = >500 and Ketones are positive, please alert the Physician. Ordering Provider: NATE KATZ Report Released Date/Time: Nov 04, 2023 08:19 AM Reporting Lab: [facility] [place] [facility] [address] [facility] [address] Performing Lab: [facility] [facility] [address] [facility] [address] [facility] [place] [facility] URINALYS IS CLEAN CATCH UROBILINOG EN [MASS/VOLU ME] IN URINE BY TEST STRIP <2.0mg/d L <2.0 - 2.0 11/03 Specimen Type: URINE Comment: If Glucose = >500 and Ketones are positive, please alert the Physician. Ordering Provider: NATE KATZ Report Released Date/Time: Nov 04, 2023 08:19 AM Reporting Lab: [facility] [place] [facility] [address] [facility] [address] Performing Lab: [facility] [place] [facility] [address] [facility] [address] [facility] URINALYS IS CLEAN CATCH LEUKOCYTE ESTERASE [PRESENCE] IN URINE BY TEST STRIP NEGATIVE 11/03 Specimen Type: URINE Comment: If Glucose = >500 and Ketones are positive, please alert the Physician. Ordering Provider: NATE KATZ Report Released Date/Time: Nov 04, 2023 08:19 AM Reporting Lab: [address] [address] Performing Lab: [address] [address] [facility] VITAMIN B-1 (THIAMIN E)-(QU) THIAMINE [MOLES/VOL UME] IN SERUM OR PLASMA 25 nmol/L 8 - 30 06/10 Specimen Type: PLASMA Comment: Vitamin supplementa tion within 24 hours prior to blood draw may affect the accuracy of the results. This test was developed and its analytical performance characteris tics have been determined by [employer] [place], [place]. It has not been cleared or approved by the U.S. Food and Drug Administrat ion. This assay has been validated pursuant to the CLIA regulations and is used for clinical purposes. Test Performed by [facility], [employer] [facility], [address] [place] [address] Darin Foley M.D., Ph.D., Director of Laboratorie s , CLIA [id number] TEST PERFORMED AT: , Ordering Provider: NATE KATZ Report Released Date/Time: Jun 10, 2023 08:26 AM Reporting Lab: [address] [address] Performing Lab: [facility] [id number] [place] [address] VITAMIN B-6 (QU) PYRIDOXINE [MASS/VOLU ME] IN SERUM OR PLASMA 41.1 ng/mL 2.1 - 21.7 06/10 H Specimen Type: PLASMA Comment: Vitamin supplementa tion within 24 hours prior to blood draw may affect the accuracy of the results. This test was developed and its analytical performance characteris tics have been determined by [employer] [place], [place]. It has not been cleared or approved by the U.S. Food and Drug Administrat ion. This assay has been validated pursuant to the CLIA regulations and is used for clinical purposes. Test Performed by [facility], [employer] [facility], [address] [place], [place] Darin Foley M.D., Ph.D., Director of Laboratorie s , CLIA [id number] TEST PERFORMED AT: , Ordering Provider: NATE KATZ Report Released Date/Time: Jun 10, 2023 08:26 AM Reporting Lab: [address] [address] Performing Lab: [place] [id number] [facility] VITAMIN B12 COBALAMIN (VITAMIN B12) [MASS/VOLU ME] IN SERUM OR PLASMA 756 pg/mL 200 - 900 06/10 Specimen Type: SERUM No comment entered. Ordering Provider: NATE KATZ Report Released Date/Time: Jun 10, 2023 08:26 AM Reporting Lab: [address] [address] Performing Lab: [address] [address] [facility] Vital Signs Combined list of inpatient and outpatient Vital Signs from Department of Defense and Veterans Affairs, ranging from 12 months to all on record, depending upon the facility. Vital Sign Value Date Comments Source SYSTOLIC BLOOD PRESSURE 138 05/11/20 24 [facility]56[facility] DIASTOLIC BLOOD PRESSURE 84 024 09:56[facility] PULSE OXIMETRY 91 05/11/2024 09[facility]56[facility] WE[facility] 253 05/11/2024 09:56:45 [facility] [place] [id number] 05/01 [facility] [place] En[facility] [id number] 05/08 [facility] [place] En[facility] [id number] 05/16 [facility] [place] En[facility] [id number] Diagnos is: ICD-10- CM Z02.89 Encount er for other adminis trative examina tiBOONE Art 05/22 [facility] En[facility] [id number] 05/30 [facility] [place] En[facility] [id number] 06/02 [facility] [place] OFFICE O/P EST SF 10 MIN [id number] Diagnos is: ICD-10- CM I10 Essenti al (primar y) hyperte OMAR Corona RD 06/10 [facility] En[facility] [id number] Diagnos is: ICD-10- CM Z02.89 Encount er for other adminis trative examina tiMACARIO Sharma 06/10 [facility] HEARING AID EXAM BOTH EARS [id number] Diagnos is: ICD-10- CM H90.3 Sensori neural hearing loss, bilater al KALPESHMACARIO UGALDE L 06/10 [facility] En[facility] [id number] 06/19 [facility] [place] En[facility] [id number] 06/26 [facility] [place] HEARING SERVICE [id number] Diagnos is: ICD-10- CM Z46.1 Encount er for fitting and adjustm ent of hearing aid DANIELLE RICHTER 07/01 [facility] HEARING AID REPAIR/MOD IFYING [id number] Diagnos is: ICD-10- CM Z46.1 Encount er for fitting and adjustm ent of hearing aid CHEPE YIN I 07/07 [facility] INTRM OPH EXAM EST PATIENT [id number] Diagnos is: ICD-10- CM 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, NEC, bilater al ALFREDO POWERS 07/17 [facility] En[facility] [id number] 07/29 [facility] En[facility] [id number] 08/10 [facility] En[facility] [id number] 09/17 [facility] En[facility] [id number] 10/06 [facility] [place] En[facility] [id number] 10/12 [facility] En[facility] [id number] 10/30 [facility] En[facility] [id number] 11/05 [facility] En[facility] [id number] 11/06 [facility] En[facility] [id number] 11/06 [facility] OFFICE O/P EST LOW 20 MIN [id number] Diagnos is: ICD-10- CM H26.9 [address]AR Bullock RD D 11/17 [facility] [place] ELECTROCAR DIOGRAM REPORT [id number] Diagnos is: ICD-10- CM Z13.6 Encount er for screeni ng for cardiov ascular disorde rs CHRISTIAN,PAR UL U 11/17 [place] [facility] En[facility] [id number] 11/17 [facility] En[facility] [id number] 11/19 [facility] En[facility] [id number] 11/23 [facility] En[facility] [id number] 11/24 [facility] En[facility] [id number] 11/24 [facility] En[facility] [id number] 11/26 [facility] Encounter [id number] 11/28 [facility] En[facility] [id number] 12/01 [facility] [place] Encounter [id number] 12/09 [facility] Encounter [id number] 12/15 [facility] [place] En[facility] [id number] 12/17 [facility] [place] En[facility] [id number] 12/28 [facility] [place] En[facility] [id number] 01/01 [facility] [place] QNHP OL DIG ASSMT&MGMT 21+ [id number] Diagnos is: ICD-10- CM R91.1 Solitar y pulmona ry nodule CHRISTI VALADEZ 01/01 [facility] Outpatient Encounter [id number] Diagnos is: ICD-10- CM R91.8 Other nonspec ific abnorma l finding of lung field TERESA KIERRA S 01/01 [place] [facility] En[facility] [id number] 1.01/14 [facility] En[facility] [id number] 1.01/14 [facility] En[facility] [id number]/15 [facility] En[facility] [id number] 01/28 [facility] En[facility] [id number] 01/29 [facility] Outpatient Encounter [id number] Diagnos is: ICD-10- CM R91.8 Other nonspec ific abnorma l finding of lung field TERESA KIERRA S 02/05 [facility] Out[facility] Encounter [id number] 1. CHRISTI VALADEZ 02/05 [facility] Out[facility]counter [id number] 02/05 [facility] Encounter [id number] 03/07 [facility] COMPRE OPH EXAM EST PT 1/ [id number] Diagnos is: ICD-10- CM Z96.1 Presenc e of intraoc ular lens MERHAR,MIKEY H B 03/23 [facility] FIT SPECTACLES BIFOCAL [id number] Diagnos is: ICD-10- CM Z46.0 Encount er for fit/adj st of spectac les and contact lenses MERHAR,MIKEY H B 03/24 [facility] EVALUATION OF WHEEZING [id number] Diagnos is: ICD-10- CM J98.4 Other disorde rs of lung JARMOLOWIC Z,TODD 03/29 [facility] Out[facility] Encounter [id number] 1.03/29 [facility] CO/[place] DIFFUSE CAPACITY [id number] Diagnos is: ICD-10- CM R91.1 Solitar y pulmona ry nodule Rodolfo ZARATE MD 03/29 [facility] Out[facility] Encounter [id number] 04/01 [facility] [id number] 04/11 [facility] [id number] 04/18 [facility] [id number] [facility] [id number] 04/25 [facility] [id number] 04/29 [facility] [facility] En[facility] [id number] 05/05 [facility] Encounter [id number] 05/05 [facility] Encounter [id number] [facility] Out[facility] Encounter [id number] 05/11 [facility] OFFICE O/P EST LOW 20 MIN [id number] 1. Diagnos is: ICD-10- CM I10 Essenti al (primar y) hyperte nsion OMAR KATZ RD D 05/11 [facility] QNHP OL DIG ASSMT&MGMT 21+ [id number] 1. Diagnos is: ICD-10- CM Z12.2 Encntr screen for maligna nt neoplas m of respira tory organs MISHA GASPAR D 05/11 [facility] QNHP OL DIG ASSMT&MGMT 04-14 [id number] Diagnos is: ICD-10- CM R91.8 Other nonspec ific abnorma l finding of lung field HEAVENLY MATA YN 05/14 [place] [place] [facility] Out[facility] Encounter [id number] 05/14 [facility] Out[facility] Encounter [id number] [facility] Encounter [id number] 05/14 [facility] Encounter [id number] 05/22 [facility] Encounter [id number] 06/25 [facility] Out[facility] Encounter [id number] 07/24 [facility] Encounter [id number] 07/26 [facility] Out[facility] Encounter [id number] 07/30 [facility] Encounter [id number] 09/06 [facility] Social History Combined list of available smoking, tobacco, and other social history from Department of Defense and Veterans Affairs facilities. Social History Type Response Date Comment Source Tobacco smoking status [facility] USE FORMER CIGARETTES 05/11/2024 [facility] [place] [facility]ED OTHER TYPE 05/11/2024 [facility] [place] [facility] History of tobacco use [place]-TOBACCO FORMER USER 06/10/2023 [facility] [place] [facility] of [facility] TO < 15 YRS 05/06/2022 [facility] [place] [facility] History of tobacco use [place]-TOBACCO FORMER USER 05/08[facility]20[facility] [place] [facility] History of tobacco use [place]-TO[place]ACCO FOR[facility] History of [facility] 03[facility]17[facility] [place] [facility] History of tobacco use QUIT TOBACCO USE 1-7 YEARS AGO 09/15/2017 PT STATES HE QUIT 4 [facility]RS [facility] History of tobacco use QUIT TOBACCO USE 1-7 YEARS AGO 01/31/2017 pt state stop 3 yrs ago. [facility] [place] [facility] History of tobacco use QUIT TOBACCO USE 1-7 YEARS AGO 01/12/[facility] [place] [facility] History of tobacco use QUIT TOBACCO USE 1-7 YEARS AGO 01/26/2015 PT STATES THAT HE QUIT 13 MONTHS AGO. [facility] [place] [facility] History of tobacco use QUIT TOBACCO USE IN PAST YEAR 01/28/[facility] [place] [facility] History of tobacco use CURRENT SMOKER 11/06/2012 1 pack per day. [facility] [place] [facility] History of tobacco use CURRENT SMOKER 10/04/2011 1 ppd [facility] [place] [facility] History of tobacco use CURRENT SMOKER 09/28/2010 1 ppd [facility] [place] [facility] History of tobacco use V1-PT DECLINES TOBACCO CESSATION MEDS 09/21/[facility] [place] [facility] Plan of Care List of future care activities from Department of Veterans Affairs facilities. Additional future care activities may be listed in the Assessment and Plan section. Date/Time Care Activity Care Activity Detail Facili ty 11/09/2024 AMBULATORY - MEDICINE AM[facility] [place] [facility] [facility] [place] [facility]
[2024-09-24 10:05] LABS: Appearance Urine Clear; Color Urine Yellow; Glucose Urine UA Negative (Negative); Leukocyte Esterase Urine Trace (Negative); Nitrite Urine Negative (Negative); Specific Gravity - Urine 1.025 (1.005-1.025); UMIC TRIGGER UACC YES; Urine Blood Negative (Negative); Urine Ketones Trace mg/dL (Negative); Urine Protein Trace mg/dL (Neg-Trace)
[2024-09-24 10:06] LABS: MANUAL DIFF FLAG NO
[2024-09-24 10:09] LABS: Bacteria Urine None Seen (None Seen); Hyaline Casts Urine 0-2 /LPF (0-2); RBC Urine 0-2 /HPF (0-2); Squamous Epithelial Cell Urine 0-2 /HPF (0-2); WBC Urine 0-5 /HPF (0-5)
[2024-09-24 10:11] LABS: Basophils Absolute Auto 0.1 X10*3/uL (0.0-0.2); Basophils Percent Auto 1.2 % (0-2); Eosinophils Absolute Auto 0.3 X10*3/uL (0.0-0.4); Eosinophils Percent Auto 4.9 % (0-4); Hematocrit 43.9 % (42.0-52.0); Hemoglobin 14.6 g/dl (14.0-18.0); Imm Gran Abs Auto 0.02 X10*3/uL (0.00-0.03); Imm Gran Pct Auto 0.3 % (0.0-0.4); Lymphocytes Absolute Auto 1.4 X10*3/uL (1.2-4.9); Mean Corpuscular HGB Conc 33.3 g/dl (31.0-36.0); Mean Corpuscular Hemoglobin 31.5 pg (27.0-33.0); Mean Corpuscular Volume 94.8 fL (80.0-98.0); Mean Platelet Volume 10.8 fL (9.4-12.4); Monocytes Absolute Auto 0.6 X10*3/uL (0.1-1.2); Monocytes Percent Auto 8.7 % (2-11); Neutrophils Absolute Auto 4.3 x10*3/uL (2.0-8.3); Neutrophils Percent Auto 63.9 % (45-73); Platelet Count 204 X10*3/uL (160-400); Red Blood Count 4.63 X10*6/uL (4.60-5.80); Red Cell Distribution Width 14.8 % (11.0-16.0); White Blood Count 6.8 X10*3/uL (4.8-10.8)
[2024-09-24 10:41] LABS: Alanine Aminotransferase 25 U/L (0-40); Albumin Level 4.3 g/dL (3.5-5.0); Alkaline Phosphatase 52 U/L (39-117); Anion Gap 11 (12-20); Aspartate Amino Transferase 39 U/L (5-37); Bilirubin Total 0.4 mg/dL (0.0-1.0); Blood Urea Nitrogen 20 mg/dL (9-16); Calcium 9.5 mg/dL (8.4-10.2); Carbon Dioxide 26 mmol/L (22-29); Chloride 108 mmol/L (96-108); Cholesterol 135 mg/dL (<200); Estimated Glomerular Filt Rate > 60; Glucose Fasting 101 mg/dL (60-99); HDL Cholesterol 38 mg/dL (>40); LDL Cholesterol Calculated 80 mg/dL (<100); Potassium 4.2 mmol/L (3.3-5.1); Sodium 141 mmol/L (135-145); Total Protein 7.2 g/dL (6.5-8.0); Triglycerides 89 mg/dL (<150)
[2024-09-24 10:48] LABS: TSH reflex Free T4 2.41 uIU/mL (0.32-4.0); Vitamin D 25-OH Total 50.4 ng/mL (>30)
[2024-09-24 10:50] LABS: PSA,Total (Free>4and<10) 1.26 ng/mL (0.00-4.00)
== END 2024-09-24 07:40 | disposition home or self-care (01) ==
LOC: HO.HMGCLDS 07:39
DX: Z00.00 Encounter for general adult medical examination without abnormal findings (principal); Z12.5 Encounter for screening for malignant neoplasm of prostate; E78.5 Hyperlipidemia, unspecified; E66.9 Obesity, unspecified; I10 Essential (primary) hypertension
CPT/HCPCS: 36415; 80053; 80061; 81001; 81003; 82306; 84153; 84443; 85025

== ENCOUNTER 2024-11-03 13:42 | Outpatient (REF) | payer MEDICARE, SELFPAY ==
--- NOTE | ~2024-11-03 | US_ITS ---
CLINICAL HISTORY: K42.9 - Umbilical hernia without obstruction or gangrene US abdomen limited Comparison: None Findings: Limited soft tissue ultrasound to evaluate hernia demonstrates a fascial defect in the region of the umbilicus with herniation of fat and probable small bowel. No fluid within the hernia sac to suggest incarceration. 3 cm fascial defect. Impression: 3 cm fascial defect and periumbilical hernia as detailed. This document has been electronically signed by: Abhishek Ware MD on 11/04/2024 07:09:43
== END 2024-11-03 13:43 | disposition home or self-care (01) ==
LOC: HO.HMGCX 13:42
DX: K42.9 Umbilical hernia without obstruction or gangrene (principal); R10.9 Unspecified abdominal pain
CPT/HCPCS: 76705

== ENCOUNTER → 2024-11-03 13:46 | Outpatient (BNV) | payer MEDICARE, SELFPAY | PROVIDERS: Visit Provider Radiology Vascular & Interventional Radiology | DX: K42.9 Umbilical hernia without obstruction or gangrene (principal) | CPT/HCPCS: 76705 ==

== ENCOUNTER 2024-12-24 09:18 | Outpatient (AMB) | payer MEDICARE, SELFPAY ==
[2024-12-24 09:22] VITALS: BP 150/60; PULSE 53; RESP 18; TEMP 35.8; O2SAT 95; BMI 31.0
--- NOTE | 2024-12-24 09:22 | A.OFFPC_ITS ---
Vital Signs 12/24/24 09:22 12/24/24 09:53 Height 6 ft 1 in Weight 235 lb 4 oz BMI 31.0 BP 150/60 H 150/78 H Blood Pressure Location Lt brachial Lt brachial Position Sitting Sitting Respiration 18 Pulse 53 Pulse Source Pulse Oximeter Temp 96.5 F L Temp Source Temporal Artery Scan Pulse Oximetry (%) 95 Oxygen Delivery Method Room Air Intake Visit Reasons: htn/cad/hld Window Systems Administrator Required: No Accompanied by: Self / Same As Patient Allergies amlodipine Adverse Reaction (Intermediate, Verified 12/24/24 09:48) Swelling triamterene-hctz Allergy (Intermediate, Uncoded 12/24/24 09:48) Swelling Medication List - Last Reconciled 12/24/24 by JOHNY Staton acetaminophen 1,000 mg PO Q6H PRN aspirin 81 mg PO DAILY hydrochlorothiazide 25 mg PO DAILY lisinopril 20 mg PO DAILY metoprolol tartrate 50 mg PO BID pravastatin 40 mg PO DAILY Tobacco use date assessed: 12/24/24 Fall risk assessment: No Falls in past year Dental Screening Dental Screen Date: 12/24/24 Did you have a dental visit in the last 12 months?: Yes Did you have a dental problem in the last 6 months where you did not have access to dental care?: No Was dental information given to patient?: Patient has dentist HPI htn/cad/hld HPI Details The patient is a 79-year-old male presenting for follow up appt. He is presenting with an elevated blood pressure and periumbilical hernia. He reported that his blood pressure was slightly elevated upon arrival, possibly due to anxiety related to the clinical setting, known as white coat syndrome. He has a history of hypertension and confirmed taking his medication prior to the visit. The patient discussed a recent ultrasound that identified a Periumbilical hernia, which is not large but present. He has an upcoming appointment with a general surgeon for further evaluation. Additionally, there is a slight elevation in liver enzymes noted in recent lab work, which will be re-evaluated. He has reduced his Tylenol intake from 2000 mg to 500 mg, possibly related to the liver enzyme elevation. Head tremors noted during the visit, the patient reported that he has been told about this by his girlfriend, but has not gotten it evaluated, attributing it to aging. In addition, he has not experienced any functional impaired from the head tremor. In terms of lifestyle, the patient has abstained from alcohol for 30 years and quit smoking 15 years ago. The asked about getting a marijuana card; explained to the patient we do not take care of this here. He has not drink in 30 years or smoke in 15 years tremors--in head region. Has been going for a while ambulates with a cane-here in gait no extraneous movement He is asking about getting a marijuana card-explain that we does not do this here Head tremor noted reports that this has been going on for a while in his covering has been tendon him about it. No and tremor or ataxia noted. Upcoming appt with General surgery for umbilical hernia evaluation Denies any shortness of breath, chest pain, heart palpitation Denies any abdominal pain or change in bowel habits Reports that he is feeling okay COUNT INCLUDES THE [facility] Medical History COPD (chronic obstructive pulmonary disease) AAA (abdominal aortic aneurysm) PATRICIA (obstructive sleep apnea) Hyperlipidemia Obesity Osteoarthritis Hypertension Surgical History Status post left hip replacement History of coronary artery stent placement History of inguinal hernia repair Family History Father Liver problem Mother Brain tumor Brother No problems noted. Brother No problems noted. Family/Other Prostate cancer Brain cancer Social History Housing: House Alcohol intake: never Patient Tobacco Use Status: Former Tobacco user Tobacco use type: Cigarette e-Cigarette/Vaping Use: Never Used Second Hand Smoke Exposure: No service: Yes Current occupational status: retired Cognitive needs: No Hearing needs: Yes Vision needs: Yes (Reading glasses) Questionnaire PHQ-9 Over the last 2 weeks, how often have you been bothered by any of the following problems? 1. Little interest or pleasure in doing things: not at all 2. Feeling down, depressed, or hopeless: not at all 3. Trouble falling or staying asleep, or sleeping too much: not at all 4. Feeling tired or having little energy: not at all 5. Poor appetite or overeating: not at all 6. Feeling bad about yourself - or that you are a failure or have let yourself or your family down: not at all 7. Trouble concentrating on things, such as reading the newspaper or watching television: not at all 8. Moving or speaking so slowly that other people could have noticed. Or the opposite - being so fidgety or restless that you have been moving around a lot more than usual: not at all 9. Thoughts that you would be better off or of hurting yourself in some way: not at all Total score: 0 Depression Screening Interpretation: Negative Depression Screening Done: Yes Source: Developed by Drs. Hemant Brown, Haley Salmeron, Kenan Arshad and colleagues, with an educational eliot from [employer]. Thrive Questionnaire Date Thrive assessed: 12/24/24 I am a: Patient What is your living situation today?: I have a steady place to live Within the past 12 months, did the food you bought not last and you didn't have the money to get more?: Never true Within the past 12 months, did you worry whether your food would run out before you got money to buy more?: Never true Do you have trouble paying for medicines?: No Do you have trouble getting transportation to medical appointments?: No Do you have trouble paying your heating and electricity bill?: No Do you have trouble taking care of your child, family member or friend?: No Do you have trouble with day-to-day activities such as bathing, preparing meals, shopping, managing finances, etc.?: No Are you currently unemployed and looking for a job?: No Are you interested in more education?: No Please select the resources that you would like help with: None Currently or been in a relationship where the following occur: No concerns reported THRIVE Score: 0 AUDIT C Alcohol Use Questionnaire (AUDIT-C) 1. How often do you have a drink containing alcohol?: Never 3. How often do you have six or more drinks on one occasion?: Never Total Score: 0 Score Reviewed/Action Taken: No PANKAJ-7 AMB Questionnaire PANKAJ-7 Date PANKAJ - 7 assessed: 12/24/24 Feeling nervous, anxious, or on edge: 0 = Not at all Not being able to stop or control worryin = Not at all Worrying too much about different things: 0 = Not at all Trouble relaxin = Not at all Being so restless that it is hard to sit still: 0 = Not at all Becoming easily annoyed or irritable: 0 = Not at all Feeling afraid as if something awful might happen: 0 = Not at all Total PANKAJ-7 score (0-4 normal; 5-9 mild; 10-14 moderate; 15-21 severe): 0 Source: Developed by Drs. Hemant Brown, Haley Salmeron, Kenan Arshad and colleagues, with an educational eliot from [employer]. Review of Systems Const Denies headache(s) Eyes Denies loss of vision ENT Denies vertigo, Denies dizziness, Denies headache(s) and Denies sore throat Card Denies chest pain, Denies leg edema and Denies lightheadedness Resp Denies cough, Denies hemoptysis and Denies wheezing GI Denies abdominal pain, Denies melena, Denies constipation, Denies diarrhea, Denies vomiting and Reports other (Umbilical hernia) Denies dysuria, Denies urinary frequency and Denies urinary urgency Musc Denies arthralgias, Denies joint swelling, Denies numbness and Denies tingling Neuro Denies Abnormal speech present, Denies behavioral changes, Denies vertigo, D enies dizziness, Denies headache(s), Denies loss of vision, Denies memory loss, Denies numbness, Denies tingling and Reports tremor(s) (head) Psych Denies anxiety, Denies behavioral changes, Denies depression, Denies memory loss and Denies panic attacks Gerson/Lymph Denies easy bleeding and Denies easy bruising Aller/Immun Denies wheezing Physical exam (Primary Care) Vital Signs: Last Vital Signs Temp 96.5 F L 12/24/24 09:22 Pulse 53 12/24/24 09:22 Resp 18 12/24/24 09:22 BP 150/78 H 12/24/24 09:53 Pulse Ox 95 12/24/24 09:22 Oxygen Delivery Method Room Air 12/24/24 09:22 BMI result Body Mass Index 31.0 Tobacco/Smoking Status: Tobacco use Status Tobacco use date assessed 12/24/24 12/24/24 09:31 Patient Tobacco Use Status Former Tobacco user 12/24/24 09:31 Tobacco use type Cigarette 12/24/24 09:31 e-Cigarette/Vaping Use Never Used 12/24/24 09:31 PHQ-9: PHQ-9 Score PHQ-9: Total score 0 12/24/24 10:04 Depression Screening Interpretation: Negative Thrive Assessment: Date of Thrive Assessment Date Thrive assessed 12/24/24 12/24/24 09:31 Currently or been in a relationship where the following occur: No concerns reported Const General: healthy appearing, no acute distress, alert and awake Nutritional Appearance: well nourished Orientation/consciousness: oriented to person, oriented to place and oriented to time HENMT Ears: TM's normal bilaterally General nose exam: Normal nasal mucous membranes and turbinates present Eyes Conjunctivae: conjunctivae normal Sclerae: sclerae normal Pupils: Equal, round and reactive pupils present EOM: No Nystagmus present Neck Neck: Yes no lymphadenopathy and Yes no JVD Thyroid: Thyroid normal Carotids: no bruits Resp Effort & Inspection: normal respiratory effort and not tachypneic Auscultation: no crackles, no rales, no rhonchi and no wheezes Cardio Rate: regular rate Rhythm: regular rhythm Heart sounds: S1 normal heart sound present, S2 normal heart sound present, no murmurs and normal S1 and S2 GI Palpation (GI): Soft to palpation, nontender, no hepatomegaly, no splenomegaly and Hernia present (periumbilical) Auscultation: normal bowel sounds General: Yes no CVA tenderness Back/Spine/Pelvis Back: no CVA tenderness Skin General skin exam: no rashes or lesions noted and dry skin Neuro General: oriented to person, oriented to place and oriented to time Cranial nerves: Yes Equal, round and reactive pupils present and No Nystagmus present Speech: No Abnormal speech present Gait exam (Neuro): Normal gait present, not ataxic and Assisted gait required (cane) Motor exam (neuro): 5/5 motor strength present throughout and Tremors during motor activity present (head) Extrem Right upper extremity: full ROM Left upper extremity: full ROM Right lower extremity: full ROM; no edema Left lower extremity: full ROM; no edema Psych Mental Status: mental status grossly normal Speech and movement: Normal speech and movement present Affect: normal affect Attitude: cooperative Thought process: Normal thought process present Results Reviewed Results Reviewed: Laboratory Tests 09/24/24 07:46 WBC 6.8 RBC 4.63 Hgb 14.6 Hct 43.9 MCV 94.8 MCH 31.5 MCHC 33.3 RDW 14.8 Plt Count 204 MPV 10.8 Sodium 141 Potassium 4.2 Chloride 108 Carbon Dioxide 26 Anion Gap 11 L BUN 20 H Creatinine 0.92 Estimated GFR > 60 Fasting Glucose 101 H Calcium 9.5 Total Bilirubin 0.4 AST 39 H ALT 25 Alkaline Phosphatase 52 Total Protein 7.2 Albumin 4.3 Triglycerides 89 Cholesterol 135 LDL Cholesterol, Calc 80 HDL Cholesterol 38 L Total PSA 1.26 25-OH Vitamin D Total 50.4 TSH 2.41 Urine Color Yellow Urine Appearance Clear Urine pH 5.0 Ur Specific [place] 1.025 Urine Protein Trace Urine Glucose (UA) Negative Urine Ketones Trace Urine Blood Negative Urine Nitrite Negative Ur Leukocyte Esterase Trace H Urine RBC 0-2 Urine WBC 0-5 Ur Squamous Epith Cells 0-2 Urine Bacteria None Seen Hyaline Casts 0-2 Coding Level of Care Code Est Pt Level 3 (10779) Diagnoses Hypertension, unspecified type I10 Hypertension type: unspecified Pure hypercholesterolemia E78.00 Hyperlipidemia type: pure hypercholesterolemia Class 1 obesity without serious comorbidity with body mass index (BMI) of 31.0 to 31.9 in adult, unspecified obesity type E66.811; Z68.31 Obesity type: unspecified obesity type Obesity classification: adult class 1 (BMI 30 - 34.9) Serious obesity comorbidity presence: without serious comorbidity Body mass index: BMI 31.0-31.9 Elevated AST (SGOT) R74.01 Umbilical hernia without obstruction and without gangrene K42.9 Obstruction and gangrene presence: without obstruction or gangrene Isolated tremor of head G25.2 Time Spent (min) 37 Assessment & Plan Assessment & Plan (1) Hypertension: Code(s): I10 - Essential (primary) hypertension Category: Medical Qualifiers: Hypertension type: unspecified Qualified Code(s): I10 - Essential (primary) hypertension Plan: The patient blood pressure was 150/78; above goal; reports drinking coffee prior to visit Patient reports compliance with medication Reinforced DASH diet Continue hydrochlorothiazide 25 mg daily, lisinopril 20 mg daily, metoprolol tartrate 50 mg b.i.d. (2) Hyperlipidemia: Code(s): E78.5 - Hyperlipidemia, unspecified Category: Medical Qualifiers: Hyperlipidemia type: pure hypercholesterolemia Qualified Code(s): E78.00 - Pure hypercholesterolemia, unspecified Plan: The patient triglycerides is 89, total cholesterol 135, LDL 80, HDL 38 Reinforced low-cholesterol diet Continue pravastatin 40 mg daily We will recheck lipid panel in 4 months (3) Obesity: Code(s): E66.9 - Obesity, unspecified Category: Medical Qualifiers: Obesity type: unspecified obesity type Obesity classification: adult class 1 (BMI 30 - 34.9) Serious obesity comorbidity presence: without serious comorbidity Body mass index: BMI 31.0-31.9 Qualified Code(s): E66.811 - Obesity, class 1; Z68.31 - Body mass index [BMI] 31.0-31.9, adult Plan: Encouraged diet and exercise as tolerated to lose weight (4) Elevated AST (SGOT): Code(s): R74.01 - Elevation of levels of liver transaminase levels Category: Medical Plan: AST 39 Patient reports cutting down on his Tylenol intake from 2000 mg a day to 500 mg Encouraged decreasing fatty foods as well We will continue to monitor (5) Umbilical hernia: Code(s): K42.9 - Umbilical hernia without obstruction or gangrene Category: Medical Qualifiers: Obstruction and gangrene presence: without obstruction or gangrene Qualified Code(s): K42.9 - Umbilical hernia without obstruction or gangrene Plan: Complain of abdominal hernia upon meeting patient the 1st time. An abdominal ultrasound was done to further evaluate that shows a small Periumbilical hernia. The patient has an upcoming appointment with General surgery to evaluate this. (6) Isolated tremor of head: Code(s): G25.2 - Other specified forms of tremor Category: Medical Plan: Head tremor noted on exam and the patient confirmed that has been present for a while Reports that his girlfriend noticed it and asked him about in the past He has a never gotten this evaluated No nystagmus or ataxia We will refer the patient to Neurology for evaluation Orders: Orders TSH reflex Free T4 4 Months E66.811 - Obesity, class 1, E78.00 - Pure hypercholesterolemia, unspecified, I10 - Essential (primary) hypertension, R31.9 - Hematuria, unspecified, R74.01 - Elevation of levels of liver transaminase levels, Z68.31 - Body mass index [BMI] 31.0-31.9, adult Vitamin D 25-OH Total 4 Months E66.811 - Obesity, class 1, E78.00 - Pure hypercholesterolemia, unspecified, I10 - Essential (primary) hypertension, R31.9 - Hematuria, unspecified, R74.01 - Elevation of levels of liver transaminase l evels, Z68.31 - Body mass index [BMI] 31.0-31.9, adult Complete Blood Count Auto Diff 4 Months E66.811 - Obesity, class 1, E78.00 - Pure hypercholesterolemia, unspecified, I10 - Essential (primary) hypertension, R31.9 - Hematuria, unspecified, R74.01 - Elevation of levels of liver transaminase levels, Z68.31 - Body mass index [BMI] 31.0-31.9, adult Comprehensive [place]. Panel Fast 4 Months E66.811 - Obesity, class 1, E78.00 - Pure hypercholesterolemia, unspecified, I10 - Essential (primary) hypertension, R31.9 - Hematuria, unspecified, R74.01 - Elevation of levels of liver transaminase levels, Z68.31 - Body mass index [BMI] 31.0-31.9, adult UA CC w/rflx Micro + Cult 4 Months E66.811 - Obesity, class 1, E78.00 - Pure hypercholesterolemia, unspecified, I10 - Essential (primary) hypertension, R31.9 - Hematuria, unspecified, R74.01 - Elevation of levels of liver transaminase levels, Z68.31 - Body mass index [BMI] 31.0-31.9, adult Lipid Panel 4 Months E66.811 - Obesity, class 1, E78.00 - Pure hypercholesterolemia, unspecified, I10 - Essential (primary) hypertension, R31.9 - Hematuria, unspecified, R74.01 - Elevation of levels of liver transaminase levels, Z68.31 - Body mass index [BMI] 31.0-31.9, adult Referrals Neurology Referral G25.2 - Other specified forms of tremor
--- OUTSIDE RECORDS SUMMARY | 2024-12-24 09:31 | XMS_ITS | Encounter Summary ---
Author Organization [facility] Address [address] [place] [address] Phone Care Team Providers Care Piece Goods Clerk Name Role Phone Ibrahima Colon MD Primary Care Provider + Encounter Details Date Type Department Care Team (Late st Contact Info) Description 06/05/2018 Ancillary Orders [facility] [address] [place] [address] [address] Floor, [address] [place] [address] Renaldo Patricia MD [address] [place] [id number] JUAN Social History Tobacco Use Types Packs/Day Years Used Date Smoking Tobacco: Never Assessed Sex and Gender Information Value Date Recorded Sex Assigned at Not on file Legal Sex Male 10:06 AM EST Gender Identity Not on file Sexual Orientation Not on file documented as of this encounter Plan of Treatment Not on file documented as of this encounter Visit Diagnoses Not on filedocumented in this encounter Care Teams Piece Goods Clerk Relationship Specialty Start Date End Date Ibrahima Colon MD PCP - General Internal Medicine 05/12/18 documented as of this encounter Additional Source Comments The information contained in this document represents components of the legal health record. It is not the complete legal health record.[facility]
--- OUTSIDE RECORDS SUMMARY | 2024-12-24 09:31 | XMS_ITS | Clinical Summary ---
Author Organization [facility] Address [address] [place] [address] Care Team Providers Care Reshipping Clerk Name Role Phone Ibrahima Colon MD Primary Care Provider [phone] Addi Rico MD Unavailable [phone] Allergies Active Allergy Reactions Criticality Noted [...] 57 02/09/2020 11:44 AM EDT Temperature 37 C (98.6 F) 06/14/2019 7:00 AM EST Respiratory Rate 18 [...] Patients (1 - 1-dose 75+ series) 2020 COVID-19 Vaccine ( - season) 2024 Influenza Vaccine 12/24/2024 04/16/2022 Abdominal Aortic Aneurysm (AAA) Screening Discontinued 03/30/2024, 01/01/2023, 12/17/2022, Additional history exists Hepatitis B Vaccines Aged Out No long er eligible based on patient's age to complete this topic Medical Devices Implanted Type Area Patient Services Technician Device Identifier Shelf Expiration Date Model / Serial / Lot [id number] Graft Endovascular 56mm 20mm 6mm 16fr Znth Sprlz 2 Brch Ntnl - [id number] Implanted:Qty: 1 on 06/11/2019 by Addi Rico MD at [facility] Graft N/A: Aorta [employer] [id number] 08/26/2021 [id number] / / [id number] Graft Endovascular 124mm 30mm H&L-B One-Shot Znth Poly Wvn 2 - [id number] Implanted:Qty: 1 on 06/11/2019 by Addi Rico MD at [facility] Stent N/A: Aorta [employer] 05/12/2022 [id number] / / [id number] Stent Vascular 7mm 26mm 80cm Balloon Expandable Lopro Cover - [id number] Implanted:Qty: 1 on 06/11/2019 by Addi Rico MD at [facility] Stent N/A: Aorta [employer] - [id number] 11/22/2021 [id number] / / [id number] Description:SMA Stent [id number] Stent Tracheobronchial 6mm 6fr 22mm 120cm Cover Catheter - [id number] Implanted:Qty: 1 on 06/11/2019 by Addi Rico MD at [facility] Stent N/A: Aorta [employer] [id number] 12/02/2021 [id number] / [id number] Description:Right Renal Sandra ry [id number] Stent Vascular 7mm 26mm 80cm Balloon Expandable Lopro Cover - [id number] Implanted:Qty: 1 on 06/11/2019 by Addi Rico MD at [facility] Stent N/A: Aorta [employer] - [id number] 04/24/2021 [id number] / / [id number] Description:Left Renal Arter y [id number] Graft Endovascular 106mm 12mm H&L-B One-Shot Znth 2 Brch - [id number] Implanted:Qty: 1 on 06/11/2019 by Addi Rico MD at [facility] Stent N/A: Aorta [employer] [id number] 05/12/2022 [id number] / / [id number] Graft Endovascular 56mm 16mm 5.4mm 14fr Znth Sprlz 2 Brch - [id number] Implanted:Qty: 1 on 06/11/2019 by Addi Rico MD at [facility] Stent N/A: Aorta [employer] [id number] 02/09/2022 [id number] / / [id number] Stent Vascular 7mm 16mm 80cm Balloon Expandable Lopro Cover - [id number] Implanted:Qty: 1 on 06/13/2019 by Addi Rico MD at [facility] Stent Left: Arterial [employer] - [id number] 02/23/2020 [id number] 716 / / [id number] Stent Tracheobronchial 7mm 7fr 22mm 120cm Cover Catheter - [id number] Implanted:Qty: 1 on 06/13/2019 by Addi Rico MD at [facility] Stent [employer] [id number] / [id number] / Description:no sticker provi ded. [id number] Gold Markers 24k - [id number] Implanted:Qty: 8 on 06/11/2019 by Addi Rico MD at [facility] Tissue N/A: Aorta [facility] [id number] / / Description:On Aortic Stent Graft Procedures [...] CTA ABDOMEN+PELVIS W W/O CONTRAST CLINICAL INFORMATION: [facility] Order Diagnosis: pt POD#1 from PMEG with four fenestrations (celiac, SMA, b/l renals), 3 stents (SMA, b/l renals), concern for endoleak, need CTA stent graft protocol DESCRIPTION: Initial noncontrast localizing reroller hand images were obtained. Multidetector volumetric imaging was performed through the abdomen and pelvis prior to the use of intravenous contrast. Timing boluses at the level of the aortic arch and iliac arteries were calculated. Subsequently, arterial [...] distally via a patent marginal artery. 5. Renal arteries: There are bilateral fenestrations and stents into single bilateral renal arteries which are well opacified. 6. Abdominal aorta: Changes from endovascular repair of juxtarenal [...] wall thickening, or obvious pericholecystic inflammatory changes. PANCREAS: Normal; no mass [...] TRACT: Stomach and small bowel non-dilated. No colonic wall thickening or pericolonic inflammatory changes. There is colonic diverticulosis without inflammation suggest diverticulitis. ABDOMINAL WALL: Fat-containing periumbilical hernia measures 3 cm transverse. There is a right inguinal hernia which contains a tiny portion of the anterior right margin of the bladder. Increased attenuation of the soft tissues in the bilateral groins from recent procedure. LYMPHOVASCULAR STRUCTURES: No lymphadenopathy. BLADDER: Decompressed with a Travis catheter. A minimal portion of the anterior right margin is contained within a right inguinal PELVIC VISCERA: Unremarkable. OSSEOUS STRUCTURES: No acute or suspicious osseous abnormality. Procedure Note Clemente Stern MD - 06/12/2019 EXAMINATION: CTA CHEST FOR AORTA, CTA ABDOMEN+PELVIS W W/O CONTRAST CLINICAL INFORMATION: [facility] Order Diagnosis: pt POD#1 from PMEG with fourfenestrations (celiac, SMA, b/l renals), 3 stents (SMA, b/l renals), concern forendoleak, need CTA stent graft protocol DESCRIPTION: Initial noncontrast localizing reroller hand images were obtained. Multidetector volumetric imaging was [...] Most Recently Relevant to Health Maintenance Insurance [facility] FEE BASIS 16 F,ATTN:[place] [id number] [employer] [place] M[place] MEDICARE [facility] ACTIVE DUTY Advance Directives * Full Code (Latest Code Status on File) Date Activated Date Inactivated Comments 06/11/2019 1:29 PM Care Teams Reshipping Clerk Relationship Specialty Start Date End Date Ibrahima Colno MD [address] [place] [address] PCP - General 03/13/18 Addi Rico MD [address] [place] [address] Surgeon Surgery, Vascular 05/14/18
--- OUTSIDE RECORDS SUMMARY | 2024-12-24 09:31 | XMS_ITS ---
Author Name [facility] Organization Unknown History of Medication Use Medication Directions Dispensed Refills Start Date End Date Stat us clopidogrel (PLAVIX) 75 MG tablet Take 1 tablet (75 mg total) by mouth daily. 06/14/2019 active Allergies Allergen Reaction Severity Comment Documented Date Source Statu s HYDROCHLOROTHIAZIDE W-TRIAMTERENE SWELLING 05/07/2018 [facility] active AMLODIPINE SWELLING HHT Problems Problem Status Onset Date Problem Type Date of Resoluti on Source Other emphysema active 2019-05-06 ProblemAct HH CCT Abdominal aortic aneurysm (AAA) greater than 5.5 cm in diameter in male active 2019-06-11 ProblemAct CCT Encounters Encounter Type Encounter Reason Primary Diagnosis Location Date Ambulatory [facility] abdomi nal aortic aneurysm, without rupture [facility] 12/17/2022 Ambulatory [facility] 10/01/2022 Ambulatory [facility] 05/15/2021 [facility] 05/01/2021 Care Team Organization Name Specialty Phone Email Start Date End Da te [facility] 05/16/2021 [facility] 02/06/2021
[2024-12-24 09:53] VITALS: BP 150/78
== END 2024-12-24 10:07 | disposition home or self-care (01) ==
LOC: HO.HMCH 09:19
DX: I10 Essential (primary) hypertension (principal); E78.00 Pure hypercholesterolemia, unspecified; E66.811 Obesity, class 1; Z68.31 Body mass index [BMI] 31.0-31.9, adult; R74.01 Elevation of levels of liver transaminase levels; K42.9 Umbilical hernia without obstruction or gangrene; G25.2 Other specified forms of tremor

== ENCOUNTER → 2024-12-24 09:18 | Outpatient (BNVA) | payer MEDICARE, SELFPAY | PROVIDERS: PCP Internal Medicine | DX: I10 Essential (primary) hypertension (principal); E78.00 Pure hypercholesterolemia, unspecified; E66.811 Obesity, class 1; Z68.31 Body mass index [BMI] 31.0-31.9, adult; R74.01 Elevation of levels of liver transaminase levels; K42.9 Umbilical hernia without obstruction or gangrene; G25.2 Other specified forms of tremor; Z79.899 Other long term (current) drug therapy; Z13.31 Encounter for screening for depression; Z13.39 Encounter for screening examination for other mental health and behavioral disorders | CPT/HCPCS: 96127; 99212 ==

== ENCOUNTER 2024-12-28 12:37 | Outpatient (AMB) | payer MEDICARE, SELFPAY ==
[2024-12-28 12:54] VITALS: BP 110/70; PULSE 79; O2SAT 94; BMI 31.0
--- NOTE | 2024-12-28 12:54 | A.OFFVIS_ITS ---
Vital Signs 12/28/24 12:54 Height 6 ft 1 in Weight 235 lb BMI 31.0 BP 110/70 Blood Pressure Location Rt brachial Position Sitting Pulse 79 Pulse Source Pulse Oximeter Pulse Oximetry (%) 94 Oxygen Delivery Method Room Air Intake Visit Reasons: INP-Other specified forms of tremor Intake Note: NPV referred by PCP Jamie Hess for tremor Pipe Turner Required: No Accompanied by: Self / Same As Patient Allergies amlodipine Adverse Reaction (Intermediate, Verified 12/28/24 12:57) Swelling triamterene-hctz Allergy (Intermediate, Uncoded 12/24/24 09:48) Swelling HPI Comments Details: 79y/o male comes for evaluation of head tremors. Patient says he is unaware of his tremors, they do not bother him or affect his ADLs. No UE or lower extremity tremors. He denies nay neck pain or neck stiffness He denies any family h/o tremors or head injury. No chnage in voice , no gait issues. [facility] Medical History (Updated 12/28/24 @ 13:31 by María Wheeler MD) Isolated tremor of head COPD (chronic obstructive pulmonary disease) AAA (abdominal aortic aneurysm) PATRICIA (obstructive sleep apnea) Hyperlipidemia Obesity Osteoarthritis Hypertension Surgical History Status post left hip replacement History of coronary artery stent placement History of inguinal hernia repair Family History Father Liver problem Mother Brain tumor Brother No problems noted. Brother No problems noted. Family/Other Prostate cancer Brain cancer Social History Housing: House Alcohol intake: never Patient Tobacco Use Status: Former Tobacco user Tobacco use type: Cigarette e-Cigarette/Vaping Use: Never Used Second Hand Smoke Exposure: No service: Yes Current occupational status: retired Cognitive needs: No Hearing needs: Yes Vision needs: Yes (Reading glasses) Physical Exam Vital Signs: Last Vital Signs Pulse 79 12/28/24 12:54 BP 110/70 12/28/24 12:54 Pulse Ox 94 12/28/24 12:54 Oxygen Delivery Method Room Air 12/28/24 12:54 BMI result Body Mass Index 31.0 Const General: cooperative, healthy appearing, comfortable, no acute distress and well developed Nutritional Appearance: obese Orientation/consciousness: patient oriented x3 Eyes Pupils: Equal, round and reactive pupils present Neck Neck: Yes no meningeal signs Neuro Other: mild yes yes head tremors Mild voice tremors General: patient oriented x3, gait normal, tone normal, moves all extremities, no meningeal signs and no focal motor deficits Cranial nerves: Yes Facial sensation intact/muscles of mastication intact, Yes Equal, round and reactive pupils present, Yes Bilaterally intact EOM present, Yes Nystagmus not present, Yes Normal facial strength present, Yes Midline tongue present, Yes Symmetric palate elevation present and Yes Ability to bilaterally elevate shoulders present Cognition (Neuro): normal cognition Gait exam (Neuro): Normal gait present Motor exam (neuro): 5/5 motor strength present throughout and Normal motor muscle tone present throughout Deep tendon reflexes (DTR's): Right triceps reflex intensity grade: 1+, Left triceps reflex intensity grade: 1+, Rt Biceps (C5, C6): 1+, Left biceps reflex intensity grade: 1+, Right brachioradialis reflex intensity grade: 1+, Left brachioradialis reflex intensity grade: 1+, Right patellar reflex intensity grade: 1+ and Left patellar reflex intensity grade: 1+ Coordination: [id number]-[id number] test normal Assessment & Plan Assessment & Plan (1) Isolated tremor of head: Comment: mild Code(s): G25.2 - Other specified forms of tremor Category: Medical Plan Head tremors - no functional impairment from the head tremor. No evidence of Parkinsons No need for any pharmacological treatment or further investigations F/u as needed for any new symptoms or worsening of his tremors. Coding Level of Care Code New Pt Level 4 (05022) Diagnoses Isolated tremor of head G25.2
--- OUTSIDE RECORDS SUMMARY | 2024-12-28 13:12 | XMS_ITS | Clinical Summary ---
Author Organization [facility] Address [address] [place] [address] Care Team Providers Care Tea And Spice Supervisor Name Role Phone Ibrahima Colon MD Primary Care Provider [phone] Addi Rico MD Unavailable [phone] Allergies Active Allergy Reactions Criticality Noted [...] this topic Medical Devices Implanted Type Area Certified Bench Jeweler Technician Device Identifier Shelf Expiration Date Model / Serial / Lot [id number] Graft Endovascular 56mm 20mm 6mm 16fr Znth Sprlz 2 Brch Ntnl - [id number] Implanted:Qty: 1 on 06/11/2019 by Addi Rico MD at [facility] Graft N/A: Aorta [employer] [id number] 08/26/2021 [id number] / / [id number] Graft Endovascular 124mm 30mm H&L-B One-Shot Znth Poly Wvn 2 - [id number] Implanted:Qty: 1 on 06/11/2019 by Addi Rico MD at [facility] Stent N/A: Aorta [employer] 05/12/2022 [id number] / / [id number] Stent Vascular 7mm 26mm 80cm Balloon Expandable Lopro Cover - [id number] Implanted:Qty: 1 on 06/11/2019 by Addi Rico MD at [facility] Stent N/A: Aorta [employer] - [id number] 11/22/2021 [id number] 726 / / [id number] Description:SMA Stent [id number] Stent Tracheobronchial 6mm 6fr 22mm 120cm Cover Catheter - [id number] Implanted:Qty: 1 on 06/11/2019 by Addi Rico MD at [facility] Stent N/A: Aorta [employer] [id number] 12/02/2021 [id number] / [id number] Description:Right Renal Sandra ry [id number] Stent Vascular 7mm 26mm 80cm Balloon Expandable Lopro Cover - [id number] Implanted:Qty: 1 on 06/11/2019 by Addi Rico MD at [facility] Stent N/A: Aorta [employer] - [id number] 04/24/2021 [id number] 726 / / [id number] Description:Left Renal Arter y [id number] Graft Endovascular 106mm 12mm H&L-B One-Shot Znth 2 Brch - [id number] Implanted:Qty: 1 on 06/11/2019 by Addi Rico MD at [facility] Stent N/A: Aorta [employer] [id number] 05/12/2022 [id number] / / [id number] Graft Endovascular 56mm 16mm 5.4mm 14fr Znth Sprlz 2 Brch - [id number] Implanted:Qty: 1 on 06/11/2019 by Addi Rico MD at [facility] Stent N/A: Aorta [employer] [id number] 02/09/2022 [id number] / / [id number] Stent Vascular 7mm 16mm 80cm Balloon Expandable Lopro Cover - [id number] Implanted:Qty: 1 on 06/13/2019 by Addi Rico MD at [facility] Stent Left: Arterial [employer] - [id number] 02/23/2020 [id number] 716 / / [id number] Stent Tracheobronchial 7mm 7fr 22mm 120cm Cover Catheter - [id number] Implanted:Qty: 1 on 06/13/2019 by Addi Rico MD at [facility] Stent [employer] [id number] / [id number] / Description:no sticker provi ded. [id number] Gold Markers 24k - [id number] Implanted:Qty: 8 on 06/11/2019 by Addi Rico MD at [facility] Tissue N/A: Aorta [facility] [id number] / / Description:On Aortic Stent Graft Procedures [...] CTA ABDOMEN+PELVIS W W/O CONTRAST CLINICAL INFORMATION: [facility] Order Diagnosis: pt POD#1 from PMEG with four fenestrations (celiac, SMA, b/l renals), 3 stents (SMA, b/l renals), concern for endoleak, need CTA stent graft protocol DESCRIPTION: Initial noncontrast localizing stave and bolt equalizer images were obtained. Multidetector volumetric imaging was [...] CTA ABDOMEN+PELVIS W W/O CONTRAST CLINICAL INFORMATION: [facility] Order Diagnosis: pt POD#1 from PMEG with fourfenestrations (celiac, SMA, b/l renals), 3 stents (SMA, b/l renals), concern forendoleak, need CTA stent graft protocol DESCRIPTION: Initial noncontrast localizing stave and bolt equalizer images were obtained. Multidetector volumetric imaging was [...] Relevant to Health Maintenance Insurance [facility] FEE BASIS 16 F,[place] [id number] [employer] [place] MGD MEDICARE [facility] ACTIVE DUTY Advance Directives * Full Code (Latest Code Status on File) Date Activated Date Inactivated Comments 06/11/2019 1:29 PM Care Teams Tea And Spice Supervisor Relationship Specialty Start Date End Date Ibrahima Colon MD [address] [place] [address] PCP - General 03/13/18 Addi Rico MD [address] [place] [address] Surgeon Surgery, Vascular 05/14/18
--- OUTSIDE RECORDS SUMMARY | 2024-12-28 13:12 | XMS_ITS | Encounter Summary ---
Author Organization [facility] Address [address] [place] [address] Phone Care Team Providers Care Direct Support Professional Caregiver Name Role Phone Ibrahima Colon MD Primary Care Provider + Encounter Details Date Type Department Care Team (Late st Contact Info) Description 06/05/2018 Ancillary Orders [facility] [address] [place] [address] [address], [address] [place] [address] Renaldo Patricia MD [address] [place] [id number] JUAN Social History Tobacco Use Types Packs/Day [...] on filedocumented in this encounter Care Teams Direct Support Professional Caregiver Relationship Specialty Start Date End Date Ibrahima Colon MD PCP - General Internal Medicine 05/12/18 documented as of this encounter Additional Source Comments The information contained in this document represents components of the legal health record. It is not the complete legal health record.[facility]
== END 2024-12-28 14:52 | disposition home or self-care (01) ==
LOC: HO.HSMS 12:38
PROVIDERS: Visit Provider Psychiatry & Neurology Neurology
DX: G25.2 Other specified forms of tremor (principal)
CPT/HCPCS: 99204

== ENCOUNTER → 2024-12-28 12:37 | Outpatient (BNVA) | payer MEDICARE, SELFPAY | PROVIDERS: Visit Provider Psychiatry & Neurology Neurology | DX: G25.2 Other specified forms of tremor (principal) | CPT/HCPCS: 99202 ==

== ENCOUNTER 2024-12-29 14:38 | Outpatient (AMB) | payer MEDICARE, SELFPAY ==
--- NOTE | 2024-12-29 14:48 | MHC.OFFVIS ---
Vital Signs 12/29/24 14:56 Height 6 ft 1 in Weight 236 lb BMI 31.1 BP 156/67 H Blood Pressure Location Rt brachial Position Sitting Pulse 73 Intake Visit Reasons: umbilical hernia Intake Note: Patient referred by pcp Jamie Hess PAIN MANAGEMENT SPECIALIST for evaluation of umbilical hernia. Present for 8yrs. Patient c/o: bulging out. Once in a while mild pain. Abdomen US: 11-03-2024 Adapted Physical Education Teacher Required: No Accompanied by: Self / Same As Patient Allergies amlodipine Adverse Reaction (Intermediate, Verified 12/29/24 14:54) Swelling triamterene-hctz Allergy (Intermediate, Uncoded 12/29/24 14:54) Swelling HPI HPI umbilical hernia: Details: 79-year-old male referred for an umbilical hernia. He says that he has had this mass on his umbilicus for over 5 years now. He however says that this has been increasing in size. He describes discomfort now . He says he wants to proceed with umbilical hernia repair. He says he feels that he is healthy overall. He had an aortic stent done in the past for an aneurysm. This has in 2019. He said he has been doing well since that time. He is not on any blood thinners. He denies significant cardiac problems. He says he remains active. [facility] Medical History Isolated tremor of head COPD (chronic obstructive pulmonary disease) AAA (abdominal aortic aneurysm) PATRICIA (obstructive sleep apnea) Hyperlipidemia Obesity Osteoarthritis Hypertension Surgical History Status post left hip replacement History of coronary artery stent placement History of inguinal hernia repair Family History Father Liver problem Mother Brain tumor Brother No problems noted. Brother No problems noted. Family/Other Prostate cancer Brain cancer Social History Housing: House Alcohol intake: never Patient Tobacco Use Status: Former Tobacco user Tobacco use type: Cigarette e-Cigarette/Vaping Use: Never Used Second Hand Smoke Exposure: No service: Yes Current occupational status: retired Cognitive needs: No Hearing needs: Yes Vision needs: Yes (Reading glasses) Review of Systems Const Denies chills and Denies fever(s) Card Denies chest pain, Denies dyspnea and Denies dyspnea on exertion Resp Denies cough, Denies dyspnea and Denies dyspnea on exertion GI Denies hematochezia and Denies change in bowel habits Denies hematuria and Denies difficulty urinating Musc Denies back pain and Denies limited range of motion Neuro Denies focal weakness and Denies convulsions Psych Denies depression and Denies mood swings Physical Exam Vital Signs: Last Vital Signs Pulse 73 12/29/24 14:56 BP 156/67 H 12/29/24 14:56 BMI result Body Mass Index 31.1 Const General: comfortable and no acute distress Orientation/consciousness: patient oriented x3 Neck Neck: Yes no lymphadenopathy Resp Auscultation: clear to auscultation bilaterally Cardio Rhythm: regular rhythm GI Other: Reducible hernia in the umbilicus with a fascial defect about 2.5 cm Palpation (GI): Soft to palpation, nontender and no guarding Neuro General: patient oriented x3 Assessment & Plan Assessment & Plan (1) Umbilical hernia: Code(s): K42.9 - Umbilical hernia without obstruction or gangrene Category: Medical Qualifiers: Obstruction and gangrene presence: without obstruction or gangrene Qualified Code(s): K42.9 - Umbilical hernia without obstruction or gangrene Plan: He has a reducible umbilical hernia as described above. He wants to proceed with the repair I explained to him the technique of repair with possible mesh placement. I reviewed the risks including but not limited to bleeding, infections, recurrence, bowel injury, as well as the benefits and alternatives. I explained to him what to expect postoperatively. He says he understands and wants to proceed. Coding Level of Care Code New Pt Level 3 (18512) Diagnoses Umbilical hernia without obstruction and without gangrene K42.9 Obstruction and gangrene presence: without obstruction or gangrene
[2024-12-29 14:56] VITALS: BP 156/67; PULSE 73; BMI 31.1
--- OUTSIDE RECORDS SUMMARY | 2024-12-29 15:05 | XMS_ITS | Clinical Summary ---
Author Organization [facility] Address [address] [place] [address] Care Team Providers Care Renal Case Manager Name Role Phone Ibrahima Colon MD Primary Care Provider [phone] Addi Rico MD Unavailable [phone] Allergies Active Allergy Reactions Criticality Noted [...] this topic Medical Devices Implanted Type Area Powder Compounder Device Identifier Shelf Expiration Date Model / Serial / Lot [id number] Graft Endovascular 56mm 20mm 6mm 16fr Znth Sprlz 2 Brch Ntnl - [id number] Implanted:Qty: 1 on 06/11/2019 by Addi Rico MD at [facility] Graft N/A: Aorta [employer] [id number] 08/26/2021 [id number] / / [id number] Graft Endovascular 124mm 30mm H&L-B One-Shot Znth Poly Wvn 2 - [id number] Implanted:Qty: 1 on 06/11/2019 by Addi Rico MD at [facility] Stent N/A: Aorta [employer] 05/12/2022 [id number] / / [id number] Stent Vascular 7mm 26mm 80cm Balloon Expandable Lopro Cover - [id number] Implanted:Qty: 1 on 06/11/2019 by Addi Rico MD at [facility] Stent N/A: Aorta [employer] - [id number] 11/22/2021 [id number] / / [id number] Description:SMA Stent [id number] Stent Tracheobronchial 6mm 6fr 22mm 120cm Cover Catheter - [id number] Implanted:Qty: 1 on 06/11/2019 by Addi Rico MD at [facility] Stent N/A: Aorta [employer] [id number] 12/02/2021 [id number] / [id number] Description:Right Renal Sandra ry [id number] Stent Vascular 7mm 26mm 80cm Balloon Expandable Lopro Cover - [id number] Implanted:Qty: 1 on 06/11/2019 by Addi Rico MD at [facility] Stent N/A: Aorta [employer] - [id number] 04/24/2021 [id number] 726 / / [id number] Description:Left Renal Arter y [id number] Graft Endovascular 106mm 12mm H&L-B One-Shot Znth 2 Brch - [id number] Implanted:Qty: 1 on 06/11/2019 by Addi Rico MD at [facility] Stent N/A: Aorta [employer] [id number] 05/12/2022 [id number] / / [id number] Graft Endovascular 56mm 16mm 5.4mm 14fr Znth Sprlz 2 Brch - [id number] Implanted:Qty: 1 on 06/11/2019 by Addi Rico MD at [facility] Stent N/A: Aorta [employer] [id number] 02/09/2022 [id number] / / [id number] Stent Vascular 7mm 16mm 80cm Balloon Expandable Lopro Cover - [id number] Implanted:Qty: 1 on 06/13/2019 by Addi Rico MD at [facility] Stent Left: Arterial [employer] - [id number] 02/23/2020 [id number] 716 / / [id number] Stent Tracheobronchial 7mm 7fr 22mm 120cm Cover Catheter - [id number] Implanted:Qty: 1 on 06/13/2019 by Addi Rico MD at [facility] Stent [employer] [id number] / [id number] / Description:no sticker provi ded. [id number] Gold Markers 24k - [id number] Implanted:Qty: 8 on 06/11/2019 by Addi Rico MD at [facility] Tissue N/A: Aorta [facility] [id number] / / Description:On Aortic Stent Graft Procedures [...] CTA ABDOMEN+PELVIS W W/O CONTRAST CLINICAL INFORMATION: [facility] Order Diagnosis: pt POD#1 from PMEG with four fenestrations (celiac, SMA, b/l renals), 3 stents (SMA, b/l renals), concern for endoleak, need CTA stent graft protocol DESCRIPTION: Initial noncontrast localizing print color matcher images were obtained. Multidetector volumetric imaging was [...] CTA ABDOMEN+PELVIS W W/O CONTRAST CLINICAL INFORMATION: [facility] Order Diagnosis: pt POD#1 from PMEG with fourfenestrations (celiac, SMA, b/l renals), 3 stents (SMA, b/l renals), concern forendoleak, need CTA stent graft protocol DESCRIPTION: Initial noncontrast localizing print color matcher images were obtained. Multidetector volumetric imaging was [...] Most Recently Relevant to Health Maintenance Insurance [facility] FEE BASIS 16 F,ATTN:[place] [address] [place] [place] MGD MEDICARE [facility] ACTIVE DUTY Advance Directives * Full Code (Latest Code Status on File) Date Activated Date Inactivated Comments 06/11/2019 1:29 PM Care Teams Renal Case Manager Relationship Specialty Start Date End Date Ibrahima Colon MD [address] [place] [address] PCP - General 03/13/18 Addi Rico MD [address] [place] [address] Surgeon Surgery, Vascular 05/14/18
--- OUTSIDE RECORDS SUMMARY | 2024-12-29 15:05 | XMS_ITS | Encounter Summary ---
Author Organization [facility] Address [address] [place] [address] Phone Care Team Providers Care Grinder Set Up Operator Thread Name Role Phone Ibrahima Colon MD Primary Care Provider + Encounter Details Date Type Department Care Team (Late st Contact Info) Description 06/05/2018 Ancillary Orders [facility] [address] [place] [address] [address] Floor, [address] [place] [address] Renaldo Patricia MD [address] [place] [address] JUAN Social History Tobacco Use Types Packs/Day [...] on filedocumented in this encounter Care Teams Grinder Set Up Operator Thread Relationship Specialty Start Date End Date Ibrahima Colon MD PCP - General Internal Medicine 05/12/18 documented as of this encounter Additional Source Comments The information contained in this document represents components of the legal health record. It is not the complete legal health record.[facility]
== END 2024-12-29 15:09 | disposition home or self-care (01) ==
LOC: HO.HGS 14:39
PROVIDERS: Visit Provider Surgery
DX: K42.9 Umbilical hernia without obstruction or gangrene (principal)
CPT/HCPCS: 99203

== ENCOUNTER → 2024-12-29 14:38 | Outpatient (BNVA) | payer MEDICARE, SELFPAY | PROVIDERS: Visit Provider Surgery | DX: K42.9 Umbilical hernia without obstruction or gangrene (principal) | CPT/HCPCS: 99202 ==

== ENCOUNTER 2025-02-18 12:52 | Outpatient (REF) | payer MEDICARE, SELFPAY ==
--- OUTSIDE RECORDS SUMMARY | 2025-02-18 14:13 | XMS_ITS | Encounter Summary ---
Author Organization [facility] Address [address] [place] [address] Phone Care Team Providers Care Gas Cutter Name Role Phone Ibrahima Colon MD Primary Care Provider + Encounter Details Date Type Department Care Team (Latest Contact Info) Description 06/05/2018 Ancillary Orders [facility] [address] [facility] 3rd Floor, [address] [place] [address] Renaldo Patricia MD [address] [place] [address] JUAN [email or web address] Hyperlipidemia, unspecified hyperlipidemia type; Hypertension, unspecified type Social History Tobacco Use Types Packs/Day Years Used Date Smoking Tobacco: Never Assessed Sex and Gender Information Value Date Recorded Sex Assigned at Not on file Legal Sex Male 10:06 AM EST Gender Identity Not on file Sexual Orientation Not on file documented as of this encounter Plan of Treatment Not on file documented as of this encounter Results * NC Myocardial Perfusion Stress Single (06/03/2018 1:59 PM EST) Nuc Stress EF 53 % LV Systolic Volume Index 41 mL/m2 LV Diastolic Volume Index 87 mL/m2 Anatomical Region Laterality Modality Heart Ultrasound Narrative 06/05/2018 3:57 PM EST Left ventricular perfusion is normal. Left ventricular perfusion is normal. Normal study. There is no evidence of myocardial infarction or ischemia. Normal LV size and function with no regional wall motion abnormalities. Very low likelihood of hemodynamically significant coronary artery disease. Low risk study for myocardial events or cardiac in the next two years. Nuclear Study Quality Overall image quality is good. The test performed was a stress only SPECT myocardial perfusion imaging with exercise stress. During stress, 12.4mCi Tc99m Sestamibi was injected intravenously Lt AC IV on 06/03/18 at peak exercise followed by 1 minute of exercise.The stress images were obtained 15 minutes following the radiopharmaceutical injection. Patient was imaged in both supine and prone positions successfully. No motion artifact is present and no attenuation activity seen. No significant limitations identified. There is no extracardiac activity identified.. Study was successfully gated with a stress ejection fraction of 53%.. Response to Stress BMI:32.07 1945 Exercise Stress Test Report: Patient with AAA, hyperlipidemia, obesity, hypertension Reason for termination: fatigue Summary: Resting ECG: SR-ST HR 99-110 BPM, TWI V5-V6 Functional capacity: fair Heart rate response to exercise: achieved target HR within 1 minute Blood pressure response to exercise: baseline hypertensive - slightly hypertensive response to exercise. Chest pain: none Arrhythmias: none Conclusion: Patient exercised for 4:06 minutes on a standard Paxton protocol (held Stage I) achieving 104% MPHR and 4.6 METS. Test terminated due to fatigue. Summary: 1. EKG: No EKG evidence of ischemia meeting criteria. TWI resolving in exercise, returning in late recovery. 2. Symptoms: No exertional chest pain or symptoms concerning for angina 3. Exercise physiology: Max HR 155 BPM with normal HR recovery. Max BP 210/92 from baseline BP of 150/90. Fair functional capacity for age. See attached stress report for full details. 4. Arrhythmia: None Conclusion: Normal ETT portion of test. No ischemic EKG changes meeting criteria. Vital signs at baseline at time of discharge from the lab. Nuclear images to follow. EKG reviewed with Dr. Olivares. Codi Whitfield, PATTERN FITTER, MPH . Perfusion Comments Lung to heart ratio is .27 Perfusion Conclusion LV perfusion is normal. Stress Function Comments Left ventricular function post-stress was normal. Post-stress ejection fraction was 53%. The stress end diastolic cavity size is normal. Stress end diastolic index: 87 mL/m2. The stress end systolic cavity size is normal. Stress end systolic index: 41 mL/m2. Nuc Stress Combined Conclusion Left ventricular perfusion is normal. Nuclear Prior Study There is no prior study available for comparison. Perfusion Scoring Stress Summed Score: 0 Percent Normal: 0.00% The left ventricular perfusion is normal. Procedure Note Beny Olivares MD - 06/05/2018 Left ventricular perfusion is normal. Left ventricular perfusion is normal. Normal study. There is no evidence of myocardial infarction or ischemia. Normal LV size and function with no regional wall motion abnormalities. Very low likelihood of hemodynamically significant coronary arterydisease. Low risk study for myocardial events or cardiac in the next twoyears. Renaldo Patricia MD CV NM CARDIAC Final Result documented in this encounter Visit Diagnoses Diagnosis Hyperlipidemia, unspecified hyperlipidemia type Hypertension, unspecified type Hyperlipidemia, unspecified hyperlipidemia type Hypertension, unspecified type documented in this encounter Care Teams Gas Cutter Relationship Specialty Start Date End Date Ibrahima Colon MD PCP - General Internal Medicine 05/12/18 documented as of this encounter Additional Source Comments The information contained in this document represents components of the legal health record. It is not the complete legal health record.[facility]
--- OUTSIDE RECORDS SUMMARY | 2025-02-18 14:13 | XMS_ITS | Encounter Summary ---
Author Organization [facility] Address [address] [place] [address] Phone Care Team Providers Care Commercial Green Building Designer Name Role Phone Ibrahima Colon MD Primary Care Provider + Encounter Details Date Type Department Care Team (Late st Contact Info) Description 06/05/2018 Ancillary Orders [facility] [address] [place] [address] [address]rd Floor, [address] [place] [address] Renaldo Patricia MD [address] [place] [address] JUAN Social History Tobacco Use Types Packs/Day [...] on filedocumented in this encounter Care Teams Commercial Green Building Designer Relationship Specialty Start Date End Date Ibrahima Colon MD PCP - General Internal Medicine 05/12/18 documented as of this encounter Additional Source Comments The information contained in this document represents components of the legal health record. It is not the complete legal health record.[facility]
--- OUTSIDE RECORDS SUMMARY | 2025-02-18 14:14 | XMS_ITS | Clinical Summary ---
Author Organization [facility] Address [address] [place] [address] Care Team Providers Care Hospitalist Physician Name Role Phone Ibrahima Colon MD Primary Care Provider [phone] dAdi Rico MD Unavailable [phone] Allergies Active Allergy Reactions Criticality Noted [...] Encounters Date Type Department Care Team Description 02/10/2025 Orders Only [facility] [address] [place] [phone] Addi Rico MD Pararenal abdominal aortic aneurysm (AAA) without rupture (Primary Dx) 01/25/2025 Telephone [facility] [address] [place] [address] Addi Rico MD 01/17/2025 Orders Only [facility] [address] [place] [phone] Addi Rico MD Pararenal abdominal aortic aneurysm (AAA) without rupture (Primary Dx) 01/07/2025 Orders Only [facility] [address] [place] [address] Provider, MD Iain 01/06/2025 Telephone [facility] [address] [place] [address] Pcp, No from Last 3 Months Social History Tobacco [...] 12/17/2022 2:45 PM EDT Plan of Treatment Upcoming Encounters Date Type Department Care Team (Late st Contact Info) Description 03/07/2025 11:20 AM EDT Appointment [facility] [place] [address] [place] [phone] Addi Rico MD [address] [place], [place] [id number] 03/07/2025 1:00 PM EDT Office Visit [facility] [address] [place] [address] Addi Rico MD [address] [place] [address] Health Maintenance Due Date Last Done Comments Advance Care Planning 1945 Hepatitis C Virus Screening 1945 DTaP/Tdap/Td Vaccines (1 - Tdap) 1964 Pneumococcal Vaccines 50+ (1 of 2 - PCV) 1964 Zoster (Shingles) Vaccine (1 of 2) 10/29/1995 RSV Vaccine 60 years and older and Patients (1 - 1-dose 75+ series) 2020 Influenza Vaccine 12/24/2024 04/16/2022 COVID-19 Vaccine (1 - 2023- season) 2025 Abdominal Aortic Aneurysm (AAA) Screening Discontinued 02/10/2025, 01/17/2025, 03/30/2024, Additional history exists Hepatitis B Vaccines Aged Out No long er eligible based on patient's age to complete this topic Medical Devices Implanted Type Area Computer Assistant Device Identifier Shelf Expiration Date Model / Serial / Lot [id number] Graft Endovascular 56mm 20mm 6mm 16fr Znth Sprlz 2 Brch Ntnl - [id number] Implanted:Qty: 1 on 06/11/2019 by Addi Rcio MD at [facility] Graft N/A: Aorta [employer] [id number] 08/26/2021 [id number] / / [id number] Graft Endovascular 124mm 30mm H&L-B One-Shot Znth Poly Wvn 2 - [id number] Implanted:Qty: 1 on 06/11/2019 by Addi Rico MD at [facility] Stent N/A: Aorta [employer] 05/12/2022 [id number] / / [id number] Stent Vascular 7mm 26mm 80cm Balloon Expandable Lopro Cover - [id number] Implanted:Qty: 1 on 06/11/2019 by Addi Rico MD at [facility] Stent N/A: Aorta [employer] - [id number] 11/22/2021 [id number] 726 / / [id number] Description:SMA Stent [id number] Stent Tracheobronchial 6mm 6fr 22mm 120cm Cover Catheter - [id number] Implanted:Qty: 1 on 06/11/2019 by Addi Rico MD at [facility] Stent N/A: Aorta [employer] [id number] 12/02/2021 [id number] / [id number] / Description:Right Renal Sandra ry [id number] Stent Vascular 7mm 26mm 80cm Balloon Expandable Lopro Cover - [id number] Implanted:Qty: 1 on 06/11/2019 by Addi Rico MD at [facility] Stent N/A: Aorta [employer] - [id number] 04/24/2021 [id number] 726 / / [id number] Description:Left Renal Arter y [id number] Graft Endovascular 106mm 12mm H&L-B One-Shot Znth 2 Brch - [id number] Implanted:Qty: 1 on 06/11/2019 by Addi Rico MD at [facility] Stent N/A: Aorta [employer] [id number] 05/12/2022 [id number] / / [id number] Graft Endovascular 56mm 16mm 5.4mm 14fr Znth Sprlz 2 Brch - [id number] Implanted:Qty: 1 on 06/11/2019 by Addi Rico MD at [facility] Stent N/A: Aorta [employer] [id number] 02/09/2022 [id number] / / [id number] Stent Vascular 7mm 16mm 80cm Balloon Expandable Lopro Cover - [id number] Implanted:Qty: 1 on 06/13/2019 by Addi Rico MD at [facility] Stent Left: Arterial [employer] - [id number] 02/23/2020 [id number] 716 / / [id number] Stent Tracheobronchial 7mm 7fr 22mm 120cm Cover Catheter - [id number] Implanted:Qty: 1 on 06/13/2019 by Addi Rico MD at [facility] Stent [employer] [id number] / [id number] / Description:no sticker provi ded. [id number] Gold Markers 24k - [id number] Implanted:Qty: 8 on 06/11/2019 by Addi Rico MD at [facility] Tissue N/A: Aorta [facility] [id number] / / Description:On Aortic Stent Graft Procedures Procedure Name Priority Date/Time Associated Diagnosis Comments IMAGING-SCAN Routine 01/07/2025 4:23 PM EDT CTA ABDOMEN+PELVIS W W/O CONTRAST Routine 06/12/2019 12:32 PM EST from Last 3 Months or Most Recently Relevant to Health Maintenance Results * IMAGING-SCAN (01/07/2025 4:23 PM EDT) Anatomical Region Laterality Modality Other us External Provider MD MURGUIA AMB PROCEDURES Final Res ult * CTA Abdomen+pelvis w w/o contrast (06/12/2019 [...] CTA ABDOMEN+PELVIS W W/O CONTRAST CLINICAL INFORMATION: [facility] Order Diagnosis: pt POD#1 from PMEG with four fenestrations (celiac, SMA, b/l renals), 3 stents (SMA, b/l renals), concern for endoleak, need CTA stent graft protocol DESCRIPTION: Initial noncontrast localizing electronic pagination system operator images were obtained. Multidetector volumetric imaging [...] CTA ABDOMEN+PELVIS W W/O CONTRAST CLINICAL INFORMATION: [facility] Order Diagnosis: pt POD#1 from PMEG with fourfenestrations (celiac, SMA, b/l renals), 3 stents (SMA, b/l renals), concern forendoleak, need CTA stent graft protocol DESCRIPTION: Initial noncontrast localizing electronic pagination system operator images were obtained. Multidetector volumetric imaging [...] Most Recently Relevant to Health Maintenance Insurance [place] [employer] FEE BASIS 16 F,ATTN:[place] [address] [employer] [place] MGD MEDICARE [facility] ACTIVE DUTY Advance Directives * Full Code (Latest Code Status on File) Date Activated Date Inactivated Comments 06/11/2019 1:29 PM Care Teams Hospitalist Physician Relationship Specialty Start Date End Date Ibrahima Colon MD [address] [place] [address] PCP - General 03/13/18 Addi Rico MD [address] [place] [address] Surgeon Surgery, Vascular 05/14/18
--- OUTSIDE RECORDS SUMMARY | 2025-02-18 14:14 | XMS_ITS | Clinical Summary ---
Author Organization [facility] Address [address] [address] Phone Care Team Providers Care Billing Coordinator Name Role Phone Ibrahima Colon MD Primary Care Provider + Active Problems Problem Noted Date Diagnosed Date Rapid heart rate 05/12/2019 Social History Tobacco Use Types Packs/Day Years Used Date Smoking Tobacco: Never Assessed Education Answer Date Recorded Are you interested in more education? Not on katiuska e 09/20/2022 Are you concerned about learning? Not on file 09/20/2022 No 09/20/2022 No 09/20/2022 Digital Access Answer Date Recorded No 10/19/2022 No 10/19/2022 No 10/19/2022 Reliable internet access at home? Not on file 10/19/2022 Device with a working camera? Not on file Sex and Gender Information Value Date Recorded Sex Assigned at Not on file Legal Sex Male 10:06 AM EST Gender Identity Not on file Sexual Orientation Not on file Last Filed Vital Signs Vital Sign Reading Time Taken Comments Blood Pressure 156/86 05/12/2019 11:42 AM EST Pulse - - Temperature - - Respiratory Rate - - Oxygen Saturation 94% 05/12/2019 11:00 AM EST Inhaled Oxygen Concentration - - Weight - - Height - - Body Mass Index - - Plan of Treatment Health Maintenance Due Date Last Done Comments LIPID PANEL 1945 DEPRESSION SCREENING 1957 SMOKING Hx and SMOKELESS TOBACCO SCREENING 1958 HEPATITIS C SCREENING 10/29/1963 ZOSTER VACCINES (2 of 3) 02/05/2013 12/11/2012 RSV VACCINE (1 - 1-dose 75+ series) 2020 Adult Td,Tdap Booster 02/12/2024 02/11/2014, 03/03/2 014 INFLUENZA VACCINE (#1) 2024 0, 03/12/2019, 02/12/2018, Additional history exists COVID-19 VACCINE ( season) 2025 09/02/2020, 08/05/2020 PNEUMOCOCCAL VACCINES (50+ years) Completed 07/12/2015, 06/09/2014, 06/09/2014 HEPATITIS A VACCINES Aged Out No long er eligible based on patient's age to complete this topic HIB VACCINES Aged Out No longer eligi ble based on patient's age to complete this topic MENINGOCOCCAL VACCINES (ACWY) Aged Out No longer eligible based on patient's age to complete this topic MENINGOCOCCAL VACCINES (B) Aged Out N o longer eligible based on patient's age to complete this topic Medical Devices Not on file Insurance [employer] [place] [employer] POS PPO REPLACEMENT Member Subscriber Plan / Payer (Ef fective 2017-Present) Name:Davon James Relation to Subscriber:Self Name:Davon James Payer ID:Not on file Type:Medicare Address: [address] [employer] [place] [employer] POS PPO REPLACEMENT [facility] Member Subscriber Plan / Payer (Ef fective 2019-Present) Name:Davon James Relation to Subscriber:Self Name:Erika Davon Payer ID:[id number] (NAIC) Group ID:Not on file Type:Indemnity Address: [facility] [id number] [place] [id number] [employer] [place] MEDIC[employer] POS PPO REPLACEMENT [facility] [employer] [place] POS PPO [facility]PLAC[facility] [place] [place] POS PPO [facility]PL[facility] [place] [place] POS PPO REPLAC[facility] [employer] [place] [employer] POS PPO REPLACEMENT [facility] [employer] [place] [employer] POS PPO REPLACEMENT Member Subscriber Plan / Payer (Ef fective 2017-Present) Name:Davon James Relation to Subscriber:Self Name:Davon James Payer ID:Not on file Type:Medicare Address: [address] [employer] [place] [employer] POS PPO REPLACEMENT Member Subscriber Plan / Payer (Ef fective 2017-Present) Name:Davon James Relation to Subscriber:Self Name:Davon James Payer ID:Not on file Type:Medicare Address: [address] Care Teams Billing Coordinator Relationship Specialty Start Date End Date Ibrahima Colon MD PCP - General Internal Medicine 05/12/18 Additional Source Comments The information contained in this document represents components of the legal health record. It is not the complete legal health record.[facility]
--- OUTSIDE RECORDS SUMMARY | 2025-02-18 14:14 | XMS_ITS | Encounter Summary ---
Author Organization [facility] Address [address] [place] [address] Phone Care Team Providers Care Farm Products Shipper Name Role Phone Ibrahima Colon MD Primary Care Provider + Encounter Details Date Type Department Care Team (Latest Contact Info) Description 05/06/2019 Transcribe Orders [facility] [address] [place] [address] 3rd Floor, [address] [place] [address] Renaldo Patricia MD [address] [place] [id number] [email or web address] Abdominal aortic aneurysm (AAA) without rupture (Primary Dx); Other specified pre-operative examination Social History Tobacco Use Types Packs/Day Years Used Date Smoking Tobacco: Never Assessed Sex and Gender Information Value Date Recorded Sex Assigned at Not on file Legal Sex Male 10:06 AM EST Gender Identity Not on file Sexual Orientation Not on file documented as of this encounter Plan of Treatment Not on file documented as of this encounter Results * NC Myocardial Perfusion Exercise Multiple (05/12/2019 12:05 PM EST) Nuc Stress EF 53 % LV Systolic Volume 44 mL LV Diastolic Volume 101 mL EF 56 % LV Systolic Volume Index 46 mL/m2 LV Diastolic Volume Index 98 mL/m2 Anatomical Region Laterality Modality Heart, Vascular Ultrasound Narrative 05/13/2019 3:14 PM EST Probably normal study There is some evidence of diaphragmatic attenuation but it resolves on prone imaging. There is no evidence of myocardial infarction or ischemia. Normal LV size and function with no regional wall motion abnormalities. Very low likelihood of hemodynamically significant coronary artery disease. Low risk study for myocardial events or cardiac in the next two years.\ Nuclear Study Quality TYPE OF STUDY: Myocardial Perfusion Imaging after exercise utilizing a standard Paxton protocol with gated SPECT. PROTOCOL USED: One day rest- stress protocol in the supine and prone position. Images were obtained in gated tomographic technique. Images were processed in SPECT format, reconstructed tomographically and compared [id number] in short axis, horizontal long axis and vertical long axis. DOSE: Technetium 99m Sestamibi 7.0 mCi injected intravenously at rest on 05/12/2019 with post injection scan time of 60 minutes. Technetium 99m Sestamibi 21.3 mCi injected intravenously during stress on 05/12/2019 with post injection scan time of 20 minutes. Overall image quality is good. Diaphragmatic attenuation artifact is present. Study was gated successfully. Perfusion Defect The lung to heart ratio is 0.32. Response to Stress BMI: 33.65 Patient exercised for 5:16 minutes on a standard Paxton protocol achieving 7.0 METs and 100% MPHR (148 BPM). The test was terminated due to hypertensive response. SUMMARY: 1. RESTING ECG: sinus rhythm HR 78 bpm with RBBB with NSSTW abnormalities. 2. EXERCISE ECG: non-diagnostic due to exaggeration of baseline ECG abnormalities. 3. SYMPTOMS: no chest pain. 4. PHYSIOLOGY: Hypertensive response, appropriate chronotropic response. Resting heart rate of 88 bpm drew to a max heart rate of 148 bpm, this represents 100% MPHR. Resting BP of 146/80 drew to a max BP of 212/86. Vital signs stable and returned to baseline prior to discharge from the lab. Achieved 7.0 METs consistent with average functional capacity for age. 5. ARRHYTHMIA: infrequent isolated PACs and PVCs. CONCLUSION: Non-diagnostic ECG portion of exercise nuclear stress test due to exaggeration of baseline ECG abnormalities. No symptoms concerning for angina. Hypertensive response. Average functional capacity. Nuclear images and report to follow. Mel Ravi PA-C . Perfusion Comments Stress LV cavity volume was 58 mL. Resting LV cavity volume was 65 mL. The stress/rest perfusion ratio is 0.89. There is no evidence of transient ischemic dilation (TID). The TID ratio was 0.9. Stress Function Comments Left ventricular function post-stress was normal. Post-stress ejection fraction was 53%. Stress end diastolic index: 98 mL/m2. Stress end systolic index: 46 mL/m2. Nuclear Prior Study There is no prior study available for comparison. Rest Function Comments Left ventricular function at rest was normal. Resting ejection fraction was 56%. Rest end diastolic index: 101 mL. Rest end systolic index: 44 mL. Perfusion Scoring Stress Summed Score: 1 Percent Normal: 1.47% Mild count reduction in the following segments: apical septal. All other segments are normal. Perfusion Scoring Resting Summed Score: 2 Percent Normal: 2.94% Mild count reduction in the following segments: mid inferior and apical septal. All other segments are normal. Procedure Note Beny Olivares MD - 05/13/2019 Probably normal study There is some evidence of diaphragmatic attenuation but it resolves onprone imaging. There is no evidence of myocardial infarction or ischemia. Normal LV size and function with no regional wall motion abnormalities. Very low likelihood of hemodynamically significant coronary arterydisease. Low risk study for myocardial events or cardiac in the next twoyears.\ us Renaldo Patricia MD CV NM CARDIAC Final Result documented in this encounter Visit Diagnoses Diagnosis Abdominal aortic aneurysm (AAA) without rupture- Primary Other specified pre-operative examination Rapid heart rate- Primary Unspecified tachycardia Abdominal aortic aneurysm (AAA) without rupture Other specified pre-operative examination documented in this encounter Care Teams Farm Products Shipper Relationship Specialty Start Date End Date Ibrahima Colon MD PCP - General Internal Medicine 05/12/18 documented as of this encounter Additional Source Comments The information contained in this document represents components of the legal health record. It is not the complete legal health record.[facility]
--- OUTSIDE RECORDS SUMMARY | 2025-02-18 14:14 | XMS_ITS | Encounter Summary ---
Author Organization [facility] Address [address] [place] [address] Phone Care Team Providers Care Slunk Skinner Name Role Phone Ibrahima [place] MD Primary Care Provider + Encounter Details Date Type Department Care Team (Late st Contact Info) Description 06/05/2018 Ancillary Orders [facility] [address] [place] [address] [address]rd Floor, [address] [place] [address] Renaldo Patricia MD [address] [place] [id number] JUAN Social History Tobacco Use Types Packs/Day [...] on filedocumented in this encounter Care Teams Slunk Skinner Relationship Specialty Start Date End Date Ibrahima Colon MD PCP - General Internal Medicine 05/12/18 documented as of this encounter Additional Source Comments The information contained in this document represents components of the legal health record. It is not the complete legal health record.[facility]
[2025-02-18 16:23] LABS: Blood Urea Nitrogen 18 mg/dL (9-16); Estimated Glomerular Filt Rate > 60
== END 2025-02-18 12:53 | disposition home or self-care (01) ==
LOC: HO.HMGCLDS 12:52
PROVIDERS: Visit Provider Surgery Vascular Surgery
DX: I71.41 Pararenal abdominal aortic aneurysm, without rupture (principal)
CPT/HCPCS: 36415; 82565; 84520

== ENCOUNTER 2025-03-25 10:20 | Day surgery (SDC) | payer MEDICARE, SELFPAY ==
--- NOTE | 2025-03-22 14:44 | HO.ANESPROP2 ---
Documented by User: Teri Seymour NP 03/23/25 12:55 HPI - Anesthesia Eval Consult details Narrative: 79yo M for Repair Hernia Umbilical Reducible possible mesh Follows [facility] Cardiology for htn, hld, . Stable at 10/2024 office visit. Vascular optimized. s/p AAA repair 2019 - Follows [facility]. Uneventful postop course and stable CT scan 02/2025 (exclusion of AAA without endoleak. Residual sac 3.8cm) Head tremor - eval'd by neuro - bening without impedement of function - prn f/u only, no rx PMFSH Active Problems Active Problems: All Active Problems Isolated tremor of head (Acute) Isolated tremor of head (Acute) Elevated AST (SGOT) (Acute) Hematuria (Acute) Intermittent abdominal pain (Acute) Umbilical hernia (Acute) Physical exam (Acute) Hyperlipidemia (Acute) Obesity (Acute) Osteoarthritis (Acute) Hypertension (Acute) Ankle pain (Acute) Past Medical History Medical History CAD (coronary artery disease) Isolated tremor of head COPD (chronic obstructive pulmonary disease) AAA (abdominal aortic aneurysm) PATRICIA (obstructive sleep apnea) Hyperlipidemia Obesity Osteoarthritis Hypertension Family History Family History Father Liver problem Mother Brain tumor Brother No problems noted. Brother No problems noted. Family/Other Prostate cancer Brain cancer Family history of problems with anesthesia: No Surgical History Surgical History History of cataract surgery History of AAA (abdominal aortic aneurysm) repair Status post left hip replacement History of coronary artery stent placement History of inguinal hernia repair History of Problems with Anesthesia: No Social History Social History Housing: House Alcohol intake: never Patient Tobacco Use Status: Former Tobacco user Tobacco use type: Cigarette e-Cigarette/Vaping Use: Never Used Second Hand Smoke Exposure: No Use of substances other than those prescribed or required for medical reasons: Yes Substance Use Type Other:: GUMMIE Are you DNR?: No Advance Directives: No Advance Directives Information Provided: Yes service: Yes Current occupational status: retired Cognitive needs: No Hearing needs: Yes Vision needs: Yes (Reading glasses) Meds Allergies Allergy/AdvReac Type Severity Reaction Status Date / Time triamterene Allergy Swelling Verified 03/23/25 11:39 (triamterene w/HCTZ) amlodipine AdvReac Intermediate Swelling Verified 12/29/24 14:54 Home Medications ?Medication ?Instructions ?Recorded ?Confirmed ?Last Taken ?Type aspirin 81 mg tablet,delayed 81 mg PO DAILY 04/18/20 03/23/25 Unknown History release lisinopril 20 mg tablet 20 mg PO DAILY 04/18/20 03/23/25 01/24/23 History pravastatin 40 mg tablet 40 mg PO DAILY 04/18/20 03/23/25 Unknown History acetaminophen 500 mg capsule 1,000 mg PO Q6H PRN Pain 09/23/24 03/23/25 Unknown History metoprolol tartrate 50 mg tablet 50 mg PO BID 09/23/24 03/23/25 03/25/25 History ipratropium 20 mcg-albuterol 100 1 puff inhalation Q6H PRN 03/23/25 03/23/25 Unknown History mcg/actuation mist for inhalation Shortness Of Breath (Combivent Respimat) Exam Pertinent Lab Results Pertinent Lab Results: Laboratory Tests 09/24/24 02/18/25 07:46 12:58 WBC 6.8 Hgb 14.6 Hct 43.9 Plt Count 204 Sodium 141 Potassium 4.2 Chloride 108 Carbon Dioxide 26 BUN 18 H Creatinine 0.98 Narrative Narrative: Per 10/2024 cardiology office visit: Assessment and Plan Assessment Anesthesia Assessment: Chart Reviewed Final Anesthetic Review Family History of Problems with Anesthesia: No History of Problems with Anesthesia: No Documented by User: Pete Carranza MD 03/25/25 12:33 [facility] Past Medical History Medical History CAD (coronary artery disease) Isolated tremor of head COPD (chronic obstructive pulmonary disease) AAA (abdominal aortic aneurysm) PATRICIA (obstructive sleep apnea) Hyperlipidemia Obesity Osteoarthritis Hypertension Family History Family History Father Liver problem Mother Brain tumor Brother No problems noted. Brother No problems noted. Family/Other Prostate cancer Brain cancer Surgical History Surgical History History of cataract surgery History of AAA (abdominal aortic aneurysm) repair Status post left hip replacement History of coronary artery stent placement History of inguinal hernia repair Social History Social History Housing: House Alcohol intake: never Patient Tobacco Use Status: Former Tobacco user Tobacco use type: Cigarette e-Cigarette/Vaping Use: Never Used Second Hand Smoke Exposure: No Use of substances other than those prescribed or required for medical reasons: Yes Substance Use Type Other:: GUMMIE Are you DNR?: No Advance Directives: No Advance Directives Information Provided: Yes service: Yes Current occupational status: retired Cognitive needs: No Hearing needs: Yes Vision needs: Yes (Reading glasses) Meds Allergies Allergy/AdvReac Type Severity Reaction Status Date / Time triamterene Allergy Swelling Verified 03/23/25 11:39 (triamterene w/HCTZ) amlodipine AdvReac Intermediate Swelling Verified 12/29/24 14:54 Home Medications ?Medication ?Instructions ?Recorded ?Confirmed ?Last Taken ?Type aspirin 81 mg tablet,delayed 81 mg PO DAILY 04/18/20 03/23/25 Unknown History release lisinopril 20 mg tablet 20 mg PO DAILY 04/18/20 03/23/25 01/24/23 History pravastatin 40 mg tablet 40 mg PO DAILY 04/18/20 03/23/25 Unknown History acetaminophen 500 mg capsule 1,000 mg PO Q6H PRN Pain 09/23/24 03/23/25 Unknown History metoprolol tartrate 50 mg tablet 50 mg PO BID 09/23/24 03/23/25 03/25/25 History ipratropium 20 mcg-albuterol 100 1 puff inhalation Q6H PRN 03/23/25 03/23/25 Unknown History mcg/actuation mist for inhalation Shortness Of Breath (Combivent Respimat) Exam Exam Date and Time: 03/25/25 Airway Mallampati Class: II TM Dist: >3cm Neck ROM: Full Partial: Upper Heart: rrr Lungs: ctab vesicular Assessment and Plan Assessment Anesthesia Assessment: Anesthesia Plan Discussed Final Anesthetic Review NPO: Yes ASA Class: III Final Preanesthetic Review: No Changes in Pt Med Stat, Meds/Allgs Chart Reviewed, Consent Obtained/Reviewed and Anes Risks/Benef Reviewed Patient Risk: Low Procedure Risk: Low Anesthetic Plan Anesthetic Plan: GA Disposition: Standard PACU
[2025-03-23 12:02] VITALS: BMI 31.1
[2025-03-25 10:43] VITALS: BMI 31.2
[2025-03-25 10:49] VITALS: BP 155/71; PULSE 55; RESP 16; TEMP 36.4; O2SAT 92
[2025-03-25] MEDS: Lactated Ringers 1,000 ML 100 ML IVCONT (11:03)
--- NOTE | 2025-03-25 12:15 | MHC.SHP ---
Pre-Procedural Eval Section A - 24 Hr Update-Section A only Date of Service: 03/25/25 Section B - Complete if H&P > 30 days Chief Complaint: Umbilical hernia without obstruction or gangrene Details of Present Illness: Has a small umbilical hernia, reducible Relevant Social History: None Present Medications: see Short Stay Collaborative assessment Medical History: Significant History (History of aortic aneurysm, osteoarthritis, obesity, hypertension) Allergies: Allergies Allergy/AdvReac Type Severity Reaction Status Date / Time triamterene Allergy Swelling Verified 03/23/25 11:39 (triamterene w/HCTZ) amlodipine AdvReac Intermediate Swelling Verified 12/29/24 14:54 Review of Systems Sugical H&P ROS: Negative: Constitution, Cardiovascular, Respiratory and Gastrointestinal Exam Surgical H&P Exam: Normal: Heart and Normal: Lungs and Significant Findings: Abdomen (Umbilical hernia reducible) Plan Diagnosis/Plan: Unchanged I have reviewed the history and physical and performed a pertinent physical examination on my patient. No changes have occurred unless specified. Time Spent With Patient Time: Total time managing care of this patient today ____ minutes.
--- NOTE | 2025-03-25 13:26 | W.PM.OPN ---
Operative Note Operative Note Date of Service: 03/25/25 Narrative: Preop diagnosis: Reducible umbilical hernia Postop diagnosis: Reducible umbilical hernia, with a fascial defect 3.2 cm in diameter Procedure: Repair of umbilical hernia with medium-sized Phasix umbilical mesh Surgeon: Terry Cavanaugh MD children's nursery assistant: SENA Larios The patient is a 79-year-old male with note of an umbilical hernia. He wanted to proceed with the repair in view of symptoms . He understood the technique of the planned procedure as well as the risks, benefits, and alternatives. He was brought to the operating room placed supine under general anesthesia via endotracheal tube. The abdomen was prepped and draped in the usual sterile fashion. A surgical time-out was done. The patient received cefazolin 2 g IV preoperatively I made a transverse curvilinear supraumbilical incision with a blade 15.. This was carried down through the full-thickness of the skin and subcutaneous fat. I proceeded to gently dissect the umbilicus to lift this off as a flap using Metzenbaum scissors as well as electrocautery. By doing so was able to identify the hernia contents. I gently dissected the hernia contents off of the rest of the subcutaneous layer and the umbilical fat all the way down to the fascial layer. I dissected the umbilical contents sharply with Metzenbaum scissors off of the fascial edge in view of adhesions until was able to completely reduce the hernia. The hernia contained only fat I cleared the underside of the fascial defect. The fascial defect measured 3.2 cm in diameter I used a medium-sized Phasix umbilical mesh. I flattened the mesh underneath the abdominal wall. I secured the straps of the mesh on both sides through the fascial layer with Prolene 2-0 sutures I then closed the fascial defect over the mesh with a running Maxon 1 stitch. I applied a Polysorb 3-0 stitch on the umbilicus to re-create the dimple I then reapposed the subdermal layer with Polysorb 3-0 simple sutures. The closure was achieved with Polysorb 4-0 subcuticular running sutures The area was infiltrated with Marcaine 0.5% for postop analgesia. Dressings were applied and the procedure was completed The patient tolerated the procedure well. There were no immediate complications. Initial and final counts of sponges and instruments were correct. Estimated blood loss about 25 cc. The patient was extubated without difficulty and transferred to the recovery room with stable vital signs.
[2025-03-25 13:43] VITALS: BP 145/71; PULSE 91; RESP 8; TEMP 36.8; O2SAT 97
[2025-03-25 13:48] VITALS: BP 153/70; PULSE 83; RESP 12; O2SAT 95
[2025-03-25 13:53] VITALS: BP 135/73; PULSE 81; RESP 16; O2SAT 95
[2025-03-25 13:57] VITALS: BP 145/72; PULSE 80; RESP 16; O2SAT 95
[2025-03-25 14:12] VITALS: BP 142/69; PULSE 76; RESP 17; TEMP 36.1; O2SAT 93
== END 2025-03-25 14:41 | disposition home or self-care (01) ==
PROVIDERS: Visit Provider Surgery
PROC: (CPT 49593; principal; 2025-03-25 12:40)
DX: K42.9 Umbilical hernia without obstruction or gangrene (principal); I71.40 Abdominal aortic aneurysm, without rupture, unspecified; Z95.5 Presence of coronary angioplasty implant and graft; I10 Essential (primary) hypertension; E78.5 Hyperlipidemia, unspecified; J44.9 Chronic obstructive pulmonary disease, unspecified; R25.1 Tremor, unspecified; M19.90 Unspecified osteoarthritis, unspecified site; G47.33 Obstructive sleep apnea (adult) (pediatric); Z66 Do not resuscitate; Z79.51 Long term (current) use of inhaled steroids; Z79.82 Long term (current) use of aspirin; Z79.899 Other long term (current) drug therapy; Z88.8 Allergy status to other drugs, medicaments and biological substances; Z96.642 Presence of left artificial hip joint; Z98.890 Other specified postprocedural states; Z87.891 Personal history of nicotine dependence
CPT/HCPCS: 49593; C1781; J0131; J0690; J1100; J1596; J2003; J2405; J2704; J2795; J3010

== ENCOUNTER → 2025-03-25 10:20 | Outpatient (BNV) | payer MEDICARE, SELFPAY | PROVIDERS: Visit Provider Surgery | DX: K42.9 Umbilical hernia without obstruction or gangrene (principal) | CPT/HCPCS: 49593 ==

== ENCOUNTER 2025-04-19 08:38 | Outpatient (AMB) | payer MEDICARE, SELFPAY ==
--- NOTE | 2025-04-19 08:41 | A.OFFVIS_ITS ---
Vital Signs 04/19/25 08:51 Height 6 ft 1 in Weight 243 lb BMI 32.1 Intake Visit Reasons: s/p umbilical hernia poss mesh Intake Note: Patient is seen in office for post op assessment post repair of umbilical hernia with medium-sized Phasix umbilical mesh. Pt's c/o; I just want to be sure the incisions are healing well and if the bumps around the incision are normal . surgery:03/25/25 () Benefits Analyst Required: No Accompanied by: Self / Same As Patient Allergies triamterene Allergy (Verified 04/19/25 08:51) Swelling (triamterene w/HCTZ) amlodipine Adverse Reaction (Intermediate, Verified 04/19/25 08:51) Swelling HPI HPI s/p umbilical hernia poss mesh: Details: Overall doing well. Denies pain, only had pain for a day or 2 postoperatively. Only concern is some swelling from incision site. Initially was larger the 1st week or so but has decreased in size. Again denies pain, drainage, bleeding. Denies fevers. Has been avoiding heavy lifting, tight fitting clothes. Denies issues with bowel movements, urination. Has been tolerating gentle ambulation around the house. [facility] Medical History CAD (coronary artery disease) Isolated tremor of head COPD (chronic obstructive pulmonary disease) AAA (abdominal aortic aneurysm) PATRICIA (obstructive sleep apnea) Hyperlipidemia Obesity Osteoarthritis Hypertension Surgical History History of umbilical hernia repair (03/25/25) History of cataract surgery History of AAA (abdominal aortic aneurysm) repair Status post left hip replacement History of coronary artery stent placement History of inguinal hernia repair Family History Father Liver problem Mother Brain tumor Brother No problems noted. Brother No problems noted. Family/Other Prostate cancer Brain cancer Social History Housing: House Alcohol intake: never Patient Tobacco Use Status: Former Tobacco user Tobacco use type: Cigarette e-Cigarette/Vaping Use: Never Used Second Hand Smoke Exposure: No service: Yes Current occupational status: retired Cognitive needs: No Hearing needs: Yes Vision needs: Yes (Reading glasses) Physical Exam Vital Signs: BMI result Body Mass Index 32.1 Const General: comfortable and no acute distress Orientation/consciousness: patient oriented x3 GI Other: Umbilical hernia repair site. Moderate induration. Incision site well healed. Some mild scabbing along the incision site. No erythema, nontender, no palpable fluid collection. Inspection: No distended Palpation (GI): Soft to palpation, nontender and no guarding Neuro General: patient oriented x3 Assessment & Plan Assessment & Plan (1) S/P umbilical hernia repair, follow-up exam: Comment: 03/25/2025 Dr. Cavanaugh Phasix mesh Code(s): Z09 - Encounter for follow-up examination after completed treatment for conditions other than malignant neoplasm Category: Medical Plan 79-year-old male s/p umbilical hernia repair with Phasix mesh on 03/25/[address] Cavanaugh returning for follow-up. He reports he is overall doing well. Denies pain. Had pain for couple days postoperatively but has been tolerating activities around the house. He has been avoiding heavy lifting. Appetite bowel function at baseline. No problems with urination. We concern is a small bump at the incision site. States that there is initially larger but is not decreased in size still remains prominent. He denies any drainage from the site, denies tenderness. There is no erythema or bleeding noted. On exam there is some moderate induration deep to the incision which is likely postsurgical changes, possible that this represented a small seroma. But there is no evidence of skin compromise. No other concerns for infection. Incision appears to be healing well. Recommended do warm compress to 3 times a day to help soften this area. We will continue with no heavy lifting for the next 2 weeks. Patient will return in 2 weeks for re-evaluation, he can return sooner with any questions or concerns Coding Level of Care Code Est Pt Level 4 (66964) Diagnoses S/P umbilical hernia repair, follow-up exam Z09
[2025-04-19 08:51] VITALS: BMI 32.1
--- OUTSIDE RECORDS SUMMARY | 2025-04-19 08:59 | XMS_ITS | Encounter Summary ---
Author Organization [facility] Address [address] [place] [address] Phone Care Team Providers Care Baggage Inspector Name Role Phone Ibrahima Colon MD Primary Care Provider + Encounter Details Date Type Department Care Team (Late st Contact Info) Description 06/05/2018 Ancillary Orders [facility] [address] [place] [address] [address]rd Floor, [address] [place] [address] Renaldo Patricia MD [address] [place] [id number] JUAN Social History Tobacco Use Types Packs/Day [...] on filedocumented in this encounter Care Teams Baggage Inspector Relationship Specialty Start Date End Date Ibrahima Colon MD PCP - General Internal Medicine 05/12/18 documented as of this encounter Additional Source Comments The information contained in this document represents components of the legal health record. It is not the complete legal health record.[facility]
--- OUTSIDE RECORDS SUMMARY | 2025-04-19 08:59 | XMS_ITS | Clinical Summary ---
Author Organization [facility] Address [address] [place] [address] Care Team Providers Care Game Developer Name Role Phone Ibrahima Colon MD Primary Care Provider [phone] Addi Rico MD Unavailable [phone] Allergies Active Allergy Reactions Criticality Noted [...] (81 mg total) daily. 30 tablet 11 0 Active clopidogrel (PLAVIX) 75 MG tabletIndicatio ns:Abdominal aortic aneurysm (AAA) without rupture Take 1 tablet (75 mg total) by mouth daily. 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 Encounters Date Type Department Care Team Description 03/07/2025 1:00 PM EDT Office Visit [facility] [address] [place] [address] Addi Rico MD Pararenal abdominal aortic aneurysm (AAA) without rupture (Primary Dx) 03/07/2025 10:34 AM EDT - 03/07/2025 11:59 PM EDT Hospital Encounter [facility] [address] [place] [address], [place] [address] Addi Rico MD Discharge Disposition: Home or Self Care 02/25/2025 Scanned Document [facility] [address] [place] [address] Addi Rico MD from Last 3 Months Social History Tobacco [...] Male 11/06/2022 3:25 PM EDT Sexual Orientation Heterosexual (straight) 03/07 10:25 AM EDT Last Filed Vital Signs Vital Sign Reading Time Taken Comments Blood Pressure 120/80 03/07/2025 1:11 PM EDT Pulse 72 03/07/2025 1:11 PM EDT Temperature 37 C (98.6 F) 06/14/2019 7:00 AM EST Respiratory Rate 18 06/14/2019 7:00 AM EST Oxygen Saturation 90% 03/07/2025 1:11 PM EDT Inhaled Oxygen Concentration - - Weight 109 kg (240 lb) 03/07/2025 1:11 PM EDT Height 185.4 cm (6' 1 ) 03/07/2025 1:11 PM EDT Body Mass Index 31.66 03/07/2025 1:11 PM EDT Plan of Treatment Health Maintenance Due Date Last Done Comments Advance Care Planning 1945 Hepatitis C Virus Screening 1945 DTaP/Tdap/Td Vaccines (1 - Tdap) 1964 Pneumococcal Vaccines 50+ (1 of 2 - PCV) 1964 Zoster (Shingles) Vaccine (1 of 2) 10/29/1995 RSV Vaccine 50 years and older and Patients (1 - 1-dose 75+ series) 2020 Influenza Vaccine 12/24/2024 04/18/2024, , 05/06/2022, Additional history exists COVID-19 Vaccine ( season) 2025 11/09/2021, 04/14/2021, 09/02/2020, Additional history exists Colonoscopy Discontinued 02/18/2017, 01/25, 01/21/2012 Abdominal Aortic Aneurysm (AAA) Screening Discontinued 03/07/2025, 03/07/2025, 02/10/2025, Additional history exists Hepatitis B Vaccines Aged Out No long er eligible based on patient's age to complete this topic Medical Devices Implanted Type Area Dispute Resolution Analyst Device Identifier Shelf Expiration Date Model / Serial / Lot [id number] Graft Endovascular 56mm 20mm 6mm 16fr Znth Sprlz 2 Brch Ntnl - [id number] Implanted:Qty: 1 on 06/11/2019 by Addi Rico MD at [facility] Graft N/A: Aorta [employer] [id number] 08/26/2021 [id number] / / [id number] Graft Endovascular 124mm 30mm H&L-B One-Shot Znth Poly Wvn 2 - [id number] Implanted:Qty: 1 on 06/11/2019 by Addi Rico MD at [facility] Stent N/A: Aorta [employer] 05/12/2022 [id number] / / [id number] Stent Vascular 7mm 26mm 80cm Balloon Expandable Lopro Cover - [id number] Implanted:Qty: 1 on 06/11/2019 by Addi Rico MD at [facility] Stent N/A: Aorta [employer] - [id number] 11/22/2021 [id number] / / [id number] Description:SMA Stent [id number] Stent Tracheobronchial 6mm 6fr 22mm 120cm Cover Catheter - [id number] Implanted:Qty: 1 on 06/11/2019 by Addi Rico MD at [facility] Stent N/A: Aorta [employer] [id number] 12/02/2021 [id number] / [id number] Description:Right Renal Sandra ry [id number] Stent Vascular 7mm 26mm 80cm Balloon Expandable Lopro Cover - [id number] Implanted:Qty: 1 on 06/11/2019 by Addi Rico MD at [facility] Stent N/A: Aorta [employer] - [id number] 04/24/2021 [id number] / / [id number] Description:Left Renal Arter y [id number] Graft Endovascular 106mm 12mm H&L-B One-Shot Znth 2 Brch - [id number] Implanted:Qty: 1 on 06/11/2019 by Addi Rico MD at [facility] Stent N/A: Aorta [employer] [id number] 05/12/2022 [id number] / / [id number] Graft Endovascular 56mm 16mm 5.4mm 14fr Znth Sprlz 2 Brch - [id number] Implanted:Qty: 1 on 06/11/2019 by Addi Rico MD at [facility] Stent N/A: Aorta [employer] [id number] 02/09/2022 [id number] / / [id number] Stent Vascular 7mm 16mm 80cm Balloon Expandable Lopro Cover - [id number] Implanted:Qty: 1 on 06/13/2019 by Addi Rico MD at [facility] Stent Left: Arterial [employer] - [id number] 02/23/2020 [id number] / / [id number] Stent Tracheobronchial 7mm 7fr 22mm 120cm Cover Catheter - [id number] Implanted:Qty: 1 on 06/13/2019 by Addi Rico MD at [facility] Stent [employer] [id number] / [id number] / Description:no sticker provi ded. [id number] Gold Markers 24k - [id number] Implanted:Qty: 8 on 06/11/2019 by Addi Rico MD at [facility] Tissue N/A: Aorta [facility] [id number] / / Description:On Aortic Stent Graft Procedures Procedure Name Priority Date/Time Associated Diagnosis Comments CTA ABDOMEN+PELVIS W W/O CONTRAST Routine 03/07/2025 10:55 AM EDT Pararenal abdominal aortic aneurysm (AAA) without rupture LAB RESULT Routine 02/18/2025 11:54 AM EDT from Last 3 Months Results * CTA Abdomen+pelvis w w/o contrast (03/07/2025 10:55 AM EDT) Anatomical Region Laterality Modality CTA Body Computed Tomogra phy 03/07/2025 10:3 5 AM EDT Impressions 03/12/2025 1:25 PM EDT 1. Status post endovascular repair of the juxtarenal abdominal aortic aneurysm with fenestrated stent graft. The excluded sac measures up to 3.8 x 3.2 cm. No endoleak. 2. Mild narrowing in the fenestrated celiac artery and SMA stents without a hemodynamically significant stenosis. 3. Moderate right inguinal hernia containing a small portion of the bladder and fat. 4. Enlarged prostate. 5. Colonic diverticulosis. 6. Emphysema. Fleischner guidelines were followed. Narrative 03/12/2025 1:25 PM EDT STUDY PERFORMED: CTA OF THE ABDOMEN AND PELVIS WITH AND WITHOUT CONTRAST CLINICAL INFORMATION: I71.41-Pararenal abdominal aortic aneurysm (AAA) without rupture; stent graft protocol fenestrated stent graft repair of pararenal abdominal aortic aneurysm DESCRIPTION: Initial noncontrast localizing archery equipment hay sorter images were obtained. A timing bolus at the level of the celiac artery was calculated. Subsequently, arterial phase multidetector volumetric imaging was performed through the abdomen and pelvis following the administration of 80 mL Omnipaque 350 intravenous contrast. No contrast reaction reported Sagittal and coronal reformatted images were obtained on the technologist's workstation. After extensive post-processing on a dedicated 3-D workstation, 3-D reformatted images were uploaded to PACS and reviewed as well. This CT examination was performed using dose optimization techniques as appropriate, variously including the following: *Automated exposure control *Adjustment of mA and/or kV according to patient size (this includes techniques or standardized protocols for targeted exams where dose is matched to indication/reason for exam; i.e. extremities or head) *Use of iterative reconstruction technique Total exam dose-length product 2506 mGy-cm COMPARISON: 06/12/2019 FINDINGS: Vascular: Mixed calcified and noncalcified atherosclerotic plaque in the distal descending thoracic aorta with some irregular mural thrombus. The patient is status post endovascular repair of the juxtarenal abdominal aortic aneurysm with fenestrated stent graft. The excluded sac measures up to 3.8 x 3.2 cm. There is no endoleak visualized. The iliac limbs are patent. The hypogastric arteries, external iliac arteries and visualized common femoral arteries, proximal superficial femoral arteries and profunda femoral arteries are mild to moderately diseased but patent. There is mild narrowing in the fenestrated celiac artery and SMA artery stents without a hemodynamically significant stenosis. The fenestrated renal artery stents appear to be patent. The CATHY is occluded at the origin with filling via collaterals. Nonvascular: LUNG BASES: There are emphysematous changes in the lung bases. Heart is mildly enlarged, no pericardial effusion. PLEURA: No pleural effusion. LIVER, GALLBLADDER, AND BILIARY TREE: Liver is mildly enlarged measuring 20.8 cm in craniocaudal dimension. No intrahepatic biliary ductal dilatation. Coarse calcifications in the right lobe of the liver are unchanged. The gallbladder is unremarkable with no evidence of radiopaque gallstones, gallbladder wall thickening, or obvious pericholecystic inflammatory changes. PANCREAS: No pancreatic ductal dilatation or inflammatory changes. Mild fatty atrophy of the pancreas. SPLEEN: Normal size. No focal lesion. ADRENAL GLANDS: Normal; no mass. KIDNEYS AND URETERS: The kidneys are normal in size, shape, and attenuation. No hydronephrosis, hydroureter, or calculi. GASTROINTESTINAL TRACT: Small hiatal hernia. No obstruction. Colonic diverticulosis without diverticulitis. ABDOMINAL WALL: Fat-containing umbilical hernia. Moderate right inguinal hernia containing a small portion of the bladder and fat. LYMPHATIC STRUCTURES: No lymphadenopathy. BLADDER: A portion of the bladder extends into the right inguinal hernia. The bladder is relatively decompressed limiting evaluation. PELVIC VISCERA: The prostate is enlarged measuring 6.4 cm. OSSEOUS STRUCTURES: Moderate spondylitic changes in the spine. Procedure Note Hemant Barba MD - 03/12/2025 STUDY PERFORMED: CTA OF THE ABDOMEN AND PELVIS WITH AND WITHOUT CONTRAST CLINICAL INFORMATION: I71.41-Pararenal abdominal aortic aneurysm (AAA) without rupture; stent graft protocol fenestrated stent graft repair of pararenal abdominal aortic aneurysm DESCRIPTION: Initial noncontrast localizing archery equipment hay sorter images were obtained. A timing bolus at the level of the celiac artery was calculated. Subsequently, arterial phase multidetector volumetric imaging was performed through the abdomen and pelvis following the administration of 80 mL Omnipaque 350 intravenous contrast. No contrast reaction reported Sagittal and coronal reformatted images were obtained on the technologist's workstation. After extensive post-processing on a dedicated 3-D workstation, 3-D reformatted images were uploaded to PACS and reviewed as well. This CT examination was performed using dose optimization techniques as appropriate, variously including the following: *Automated exposure control *Adjustment of mA and/or kV according to patient size (this includes techniques or standardized protocols for targeted exams where dose is matched to indication/reason for exam; i.e. extremities or head) *Use of iterative reconstruction technique Total exam dose-length product 2506 mGy-cm COMPARISON: 06/12/2019 FINDINGS: Vascular: Mixed calcified and noncalcified atherosclerotic plaque in the distal descending thoracic aorta with some irregular mural thrombus. The patient is status post endovascular repair of the juxtarenal abdominal aortic aneurysm with fenestrated stent graft. The excluded sac measures up to 3.8 x 3.2 cm. There is no endoleak visualized. The iliac limbs are patent. The hypogastric arteries, external iliac arteries and visualized common femoral arteries, proximal superficial femoral arteries and profunda femoral arteries are mild to moderately diseased but patent. There is mild narrowing in the fenestrated celiac artery and SMA artery stents without a hemodynamically significant stenosis. The fenestrated renal artery stents appear to be patent. The CATHY is occluded at the origin with filling via collaterals. Nonvascular: LUNG BASES: There are emphysematous changes in the lung bases. Heart is mildly enlarged, no pericardial effusion. PLEURA: No pleural effusion. LIVER, GALLBLADDER, AND BILIARY TREE: Liver is mildly enlarged measuring 20.8 cm in craniocaudal dimension. No intrahepatic biliary ductal dilatation. Coarse calcifications in the right lobe of the liver are unchanged. The gallbladder is unremarkable with no evidence of radiopaque gallstones, gallbladder wall thickening, or obvious pericholecystic inflammatory changes. PANCREAS: No pancreatic ductal dilatation or inflammatory changes. Mild fatty atrophy of the pancreas. SPLEEN: Normal size. No focal lesion. ADRENAL GLANDS: Normal; no mass. KIDNEYS AND URETERS: The kidneys are normal in size, shape, and attenuation. No hydronephrosis, hydroureter, or calculi. GASTROINTESTINAL TRACT: Small hiatal hernia. No obstruction. Colonic diverticulosis without diverticulitis. ABDOMINAL WALL: Fat-containing umbilical hernia. Moderate right inguinal hernia containing a small portion of the bladder and fat. LYMPHATIC STRUCTURES: No lymphadenopathy. BLADDER: A portion of the bladder extends into the right inguinal hernia. The bladder is relatively decompressed limiting evaluation. PELVIC VISCERA: The prostate is enlarged measuring 6.4 cm. OSSEOUS STRUCTURES: Moderate spondylitic changes in the spine. IMPRESSION: 1. Status post endovascular repair of the juxtarenal abdominal aortic aneurysm with fenestrated stent graft. The excluded sac measures up to 3.8 x 3.2 cm. No endoleak. 2. Mild narrowing in the fenestrated celiac artery and SMA stents without a hemodynamically significant stenosis. 3. Moderate right inguinal hernia containing a small portion of the bladder and fat. 4. Enlarged prostate. 5. Colonic diverticulosis. 6. Emphysema. Fleischner guidelines were followed. Addi Rico MD IMG CT ORDERABLES Final Resul t * LAB RESULT (02/18/2025 11:54 AM EDT) Addi Rico MD HX AMB PROCEDURES Final Resul t from Last 3 Months Insurance [employer] MEDICARE [facility] ACTIVE DUTY Advance Directives * Full Code (Latest Code Status on File) Date Activated Date Inactivated Comments 06/11/2019 1:29 PM Care Teams Game Developer Relationship Specialty Start Date End Date Ibrahima Colon MD [address] [place] [id number] PCP - General 03/13/18 Addi Rico MD [address] [place] [address] Surgeon Surgery, Vascular 05/14/18
--- OUTSIDE RECORDS SUMMARY | 2025-04-19 08:59 | XMS_ITS | Encounter Summary ---
Author Organization [facility] Address [address] [place] [address] Phone Care Team Providers Care Nozzle Worker Name Role Phone Ibrahima Colon MD Primary Care Provider + Encounter Details Date Type Department Care Team (Latest Contact Info) Description 05/06/2019 Transcribe Orders [facility] [address] [place] [address] [address] Floor, [address] [place] [address] Renaldo Patricia MD [address] [place] [id number] [email or web address] Abdominal aortic aneurysm (AAA) [...] in SPECT format, reconstructed tomographically and compared [id number] in short axis, horizontal long axis and [...] examination documented in this encounter Care Teams Nozzle Worker Relationship Specialty Start Date End Date Ibrahima Colon MD PCP - General Internal Medicine 05/12/18 documented as of this encounter Additional Source Comments The information contained in this document represents components of the legal health record. It is not the complete legal health record.[facility]
--- OUTSIDE RECORDS SUMMARY | 2025-04-19 08:59 | XMS_ITS | Clinical Summary ---
Author Organization [facility] Address [address] [address] Phone Care Team Providers Care Traffic Signal Repairer Name Role Phone Ibrahima Colon MD [...] James Payer ID:Not on file Type:Medicare Address: [address] [employer] POS PPO REPLACEMENT [facility] Member Subscriber Plan / Payer (Ef fective 2019-Present) Name:Davon James Relation to Subscriber:Self Name:Erika Davon Payer ID:[id number] (NAIC) Group ID:Not on file Type:Indemnity Address: [facility] [id number] [place] [id number] [employer] MED[employer] POS PPO REPLACEMENT [...] James Payer ID:Not on file Type:Medicare Address: [address] [employer] POS PPO REPLACEMENT Member Subscriber Plan / Payer (Ef fective 2017-Present) Name:Davon James Relation to Subscriber:Self Name:Davon James Payer ID:Not on file Type:Medicare Address: [address] Care Teams Traffic Signal Repairer Relationship Specialty Start Date End Date Ibrahima Colon MD PCP - General Internal Medicine 05/12/18 Additional Source Comments The information contained in this document represents components of the legal health record. It is not the complete legal health record.[facility]
--- OUTSIDE RECORDS SUMMARY | 2025-04-19 08:59 | XMS_ITS | Encounter Summary ---
Author Organization [facility] Address [address] [place] [address] Phone Care Team Providers Care Strap Buckler Name Role Phone Ibrahima Colon MD Primary Care Provider + Encounter Details Date Type Department Care Team (Late st Contact Info) Description 06/05/2018 Ancillary Orders [facility] [address] [place] [address] [address]rd Floor, [address] [place] [address] Renaldo Patricia MD [address] [place] [id number] JUAN Social History Tobacco Use Types Packs/Day [...] on filedocumented in this encounter Care Teams Strap Buckler Relationship Specialty Start Date End Date Ibrahima Colon MD PCP - General Internal Medicine 05/12/18 documented as of this encounter Additional Source Comments The information contained in this document represents components of the legal health record. It is not the complete legal health record.[facility]
--- OUTSIDE RECORDS SUMMARY | 2025-04-19 08:59 | XMS_ITS | Encounter Summary ---
Author Organization [facility] Address [address] [place] [address] Care Team Providers Care Pan Washer Hand Name Role Phone Ibrahima Colon MD Primary Care Provider [phone] Addi Rico MD Unavailable [phone] Encounter Details Date Type Department Care Team (Late st Contact Info) Description 02/25/2025 Scanned Document [facility] Vascular & Endovascular Surgery [address] [place] [address] Addi Rico MD [address] [place] [address] Social History Tobacco Use Types Packs/Day Years [...] Orientation Heterosexual (straight) 03/07 10:25 AM EDT documented as of this encounter Plan of Treatment Not on file documented as of this encounter Visit Diagnoses Not on filedocumented in this encounter Care Teams Pan Washer Hand Relationship Specialty Start Date End Date Ibrahima Colon MD [address] [place] [address] PCP - General 03/13/18 Addi Rico MD [address] [place] [id number] Surgeon Surgery, Vascular 05/14/18 documented as of this encounter
--- OUTSIDE RECORDS SUMMARY | 2025-04-19 08:59 | XMS_ITS | Encounter Summary ---
Author Organization [facility] Address [address] [place] [address] Phone Care Team Providers Care Digital Asset Manager Name Role Phone Ibrahima Colon MD Primary Care Provider + Encounter Details Date Type Department Care Team (Latest Contact Info) Description 06/05/2018 Ancillary Orders [facility] [address] [place] [address] [address]rd Floor, [address] [place] [address] Renaldo Patricia MD [address] [place] [id number] JUAN [email or web address] Hyperlipidemia, unspecified hyperlipidemia type; Hypertension, unspecified [...] EKG reviewed with Dr. Olivares. Codi Whitfield, CEMENT RUBBER, MPH . Perfusion Comments Lung to heart [...] type documented in this encounter Care Teams Digital Asset Manager Relationship Specialty Start Date End Date Ibrahima Colon MD PCP - General Internal Medicine 05/12/18 documented as of this encounter Additional Source Comments The information contained in this document represents components of the legal health record. It is not the complete legal health record.[facility]
== END 2025-04-19 09:03 | disposition home or self-care (01) ==
LOC: HO.HGS 08:39
DX: K42.9 Umbilical hernia without obstruction or gangrene (principal)
CPT/HCPCS: 99214

== ENCOUNTER → 2025-04-19 08:38 | Outpatient (BNVA) | payer MEDICARE, SELFPAY | DX: Z98.890 Other specified postprocedural states (principal) | CPT/HCPCS: 99212 ==

== ENCOUNTER 2025-04-25 07:55 | Outpatient (REF) | payer MEDICARE, SELFPAY ==
--- OUTSIDE RECORDS SUMMARY | 2025-04-25 07:59 | XMS_ITS | Clinical Summary ---
Author Organization Formerly [facility] Address [address] [place] [address] Care Team Providers Care Wool Washing Machine Operator Name Role Phone Ibrahima Colon MD Primary Care Provider [phone] Addi Rico MD Unavailable [phone] Allergies Active Allergy Reactions Criticality Noted [...] Description 03/07/2025 1:00 PM EDT Office Visit [facility] [address] [place] [address] Addi Rico MD Pararenal abdominal aortic aneurysm (AAA) without rupture (Primary Dx) 03/07/2025 10:34 AM EDT - 03/07/2025 11:59 PM EDT Hospital Encounter [facility] [address] [place] [address], [place] [address] Addi Rico MD Discharge Disposition: Home or Self Care 02/25/2025 Scanned Document [facility] [address] [place] [address] Addi Rico MD from Last 3 Months [...] this topic Medical Devices Implanted Type Area Cupola Melter Device Identifier Shelf Expiration Date Model / Serial / Lot [id number] Graft Endovascular 56mm 20mm 6mm 16fr Znth Sprlz 2 Brch Ntnl - [id number] Implanted:Qty: 1 on 06/11/2019 by Addi Rico MD at [facility] Graft N/A: Aorta [employer] [id number] 08/26/2021 [id number] / / [id number] Graft Endovascular 124mm 30mm H&L-B One-Shot Znth Poly Wvn 2 - [id number] Implanted:Qty: 1 on 06/11/2019 by Addi Rico MD at [facility] Stent N/A: Aorta [employer] 05/12/2022 [id number] / / [id number] Stent Vascular 7mm 26mm 80cm Balloon Expandable Lopro Cover - [id number] Implanted:Qty: 1 on 06/11/2019 by Addi Rico MD at [facility] Stent N/A: Aorta [employer] - [id number] 11/22/2021 [id number] / / [id number] Description:SMA Stent [id number] Stent Tracheobronchial 6mm 6fr 22mm 120cm Cover Catheter - [id number] Implanted:Qty: 1 on 06/11/2019 by Addi Rico MD at [facility] Stent N/A: Aorta [employer] [id number] 12/02/2021 [id number] / [id number] Description:Right Renal Sandra ry [id number] Stent Vascular 7mm 26mm 80cm Balloon Expandable Lopro Cover - [id number] Implanted:Qty: 1 on 06/11/2019 by Addi Rico MD at [facility] Stent N/A: Aorta [employer] - [id number] 04/24/2021 [id number] / / [id number] Description:Left Renal Arter y [id number] Graft Endovascular 106mm 12mm H[employer] One-Shot Znth 2 Brch - [id number] Implanted:Qty: 1 on 06/11/2019 by Addi Rico MD at [facility] Stent N/A: Aorta [employer] [id number] 05/12/2022 [id number] / / [id number] Graft Endovascular 56mm 16mm 5.4mm 14fr Znth Sprlz 2 Brch - [id number] Implanted:Qty: 1 on 06/11/2019 by Addi Rico MD at [facility] Stent N/A: Aorta [employer] [id number] 02/09/2022 [id number] / / [id number] Stent Vascular 7mm 16mm 80cm Balloon Expandable Lopro Cover - [id number] Implanted:Qty: 1 on 06/13/2019 by Addi Rico MD at [facility] Stent Left: Arterial [employer] - [id number] 02/23/2020 [id number] 716 / / [id number] Stent Tracheobronchial 7mm 7fr 22mm 120cm Cover Catheter - [id number] Implanted:Qty: 1 on 06/13/2019 by Addi Rico MD at [facility] Stent [employer] [id number] / [id number] / Description:no sticker provi ded. [id number] Gold Markers 24k - [id number] Implanted:Qty: 8 on 06/11/2019 by Addi Rico MD at [facility] Tissue N/A: Aorta [facility] [id number] / / Description:On Aortic Stent Graft Procedures [...] abdominal aortic aneurysm DESCRIPTION: Initial noncontrast localizing small brake form operator images were obtained. A timing bolus at [...] abdominal aortic aneurysm DESCRIPTION: Initial noncontrast localizing small brake form operator images were obtained. A timing bolus at [...] Months Insurance [employer] MEDICARE [facility] ACTIVE DUTY Advance Directives * Full Code (Latest Code Status on File) Date Activated Date Inactivated Comments 06/11/2019 1:29 PM Care Teams Wool Washing Machine Operator Relationship Specialty Start Date End Date Ibrahima Colon MD [address] [place] [address] PCP - General 03/13/18 Addi Rico MD [address] [place] [address] Surgeon Surgery, Vascular 05/14/18
--- OUTSIDE RECORDS SUMMARY | 2025-04-25 07:59 | XMS_ITS | Encounter Summary ---
Author Organization [facility] Address [address] [place] [address] Phone Care Team Providers Care Services Tech Name Role Phone Ibrahima Colon MD Primary Care Provider + Encounter Details Date Type Department Care Team (Latest Contact Info) Description 06/05/2018 Ancillary Orders [facility] [address] [facility] 3rd Floor, [address] [place] [address] Renaldo Patricia MD [address] [place] [id number] [email or web address] Hyperlipidemia, unspecified hyperlipidemia type; Hypertension, unspecified [...] EKG reviewed with Dr. Olivares. Codi Whitfield, FINE WIRE DRAWER, MPH . Perfusion Comments Lung to heart [...] type documented in this encounter Care Teams Services Tech Relationship Specialty Start Date End Date Ibrahima Colon MD PCP - General Internal Medicine 05/12/18 documented as of this encounter Additional Source Comments The information contained in this document represents components of the legal health record. It is not the complete legal health record.[facility]
--- OUTSIDE RECORDS SUMMARY | 2025-04-25 07:59 | XMS_ITS | Encounter Summary ---
Author Organization [facility] Address [address] [place] [address] Phone Care Team Providers Care Oracle Reports Developer Name Role Phone Ibrahima Colon MD Primary Care Provider + Encounter Details Date Type Department Care Team (Late st Contact Info) Description 06/05/2018 Ancillary Orders [facility] [address] [place] [address] 3rd Floor, [address] [place] [address] Renaldo Patricia MD [address] [place] [address] JUAN Social History Tobacco Use Types Packs/Day [...] on filedocumented in this encounter Care Teams Oracle Reports Developer Relationship Specialty Start Date End Date Ibrahima Colon MD PCP - General Internal Medicine 05/12/18 documented as of this encounter Additional Source Comments The information contained in this document represents components of the legal health record. It is not the complete legal health record.[facility]
--- OUTSIDE RECORDS SUMMARY | 2025-04-25 07:59 | XMS_ITS | Encounter Summary ---
Author Organization Formerly [facility] Address [address] [place] [address] Care Team Providers Care Precision Millwright Name Role Phone Ibrahima Colon MD Primary Care Provider [phone] Addi Rico MD Unavailable [phone] Encounter Details Date Type Department Care Team (Late st Contact Info) Description 02/25/2025 Scanned Document [facility] [address] [place] [address] Addi Rico MD [address] [place] [address] Social History Tobacco Use Types Packs/Day Years [...] on filedocumented in this encounter Care Teams Precision Millwright Relationship Specialty Start Date End Date Ibrahima Colon MD [address] [place] [address] PCP - General 03/13/18 Addi Rico MD [address] [place] [address] Surgeon Surgery, Vascular 05/14/18 documented as of this encounter
--- OUTSIDE RECORDS SUMMARY | 2025-04-25 07:59 | XMS_ITS | Clinical Summary ---
Author Organization [facility] Address [address] [address] Phone Care Team Providers Care Division Operations Specialist Name Role Phone Ibrahima Colon MD Primary [...] James Payer ID:Not on file Type:Medicare Address: [address] [employer] POS PPO REPLACEMENT [facility] Member Subscriber Plan / Payer (Ef fective 2019-Present) Name:Davon James Relation to Subscriber:Self Name:Erika Davon Payer ID:[id number] (NAIC) Group ID:Not on file Type:Indemnity Address: [facility] [id number] [place] [id number] [employer] MED[employer] POS PPO REPLACEMENT [facility] [employer] [place] [employer] POS PPO REPLACEMENT [facility] [employer] [place] [employer] POS PPO REPLACEMENT [facility] [employer] [place] [employer] POS PPO REPLACEMENT [facility] [employer] [place] [employer] POS PPO REPLACEMENT [facility] [employer] POS PPO REPLACEMENT Member Subscriber Plan / Payer (Ef fective 2017-Present) Name:Davon James Relation to Subscriber:Self Name:Davon James Payer ID:Not on file Type:Medicare Address: [address] [employer] POS PPO REPLACEMENT Member Subscriber Plan / Payer (Ef fective 2017-Present) Name:Davon James Relation to Subscriber:Self Name:Davon James Payer ID:Not on file Type:Medicare Address: [address] Care Teams Division Operations Specialist Relationship Specialty Start Date End Date Ibrahima Colon MD PCP - General Internal Medicine 05/12/18 Additional Source Comments The information contained in this document represents components of the legal health record. It is not the complete legal health record.[facility]
--- OUTSIDE RECORDS SUMMARY | 2025-04-25 07:59 | XMS_ITS | Encounter Summary ---
Author Organization [facility] Address [address] [place] [address] Phone Care Team Providers Care Motorcycle Mechanic Name Role Phone Ibrahima Colon MD Primary Care Provider + Encounter Details Date Type Department Care Team (Latest Contact Info) Description 05/06/2019 Transcribe Orders [facility] [address] [place] [address] 3rd Floor, [address] [place] [address] Renaldo Patricia MD [address] [place] [address] [email or web address] Abdominal aortic aneurysm (AAA) [...] in SPECT format, reconstructed tomographically and compared [id number] in short axis, horizontal long axis and [...] examination documented in this encounter Care Teams Motorcycle Mechanic Relationship Specialty Start Date End Date Ibrahima Colon MD PCP - General Internal Medicine 05/12/18 documented as of this encounter Additional Source Comments The information contained in this document represents components of the legal health record. It is not the complete legal health record.[facility]
--- OUTSIDE RECORDS SUMMARY | 2025-04-25 07:59 | XMS_ITS | Encounter Summary ---
Author Organization [facility] Address [address] [place] [address] Phone Care Team Providers Care Educational Audiologist Name Role Phone Ibrahima Colon MD Primary Care Provider + Encounter Details Date Type Department Care Team (Late st Contact Info) Description 06/05/2018 Ancillary Orders [facility] [address] [place] [address] 3rd Floor, [address] [place] [address] Renaldo Patricia MD [address] [place] [address] JUAN Social History Tobacco Use Types Packs/Day [...] on filedocumented in this encounter Care Teams Educational Audiologist Relationship Specialty Start Date End Date Ibrahima Colon MD PCP - General Internal Medicine 05/12/18 documented as of this encounter Additional Source Comments The information contained in this document represents components of the legal health record. It is not the complete legal health record.[facility]
[2025-04-25 10:14] LABS: Appearance Urine Clear; Glucose Urine UA Negative (Negative); PH 5.5 (5.0-9.0); Specific Gravity - Urine 1.020 (1.005-1.025)
[2025-04-25 10:32] LABS: MANUAL DIFF FLAG NO
[2025-04-25 10:39] LABS: Hematocrit 44.7 % (42.0-52.0); Hemoglobin 14.8 g/dl (14.0-18.0); Imm Gran Abs Auto 0.02 X10*3/uL (0.00-0.03); Imm Gran Pct Auto 0.3 % (0.0-0.4); Lymphocytes Absolute Auto 1.5 X10*3/uL (1.2-4.9); Mean Corpuscular HGB Conc 33.1 g/dl (31.0-36.0); Mean Corpuscular Hemoglobin 30.6 pg (27.0-33.0); Mean Corpuscular Volume 92.5 fL (80.0-98.0); NRBC Abs Auto 0.000 X10*3/uL (0.0-0.012); NRBC Pct Auto 0.0 /100WBC (0.0-0.2); Platelet Count 187 X10*3/uL (160-400); Red Blood Count 4.83 X10*6/uL (4.60-5.80); White Blood Count 7.5 X10*3/uL (4.8-10.8)
[2025-04-25 11:43] LABS: Alanine Aminotransferase 29 U/L (0-40); Albumin Level 4.5 g/dL (3.5-5.0); Alkaline Phosphatase 60 U/L (39-117); Anion Gap 12 (12-20); Aspartate Amino Transferase 35 U/L (5-37); Blood Urea Nitrogen 19 mg/dL (9-16); Calcium 9.4 mg/dL (8.4-10.2); Carbon Dioxide 26 mmol/L (22-29); Chloride 108 mmol/L (96-108); Cholesterol 163 mg/dL (<200); Estimated Glomerular Filt Rate > 60; HDL Cholesterol 44 mg/dL (>40); Potassium 3.8 mmol/L (3.3-5.1); Sodium 142 mmol/L (135-145); Total Protein 7.3 g/dL (6.5-8.0); Triglycerides 79 mg/dL (<150)
== END 2025-04-25 07:56 | disposition home or self-care (01) ==
LOC: HO.HMGCLDS 07:55
DX: E66.811 Obesity, class 1 (principal); E78.00 Pure hypercholesterolemia, unspecified; I10 Essential (primary) hypertension; R31.9 Hematuria, unspecified; R74.01 Elevation of levels of liver transaminase levels; Z68.31 Body mass index [BMI] 31.0-31.9, adult
CPT/HCPCS: 36415; 80053; 80061; 81003; 82306; 84443; 85025

== ENCOUNTER 2025-04-29 11:20 | Outpatient (REF) | payer MEDICARE, SELFPAY ==
[2025-05-04 17:59] LABS: Kappa, Serum 295 mg/dL (176-443); Kappa/Lambda Ratio, Serum 1.77 (1.29-2.55); Lambda, Serum 167 mg/dL (91-240)
== END 2025-04-29 11:21 | disposition home or self-care (01) ==
LOC: HO.HMGCLDS 11:20
PROVIDERS: Visit Provider Physician Assistant
DX: R94.31 Abnormal electrocardiogram [ECG] [EKG] (principal)
CPT/HCPCS: 82784; 83883; 86334; 86335

== ENCOUNTER 2025-05-03 09:18 | Outpatient (AMB) | payer MEDICARE, SELFPAY ==
--- NOTE | 2025-05-03 09:20 | MHC.OFFVIS ---
Vital Signs 05/03/25 09:22 Height 6 ft 1 in Weight 242 lb 8.136 oz BMI 32.0 BP 170/68 H Blood Pressure Location Lt brachial Position Sitting Respiration 18 Pulse 58 Pulse Source Pulse Oximeter Temp 97.2 F Temp Source Temporal Artery Scan Pulse Oximetry (%) 93 Oxygen Delivery Method Room Air Intake Visit Reasons: 2wk follow up s/p umbilical hernia poss mesh Financial Engineer Required: No Accompanied by: Self / Same As Patient Allergies triamterene Allergy (Verified 05/03/25 09:25) Swelling (triamterene w/HCTZ) amlodipine Adverse Reaction (Intermediate, Verified 05/03/25 09:25) Swelling HPI HPI 2wk follow up s/p umbilical hernia poss mesh: Details: Doing well overall. No concerns. States that occasionally he gets pain for a minute or less from the incision site but is not bothersome to him. He has not been doing any warm compress but states that the area swelling is improving from my side. [facility] Medical History CAD (coronary artery disease) Isolated tremor of head COPD (chronic obstructive pulmonary disease) AAA (abdominal aortic aneurysm) PATRICIA (obstructive sleep apnea) Hyperlipidemia Obesity Osteoarthritis Hypertension Surgical History History of umbilical hernia repair (03/25/25) History of cataract surgery History of AAA (abdominal aortic aneurysm) repair Status post left hip replacement History of coronary artery stent placement History of inguinal hernia repair Family History Father Liver problem Mother Brain tumor Brother No problems noted. Brother No problems noted. Family/Other Prostate cancer Brain cancer Social History Housing: House Alcohol intake: never Patient Tobacco Use Status: Former Tobacco user Tobacco use type: Cigarette e-Cigarette/Vaping Use: Never Used Second Hand Smoke Exposure: No service: Yes Current occupational status: retired Cognitive needs: No Hearing needs: Yes Vision needs: Yes (Reading glasses) Physical Exam Vital Signs: Last Vital Signs Temp 97.2 F 05/03/25 09:22 Pulse 58 05/03/25 09:22 Resp 18 05/03/25 09:22 BP 170/68 H 05/03/25 09:22 Pulse Ox 93 05/03/25 09:22 Oxygen Delivery Method Room Air 05/03/25 09:22 BMI result Body Mass Index 32.0 Const General: comfortable and no acute distress Orientation/consciousness: patient oriented x3 Resp Effort & Inspection: normal respiratory effort and able to speak in complete sentences GI Other: Well healed umbilical hernia incision site. No evidence of infection. No recurrence on Valsalva Neuro General: patient oriented x3 Assessment & Plan Assessment & Plan (1) S/P umbilical hernia repair, follow-up exam: Comment: 03/25/2025 Dr. Cavanaugh Phasix mesh Code(s): Z09 - Encounter for follow-up examination after completed treatment for conditions other than malignant neoplasm Category: Surgical Plan 79-year-old male s/p umbilical hernia repair with Phasix mesh on 03/25/[address] Cavanaugh returning for follow-up. He reports he is overall doing well. Denies pain at rest, occasionally gets pain when moving around for about a minute or less from the incision site, states this is not too bothersome for him. Reassured him in this is appropriate should improve 1 2 months. He has been avoiding heavy lifting. Appetite bowel function at baseline. No problems with urination. This small area of inflammation seen at the incision site from last visit has improved without any intervention for the patient home although and recommended warm compresses. He denies any drainage from the site, denies tenderness. There is no erythema or bleeding noted. On exam there is some mild induration deep to the incision which is likely postsurgical changes, there is no palpable fluid collection. No concerns for infection. Incision appears to be healing well. Abdomen is otherwise soft and benign, there was no evidence of hernia recurrence on Valsalva. Again recommended do warm compress to 3 times a day to help soften this area if he wants to speed this process of wound healing if this is bothersome to him. He is okay to resume activity as tolerated, recommend inserting so has been about a month and a half since his procedure. Recommended starting at half of his normal level activity and working back towards this over time. He is agreeable this plan. Mg follow-up and follow-up as needed with any concerns the future if Coding Level of Care Code Est Pt Level 3 (03366) Diagnoses S/P umbilical hernia repair, follow-up exam Z09
[2025-05-03 09:22] VITALS: BP 170/68; PULSE 58; RESP 18; TEMP 36.2; O2SAT 93; BMI 32.0
== END 2025-05-03 10:10 | disposition home or self-care (01) ==
LOC: HO.HGS 09:19
DX: Z09 Encounter for follow-up examination after completed treatment for conditions other than malignant neoplasm (principal)
CPT/HCPCS: 99213

== ENCOUNTER → 2025-05-03 09:18 | Outpatient (BNVA) | payer MEDICARE, SELFPAY | DX: Z09 Encounter for follow-up examination after completed treatment for conditions other than malignant neoplasm (principal); Z98.890 Other specified postprocedural states; Z87.19 Personal history of other diseases of the digestive system | CPT/HCPCS: 99212 ==

== ENCOUNTER 2025-05-06 08:19 | Outpatient (AMB) | payer MEDICARE, SELFPAY ==
--- NOTE | 2025-05-06 08:27 | A.OFFPC_ITS ---
Vital Signs 05/06/25 08:28 Height 6 ft 1 in Weight 241 lb 6 oz BMI 31.8 BP 132/78 Blood Pressure Location Lt brachial Position Sitting Pulse 58 Pulse Source Pulse Oximeter Temp 97.1 F Temp Source Temporal Artery Scan Pulse Oximetry (%) 92 Oxygen Delivery Method Room Air Intake Visit Reasons: htn/hld/elevated AST Intake Note: Patient is here to follow up on HTN, HLD, Elevated AST. 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: Not Required per policy Accompanied by: Self / Same As Patient Allergies triamterene Allergy (Verified 05/06/25 08:35) Swelling (triamterene w/HCTZ) amlodipine Adverse Reaction (Intermediate, Verified 05/06/25 08:35) Swelling Medication List - Last Reconciled 05/06/25 by JOHNY Staton acetaminophen 1,000 mg PO Q6H PRN aspirin 81 mg PO DAILY hydrochlorothiazide 25 mg PO DAILY ipratropium-albuterol 20-100 mcg/actuation (Combivent Respimat) 1 puff inhalation Q6H PRN lisinopril 20 mg PO DAILY metoprolol tartrate 25 mg PO BID pravastatin 40 mg PO BEDTIME Tobacco use date assessed: 05/06/25 Fall risk assessment: No Falls in past year Last assessed Fall Risk: 05/06/25 Dental Screening Dental Screen Date: 12/24/24 HPI HPI Comments History of Present Illness Details The patient is a 79 year old male presenting for follow-up and management of chronic conditions. He follows up with a toll line repairer who recently reduced his metoprolol dose to 25 mg because it was slowing his heart rate too much. The patient is scheduled for a follow-up EKG with his toll line repairer to assess the effect of the medication change. His heart rate was noted to be 54 bpm during this visit. Regarding his cholesterol, his last measurement was 80, but it has now increased to 104. He is currently taking pravastatin 40 mg. He acknowledges his diet includes fried foods, red meat, shellfish, and dairy products. The patient's recent lab results show that his liver enzymes, which were previously elevated, have now returned to normal. He attributes the prior elevation to taking about 2000 mg of acetaminophen daily, which he has since discontinued. His complete blood count and kidney function were normal. The patient reports occasional shortness of breath and feeling a little stuffed up. [facility] not [facility]. Health Maintenance - Diet: Advised to cut back on high-chol esterol foods such as fried foods, red meat, and shellfish and to practice portion control. Social History - Diet: Patient reports eating fried wood ds, red meat, shellfish, and dairy products. - Medication Access: The patient obtains his medications through the [facility], as his insurance does not provide prescription coverage. Results - Comprehensive Metabolic Panel: Kidney function is normal. AST has normalized. - Complete Blood Count: Normal. - Lipid Panel: Cholesterol is 104, incre ased from a previous level of 80. [facility] Medical History CAD (coronary artery disease) Isolated tremor of head COPD (chronic obstructive pulmonary disease) AAA (abdominal aortic aneurysm) PATRICIA (obstructive sleep apnea) Hyperlipidemia Obesity Osteoarthritis Hypertension Surgical History History of umbilical hernia repair (03/25/25) History of cataract surgery History of AAA (abdominal aortic aneurysm) repair Status post left hip replacement History of coronary artery stent placement History of inguinal hernia repair Family History Father Liver problem Mother Brain tumor Brother No problems noted. Brother No problems noted. Family/Other Prostate cancer Brain cancer Social History Housing: House Alcohol intake: never Patient Tobacco Use Status: Former Tobacco user Tobacco use type: Cigarette e-Cigarette/Vaping Use: Never Used Second Hand Smoke Exposure: Yes service: Yes Current occupational status: retired Cognitive needs: No Hearing needs: Yes Vision needs: Yes (Reading glasses) Questionnaire PHQ-9 Over the last 2 weeks, how often have you been bothered by any of the following problems? Depression Screening Interpretation: Negative Depression Screening Done: Yes Source: Developed by Drs. Hemant Brown, Haley Salmeron, Kenan Arshad and colleagues, with an educational eliot from [email or web address]. Thrive Questionnaire Date Thrive assessed: 12/24/24 I am a: Patient What is your living situation today?: I have a steady place to live Within the past 12 months, did the food you bought not last and you didn't have the money to get more?: Never true Within the past 12 months, did you worry whether your food would run out before you got money to buy more?: Never true Do you have trouble paying for medicines?: No Do you have trouble getting transportation to medical appointments?: No Do you have trouble paying your heating and electricity bill?: No Do you have trouble taking care of your child, family member or friend?: No Do you have trouble with day-to-day activities such as bathing, preparing meals, shopping, managing finances, etc.?: No Are you currently unemployed and looking for a job?: No Are you interested in more education?: No Please select the resources that you would like help with: None Currently or been in a relationship where the following occur: No concerns reported THRIVE Score: 0 PANKAJ-7 AMB Questionnaire PANKAJ-7 Date PANKAJ - 7 assessed: 12/24/24 Source: Developed by Drs. Hemant Brown, Haley Salmeron, Kenan rAshad and colleagues, with an educational eliot from [email or web address]. Review of Systems Narrative Review of Systems - Constitutional: Denies feeling unwell. - Respiratory: Reports occasional dyspnea and nasal congestion. - GI: Reports his stomach is doing well. Const Denies headache(s) Eyes Denies loss of vision ENT Denies vertigo, Denies dizziness, Denies headache(s) and Denies sore throat Card Denies chest pain, Denies leg edema and Denies lightheadedness Resp Denies cough, Denies hemoptysis and Denies wheezing GI Denies abdominal pain, Denies melena, Denies constipation, Denies diarrhea, D enies vomiting and Reports other (Umbilical hernia) Denies dysuria, Denies urinary frequency and Denies urinary urgency Musc Denies arthralgias, Denies joint swelling, Denies numbness and Denies tingling Neuro Denies Abnormal speech present, Denies behavioral changes, Denies vertigo, Denies dizziness, Denies headache(s), Denies loss of vision, Denies memory loss, Denies numbness, Denies tingling and Reports tremor(s) (head) Psych Denies anxiety, Denies behavioral changes, Denies depression, Denies memory loss and Denies panic attacks Gerson/Lymph Denies easy bleeding and Denies easy bruising Aller/Immun Denies wheezing Physical exam (Primary Care) Vital Signs: Last Vital Signs Temp 97.1 F 05/06/25 08:28 Pulse 58 05/06/25 08:28 BP 132/78 05/06/25 08:28 Pulse Ox 91 L 05/06/25 08:28 Oxygen Delivery Method Room Air 05/06/25 08:28 BMI result Body Mass Index 31.8 Tobacco/Smoking Status: Tobacco use Status Tobacco use date assessed 05/06/25 05/06/25 08:34 Patient Tobacco Use Status Former Tobacco user 05/06/25 08:34 Tobacco use type Cigarette 05/06/25 08:34 e-Cigarette/Vaping Use Never Used 05/06/25 08:34 Depression Screening Interpretation: Negative Thrive Assessment: Date of Thrive Assessment Date Thrive assessed 12/24/24 05/06/25 08:34 Currently or been in a relationship where the following occur: No concerns reported Narrative Physical Exam - Vitals: Oxygen saturation is 92%. Heart rate is 54 bpm. - Respiratory: Lungs are clear to auscultation bilaterally. Const General: healthy appearing, no acute distress, alert and awake Nutritional Appearance: well nourished Orientation/consciousness: oriented to person, oriented to place and oriented to time HENMT Ears: TM's normal bilaterally General nose exam: Normal nasal mucous membranes and turbinates present Eyes Conjunctivae: conjunctivae normal Sclerae: sclerae normal Pupils: Equal, round and reactive pupils present EOM: No Nystagmus present Neck Neck: Yes no lymphadenopathy and Yes no JVD Thyroid: Thyroid normal Carotids: no bruits Resp Effort & Inspection: normal respiratory effort and not tachypneic Auscultation: no crackles, no rales, no rhonchi and no wheezes Cardio Rate: regular rate Rhythm: regular rhythm Heart sounds: S1 normal heart sound present, S2 normal heart sound present, no murmurs and normal S1 and S2 GI Palpation (GI): Soft to palpation, nontender, no hepatomegaly, no splenomegaly and Hernia present (periumbilical) Auscultation: normal bowel sounds General: Yes no CVA tenderness Back/Spine/Pelvis Back: no CVA tenderness Skin General skin exam: no rashes or lesions noted and dry skin Neuro General: oriented to person, oriented to place and oriented to time Cranial nerves: Yes Equal, round and reactive pupils present and No Nystagmus present Speech: No Abnormal speech present Gait exam (Neuro): Normal gait present, not ataxic and Assisted gait required (cane) Motor exam (neuro): 5/5 motor strength present throughout and Tremors during motor activity present (head) Extrem Right upper extremity: full ROM Left upper extremity: full ROM Right lower extremity: full ROM; no edema Left lower extremity: full ROM; no edema Psych Mental Status: mental status grossly normal Speech and movement: Normal speech and movement present Affect: normal affect Attitude: cooperative Thought process: Normal thought process present Results Reviewed Results Reviewed: Laboratory Tests 04/25/25 04/25/25 08:07 08:15 WBC 7.5 RBC 4.83 Hgb 14.8 Hct 44.7 MCV 92.5 MCH 30.6 MCHC 33.1 RDW 15.0 Plt Count 187 Sodium 142 Potassium 3.8 Chloride 108 Carbon Dioxide 26 Anion Gap 12 BUN 19 H Creatinine 0.96 Estimated GFR > 60 Fasting Glucose 97 Calcium 9.4 Total Bilirubin 0.6 AST 35 ALT 29 Alkaline Phosphatase 60 Total Protein 7.3 Albumin 4.5 Triglycerides 79 Cholesterol 163 LDL Cholesterol, Calc 104 H HDL Cholesterol 44 25-OH Vitamin D Total 63.4 TSH 2.27 Urine Color Yellow Urine Appearance Clear Urine pH 5.5 Ur Specific [place] 1.020 Urine Protein Negative Urine Glucose (UA) Negative Urine Ketones Negative Urine Blood Negative Urine Nitrite Negative Ur Leukocyte Esterase Negative Coding Level of Care Code Est Pt Level 4 (81618) Diagnoses Hypertension, unspecified type I10 Hypertension type: unspecified Pure hypercholesterolemia E78.00 Hyperlipidemia type: pure hypercholesterolemia Class 1 obesity without serious comorbidity with body mass index (BMI) of 31.0 to 31.9 in adult, unspecified obesity type E66.811; Z68.31 Body mass index: BMI 31.0-31.9 Obesity classification: adult class 1 (BMI 30 - 34.9) Obesity type: unspecified obesity type Serious obesity comorbidity presence: without serious comorbidity Elevated AST (SGOT) R74.01 Umbilical hernia without obstruction and without gangrene K42.9 Obstruction and gangrene presence: without obstruction or gangrene Isolated tremor of head G25.2 Dyspnea, unspecified type R06.00 Dyspnea type: unspecified Time Spent (min) 38 Assessment & Plan Assessment & Plan (1) Hypertension: Code(s): I10 - Essential (primary) hypertension Category: Medical Qualifiers: Hypertension type: unspecified Qualified Code(s): I10 - Essential (primary) hypertension Plan: The patient blood pressure was 132/78; above goal; reports drinking coffee prior to visit Patient reports compliance with medication Reinforced DASH diet Continue hydrochlorothiazide 25 mg daily, lisinopril 20 mg daily, metoprolol tartrate was decreased to 25 mg b.i.d. b.y his toll line repairer due to low heart rate. He has a follow-up EKG scheduled with cardiology to monitor the effects of this change. (2) Hyperlipidemia: Code(s): E78.5 - Hyperlipidemia, unspecified Category: Medical Qualifiers: Hyperlipidemia type: pure hypercholesterolemia Qualified Code(s): E78.00 - Pure hypercholesterolemia, unspecified Plan: LDL increased from 80 to 104 mg/dL. The patient's cholesterol has risen from 80 to 104. He was counseled on dietary modifications, including reducing intake of high-cholesterol foods like fried items, red meat, and shellfish. Due to prescription coverage issues through his insurance, he will be advised to discuss increasing his [facility] dose with [facility] Reinforced low-cholesterol diet Continue pravastatin 40 mg daily We will recheck lipid panel in 4 months (3) Obesity: Code(s): E66.9 - Obesity, unspecified Category: Medical Qualifiers: Body mass index: BMI 31.0-31.9 Obesity classification: adult class 1 (BMI 30 - 34.9) Obesity type: unspecified obesity type Serious obesity comorbidity presence: without serious comorbidity Qualified Code(s): E66.811 - Obesity, class 1; Z68.31 - Body mass index [BMI] 31.0-31.9, adult Plan: Encouraged diet and exercise as tolerated to lose weight (4) Elevated AST (SGOT): Code(s): R74.01 - Elevation of levels of liver transaminase levels Category: Medical Plan: Liver enzymes normalized Patient reports cutting down on his Tylenol intake from 2000 mg a day to 500 mg Encouraged decreasing fatty foods as well We will continue to monitor (5) Umbilical hernia: Code(s): K42.9 - Umbilical hernia without obstruction or gangrene Category: Medical Qualifiers: Obstruction and gangrene presence: without obstruction or gangrene Qualified Code(s): K42.9 - Umbilical hernia without obstruction or gangrene Plan: Complain of abdominal hernia upon meeting patient the 1st time. An abdominal ultrasound was done to further evaluate that shows a small Periumbilical hernia. The patient was referred to General surgery. He had Repair of umbilical hernia with a medium-sized Phasix umbilical mesh and had his last post op follow up with general surgery on 05/03/25 (6) Isolated tremor of head: Code(s): G25.2 - Other specified forms of tremor Category: Medical Plan: Head tremors with no functional impairment. NO evidence of Parkinson's. He was evaluated by Neurology, who recommended no pharmacological treatment or further investigations and for the patient to follow up as needed for any new symptoms or worsening of his tremors. We will continue to monitor. (7) Dyspnea: Code(s): R06.00 - Dyspnea, unspecified Category: Medical Qualifiers: Dyspnea type: unspecified Qualified Code(s): R06.00 - Dyspnea, unspecified Plan: The patient reports intermittent shortness of breath. A BNP lab test was not part of the patient recent labs but he has an upcoming about with [facility] and will be getting labs done. He was instructed to ask the provided to check his BNP and also to get a printout of his blood work, so the same labs are not being repeated to frequently. Orders: Orders NT Pro B Type Natriuretic Pept 3 Months E66.811 - Obesity, class 1, E78.00 - Pure hypercholesterolemia, unspecified, I10 - Essential (primary) hypertension, K42.9 - Umbilical hernia without obstruction or gangrene, R74.01 - Elevation of levels of liver transaminase levels, Z09 - Encounter for follow-up examination after completed treatment for conditions other than malignant neoplasm, Z68.31 - Body mass index [BMI] 31.0-31.9, adult TSH reflex Free T4 3 Months E66.811 - Obesity, class 1, E78.00 - Pure hypercholesterolemia, unspecified, I10 - Essential (primary) hypertension, K42.9 - Umbilical hernia without obstruction or gangrene, R74.01 - Elevation of levels of liver transaminase levels, Z09 - Encounter for follow-up examination after completed treatment for conditions other than malignant neoplasm, Z68.31 - Body mass index [BMI] 31.0-31.9, adult UA CC w/rflx Micro + Cult 3 Months E66.811 - Obesity, class 1, E78.00 - Pure hypercholesterolemia, unspecified, I10 - Essential (primary) hypertension, K42.9 - Umbilical hernia without obstruction or gangrene, R74.01 - Elevation of levels of liver transaminase levels, Z09 - Encounter for follow-up examination after completed treatment for conditions other than malignant neoplasm, Z68.31 - Body mass index [BMI] 31.0-31.9, adult Vitamin D 25-OH Total 3 Months E66.811 - Obesity, class 1, E78.00 - Pure hypercholesterolemia, unspecified, I10 - Essential (primary) hypertension, K42.9 - Umbilical hernia without obstruction or gangrene, R74.01 - Elevation of levels of liver transaminase levels, Z09 - Encounter for follow-up examination after completed treatment for conditions other than malignant neoplasm, Z68.31 - Body mass index [BMI] 31.0-31.9, adult Lipid Panel 3 Months E66.811 - Obesity, class 1, E78.00 - Pure hypercholesterolemia, unspecified, I10 - Essential (primary) hypertension, K42.9 - Umbilical hernia without obstruction or gangrene, R74.01 - Elevation of levels of liver transaminase levels, Z09 - Encounter for follow-up examination after completed treatment for conditions other than malignant neoplasm, Z68.31 - Body mass index [BMI] 31.0-31.9, adult Comprehensive [place]. Panel Fast 3 Months E66.811 - Obesity, class 1, E78.00 - Pure hypercholesterolemia, unspecified, I10 - Essential (primary) hypertension, K42.9 - Umbilical hernia without obstruction or gangrene, R74.01 - Elevation of levels of liver transaminase levels, Z09 - Encounter for follow-up examination after completed treatment for conditions other than malignant neoplasm, Z68.31 - Body mass index [BMI] 31.0-31.9, adult Medications: Refilled hydrochlorothiazide 25 mg PO DAILY 30 tabs 3RF I10 - Essential (primary) hypertension
[2025-05-06 08:28] VITALS: BP 132/78; PULSE 58; TEMP 36.2; O2SAT 92; BMI 31.8
== END 2025-05-06 09:10 | disposition home or self-care (01) ==
LOC: HO.HMCH 08:20
DX: I10 Essential (primary) hypertension (principal); E78.00 Pure hypercholesterolemia, unspecified; E66.811 Obesity, class 1; Z68.31 Body mass index [BMI] 31.0-31.9, adult; R74.01 Elevation of levels of liver transaminase levels; K42.9 Umbilical hernia without obstruction or gangrene; G25.2 Other specified forms of tremor; R06.00 Dyspnea, unspecified

== ENCOUNTER → 2025-05-06 08:19 | Outpatient (BNVA) | payer MEDICARE, SELFPAY | DX: I10 Essential (primary) hypertension (principal); E78.00 Pure hypercholesterolemia, unspecified; E66.811 Obesity, class 1; R74.01 Elevation of levels of liver transaminase levels; K42.9 Umbilical hernia without obstruction or gangrene; G25.2 Other specified forms of tremor; R06.00 Dyspnea, unspecified; Z68.31 Body mass index [BMI] 31.0-31.9, adult | CPT/HCPCS: 99212 ==